=== PATIENT | female | born 1945 | race Hispanic/Latino ===

== ENCOUNTER 2017-12-10 21:04 | Emergency (ER) | payer MEDICARE ==
[~2017-12-10] VITALS: Ht 149.9 cm; Wt 103.9 kg
[~2017-12-10 21:04] MED LIST: FLUTICASONE PRO16 GM; LEVAQUIN500 MG PO; METFORMIN HCL500 MG PO; METRONIDAZOLE500 MG PO; NITROGLYCERIN0.4 MG SL; OMEPRAZOLE40 MG PO; PRAVASTATIN SOD10 MG PO; SIMVASTATIN40 MG PO; VITAMIN D1000 UNI1 PO
--- OUTSIDE RECORDS SUMMARY | 2017-12-10 21:06 | XMS REPORT ---
Author Author [facility] Address Unknown Phone Unavailable Care Team Providers Care Lines Tender Name Role Phone JOSE A MA Unavailable Unavailable Problems This patient has no known problems. Allergies, Adverse Reactions, Alerts This patient has no known allergies or adverse reactions. Medications This patient has no known medications. Results Test Description Test Time Test Comments Text Results Atomic Results Result Comments CHEST 2 VIEWS [place] [address] Patient Name: CEDRICK HOLT MR #: [id number] : 1945 Age/Sex: 72/F Req # : [id number] Adm Physician: Ordered by: JOSE A MA MD Report #: [id number] Location: ER Room/Bed: Procedure: [id number] DX/CHEST 2 VIEWS Exam Date: 09/23/17 Exam Time: 1135 REPORT STATUS: Signed PROCEDURE: Frontal and lateral views of the chest. COMPARISON: [facility], DX, CHEST SINGLE (PORTABLE ), 04/08/2017, 19:35. INDICATIONS: COUGH FINDINGS: Lines/ tubes: None. Lungs: The lungs are mildly hypoinflated.. There is no evidence of pneumonia or pulmonary edema. Pleura: There is no pleural effusion or pneumothorax. Heart and mediastinum: The heart and the mediastinum are normal. Bones: No acute bony abnormality. Multilevel spondylosis of the mid to lower thoracic spine. IMPRESSION: 1. No acute cardiopulmonary disease. Chucky Mcneil M.D. Dictated by: Chucky Mcneil M.D. on 09/23/2017 at 12:08 Electronically approved by: Chucky Mcneil M.D. on 09/23/2017 at 12: 08 Dictated By: HARRIET MCNEIL MD, MD [id number] Transcribed By: YAA on 09/23/17 120 COPY TO: JOSE A MA MD
[2017-12-10] MEDS ORDERED: ACETAMINOPHEN/CODEINE ELIX 120-12 MG/5 ML UDC NG ONE (21:30)
[2017-12-10] MEDS ORDERED: ONDANSETRON HCL 4 MG ORAL DISINTEGRATING TAB PO ONE (21:30)
[2017-12-10] MEDS ORDERED: ALBUTEROL/IPRATROPIUM 3 ML NEB NEB ONE (21:30)
[2017-12-10] MEDS ORDERED: CEFAZOLIN SOD 1 GM/NS 50ML 50 ML IV ONE (22:15)
[2017-12-10] MEDS ORDERED: KETOROLAC TROMETHAMINE 30 MG/ML VIAL IV STA (22:22)
[2017-12-10] MEDS ORDERED: PROMETHAZINE 12.5MG/ NACL 0.9% 12.5 MG/50 ML BAG IV ONE (22:30)
[2017-12-10 23:16] VITALS: BP 154/65
== END 2017-12-10 22:55 | disposition home or self-care (01) ==
LOC: FSED 21:04
DX: R50.9 Fever, unspecified (principal); R05 Cough; R11.2 Nausea with vomiting, unspecified; J20.9 Acute bronchitis, unspecified; R19.7 Diarrhea, unspecified; N30.91 Cystitis, unspecified with hematuria; I10 Essential (primary) hypertension
CPT/HCPCS: 85025; 93005; 96365; 96374; 96375; 99283; J1885

== ENCOUNTER 2018-03-19 14:27 | Observation (INO) | payer MEDICARE ==
[~2018-03-19] VITALS: Ht 149.9 cm; Wt 98.5 kg
--- OUTSIDE RECORDS SUMMARY | 2018-03-19 15:36 | XMS REPORT | Continuity of Care Document ---
Author Author [facility] Organization [facility] Address [address] [place] [address] Phone Unavailable Care Team Providers Care Fur Polisher Name Role Phone KORIN BRUCE MD PCP Insurance Providers Guarantor Cedrick Holt Address [address] [place] [address] Email [email or web address] Payer [facility] Policy Number [id number] Subscriber's Name Cedrick Holt Relationship 18 Self / Same As Patient Group Name RETIRED Effective Date 15 Expiration Date 78 Advance Directives Directive Response Recorded Date/Time Does the patient have an advance directive? No 04/09/17 1:20am If yes, is advance directive on file with [facility]? No 08/07/16 1:10am If not on file with [facility] will patient provide a copy? Yes 04/08/17 9:18pm Problems Medical Problem Onset Date Status Bronchitis 10/19/2014 Acute Chest pain Unknown Diverticulitis Unknown Influenza B 10/19/2014 Acute Urinary tract infection Unknown Acute Medications Current Home Medications Medication Dose Units Route Directions Days Qty Instructions Start Date Cholecalciferol (Vitamin D3) (Vitamin D) 1,000 Unit Tablet Unit Oral Use As Directed 30 Tab once a week Metformin Hcl 500 Mg Tablet 500 Mg Oral Twice A Day 60 Tab Omeprazole 40 Mg Capsule.dr 40 Mg Oral Daily Pravastatin Sodium 10 Mg Tablet 1 Tab Oral Bedtime Past Home Medications Medication Directions Ordered Status Fluticasone Propionate 16 Gm [place].susp, 1 Spr Nasal Daily Discontinued Levofloxacin (Levaquin) 500 Mg Tablet, 500 Mg Oral Daily 08/11/16 Discontinued Metronidazole 500 Mg Tablet, 500 Mg Oral Three Times A Day 08/11/16 Discontinued Nitroglycerin 0.4 Mg Tab.subl, 0.4 Mg Sublingual Every 5 Minutes as needed for Chest Pain Discontinued Simvastatin 40 Mg Tablet, 40 Mg Oral Daily Discontinued Social History Social History Problem Response Recorded Date/Time Onset Date Status Hx Psychiatric Problems No 04/09/2017 1:20am Not Applicable Not Applicable Hx Eating Disorder No 04/09/2017 1:20am Not Applicable Not Applicable Hx Substance Use Disorder No 04/09/2017 1:20am Not Applicable Not Applicable Hx Depression No 04/09/2017 1:20am Not Applicable Not Applicable Hx Alcohol Use No 04/09/2017 1:20am Not Applicable Not Applicable Hx Substance Use Treatment No 04/09/2017 1:20am Not Applicable Not Applicable Hx Physical Abuse No 08/07/2016 1:10am Not Applicable Not Applicable Hospital Discharge Instructions No hospital discharge instruction information available. Plan of Care Discharge Date 12/10/17 10:55pm Disposition HOME, SELF-CARE Condition at Discharge Stable Instructions/Education Provided Pleurisy Urinary Tract Infection - Women Viral Syndrome - Adult Forms Provided Work/School Excuse Prescriptions See Medication Section Referrals KORIN BRUCE MD Address: [address] [place] [id number] Additional Instructions/Education Discussed with patient current medical conditions. Recommend medical therapy with follow up with MD in 2-4 days. Increase fluids and take Tylenol/Motrin for fever. ED warnings given to proceed to ER if symptoms worsen with high fever, vomiting, or shortness of breath/chest pain. Functional Status No functional status information available. Allergies, Adverse Reactions, Alerts Allergen Type Severity Reaction Status Last Updated Pregabalin Allergy Mild Sore throat Active 09/23/17 Immunizations No immunization information available. Vital Signs Acute Vital Signs Vital Response Date/Time Temperature (Fahrenheit) 98.0 degrees F (97.6 - 99.5) 12/10/2017 11:16pm Pulse Pulse Rate (adult) 74 bpm (60 - 90) 12/10/2017 11:16pm Respiratory Rate 16 bpm (12 - 24) 12/10/2017 11:16pm Blood Pressure 154/65 mm Hg 12/10/2017 11:16pm Height 4 ft 11 in 12/10/2017 9:06pm Weight 229 lb 12/10/2017 9:06pm Body Mass Index 46.3 kg/m^2 12/10/2017 9:06pm Results Laboratory Results Test Name Result Units Flags Reference Collection Date/Time Result Date/ Time Comments Urine Color STRAW YELLOW 04/08/2017 6:42pm 04/08/2017 9:40pm Urine Clarity TURBID H CLEAR 04/08/2017 6:42pm 04/08/2017 9:40pm Urine Specific [place] 1.020 1.010-1.025 04/08/2017 6:42pm 2016 9:40pm Urine pH 6 5 - 7 04/08/2017 6:42pm 04/08/2017 9:40pm Urine Leukocyte Esterase NEGATIVE NEGATIVE 04/08/2017 6:42pm 2016 9:40pm Urine Nitrite POSITIVE H NEGATIVE 04/08/2017 6:42pm 04/08/2017 9:40pm Urine Protein NEGATIVE NEGATIVE 04/08/2017 6:42pm 04/08/2017 9:40pm Urine Glucose (UA) NEGATIVE NEGATIVE 04/08/2017 6:42pm 04/08/2017 9: 40pm Urine Ketones 1+ H NEGATIVE 04/08/2017 6:42pm 04/08/2017 9:40pm Urine Urobilinogen 0.2 mg/dL 0.2 - 1 04/08/2017 6:42pm 04/08/2017 9: 40pm Urine Bilirubin NEGATIVE NEGATIVE 04/08/2017 6:42pm 04/08/2017 9: 40pm Urine Blood TRACE H NEGATIVE 04/08/2017 6:42pm 04/08/2017 9:40pm Urine WBC 0-5 /HPF 0-5 04/08/2017 6:42pm 04/08/2017 10:00pm Urine RBC 0-5 /HPF 0-5 04/08/2017 6:42pm 04/08/2017 10:00pm Urine Bacteria MANY /HPF H NONE 04/08/2017 6:42pm 04/08/2017 10:00pm Urine Epithelial Cells FEW /LPF NONE 04/08/2017 6:42pm 04/08/2017 10: 00pm Bedside Glucose 214 mg/dL H 70-120 04/09/2017 3:57pm 04/09/2017 4:33pm Meter ID: [id number] Triglycerides Level 78 MG/DL 0-149 04/09/2017 6:40am 04/09/2017 9:19am Cholesterol Level 131 MD/DL 0-199 04/09/2017 6:40am 04/09/2017 7:34am Less than 200 mg/dL Low Risk 201 - 239 mg/dL Borderline Risk 240 mg/dl and greater High Risk LDL Cholesterol 67 MG/DL 60-130 04/09/2017 6:40am 04/09/2017 9:19am HDL Cholesterol 48 MG/DL 40-60 04/09/2017 6:40am 04/09/2017 7:34am Cholesterol/HDL Ratio 2.7 L 3.0-3.6 04/09/2017 6:40am 04/09/2017 7: 34am White Blood Count 11.50 x10e3/uL H 4.8-10.8 09/23/2017 3:35pm 2016 3:58pm Red Blood Count 4.70 x10e6/uL 3.6-5.1 09/23/2017 3:35pm 09/23/2017 3: 58pm Hemoglobin 14.6 g/dL 12.0-16.0 09/23/2017 3:35pm 09/23/2017 3:58pm Hematocrit 44.2 % H 34.2-44.1 09/23/2017 3:35pm 09/23/2017 3:58pm Mean Corpuscular Volume 94.0 fL 81-99 09/23/2017 3:35pm 09/23/2017 3: 58pm Mean Corpuscular Hemoglobin 31.1 pg 28-32 09/23/2017 3:35pm 09/23/2017 3:58pm Mean Corpuscular Hemoglobin Concent 33.0 g/dL 31-35 09/23/2017 3:35pm 09/23/2017 3:58pm Red Cell Distribution Width 13.0 % 11.7-14.4 09/23/2017 3:35pm 2016 3:58pm Platelet Count 214 x10e3/uL 140-360 09/23/2017 3:35pm 09/23/2017 3: 58pm Neutrophils (%) (Auto) 82.6 % H 38.7-80.0 09/23/2017 3:35pm 09/23/2017 3 :58pm Lymphocytes (%) (Auto) 10.7 % L 18.0-39.1 09/23/2017 3:35pm 09/23/2017 3 :58pm Monocytes (%) (Auto) 5.3 % 4.4-11.3 09/23/2017 3:35pm 09/23/2017 3: 58pm Eosinophils (%) (Auto) 0.7 % 0.0-6.0 09/23/2017 3:35pm 09/23/2017 3: 58pm Basophils (%) (Auto) 0.3 % 0.0-1.0 09/23/2017 3:35pm 09/23/2017 3:58pm IM GRANULOCYTES % 0.4 % 0.0-1.0 09/23/2017 3:35pm 09/23/2017 3:58pm Neutrophils # (Auto) 9.5 H 2.1-6.9 09/23/2017 3:35pm 09/23/2017 3: 58pm Lymphocytes # (Auto) 1.2 1.0-3.2 09/23/2017 3:35pm 09/23/2017 3:58pm Monocytes # (Auto) 0.6 0.2-0.8 09/23/2017 3:35pm 09/23/2017 3:58pm Eosinophils # (Auto) 0.1 0.0-0.4 09/23/2017 3:35pm 09/23/2017 3:58pm Basophils # (Auto) 0.0 0.0-0.1 09/23/2017 3:35pm 09/23/2017 3:58pm Absolute Immature Granulocyte (auto 0.05 x10e3/uL 0-0.1 09/23/2017 3: 35pm 09/23/2017 3:58pm Prothrombin Time 13.8 seconds 11.9-14.5 09/23/2017 3:35pm 09/23/2017 4: 07pm Prothromb Time International Ratio 1.01 09/23/2017 3:35pm 2016 4:07pm Oral Anticoagulant Therapy INR Values: 1. Low Intensity Therapy 1.5 - 2.0 2. Moderate Intensity Therapy 2.0 - 3.0 3. High Intensity Therapy(1) 2.5 - 3.5 4. High Intensity Therapy(2) 3.0 - 4.0 5. Panic Value INR > 5.0 Activated Partial Thromboplast Time 32.3 seconds 23.8-35.5 09/23/2017 3: 35pm 09/23/2017 4:07pm Sodium Level 140 mmol/L 136-145 09/23/2017 3:35pm 09/23/2017 4:14pm Potassium Level 3.4 mmol/L L 3.5-5.1 09/23/2017 3:35pm 09/23/2017 4: 14pm Chloride Level 102 mmol/L 98-107 09/23/2017 3:35pm 09/23/2017 4:14pm Influenza Virus Types A,B Antigen NEGATIVE NEGATIVE 09/23/2017 11: 06am 09/23/2017 11:55am Carbon Dioxide Level 25 mmol/L 09/23/2017 3:35pm 09/23/2017 4: 14pm Anion Gap 16.4 mmol/L H 8-16 09/23/2017 3:35pm 09/23/2017 4:14pm Blood Urea Nitrogen 8 mg/dL -09/23/2017 3:35pm 09/23/2017 4:14pm Creatinine 0.72 mg/dL 0.57-1.11 09/23/2017 3:35pm 09/23/2017 4:14pm BUN/Creatinine Ratio 11 -09/23/2017 3:35pm 09/23/2017 4:14pm Estimat Glomerular Filtration Rate > 60 ML/MIN 60- 09/23/2017 3:35pm 4:14pm Ranges were taken from the National Kidney Disease Education Program and the National Kidney Foundation literature. Reference ranges: 60 or greater: Normal 16-59 (for 3 consecutive months): Chronic kidney disease 15 or less: Kidney failure Glucose Level 202 mg/dL H 74-118 09/23/2017 3:35pm 09/23/2017 4:14pm Calcium Level 9.5 mg/dL 8.4-10.2 09/23/2017 3:35pm 09/23/2017 4:14pm Total Bilirubin 1.0 mg/dL 0.2-1.2 09/23/2017 3:35pm 09/23/2017 4:14pm Aspartate Amino Transf (AST/SGOT) 93 IU/L H 5-34 09/23/2017 3:35pm 09/23 4:14pm Alanine Aminotransferase (ALT/SGPT) 54 IU/L 0-55 09/23/2017 3:35pm 4:14pm Total Protein 8.5 g/dL H 6.5-8.1 09/23/2017 3:35pm 09/23/2017 4:14pm Albumin 3.8 g/dL 3.5-5.0 09/23/2017 3:35pm 09/23/2017 4:14pm Globulin 4.7 g/dL H 2.3-3.5 09/23/2017 3:35pm 09/23/2017 4:14pm Albumin/Globulin Ratio 0.8 0.8-2.0 09/23/2017 3:35pm 09/23/2017 4: 14pm Alkaline Phosphatase 101 IU/L 40-150 09/23/2017 3:35pm 09/23/2017 4: 14pm Creatine Kinase 87 IU/L 29-168 09/23/2017 3:35pm 09/23/2017 4:14pm Creatine Kinase MB 0.40 ng/mL 0.00-5.00 09/23/2017 3:35pm 09/23/2017 4: 28pm Troponin I < 0.001 ng/mL 0-0.300 09/23/2017 3:35pm 09/23/2017 4:28pm Procedures Procedure Status Date Provider(s) US abdomen complete Active 04/09/17 KORIN BRUCE MD X-ray of chest, two views Active 09/23/17 JOSE A MA MD Encounters Encounter Location Arrival/Admit Date Discharge/Depart Date Attending Provider Departed Emergency Room [facility] 12/10/17 9:04pm 10:55pm TYRELL LORA MD Departed Emergency Room [facility] 09/23/17 10:48am 09/23 7:14JOSE A Her MD Discharged Inpatient (obs) [facility] 04/08/17 11:32pm 5:00pm KORIN BRUCE MD
[2018-03-19 16:00] VITALS: BP 138/80
--- NOTE | 2018-03-19 17:25 | Diagnostic Imaging Report ---
Examination: CT BRAIN WITHOUT CONTRAST History:Headache. Vision changes. Comparison studies:None Technique: Axial images were obtained from the skull base to the vertex. Coronal and sagittal images reconstructed from the axial data. Intravenous contrast: None Findings: Scalp: No abnormalities. Bones: No fractures, blastic or lytic lesions. Brain sulci: Appropriate for age. Ventricles: Normal in size and configuration. No hydrocephalus. Extra-axial space: No abnormalities. Parenchyma: No masses, hemorrhage, or acute or chronic cortical based vascular insults. Sellar/suprasellar region: No abnormalities. Craniocervical junction: Patent foramen magnum. No Chiari one malformation. Incidental findings: None. Impression: No intracranial abnormalities. Signed by: Dr. Arlette Lara M.D. on 03/19/2018 5:21 PM
[2018-03-19 18:12] LABS: BASOPHILS # (AUTO) 0.1 (0.0-0.1); BASOPHILS % 0.5 % (0.0-1.0); EOSINOPHILS # (AUTO) 0.2 (0.0-0.4); EOSINOPHILS % 1.7 % (0.0-6.0); HEMATOCRIT 43.3 % (34.2-44.1); HEMOGLOBIN 14.2 g/dL (12.0-16.0); LYMPHOCYTES # (AUTO) 2.6 (1.0-3.2); LYMPHOCYTES % 26.1 % (18.0-39.1); MEAN CORPUSCULAR HEMOGLOBIN 30.7 pg (28-32); MEAN CORPUSCULAR HGB CONC 32.8 g/dL (31-35); MEAN CORPUSCULAR VOLUME 93.7 fL (81-99); MONOCYTES # (AUTO) 0.6 (0.2-0.8); MONOCYTES % 5.6 % (4.4-11.3); NEUTROPHILS # (AUTO) 6.7 (2.1-6.9); NEUTROPHILS % 65.8 % (38.7-80.0); PLATELET COUNT 259 x10e3/uL (140-360); RED BLOOD COUNT 4.62 x10e6/uL (3.6-5.1); RED CELL DISTRIBUTION WIDTH 13.4 % (11.7-14.4)
[2018-03-19 18:32] LABS: ALANINE AMINOTRANSFERASE 18 IU/L (0-55); ALBUMIN 3.7 g/dL (3.5-5.0); ALBUMIN/GLOBULIN RATIO 0.9 (0.8-2.0); ALKALINE PHOSPHATASE 78 IU/L (40-150); ANION GAP 16.9 mmol/L (8-16); BLOOD UREA NITROGEN 8 mg/dL (7-26); BUN/CREATININE RATIO 13 (6-25); CALCIUM 9.9 mg/dL (8.4-10.2); CARBON DIOXIDE 25 mmol/L (22-29); CHLORIDE 101 mmol/L (98-107); CREATININE, SERUM 0.64 mg/dL (0.57-1.11); EST GLOMERULAR FILTRATION RATE > 60 ML/MIN (60-); GLUCOSE 106 mg/dL (74-118); POTASSIUM 3.9 mmol/L (3.5-5.1); SODIUM 139 mmol/L (136-145)
[2018-03-19 18:33] LABS: BILIRUBIN,URINE NEGATIVE (NEGATIVE); CLARITY,URINE SL CLOUDY (CLEAR); COLOR,URINE YELLOW (YELLOW); KETONES,URINE NEGATIVE (NEGATIVE); LEUKOCYTE ESTERASE ,URINE NEGATIVE (NEGATIVE); NITRITE,URINE NEGATIVE (NEGATIVE); PROTEIN,URINE DIPSTICK NEGATIVE (NEGATIVE); URINE UROBILINOGEN 0.2 mg/dL (0.2 - 1)
[2018-03-19] MEDS ORDERED: SODIUM CHLORIDE 0.9% 250ML 250 ML ONE (18:37)
[2018-03-19 18:46] LABS: BACTERIA,URINE MANY /HPF; EPITHELIAL CELLS,URINE MODERATE /LPF; TRANSITIONAL EPI CELLS,URINE FEW
[2018-03-19] MEDS: VANCOMYCIN 1GM/NS 250 ML 250 ML IV SCH (18:50)
[2018-03-19] MEDS ORDERED: HYDROMORPHONE 1MG/1ML INJ IV PRN (19:00)
[2018-03-19] MEDS ORDERED: HYDROMORPHONE 2MG/ML INJ IV PRN (19:30)
[2018-03-19 20:00] VITALS: BP 132/60
[2018-03-19] MEDS: CEFTRIAXONE SOD 1 GM VIAL IV SCH (20:14)
[2018-03-19] MEDS ORDERED: PANTOPRAZOLE SO40 MG PO (20:21)
[2018-03-19] MEDS ORDERED: GLIMEPIRIDE2 MG PO (20:21)
[2018-03-19] MEDS ORDERED: PRAVASTATIN SOD40 MG PO (20:21)
[2018-03-19] MEDS ORDERED: METFORMIN HCL 500 MG TAB PO SCH (21:45)
[2018-03-19] MEDS: METFORMIN HCL 850 MG TAB PO SCH (21:58)
[2018-03-20] VITALS (7 sets, daily range): BP systolic 112–127; BP diastolic 56–61
[2018-03-20] MEDS ORDERED: GLIMEPIRIDE 2 MG TAB PO SCH ×2 (07:30→21:00)
[2018-03-20] MEDS: METFORMIN HCL 850 MG TAB PO SCH ×2 (08:16→20:02)
[2018-03-20] MEDS: OSELTAMIVIR PHOSPHATE 75 MG CAP PO SCH ×2 (08:16→20:02)
[2018-03-20] MEDS ORDERED: PANTOPRAZOLE SOD 40 MG TABEC PO SCH (09:00)
[2018-03-20] MEDS: VANCOMYCIN 1GM/NS 250 ML 250 ML IV SCH (17:45)
[2018-03-20] MEDS: CEFTRIAXONE SOD 1 GM VIAL IV SCH (20:02)
[2018-03-20] MEDS ORDERED: MUCINEX DM ER1 EACH PO (20:34)
[2018-03-20] MEDS ORDERED: FLAGYL500 MG PO (20:34)
[2018-03-20] MEDS ORDERED: TESSALON PERLE100 MG PO (20:34)
[2018-03-20] MEDS ORDERED: TAMIFLU75 MG PO (20:34)
[2018-03-20] MEDS ORDERED: ZITHROMAX500 MG PO (20:34)
[2018-03-20] MEDS ORDERED: KEFLEX500 MG PO (20:34)
--- NOTE | 2018-03-20 21:15 | Discharge Summary ---
PRINCIPAL DIAGNOSES 1. Acute influenza B infection. 2. Acute urinary tract infection. 3. Diarrhea, possibly bacterial. 4. Diabetes mellitus, type 2. 5. Dyspepsia. SECONDARY DIAGNOSIS: Diabetes mellitus, type 2. CHIEF COMPLAINT: Runny nose, headache, and vision changes. HISTORY OF PRESENT ILLNESS: This is a 71-year-old woman with a runny nose, headache and vision changes. Please refer to the H and P for further details. HOSPITAL COURSE: The patient was found to have influenza B infection. Also found to have a urinary tract infection. She did receive IV vancomycin and Zosyn and was transitioned home with azithromycin, Keflex, Flagyl and Tamiflu. The patient is feeling better and is currently appropriate for discharge with followup. DISCHARGE MEDICATIONS: Per electronic medical record. FOLLOWUP: With primary care doctor in 1 week. BARBARA ERVIN MD Job#: [id number]
--- NOTE | 2018-03-21 15:10 | History and Physical ---
PRIMARY CARE PHYSICIAN: Dr. Bin Hankins CHIEF COMPLAINT: Headache, vision changes, and runny nose. HISTORY OF PRESENT ILLNESS: This is a 73-year-old woman with the history of diabetes mellitus, type 2, now developing a headache, blurred vision changes, runny nose, and chills at home. Patient's daughter is currently hospitalized with bacterial meningitis. Patient is quite concerned. She did visit me in the clinic and I sent her to the hospital for direct admission for further evaluation and management. Patient denies any chest pain. She did have 4 episodes of diarrhea during hospitalization, could have been secondary to the antibiotics. Diarrhea has resolved today. She is feeling better and would like to go home. PAST MEDICAL HISTORY: Diabetes mellitus, type 2, hypertension, diabetic ketoacidosis, acute bronchitis, osteoarthritis, small-bowel obstruction in 2009 at [facility], dyspepsia, morbid obesity, osteopenia. PAST SURGICAL HISTORY: Hysterectomy, hernia repair, right knee replacement, cholecystectomy in 1996. ALLERGIES: PER ELECTRONIC MEDICAL RECORD. FAMILY HISTORY: Patient is . No alcohol, illicits or cigarettes. MEDICATIONS: Per electronic medical records. REVIEW OF SYSTEMS: Denies any dizziness or chest pain. PHYSICAL EXAMINATION VITAL SIGNS: Reviewed. GENERAL: A tired-appearing woman resting in bed. HEENT: Anicteric. Pupils reactive to light. CARDIOVASCULAR: Normal S1 and S2. LUNGS: She has good breath sounds. Mild wheeze at base. ABDOMEN: Soft, nontender. EXTREMITIES: No edema, calf tenderness. NEUROLOGICAL: Alert and oriented times 3. Moves all extremities. SKIN: Dry. PSYCHIATRIC: Flat affect. LABS: Reviewed. MEDICATIONS: Reviewed. ASSESSMENT AND PLAN: This is a 73-year-old woman with 1. Influenza B infection, currently on Tamiflu, supportive care. 2. Urinary tract infection. She received IV vancomycin and Zosyn. Will transition home with Keflex. 3. Diabetes mellitus, type 2. Continue insulin regimen and diabetic diet. 4. Dyspepsia. Continue medication regimen. 5. Morbid obesity. Needs caloric restriction outpatient. 6. Acute bronchitis. Will be treated with azithromycin when she transitions home. 7. Cough. Will treat her with antitussive medication. 8. Hyperlipidemia. Continue home medication regimen. 9. Prophylaxis. Will treat her with sequential compression device and Pepcid. 10. Disposition. Currently transition home with azithromycin, antitussive medication. Flagyl for diarrhea and Tamiflu. Job#: [id number] CQ
== END 2018-03-20 21:37 | disposition home or self-care (01) ==
LOC: MED/SURG3 15:33
PROVIDERS: ADMIT Internal Medicine; ATTEND Internal Medicine
DX: J11.1 Influenza due to unidentified influenza virus with other respiratory manifestations (principal); N39.0 Urinary tract infection, site not specified; R51 Headache; E11.9 Type 2 diabetes mellitus without complications; H53.8 Other visual disturbances; R10.13 Epigastric pain; J20.9 Acute bronchitis, unspecified; E66.01 Morbid (severe) obesity due to excess calories; R05 Cough; E78.5 Hyperlipidemia, unspecified; R19.7 Diarrhea, unspecified
CPT/HCPCS: 36415 ×2; 70450; 80053; 81001; 82948 ×2; 85025; 87040; 87086; 87299; 87400; G0378 ×2; J0696 ×2; J3370 ×2; J7050; S0164

== ENCOUNTER 2018-07-20 15:01 | Inpatient (IN) | payer MEDICARE ==
[~2018-07-20] VITALS: Ht 149.9 cm; Wt 102.3 kg
[~2018-07-20 15:01] MED LIST changes: +FLAGYL500 MG PO; +GLIMEPIRIDE2 MG PO; +KEFLEX500 MG PO; +MUCINEX DM ER1 EACH PO; +PANTOPRAZOLE SO40 MG PO; +PRAVASTATIN SOD40 MG PO; +TAMIFLU75 MG PO; +TESSALON PERLE100 MG PO; +ZITHROMAX500 MG PO
[2018-07-20 15:42] LABS: CLARITY,URINE SL CLOUDY (CLEAR); COLOR,URINE YELLOW (YELLOW); LEUKOCYTE ESTERASE ,URINE 2+ (NEGATIVE)
[2018-07-20 15:43] LABS: BILIRUBIN,URINE NEGATIVE (NEGATIVE); KETONES,URINE NEGATIVE (NEGATIVE); NITRITE,URINE NEGATIVE (NEGATIVE); PROTEIN,URINE DIPSTICK NEGATIVE (NEGATIVE); URINE UROBILINOGEN 0.2 mg/dL (0.2 - 1)
[2018-07-20 15:58] LABS: BACTERIA,URINE MANY /HPF; EPITHELIAL CELLS,URINE MANY /LPF; RBC,URINE 0-5 /HPF (0-5); TRANSITIONAL EPI CELLS,URINE MODERATE
[2018-07-20] MEDS ORDERED: DIATRIZOATE MEGL/DIATRIZOA SOD 30 ML BTL PO ONE (16:46)
[2018-07-20 17:10] LABS: BASOPHILS % 0.4 % (0.0-1.0); EOSINOPHILS # (AUTO) 0.2 (0.0-0.4); EOSINOPHILS % 1.8 % (0.0-6.0); HEMATOCRIT 43.6 % (34.2-44.1); HEMOGLOBIN 14.2 g/dL (12.0-16.0); LYMPHOCYTES # (AUTO) 2.9 (1.0-3.2); LYMPHOCYTES % 28.8 % (18.0-39.1); MEAN CORPUSCULAR HEMOGLOBIN 30.5 pg (28-32); MEAN CORPUSCULAR HGB CONC 32.6 g/dL (31-35); MEAN CORPUSCULAR VOLUME 93.8 fL (81-99); MONOCYTES # (AUTO) 0.6 (0.2-0.8); MONOCYTES % 6.3 % (4.4-11.3); NEUTROPHILS # (AUTO) 6.3 (2.1-6.9); NEUTROPHILS % 62.2 % (38.7-80.0); PLATELET COUNT 247 x10e3/uL (140-360); RED BLOOD COUNT 4.65 x10e6/uL (3.6-5.1); RED CELL DISTRIBUTION WIDTH 13.2 % (11.7-14.4)
[2018-07-20 17:26] LABS: ALANINE AMINOTRANSFERASE 21 IU/L (0-55); ALBUMIN 3.9 g/dL (3.5-5.0); ALBUMIN/GLOBULIN RATIO 0.9 (0.8-2.0); ALKALINE PHOSPHATASE 78 IU/L (40-150); ANION GAP 17.7 mmol/L (8-16); BLOOD UREA NITROGEN 11 mg/dL (7-26); BUN/CREATININE RATIO 15 (6-25); CALCIUM 10.2 mg/dL (8.4-10.2); CARBON DIOXIDE 25 mmol/L (22-29); CHLORIDE 103 mmol/L (98-107); CREATININE, SERUM 0.73 mg/dL (0.57-1.11); EST GLOMERULAR FILTRATION RATE > 60 ML/MIN (60-); GLUCOSE 103 mg/dL (74-118); POTASSIUM 4.7 mmol/L (3.5-5.1); SODIUM 141 mmol/L (136-145)
[2018-07-20] MEDS ORDERED: PHENAZOPYRIDINE HCL 100 MG TAB PO ONE (18:30)
[2018-07-20] MEDS ORDERED: CEFTRIAXONE SOD 1 GM VIAL IM ONE (18:30)
--- NOTE | 2018-07-20 18:50 | Diagnostic Imaging Report ---
EXAMINATION: CT of the abdomen and pelvis with contrast. TECHNIQUE: Spiral CT images of the abdomen and pelvis were performed from the lung bases to the lesser trochanters after the intravenous administration of 100 cc of Isovue 370 and the oral administration of dilute Gastrografin. Coronal and sagittal reformatted images were obtained. COMPARISON: CT abdomen and pelvis with contrast and CLINICAL HISTORY:Back pain and lower abdominal pain, right flank pain DISCUSSION: ABDOMEN/PELVIS: LOWER THORAX:Unremarkable. HEPATOBILIARY: Diffuse hepatic steatosis. No focal lesions. Pneumobilia in the left central intrahepatic ducts. Mild dilation of the common bile duct, which measures 1.0 cm at the prakash hepatis. No radiopaque intraluminal filling defects. GALLBLADDER: Cholecystectomy clips SPLEEN: No splenomegaly. PANCREAS: No focal masses or ductal dilatation. Stable 2.9 cm duodenal diverticulum between the duodenum and pancreatic head ADRENALS: Stable 1.3 cm enhancing nodule in the left adrenal gland (series 2, image 20). Right adrenal gland is unremarkable. KIDNEYS/URETERS: No hydronephrosis, stones, or solid mass lesions. PELVIC ORGANS/BLADDER: Bladder is unremarkable. Uterus is absent. No adnexal masses. PERITONEUM/RETROPERITONEUM: No free air or fluid. Stable anterior peritoneal/omental nodularities (series 2, images 35-38), with the largest measuring approximately 2.2 x 1.3 cm and 1.5 x 1.4 cm LYMPH NODES: No intra-abdominal, retroperitoneal, pelvic or inguinal lymphadenopathy. VESSELS: The celiac trunk,superior and inferior mesenteric and bilateral renal arteries are patent The portal, superior mesenteric and splenic veins are patent. GI TRACT: Stable postoperative changes in the proximal to mid small bowel, with anastomotic sutures (sagittal image 88). No bowel dilation or evidence of obstruction. Descending and sigmoid colon diverticulosis, without surrounding inflammatory changes to suggest acute diverticulitis. Appendix is well identified and normal in caliber. BONES AND SOFT TISSUE: No aggressive lytic lesions. Degenerative disc changes in the lower thoracic and lumbosacral spine. Degenerative joint disease in bilateral sacroiliac joints, which is relatively stable. Soft tissues are grossly unremarkable. IMPRESSION: 1. No acute abdominopelvic abnormalities. 2. Descending and sigmoid colon diverticulosis, without diverticulitis. 3. Stable postoperative changes in the proximal to mid small bowel. No bowel dilation or obstruction. 4. No renal or ureteral calculi, hydronephrosis or obstruction. 5. Stable anterior peritoneal/omental nodularity which is probably benign given their stability is since exam dated 2016. These remain indeterminate, however, may represent focal areas of prior fat infarction or related to prior surgery. 6. Diffuse hepatic steatosis. 7. Mild dilation of the common bile duct, likely related to postcholecystectomy status. Signed by: Dr. Woodrow Ruelas M.D. on 07/20/2018 6:46 PM
[2018-07-20] MEDS ORDERED: KETOROLAC TROMETHAMINE 30 MG/ML VIAL IV STA (18:51)
[2018-07-20] MEDS ORDERED: ONDANSETRON HCL INJ 2 MG/ML VIAL IV STA (18:54)
[2018-07-20] MEDS ORDERED: CEFTRIAXONE SOD 1 GM VIAL IV SCH (20:15)
[2018-07-20] MEDS ORDERED: DEXTROSE 50% SYRINGE 50 ML IV PRN (21:00)
[2018-07-20] MEDS: INSULIN REGULAR, HUMAN 100 UNIT/1 ML 3ML VIAL SQ SCH (21:00)
[2018-07-20] MEDS: SODIUM CHLORIDE 0.9% 1000ML 1,000 ML IV SCH (21:20)
[2018-07-20] MEDS: MORPHINE SULFATE 2 MG/ML SYR IV PRN (21:20)
[2018-07-20] MEDS ORDERED: IOPAMIDOL 370 MG/ML 200 ML INFUS..BTL INJ ONE (21:27)
[2018-07-20] MEDS ORDERED: SODIUM CHLORIDE 0.9% 50ML 50 ML ONE (21:27)
[2018-07-20 21:54] VITALS: BP 133/61
[2018-07-20 22:10] VITALS: BP 132/57
[2018-07-21] VITALS (7 sets, daily range): BP systolic 93–126; BP diastolic 50–58
[2018-07-21 05:40] LABS: BASOPHILS % 0.4 % (0.0-1.0); EOSINOPHILS # (AUTO) 0.2 (0.0-0.4); EOSINOPHILS % 2.8 % (0.0-6.0); HEMATOCRIT 36.5 % (34.2-44.1); LYMPHOCYTES # (AUTO) 2.1 (1.0-3.2); LYMPHOCYTES % 30.7 % (18.0-39.1); MEAN CORPUSCULAR HEMOGLOBIN 30.8 pg (28-32); MEAN CORPUSCULAR HGB CONC 32.9 g/dL (31-35); MEAN CORPUSCULAR VOLUME 93.6 fL (81-99); MONOCYTES # (AUTO) 0.5 (0.2-0.8); MONOCYTES % 7.3 % (4.4-11.3); NEUTROPHILS % 58.7 % (38.7-80.0); PLATELET COUNT 233 x10e3/uL (140-360)
[2018-07-21] MEDS: ONDANSETRON HCL INJ 2 MG/ML VIAL IV PRN (06:56)
[2018-07-21] MEDS: MORPHINE SULFATE 2 MG/ML SYR IV PRN (06:56)
[2018-07-21] MEDS: CEFEPIME HCL 1 GM VIAL IV SCH ×2 (06:56→18:12)
[2018-07-21 07:03] LABS: ALANINE AMINOTRANSFERASE 20 IU/L (0-55); ALBUMIN 3.1 g/dL (3.5-5.0); ALBUMIN/GLOBULIN RATIO 0.9 (0.8-2.0); ALKALINE PHOSPHATASE 61 IU/L (40-150); ANION GAP 14.6 mmol/L (8-16); BLOOD UREA NITROGEN 11 mg/dL (7-26); BUN/CREATININE RATIO 16 (6-25); CALCIUM 9.6 mg/dL (8.4-10.2); CARBON DIOXIDE 22 mmol/L (22-29); CHLORIDE 106 mmol/L (98-107); CREATININE, SERUM 0.69 mg/dL (0.57-1.11); EST GLOMERULAR FILTRATION RATE > 60 ML/MIN (60-); GLUCOSE 107 mg/dL (74-118); POTASSIUM 3.6 mmol/L (3.5-5.1); SODIUM 139 mmol/L (136-145)
[2018-07-21] MEDS: INSULIN REGULAR, HUMAN 100 UNIT/1 ML 3ML VIAL SQ SCH ×4 (07:30→21:00)
[2018-07-21 08:00] LABS: CHOL/HDL RATIO 2.5 (3.0-3.6)
--- NOTE | 2018-07-21 08:04 | History and Physical ---
PRIMARY CARE PHYSICIAN: Bin Hankins MD CHIEF COMPLAINT: Right flank pain and right groin pain. HISTORY OF PRESENT ILLNESS: A 73-year-old woman with a history of recurrent urinary tract infection now developing worsening right flank pain. Came to the clinic due to symptoms. Unclear whether it is infectious or stone related. The patient also went to an urgent care facility, and told she had pyelonephritis. She is now here for CT scan imaging and urinalysis and urine culture and treatment. PAST MEDICAL HISTORY: Recurrent urinary tract infection, diabetes mellitus, type 2, hypertension, DKA, acute bronchitis, osteoarthritis, small-bowel obstruction in 2009 at [facility], dyspepsia, morbid obesity, osteopenia. PAST SURGICAL HISTORY: Hysterectomy, hernia repair, right knee replacement, cholecystectomy in 1996. ALLERGIES: PER ELECTRONIC MEDICAL RECORD. FAMILY HISTORY/SOCIAL HISTORY: The patient is . No alcohol, illicits or cigarettes. MEDICATIONS: Per electronic medical record. REVIEW OF SYSTEMS: Denies any dizziness, chest pain, shortness of breath, fever, chills, sweats, nausea, vomiting, leg pain, headache, vision changes. PHYSICAL EXAMINATION VITAL SIGNS: Reviewed. GENERAL: A tired-appearing woman resting in bed. HEENT: Anicteric. CARDIOVASCULAR: Normal S1 and S2. LUNGS: Moderate breath sounds. ABDOMEN: Soft and nondistended. She has tenderness in the right flank and right abdominal region. Jackson sign negative. EXTREMITIES: No edema. SKIN: Dry. PSYCHIATRIC: Normal affect. LABS: Reviewed. MEDICATIONS: Reviewed. ASSESSMENT: A 73-year-old woman with: 1. Acute right pyelonephritis/urinary tract infection. 2. Right abdominal pain. 3. Acute diarrhea. 4. Diabetes mellitus, type 2. 5. Hypertension. 6. Morbid obesity. PLAN 1. IV cefepime. 2. Follow up cultures. 3. Obtain hemoglobin A1c and lipid panel. 4. Obtain C. difficile testing. 5. Admit the patient to the hospital for acute pyelonephritis. 6. Physical therapy consultation. 7. Will use SCD and Pepcid. 8. Disposition. Monitor closely. Follow up cultures. Job#: [id number]
[2018-07-21] MEDS: PANTOPRAZOLE SOD 40 MG TABEC PO SCH (08:30)
[2018-07-21] MEDS: SODIUM CHLORIDE 0.9% 1000ML 1,000 ML IV SCH ×2 (08:30→21:59)
[2018-07-21] MEDS: GLIMEPIRIDE 2 MG TAB PO SCH (08:30)
--- NOTE | 2018-07-21 09:09 | Diagnostic Imaging Report ---
PROCEDURE:ABDOMINAL ULTRASOUND COMPARISON:None. INDICATIONS:RLQ PAIN FINDINGS: Somewhat technically difficult exam due to patient body habitus and bowel gas. Liver: Measures 16.1 cm. Increased hepatic parenchymal echogenicity. No focal mass. Main portal vein: Measures 0.9 cm. Hepatopedal flow. Gallbladder: Status post cholecystectomy. Common Bile Duct: Measures 0.6 cm. No echogenic filling defect. Sonographic Jackson's sign: Negative. Right kidney: Measures 11.9 cm. No solid or cystic mass, echogenic calculi, or hydronephrosis. Normal parenchymal echogenicity. Left kidney: Measures 9.2 cm. No solid or cystic mass, echogenic calculi, or hydronephrosis. Normal parenchymal echogenicity. Spleen: Measures 7.9 cm. Pancreas: The visualized portions of the pancreas are normal. Inferior vena cava: Normal. Aorta: Obscured by overlying bowel gas. Ascites: None. CONCLUSION: No acute sonographic abnormality. Hepatic steatosis. Dictated by: ISIAH HIGGINS M.D. on 07/21/2018 at 9:17 Electronically approved by: ISIAH HIGGINS M.D. on 07/21/2018 at 9:17
[2018-07-21] MEDS: BENZONATATE 100 MG CAP PO SCH ×2 (15:00→21:13)
[2018-07-21] MEDS ORDERED: NON-FORMULARY MEDICATION (Pravastatin Sodium 20 MG) PO SCH (21:00)
[2018-07-21] MEDS: PRAVASTATIN 20 MG TAB PO SCH (21:12)
[2018-07-22] VITALS: BP 151/67
[2018-07-22 04:00] VITALS: BP 104/59
[2018-07-22] MEDS: BENZONATATE 100 MG CAP PO SCH ×4 (06:37→21:58)
[2018-07-22] MEDS: CEFEPIME HCL 1 GM VIAL IV SCH ×2 (06:37→19:33)
[2018-07-22 07:00] VITALS: BP 120/59
[2018-07-22] MEDS: INSULIN REGULAR, HUMAN 100 UNIT/1 ML 3ML VIAL SQ SCH ×4 (07:30→21:00)
[2018-07-22] MEDS: PANTOPRAZOLE SOD 40 MG TABEC PO SCH (09:17)
[2018-07-22] MEDS: GLIMEPIRIDE 2 MG TAB PO SCH (09:18)
[2018-07-22 11:15] VITALS: BP 119/58
[2018-07-22] MEDS: SODIUM CHLORIDE 0.9% 1000ML 1,000 ML IV SCH ×2 (12:40→23:35)
[2018-07-22 16:00] VITALS: BP 129/75
[2018-07-22 20:00] VITALS: BP 130/59
[2018-07-22] MEDS: PRAVASTATIN 20 MG TAB PO SCH (21:53)
[2018-07-23] VITALS (8 sets, daily range): BP systolic 104–147; BP diastolic 55–71
[2018-07-23] MEDS: CEFEPIME HCL 1 GM VIAL IV SCH ×2 (05:46→18:24)
[2018-07-23] MEDS: BENZONATATE 100 MG CAP PO SCH ×3 (05:46→21:24)
[2018-07-23] MEDS: INSULIN REGULAR, HUMAN 100 UNIT/1 ML 3ML VIAL SQ SCH ×4 (07:30→21:23)
[2018-07-23] MEDS: GLIMEPIRIDE 2 MG TAB PO SCH (08:30)
[2018-07-23] MEDS: PANTOPRAZOLE SOD 40 MG TABEC PO SCH (08:30)
[2018-07-23] MEDS: SODIUM CHLORIDE 0.9% 1000ML 1,000 ML IV SCH (12:22)
[2018-07-23] MEDS: PRAVASTATIN 20 MG TAB PO SCH (21:06)
[2018-07-24] VITALS: BP 120/58
[2018-07-24] MEDS: SODIUM CHLORIDE 0.9% 1000ML 1,000 ML IV SCH ×3 (02:46→13:23)
[2018-07-24 04:00] VITALS: BP 101/56
[2018-07-24] MEDS: CEFEPIME HCL 1 GM VIAL IV SCH ×2 (06:21→18:30)
[2018-07-24] MEDS: BENZONATATE 100 MG CAP PO SCH ×3 (06:21→22:16)
[2018-07-24] MEDS: INSULIN REGULAR, HUMAN 100 UNIT/1 ML 3ML VIAL SQ SCH ×4 (07:30→20:54)
[2018-07-24] MEDS: PANTOPRAZOLE SOD 40 MG TABEC PO SCH (08:30)
[2018-07-24] MEDS: GLIMEPIRIDE 2 MG TAB PO SCH (08:30)
[2018-07-24 08:33] VITALS: BP 127/59
[2018-07-24 08:43] VITALS: BP 127/59
[2018-07-24 20:00] VITALS: BP 121/58
[2018-07-24] MEDS: PRAVASTATIN 20 MG TAB PO SCH (20:53)
[2018-07-24] MEDS ORDERED: ACETAMINOPHEN/CODEINE 300MG - 30MG TAB PO PRN (21:00)
[2018-07-24] MEDS: MORPHINE SULFATE 2 MG/ML SYR IV PRN (23:33)
[2018-07-24] MEDS: ONDANSETRON HCL INJ 2 MG/ML VIAL IV PRN (23:33)
[2018-07-25] VITALS: BP 123/57
--- NOTE | 2018-07-25 00:08 | Progress Note ---
DATE: July 23, 2018 TIME: 8:00 a.m. OVERNIGHT: No events reviewed. REVIEW OF SYSTEMS: Denies any dizziness, chest pain, shortness of breath, fever, chills, sweats, nausea, vomiting, or diarrhea. OBJECTIVE VITAL SIGNS: Reviewed. GENERAL: Tired-appearing woman, resting in bed. HEENT: Anicteric. CARDIOVASCULAR: Normal S1, S2. No murmur. LUNGS: Normal breath sounds. ABDOMEN: Soft, nontender, nondistended. Tenderness in the right flank and right abdomen. EXTREMITIES: No edema. SKIN: Dry. PSYCHIATRIC: Flat affect. NEUROLOGICAL: Alert and oriented times 3. Moving all extremities. ASSESSMENT: A 73-year-old woman with; 1. Acute right pyelonephritis/urinary tract infection. 2. Right abdominal pain. 3. Acute diarrhea. 4. Diabetes mellitus, type 2. 5. Hypertension. 6. Morbid obesity. 7. Clostridium difficile tested, negative. PLAN 1. Continue IV cefepime. 2. Continue followup testing. 3. Follow up cultures. 4. Continue physical therapy. Job#: [id number] RTY
--- NOTE | 2018-07-25 00:11 | Progress Note ---
DATE: July 22, 2018 TIME: 7 a.m. OVERNIGHT: Continues to have right abdominal pain. REVIEW OF SYSTEMS: Denies any dizziness, chest pain, shortness of breath, fever, chills, sweats, nausea, vomiting, or diarrhea. OBJECTIVE VITAL SIGNS: Reviewed. GENERAL: Tired-appearing woman, resting in bed. HEENT: Anicteric. CARDIOVASCULAR: Normal S1, S2. No murmur. LUNGS: Normal breath sounds. ABDOMEN: Soft and nondistended. She has tenderness in her right flank, right abdomen. EXTREMITIES: No edema. SKIN: Dry. PSYCHIATRIC: Normal affect. NEUROLOGICAL: Alert and oriented x3. LABS: Reviewed. MEDICATIONS: Reviewed. ASSESSMENT: A 73-year-old woman with; 1. Acute right pyelonephritis/urinary tract infection. 2. Right abdominal pain. 3. Acute diarrhea. 4. Diabetes mellitus type 2. 5. Hypertension. 6. Morbid obesity. PLAN 1. Follow up C. difficile testing. 2. All cultures are still negative. 3. Continue IV cefepime. 4. The patient is doing well. Job#: [id number] RTY
--- NOTE | 2018-07-25 00:16 | Progress Note ---
DATE: July 24, 2018 TIME: 12:30 p.m. OVERNIGHT: No events. REVIEW OF SYSTEMS: Denies any dizziness, chest pain, shortness of breath, fever, chills, sweats, nausea, vomiting, or diarrhea. OBJECTIVE VITAL SIGNS: Reviewed. GENERAL: Tired-appearing woman, resting in bed. HEENT: Anicteric. CARDIOVASCULAR: Normal S1, S2. No murmur. LUNGS: Normal breath sounds. ABDOMEN: Soft and nondistended. She has a right flank tenderness. The right abdomen is tender but less compared to previous day. EXTREMITIES: No edema. SKIN: Dry. PSYCHIATRIC: Flat affect. LABS: Reviewed. MEDICATIONS: Reviewed. ASSESSMENT: A 73-year-old with; 1. Acute right pyelonephritis/urinary tract infection with Klebsiella pneumoniae, Pseudomonas aeruginosa, and Enterobacter cloacae, all sensitive to cefepime. 2. Right abdominal pain. 3. Acute diarrhea. 4. Diabetes mellitus type 2. Her hemoglobin A1c is 6.2, LDL 50, and triglycerides 80. 5. Hypertension. 6. Morbid obesity. PLAN 1. Continue IV cefepime. 2. Await improvement in pain in the flank and right abdomen. 3. Continue diabetic diet. 4. Continue oral medications. 5. Patient is improving. Job#: [id number] LPA
[2018-07-25 00:58] VITALS: BP 123/57
[2018-07-25] MEDS: SODIUM CHLORIDE 0.9% 1000ML 1,000 ML IV SCH ×2 (02:16→14:13)
[2018-07-25 04:00] VITALS: BP 100/51
[2018-07-25] MEDS: CEFEPIME HCL 1 GM VIAL IV SCH ×2 (05:40→18:45)
[2018-07-25] MEDS: BENZONATATE 100 MG CAP PO SCH ×2 (05:40→14:13)
[2018-07-25 06:02] LABS: BASOPHILS % 0.5 % (0.0-1.0); EOSINOPHILS # (AUTO) 0.3 (0.0-0.4); EOSINOPHILS % 3.6 % (0.0-6.0); HEMATOCRIT 36.8 % (34.2-44.1); HEMOGLOBIN 11.9 g/dL (12.0-16.0); LYMPHOCYTES # (AUTO) 2.7 (1.0-3.2); LYMPHOCYTES % 35.1 % (18.0-39.1); MEAN CORPUSCULAR HEMOGLOBIN 30.2 pg (28-32); MEAN CORPUSCULAR HGB CONC 32.3 g/dL (31-35); MEAN CORPUSCULAR VOLUME 93.4 fL (81-99); MONOCYTES # (AUTO) 0.6 (0.2-0.8); MONOCYTES % 7.7 % (4.4-11.3); NEUTROPHILS % 52.8 % (38.7-80.0); PLATELET COUNT 219 x10e3/uL (140-360); RED BLOOD COUNT 3.94 x10e6/uL (3.6-5.1)
[2018-07-25 06:25] LABS: ANION GAP 12.8 mmol/L (8-16); BLOOD UREA NITROGEN 7 mg/dL (7-26); BUN/CREATININE RATIO 11 (6-25); CALCIUM 8.6 mg/dL (8.4-10.2); CARBON DIOXIDE 22 mmol/L (22-29); CHLORIDE 110 mmol/L (98-107); CREATININE, SERUM 0.62 mg/dL (0.57-1.11); EST GLOMERULAR FILTRATION RATE > 60 ML/MIN (60-); GLUCOSE 124 mg/dL (74-118); POTASSIUM 3.8 mmol/L (3.5-5.1); SODIUM 141 mmol/L (136-145)
[2018-07-25] MEDS: INSULIN REGULAR, HUMAN 100 UNIT/1 ML 3ML VIAL SQ SCH ×3 (07:30→16:02)
[2018-07-25] MEDS: GLIMEPIRIDE 2 MG TAB PO SCH (08:13)
[2018-07-25] MEDS: PANTOPRAZOLE SOD 40 MG TABEC PO SCH (08:13)
[2018-07-25 08:17] VITALS: BP 97/55
[2018-07-25 08:20] VITALS: BP 97/55
[2018-07-25 16:30] VITALS: BP 145/95
[2018-07-25] MEDS ORDERED: CIPRO500 MG PO (19:11)
[2018-07-25] MEDS ORDERED: PRAVASTATIN SOD20 MG PO (19:11)
--- NOTE | 2018-07-26 04:52 | Discharge Summary ---
PRINCIPAL DIAGNOSES 1. Acute right pyelonephritis/urinary tract infection. 2. Right abdominal pain. 3. Acute diarrhea. 4. Diabetes mellitus, type 2. 5. Hypertension. 6. Morbid obesity. SECONDARY DIAGNOSES 1. Recurrent urinary tract infection. 2. Diabetes mellitus, type 2, hypertension, diabetic ketoacidosis, acute bronchitis, osteoarthritis, small-bowel obstruction in 2009 at [place], dyspepsia, morbid obesity, osteopenia. SURGICAL HISTORY: Hysterectomy, hernia repair, right knee replacement, cholecystectomy in 1996. CHIEF COMPLAINT: Right flank pain and right groin pain. HPI: This is a 73-year-old woman with the history of recurrent urinary tract infections, began to develop worsening right flank pain and came to the clinic due to the symptoms. Onset, duration, aggravating, and alleviating factors not reported. From the clinic, the patient went into an urgent care facility and told she had pyelonephritis. The patient left the urgent care center and came to [facility] in [place], [place] for CT scan imaging, with UA and culture for treatment. The patient was admitted on that day and IV antibiotics and fluids were initiated in addition to laboratory workup. Imaging was positive for no findings of obstruction other than incidental hepatic steatosis. However, lab values indicated pyelonephritis. The patient remained hospitalized over the next 4 days with gradual improvement and pain and values with daily IV antibiotics and glucose management. DISCHARGE MEDICATIONS: She has new prescriptions for 1. Cipro 500 mg q.12 h for 7 days. 2. Pravastatin 20 mg p.o. nightly for 14 days. The patient will continue home meds which include 1. Tessalon Perles q.8 h. 2. Glimepiride 2 mg p.o. daily. 3. Mucinex DM q.12 h. 4. Metformin 500 tablets 850 mg p.o. q.12 h. 5. Flagyl 500 mg tabs p.o. t.i.d. 6. Tamiflu caps. 7. Protonix 40 mg p.o. daily. 8. The patient's prior dose of statin 40 mg. 9. Azithromycin and Keflex have been stopped. FOLLOWUP: Patient was instructed to contact PCP Dr. Barbara Ervin for followup in 1-2 weeks by making an appointment tomorrow. CONDITION ON DISCHARGE: Patient is leaving facility in improved and stable conditions. Patient is now tolerating ADA diet, p.o. fluids, and needs, and voiced no complaint upon exam at this date. Dictated By: Nathalie Lynch, DIRECTOR SOFTWARE QUALITY ASSURANCE BARBARA ERVIN MD Job#: [id number] CQ
== END 2018-07-25 20:15 | disposition home or self-care (01) | DRG 690 ==
LOC: ER 15:01 → OBSVTOIN 20:39 → ERHOLD 20:39 → MED/SURG 21:54
PROVIDERS: ADMIT Internal Medicine; ATTEND Internal Medicine
DX: N10 Acute pyelonephritis (principal); Z68.42 Body mass index [BMI] 45.0-49.9, adult; B96.89 Other specified bacterial agents as the cause of diseases classified elsewhere; E66.01 Morbid (severe) obesity due to excess calories; R19.7 Diarrhea, unspecified; I10 Essential (primary) hypertension; B96.1 Klebsiella pneumoniae [K. pneumoniae] as the cause of diseases classified elsewhere; E11.9 Type 2 diabetes mellitus without complications; K76.0 Fatty (change of) liver, not elsewhere classified; Z79.4 Long term (current) use of insulin
CPT/HCPCS: 36415; 74177; 76700; 80048; 80053; 80061; 81001; 82948; 83036; 85025; 87086; 87186; 87493; 97139; 99284; J0692; J0696; J1885; J2270; J2405; J7030; Q9967

== ENCOUNTER 2018-09-26 13:04 | Emergency (ER) | payer MEDICARE ==
[~2018-09-26] VITALS: Ht 149.9 cm; Wt 102.1 kg
[~2018-09-26 13:04] MED LIST changes: +CIPRO500 MG PO; +PRAVASTATIN SOD20 MG PO
--- NOTE | 2018-09-26 14:22 | Diagnostic Imaging Report ---
EXAMINATION: CHEST 2 VIEWS Clinical history: Cough. COMPARISON: 17. FINDINGS: TUBES and LINES: None. LUNGS: Lungs are well inflated. Lungs are clear. There is no evidence of pneumonia or pulmonary edema. PLEURA: No pleural effusion or pneumothorax. HEART AND MEDIASTINUM: The cardiomediastinal silhouette is unremarkable. BONES AND SOFT TISSUES: No acute osseous lesion. Lower thoracic DISH. UPPER ABDOMEN: No free air under the diaphragm. IMPRESSION: No acute thoracic abnormality. Signed by: Dr. Chucky Robb M.D. on 09/26/2018 2:19 PM
== END 2018-09-26 16:23 | disposition home or self-care (01) ==
LOC: ER 13:04
DX: R05 Cough (principal); B34.9 Viral infection, unspecified
CPT/HCPCS: 71046; 87400; 99283

== ENCOUNTER 2018-10-09 21:35 | Emergency (ER) | payer MEDICARE ==
[~2018-10-09] VITALS: Ht 149.9 cm; Wt 102.1 kg
[2018-10-09 21:56] LABS: BASOPHILS % 0.4 % (0.0-1.0); EOSINOPHILS # (AUTO) 0.2 (0.0-0.4); EOSINOPHILS % 3.4 % (0.0-6.0); HEMATOCRIT 41.4 % (34.2-44.1); HEMOGLOBIN 13.3 g/dL (12.0-16.0); LYMPHOCYTES # (AUTO) 1.7 (1.0-3.2); LYMPHOCYTES % 29.9 % (18.0-39.1); MEAN CORPUSCULAR HEMOGLOBIN 30.6 pg (28-32); MEAN CORPUSCULAR HGB CONC 32.1 g/dL (31-35); MEAN CORPUSCULAR VOLUME 95.4 fL (81-99); MONOCYTES # (AUTO) 0.7 (0.2-0.8); MONOCYTES % 13.1 % (4.4-11.3); NEUTROPHILS % 52.8 % (38.7-80.0); PLATELET COUNT 217 x10e3/uL (140-360); RED BLOOD COUNT 4.34 x10e6/uL (3.6-5.1)
[2018-10-09 22:11] LABS: ALANINE AMINOTRANSFERASE 12 IU/L (0-55); ALBUMIN 3.5 g/dL (3.5-5.0); ALBUMIN/GLOBULIN RATIO 0.9 (0.8-2.0); ALKALINE PHOSPHATASE 75 IU/L (40-150); BLOOD UREA NITROGEN 11 mg/dL (7-26); BUN/CREATININE RATIO 14 (6-25); CALCIUM 9.5 mg/dL (8.4-10.2); CARBON DIOXIDE 20 mmol/L (22-29); CHLORIDE 105 mmol/L (98-107); CREATINE KINASE 73 IU/L (29-168); CREATININE, SERUM 0.77 mg/dL (0.57-1.11); EST GLOMERULAR FILTRATION RATE > 60 ML/MIN (60-); GLUCOSE 113 mg/dL (74-118); SODIUM 138 mmol/L (136-145)
--- NOTE | 2018-10-09 22:35 | Diagnostic Imaging Report ---
EXAMINATION: CHEST 2 VIEWS INDICATION: Chest pain. COMPARISON: 09/26/2018 FINDINGS: PA and lateral views TUBES and LINES: None. LUNGS: Lungs are well inflated. Lungs are clear. There is no evidence of pneumonia or pulmonary edema. PLEURA: No pleural effusion or pneumothorax. HEART AND MEDIASTINUM: The cardiomediastinal silhouette is unremarkable. BONES AND SOFT TISSUES: There are degenerative changes in the thoracic spine. Soft tissues are unremarkable. UPPER ABDOMEN: No free air under the diaphragm. IMPRESSION: No acute thoracic abnormality. Signed by: DR. Jaren Estrella MD on 10/09/2018 10:32 PM
== END 2018-10-09 22:57 | disposition home or self-care (01) ==
LOC: ER 21:35
DX: R07.89 Other chest pain (principal); R05 Cough; I10 Essential (primary) hypertension; E11.9 Type 2 diabetes mellitus without complications; K21.9 Gastro-esophageal reflux disease without esophagitis; E78.00 Pure hypercholesterolemia, unspecified
CPT/HCPCS: 36415; 71046; 80053; 82550; 82553; 84484; 85025; 93005; 99283

== ENCOUNTER 2019-07-06 01:52 | Emergency (ER) | payer MEDICARE ==
[~2019-07-06] VITALS: Ht 149.9 cm; Wt 102.1 kg
--- OUTSIDE RECORDS SUMMARY | 2019-07-06 01:55 | XMS REPORT ---
Author Author Gordon Cao Organization [employer] Address Unknown Phone Unavailable Care Team Providers Care Magazine Repairer Name Role Phone Gordon Cao CP Unavailable Allergies No Known Allergies Problems Problem Type Condition Code Onset Dates Condition Status Assessment Pain in joint, shoulder region 719.41 Active Problem Pain in joint, shoulder region 719.41 Active Medications No Known Medications Results No Known Results Summary Purpose [employer] Submission
--- OUTSIDE RECORDS SUMMARY | 2019-07-06 01:55 | XMS REPORT | Continuity of Care Document ---
Author Author [employer] Address Unknown Phone Unavailable Care Team Providers Care Vp Scientific Name Role Phone [facility] Unavailable Unavailable Problems Problem Status Onset Date Classification Date Reported Comments Source Bronchitis Active 10/19/2014 Problem 10/10/2018 [facility] Influenza due to influenza virus, type B Active 10/19/2014 Problem 10/10/2018 [facility] Pain in joint, shoulder region Active Diagnosis 03/05/2019 Gordon Cao Chest pain Active Problem 10/10/2018 [facility] Diverticulitis of intestine Active Problem 10/10/2018 [facility] Right lower quadrant abdominal pain Active Problem 10/10/2018 [facility] Urinary tract infection Active Problem 10/10/2018 [facility] Medications Medication Details Route Status Patient Instructions Ordering Provider Order Date Source Ciprofloxacin Hcl (Cipro) 500 Mg Tablet Every 12 Hours Active [facility] 07/25/2018 [facility] Pravastatin Sodium 20 Mg Tablet Bedtime Active [facility] 07/25/2018 [facility] Pravastatin Sodium 40 Mg Tablet, 1 Oral Daily Active 07/25/2018 [facility] Benzonatate (Tessalon Perle) 100 Mg Capsule Every 8 Hours Active [facility] 03/20/2018 [facility] Guaifenesin/Dextromethorphan (Mucinex Dm Er 600-30 Mg Tablet) 1 Each Tab.er.12h Every 12 Hours Active [facility] 03/20/2018 [facility] Metronidazole (Flagyl) 500 Mg Tablet Three Times A Day Active [facility] 03/20/2018 [facility] Oseltamivir Phosphate (Tamiflu) 75 Mg Cap Every 12 Hours Active [facility] 03/20/2018 [facility] Azithromycin (Zithromax) 500 Mg Tablet, 500 Mg Oral Daily Active [facility] 03/20/2018 [facility] Cephalexin Monohydrate (Keflex) 500 Mg Capsule, 500 Mg Oral Every 12 Hours Active [facility] 03/20/2018 [facility] Cholecalciferol (Vitamin D3) (Vitamin D) 1,000 Unit Tablet, Unit Oral Use As Directed Active 03/19/2018 [facility] Omeprazole 40 Mg Capsule.dr, 40 Mg Oral Daily Active 03/19/2018 [facility] Pravastatin Sodium 10 Mg Tablet, 1 Tab Oral Bedtime Active 03/19/2018 [facility] Levofloxacin (Levaquin) 500 Mg Tablet, 500 Mg Oral Daily Active [facility] 08/11/2016 [facility] Metronidazole 500 Mg Tablet, 500 Mg Oral Three Times A Day Active [facility] 08/11/2016 [facility] Fluticasone Propionate 16 Gm [place].susp, 1 Spr Nasal Daily Active 07/24/2016 [facility] Nitroglycerin 0.4 Mg Tab.subl, 0.4 Mg Sublingual Every 5 Minutes as needed for Chest Pain Active 07/24/2016 [facility] Simvastatin 40 Mg Tablet, 40 Mg Oral Daily Active 10/19/2014 [facility] Glimepiride 2 Mg Tablet Daily Active [facility] Metformin Hcl 500 Mg Tablet Every 12 Hours Active [facility] Pantoprazole Sodium (Protonix) 40 Mg Tablet. Daily Active [facility] Allergies, Adverse Reactions, Alerts Substance Category Reaction Severity Reaction type Status Date Reported Comments Source Pregabalin Sore throat Mild Allergy to Substance Active 09/23/2017 [facility] Immunizations No Data Provided for This Section Results Order Name Results Value Reference Range Date Interpretation Comments Source Blood leukocytes automated count (number/volume) 5.59 4.8 - 10.8 10/09/2018 [facility] Blood erythrocytes automated count (number/volume) 4.34 3.6 - 5.1 10/09/2018 [facility] Blood hemoglobin measurement (moles/volume) 13.3 12.0 - 16.0 10/09/2018 [facility] Automated blood hematocrit (volume fraction) 41.4 34.2 - 44.1 10/09/2018 [facility] Automated erythrocyte mean corpuscular volume 95.4 81 - 99 10/09/2018 [facility] Automated erythrocyte mean corpuscular hemoglobin (mass per erythrocyte) 30.6 28 - 32 10/09/2018 [facility] Automated erythrocyte mean corpuscular hemoglobin concentration measurement (mass/volume) 32.1 31 - 35 10/09/2018 [facility] RDW BldCo-Rto 13.0 11.7 - 14.4 10/09/2018 [facility] Automated blood platelet count (count/volume) 217 140 - 360 10/09/2018 [facility] Automated blood segmented neutrophil count as percentage of total leukocytes 52.8 38.7 - 80.0 10/09/2018 [facility] Automated blood lymphocyte count as percentage ot total leukocytes 29.9 18.0 - 39.1 10/09/2018 [facility] Automated blood monocyte count as percentage of total leukocytes 13.1 4.4 - 11.3 10/09/2018 [facility] Automated blood eosinophil count as percentage of total leukocytes 3.4 0.0 - 6.0 10/09/2018 [facility] Automated blood basophil count as percentage of total leukocytes 0.4 0.0 - 1.0 10/09/2018 [facility] IM GRANULOCYTES % 0.4 0.0 - 1.0 10/09/2018 [facility] Automated blood neutrophil count 3.0 2.1 - 6.9 10/09/2018 [facility] Blood lymphocytes count (number/volume) 1.7 1.0 - 3.2 10/09/2018 [facility] Blood monocytes automated count (number/volume) 0.7 0.2 - 0.8 10/09/2018 [facility] Automated blood eosinophil count 0.2 0.0 - 0.4 10/09/2018 [facility] Automated blood basophil count (count/volume) 0.0 0.0 - 0.1 10/09/2018 [facility] Absolute Immature Granulocyte (auto 0.02 0 - 0.1 10/09/2018 [facility] Serum or plasma sodium measurement (moles/volume) 138 136 - 145 10/09/2018 [facility] Serum or plasma potassium measurement (moles/volume) 4.0 3.5 - 5.1 10/09/2018 [facility] Serum or plasma chloride measurement (moles/volume) 105 98 - 107 10/09/2018 [facility] Serum or plasma carbon dioxide, total measurement (moles/volume) 20 22 - 29 10/09/2018 [facility] Serum or plasma anion gap 17.0 8 - 16 10/09/2018 [facility] Serum or plasma urea nitrogen measurement (mass/volume) 11 7 - 26 10/09/2018 [facility] Serum or plasma creatinine measurement (mass/volume) 0.77 0.57 - 1.11 10/09/2018 [facility] Serum or plasma urea nitrogen/creatinine mass ratio 14 6 - 25 10/09/2018 [facility] Estimated glomerular filtration rate (GFR) determination > 60 60 10/09/2018 [facility] Glucose measurement 113 74 - 118 10/09/2018 [facility] Serum or plasma calcium measurement (mass/volume) 9.5 8.4 - 10.2 10/09/2018 [facility] Serum or plasma total bilirubin measurement (mass/volume) 0.5 0.2 - 1.2 10/09/2018 [facility] Aspartate Amino Transf (AST/SGOT) 24 5 - 34 10/09/2018 [facility] Serum or plasma alanine aminotransferase measurement (enzymatic activity/volume) 12 0 - 55 10/09/2018 [facility] Serum or plasma protein measurement (mass/volume) 7.4 6.5 - 8.1 10/09/2018 [facility] Serum or plasma albumin measurement (mass/volume) 3.5 3.5 - 5.0 10/09/2018 [facility] Plasma globulin measurement (mass/volume) 3.9 2.3 - 3.5 10/09/2018 [facility] Serum or plasma albumin/globulin mass ratio 0.9 0.8 - 2.0 10/09/2018 [facility] Serum or plasma alkaline phosphatase measurement (enzymatic activity/volume) 75 40 - 150 10/09/2018 [facility] Serum or plasma creatine kinase measurement (enzymatic activity/volume) 73 29 - 168 10/09/2018 [facility] Serum or plasma creatine kinase MB measurement (mass/volume) 0.30 0 - 5.0 10/09/2018 [facility] Troponin I measurement by highly sensitive enzyme immunoassay < 0.001 0 - 0.300 10/09/2018 [facility] Influenza virus A and B antigen identification by immunofluorescence NEGATIVE NEGATIVE 09/26/2018 [facility] Capillary blood glucose measurement by glucometer (mass/volume) 140 70 - 120 07/25/2018 [facility] Clostridium difficile A and B toxin assay NEGATIVE NEGATIVE 07/21/2018 [facility] Hemoglobin A1c Percent 6.2 4.0 - 7.0 07/21/2018 [facility] Serum or plasma triglyceride measurement (mass/volume) 80 0 - 149 07/21/2018 [facility] Serum or plasma cholesterol measurement (mass/volume) 110 0 - 199 07/21/2018 [facility] Serum or plasma cholesterol in LDL measurement (mass/volume) 50 60 - 130 07/21/2018 [facility] Serum or plasma cholesterol in HDL measurement (mass/volume) 44 40 - 60 07/21/2018 [facility] Serum or plasma total cholesterol/cholesterol in HDL mass ratio 2.5 3.0 - 3.6 07/21/2018 [facility] Urine color determination YELLOW YELLOW 07/20/2018 [facility] Urine clarity SL CLOUDY CLEAR 07/20/2018 [facility] Specific gravity of Urine by Test strip 1.020 1.010 - 1.025 07/20/2018 [facility] Urine pH measurement by automated test strip 6 5 - 7 07/20/2018 [facility] Urine leukocyte esterase detection by dipstick 2+ NEGATIVE 07/20/2018 [facility] Urine nitrite detection NEGATIVE NEGATIVE 07/20/2018 [facility] Urine protein measurement by test strip (mass/volume) NEGATIVE NEGATIVE 07/20/2018 [facility] Urine glucose detection NEGATIVE NEGATIVE 07/20/2018 [facility] Urine ketones detection by automated test strip NEGATIVE NEGATIVE 07/20/2018 [facility] Urine urobilinogen measurement by test strip (mass/volume) 0.2 0.2 - 1 07/20/2018 [facility] Urine total bilirubin measurement (mass/volume) NEGATIVE NEGATIVE 07/20/2018 [facility] Urine erythrocytes detection TRACE NEGATIVE 07/20/2018 [facility] Automated urine sediment leukocyte count by microscopy (number/high power field) 11-20 0 - 5 07/20/2018 [facility] Erythrocytes detection in urine sediment by light microscopy 0-5 0 - 5 07/20/2018 [facility] Bacteria detection in urine sediment by light microscopy MANY NONE 07/20/2018 [facility] Epithelial cells detection in urine sediment by light microscopy MANY NONE 07/20/2018 [facility] Transitional cells detection in urine sediment by light microscopy MODERATE NONE 07/20/2018 [facility] Blood culture NO GROWTH AFTER 5 DAYS, FINAL REPORT 03/19/2018 [facility] Bacterial urine culture Urine Culture [facility] Pathology Reports No Data Provided for This Section Diagnostic Reports No Data Provided for This Section Consultation Notes No Data Provided for This Section Discharge Summaries No Data Provided for This Section History and Physicals No Data Provided for This Section Vital Signs No Data Provided for This Section Encounters Location Location Details Encounter Type Encounter Number Reason For Visit Attending Provider ADM Date DC Date Status Source Discharged Inpatient (obs) [id number] BARBARA ERVIN MD 03/19/2018 03/20/2018 [facility] Discharged Inpatient [id number] BARBARA ERVIN MD 07/20/2018 07/25/2018 [facility] Departed Emergency Room [id number] BALDEMAR MORALES MD 09/26/2018 09/26/2018 [facility] Departed Emergency Room [id number] TYRELL BARR MD 10/09/2018 10/09/2018 [facility] Procedures Procedure Code Date Perfomer Comments Source X-ray of chest, two views [id number] 09/26/2018 [facility] [place] US abdomen complete [id number] 07/21/2018 [facility] Computed tomography of abdomen and pelvis with contrast [id number] 07/20/2018 [facility] Computed tomography of brain without radiopaque contrast [id number] 03/19/2018 [facility] Assessment and Plan No Data Provided for This Section Plan of Care Plan of Care Date Source Discharge Date 10/09/18 10:57pm Disposition HOME, SELF-CARE Condition at Discharge Stable Instructions/Education Provided Chest Pain - Chest Wall Forms Provided Work/School Excuse Prescriptions See Medication Section Referrals BARBARA ERVIN MD Order Date: Call for an appointment Address: [address] [place] [id number] Additional Instructions/Education TAKE MEDICATION PRESCRIBED FOLLOW-UP WITH YOUR PRIMARY CARE PROVIDER, CALL FOR APPOINTMENT 10/09/2018 [facility] Social History Social History Date Source Social History Problem Response Recorded Date/Time Onset Date Status Hx Psychiatric Problems No 03/19/2018 4:00pm Not Applicable Not Applicable Hx Eating Disorder [...] No 08/07/2016 1:10am Not Applicable Not Applicable 10/09/2018 [facility] Family History No Data Provided for This Section Advance Directives Order Name Results Value Date Source Advance Directives Advance Directives Directive Response Recorded Date/Time Does the patient have an advance directive? No 07/21/18 12:45am If yes, is advance directive on file with [facility]? No 07/21/18 12:45am If not on file with [facility] will patient provide a copy? No 07/21/18 12:45am Do you have a Directive to Physician? No 10/09/18 9:55pm Do you have a Medical Power of [employer]? No 10/09/18 9:55pm Do you have an out of hospital Do Not Resuscitate Order? No 10/09/18 9:55pm Do you have any special needs we should be aware of? No 10/09/18 9:55pm Do you have a support person here with you today? Yes 10/09/18 9:55pm Did patient receive Notice of Privacy Practices? Yes 10/09/18 9:55pm Did patient receive patient rights and responsibilities? Yes 10/09/18 9:55pm 10/09/2018 [facility] Functional Status No Data Provided for This Section
--- OUTSIDE RECORDS SUMMARY | 2019-07-06 01:55 | XMS REPORT ---
Author Author Gordon Cao Organization [employer] Address Unknown Phone Unavailable Care Team Providers Care Warehouse Order Picker Name Role Phone Gordon Cao CP Unavailable Allergies No Known Allergies Problems Problem Type Condition Code Onset Dates Condition Status Assessment Pain in joint, shoulder region 719.41 Active Problem Pain in joint, shoulder region 719.41 Active Medications No Known Medications Results No Known Results Summary Purpose [employer] Submission
[2019-07-06] MEDS ORDERED: ONDANSETRON HCL INJ 2MG/ML 2ML 2 MG/ML VIAL IV STA (02:06)
[2019-07-06] MEDS ORDERED: PANTOPRAZOLE 40 MG 10ML VIAL IV STA (02:06)
[2019-07-06] MEDS ORDERED: SODIUM CHLORIDE 0.9% 1000ML 1,000 ML IV ONE (02:15)
[2019-07-06 02:33] LABS: BASOPHILS % 0.2 % (0.0-1.0); EOSINOPHILS # (AUTO) 0.2 (0.0-0.4); EOSINOPHILS % 2.1 % (0.0-6.0); HEMATOCRIT 41.4 % (34.2-44.1); HEMOGLOBIN 13.8 g/dL (12.0-16.0); LYMPHOCYTES # (AUTO) 2.2 (1.0-3.2); LYMPHOCYTES % 24.8 % (18.0-39.1); MEAN CORPUSCULAR HEMOGLOBIN 30.7 pg (28-32); MEAN CORPUSCULAR HGB CONC 33.3 g/dL (31-35); MEAN CORPUSCULAR VOLUME 92.2 fL (81-99); MONOCYTES # (AUTO) 0.6 (0.2-0.8); MONOCYTES % 7.4 % (4.4-11.3); NEUTROPHILS # (AUTO) 5.6 (2.1-6.9); NEUTROPHILS % 64.9 % (38.7-80.0); PLATELET COUNT 241 x10e3/uL (140-360); RED BLOOD COUNT 4.49 x10e6/uL (3.6-5.1); RED CELL DISTRIBUTION WIDTH 13.3 % (11.7-14.4)
[2019-07-06 02:51] LABS: BILIRUBIN,URINE NEGATIVE (NEGATIVE); CLARITY,URINE CLOUDY (CLEAR); COLOR,URINE YELLOW (YELLOW); KETONES,URINE NEGATIVE (NEGATIVE); LEUKOCYTE ESTERASE ,URINE NEGATIVE (NEGATIVE); NITRITE,URINE POSITIVE (NEGATIVE); PROTEIN,URINE DIPSTICK NEGATIVE (NEGATIVE); URINE UROBILINOGEN 1 mg/dL (0.2 - 1)
[2019-07-06 03:09] LABS: BACTERIA,URINE MANY /HPF; EPITHELIAL CELLS,URINE FEW /LPF; RBC,URINE 0-5 /HPF (0-5); WBC,URINE (MAN) 0-5 /HPF (0-5)
[2019-07-06 03:09] LABS: ALANINE AMINOTRANSFERASE 12 IU/L (0-55); ALBUMIN 3.6 g/dL (3.5-5.0); ALBUMIN/GLOBULIN RATIO 0.9 (0.8-2.0); ALKALINE PHOSPHATASE 104 IU/L (40-150); ANION GAP 18.8 mmol/L (8-16); BLOOD UREA NITROGEN 10 mg/dL (7-26); BUN/CREATININE RATIO 14 (6-25); CALCIUM 9.8 mg/dL (8.4-10.2); CARBON DIOXIDE 25 mmol/L (22-29); CHLORIDE 101 mmol/L (98-107); CREATINE KINASE 83 IU/L (29-168); CREATININE, SERUM 0.71 mg/dL (0.57-1.11); EST GLOMERULAR FILTRATION RATE > 60 ML/MIN (60-); GLUCOSE 147 mg/dL (74-118); POTASSIUM 3.8 mmol/L (3.5-5.1); SODIUM 141 mmol/L (136-145)
[2019-07-06 03:31] LABS: AMYLASE 56 U/L (25-125); LIPASE 12 U/L (8-78)
[2019-07-06] MEDS ORDERED: SODIUM CHLORIDE 0.9% 50ML 50 ML ONE (03:31)
[2019-07-06] MEDS ORDERED: IOPAMIDOL 370 MG/ML 200 ML INFUS..BTL INJ ONE (03:31)
--- NOTE | 2019-07-06 04:08 | Diagnostic Imaging Report ---
History:Dizziness, headache and blurred vision Comparison studies:CT head 03/19/2018 Technique: Axial images were obtained from the skull base to the vertex. Coronal and sagittal reconstructions obtained from the axial data. Dose modulation, iterative reconstruction, and/or weight based adjustment of the mA/kV was utilized to reduce the radiation dose to as low as reasonably achievable. Findings: Scalp/skull: No abnormalities. No fractures, blastic or lytic lesions. Extra-axial spaces: No masses. No fluid collections. Brain sulci: Appropriate for age. Ventricles: Normal in size and configuration. No hydrocephalus. Parenchyma: No abnormal densities. No masses, hemorrhage, acute or chronic cortical vascular insults. Sellar/suprasellar region: No abnormalities Craniocervical junction: Patent foramen magnum. No Chiari one malformation. Mild atherosclerotic calcifications carotid siphons IMPRESSION: No acute abnormalities . Signed by: DR Hi Mario M.D. on 07/06/2019 4:05 AM
--- NOTE | 2019-07-06 04:34 | Diagnostic Imaging Report ---
EXAMINATION: CHEST SINGLE (PORTABLE) INDICATION: Short of breath COMPARISON: Chest radiograph 10/09/2018 FINDINGS: AP view TUBES and LINES: None. LUNGS: Lungs are well inflated. Lungs are clear. There is no evidence of pneumonia or pulmonary edema. PLEURA: No pleural effusion or pneumothorax. HEART AND MEDIASTINUM: The cardiomediastinal silhouette is unremarkable. BONES AND SOFT TISSUES: No acute osseous lesion. Soft tissues are unremarkable. Degenerative changes in the shoulders. UPPER ABDOMEN: No free air under the diaphragm. IMPRESSION: No acute thoracic radiographic abnormality. Signed by: Juan Miguel Green DO on 07/06/2019 4:31 AM
--- NOTE | 2019-07-06 04:44 | Diagnostic Imaging Report ---
EXAM: CT Abdomen and Pelvis WITH contrast INDICATION: upper abd pain, n/v/d COMPARISON: Abdominal CT 07/20/2018, 08/06/2016. TECHNIQUE: Abdomen and pelvis were scanned utilizing a multidetector helical scanner from the lung base to the pubic symphysis after administration of IV contrast. Coronal and sagittal reformations were obtained. Routine protocol was performed. Scan was performed when during portal venous phase. IV CONTRAST: 100 mL of Isovue 370 ORAL CONTRAST: Water COMPLICATIONS: None RADIATION DOSE: Total DLP: 777 mGy*cm Estimated effective dose: (DLP x 0.015 x size factor) mSv CTDIvol has been reviewed. It is below the limits set by the Radiation Protocol Committee (RPC). Dose modulation, iterative reconstruction, and/or weight based adjustment of the mA/kV was utilized to reduce the radiation dose to as low as reasonably achievable. FINDINGS: LINES and TUBES: None. LOWER THORAX: A focal consolidative opacity in the posterior basilar aspect of the right lower lobe HEPATOBILIARY: Stable trace central pneumobilia, can be seen after cholecystectomy. No focal hepatic lesions. No biliary ductal dilation. GALLBLADDER: There are cholecystectomy clips. SPLEEN: No splenomegaly. PANCREAS: No focal masses or ductal dilatation. ADRENALS: Stable 1.3 cm solid nodule in the left adrenal gland, unchanged compared to 2016 KIDNEYS/URETERS: Kidneys enhance symmetrically. No hydronephrosis. No cystic or solid mass lesions. No stones. GI TRACT: No abnormal distention, wall thickening, or evidence of bowel obstruction. Stable duodenal diverticulum. Colonic diverticuli. Stable small bowel sutures in the left mid abdomen. Appendix is normal. PELVIC ORGANS/BLADDER: Hysterectomy. No adnexal masses. LYMPH NODES: No lymphadenopathy. VESSELS: There is mild atherosclerotic disease in the aorta and major arterial branches. PERITONEUM / RETROPERITONEUM: Stable mesenteric nodularity in the mid right anterior peritoneal cavity, unchanged compared to 08/06/2016 indicative of benignity. BONES: There are degenerative changes in the lumbar spine. SOFT TISSUES: Stable lower right anterior abdominal wall scar. IMPRESSION: 1. Focal consolidation in the posterior basilar aspect of the right lower lobe suggestive of pneumonia. 2. Colonic diverticulosis without diverticulitis. Signed by: Juan Miguel Green DO on 07/06/2019 4:41 AM
[2019-07-06 04:52] VITALS: BP 109/55
== END 2019-07-06 05:17 | disposition home or self-care (01) ==
LOC: ER 01:52
DX: J15.9 Unspecified bacterial pneumonia (principal); R10.13 Epigastric pain; R11.2 Nausea with vomiting, unspecified; Z88.8 Allergy status to other drugs, medicaments and biological substances; I10 Essential (primary) hypertension; E11.9 Type 2 diabetes mellitus without complications; E78.5 Hyperlipidemia, unspecified; Z83.3 Family history of diabetes mellitus; Z82.49 Family history of ischemic heart disease and other diseases of the circulatory system; Z79.84 Long term (current) use of oral hypoglycemic drugs
CPT/HCPCS: 36415; 70450; 71045; 74177; 80053; 81001; 82150; 82550; 82553; 83690; 84484; 85025; 93005 ×2; 99284; C9113; J2405; J7030; Q9967

== ENCOUNTER 2020-06-21 07:55 | Emergency (ER) | payer MEDICARE ==
[~2020-06-21] VITALS: Ht 149.9 cm; Wt 108.0 kg
--- OUTSIDE RECORDS SUMMARY | 2020-06-21 08:10 | XMS REPORT | Summary of Care ---
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(Confirme d) Pancreatitis(Confirm Resolved ed) Allergies, Adverse Reactions, Alerts Substance Reaction Severity Status Lyrica Active Medications No data available for this section Results No data available for this section Immunizations Given and Recorded Vaccine Date Status Refusal Reason pneumococcal 13-valent vaccine 09/26/17 Given Procedures Procedure Date Related Diagnosis Body Site Status Abdominal hysterectomy Completed Gallbladder stone removal Completed Hiatus hernia repair Completed Knee replacement Completed Social History Social History Type Response Alcohol Past, Previous treatment: N one. Smoking Status Never smoker; Exposure to T obacco Smoke None; Cigarette Smoking Last 365 Days No; Reg Smoking Cessation Counseli ng No entered on: 06/01/18 Assessment and Plan No data available for this section
--- OUTSIDE RECORDS SUMMARY | 2020-06-21 08:10 | XMS REPORT | Clinical Summary ---
Author Author [facility] Organization [facility] Address Unknown Phone Unavailable Care Team Providers Care Stock Roller Name Role Phone Asked, No Pcp PCP Unavailable Allergies Comments Active Allergy Reactions Severity Noted Date Sore throat Pregabalin Other (See 07/08/2019 Comments) Medications Not on file Active Problems Not on file Encounters Care Team Description Date Type Specialty Domingo Mai MD 07/08/2019 Emergency Emergency Medicine after 06/21/2019 Social History Date Tobacco Use Types Packs/Day Years Used Never Assessed Sex Assigned at Date Recorded Not on file Industry Job Start Date Occupation Not on file Not on file Not on file Travel End Travel History Travel Start No recent travel history available. Last Filed Vital Signs Reading Time Taken Comments Vital Sign 135/64 07/08/2019 2:23 PM CDT Blood Pressure 78 07/08/2019 2:23 PM CDT Pulse 36.3 C (97.4 F) 07/08/2019 2:23 PM CDT Temperature 18 07/08/2019 2:23 PM CDT Respiratory Rate 96% 07/08/2019 2:23 PM CDT Oxygen Saturation - - Inhaled Oxygen Concentration - - Weight 149.9 cm (4' 11") 07/08/2019 2:22 PM CDT Height - - Body Mass Index Plan of Treatment Not on file Procedures Comments Procedure Name Priority Date/Time Associated Diag nosis ESTIMATED GFR STAT 07/08/2019 3:06 PM CDT TROPONIN Timed 07/08/2019 3:06 PM CDT LIPASE LEVEL STAT 07/08/2019 3:06 PM CDT COMPREHENSIVE METABOLIC STAT 07/08/2019 PANEL 3:06 PM CDT HC COMPLETE BLD COUNT STAT 07/08/2019 W/AUTO DIFF 3:06 PM CDT after 06/21/2019 Results * Estimated GFR (07/08/2019 3:06 PM CDT) [facility] Estimated GFR 87 mL/min/1.73 m2 [facility] Comment: [facility] Interpretation G1 >=90 Normal or high G2 60-89 Mildly decreased G3a 45-59 Mildly to moderately decreased G3b 30-44 Moderately to severely decreased G4 15-29 Severely decreased G5 <15 Kidney failure The eGFR was calculated using the Chronic Kidney Disease Epidemiology Collaboration (CKD-EPI) equation. Interpretation is based on recommendations of the National Kidney Foundation-Kidney Disease Outcomes Quality Initiative (NKF-KDOQI) published in 2014. Specimen Plasma specimen Performing Organization Address City/[facility] Ph one Number [facility] [place] [address] PATHOLOGY AND GENOMIC MEDICINE [address] * Troponin (07/08/2019 3:06 PM CDT) [facility] Troponin <0.006 0.000 - 0.040 ng/mL [facility] Comment: [facility] changed methodology effective: 03/01/2019 at 10:00 am The new method has a 99th percentile cutoff of 0.040 ng/mL Specimen Plasma specimen Performing Organization Address [facility] Ph one Number [facility] [place] [address] PATHOLOGY AND GENOMIC MEDICINE [address] * CBC with platelet and differential (07/08/2019 3:06 PM CDT) [facility] WBC 8.83 4.50 - 11.00 k/uL [facility] RBC 4.68 4.20 - 5.50 m/uL [facility] HGB 14.0 12.0 - 16.0 g/dL [facility] HCT 45.3 37.0 - 47.0 % [facility] MCV 96.8 82.0 - 100.0 fL [facility] MCH 29.9 27.0 - 34.0 pg [facility] MCHC 30.9 (L) 31.0 - 37.0 g/dL [facility] RDW - SD 47.5 37.0 - 55.0 [facility] MPV 11.6 8.8 - 13.2 [facility] Platelet count 242 150 - 400 k/uL [facility] Nucleated RBC 0.00 /100 WBC [facility] Neutrophils 67.5 39.0 - 69.0 % [facility] Lymphocytes 24.1 (L) 25.0 - 45.0 % [facility] Monocytes 6.3 0.0 - 10.0 % [facility] Eosinophils 1.5 0.0 - 5.0 % [facility] Basophils 0.3 0.0 - 1.0 % [facility] Immature 0.3Comment: "Immature 0.0 - 1.0 % [facility] granulocytes granulocytes" (promyelocytes, METHOD IST myelocytes, metamyelocytes) HOSPITAL Specimen Blood Performing Organization Address City/[facility] Ph one Number [facility] DEPARTMENT OF [address] [place] [address] PATHOLOGY AND GENOMIC MEDICINE [address] * Lipase level (07/08/2019 3:06 PM CDT) Pathologist [facility] Lipase 13 13 - 60 U/L [facility] Specimen Plasma specimen Performing Organization Address City/[facility] Ph one Number [facility] DEPARTMENT OF [address] [place] [address] PATHOLOGY AND GENOMIC MEDICINE [address] * Comprehensive metabolic panel (07/08/2019 3:06 PM CDT) [facility] Sodium 142 135 - 148 mEq/L [facility] Potassium 4.4 3.5 - 5.0 mEq/L [facility] Chloride 102 98 - 112 mEq/L [facility] CO2 26 24 - 31 mEq/L [facility] Anion gap 14@ANIO 7 - 15 mEq/L [facility] BUN 11 8 - 23 mg/dL [facility] Creatinine 0.67 0.50 - 0.90 mg/dL [facility] Glucose 92 65 - 99 mg/dL [facility] Calcium 9.9 8.8 - 10.2 mg/dL [facility] Protein 8.3 6.3 - 8.3 g/dL [facility] Comment: [facility] 4.6-7.0 g/dL 1 week 4.4-7.6 g/dL 7 months-1year 5.1-7.3 g/dL 1-2 years 5.6-7.5 g/dL >3 years 6.0-8.0 g/dL 18-150 6.3-8.3 g/dL Albumin 3.6 3.5 - 5.0 g/dL [facility] A/G ratio 0.8 0.7 - 3.8 [facility] Alkaline 84 35 - 104 U/L [facility] phosphatase [facility] AST 24 10 - 35 U/L [facility] ALT 13 5 - 50 U/L [facility] Total bilirubin 0.6 0.0 - 1.2 mg/dL [facility] Specimen Plasma specimen Performing Organization Address City/State/[place] Ph one Number [facility] DEPARTMENT OF [address] [place] [address] PATHOLOGY AND GENOMIC MEDICINE [address] after 06/21/2019 Advance Directives For more information, please contact: [phone] Patient Monument Letterer Explanation Type Date Recorded Advance Directives, 07/08/2019 12:00 AM Living Will and Medical Power of Analysis Mgr
--- OUTSIDE RECORDS SUMMARY | 2020-06-21 08:10 | XMS REPORT | Summary of Care ---
Author Author [facility] Organization [facility] Address Unknown Phone Unavailable Encounter HQ Roldan(FIN) [id number] Date(s): 05/03/20 - 05/03/20 [facility] Outpatient [facility] - [place] [address] [place], [place] [address] [phone] Discharge Disposition: Home or Self Care Attending Physician: Bin Hankins MD Referring Physician: Bin Hankins MD Vital Signs No data available for [...]
--- OUTSIDE RECORDS SUMMARY | 2020-06-21 08:10 | XMS REPORT | Continuity of Care Document ---
Author Author JustGoCEDRICK JustGo Address Unknown Phone Unavailable Care Team Providers Care Superintendent Police Name Role Phone Rawporter Information Exchange Unavailable Un available Problems Problem Status Onset Date Classification Date Reported Comments Source K21.0 GASTRO-ESOPHAGEAL REFLUX DISEASE W Active 05/07/2020 [facility] R07.89 - OTHER CHEST PAIN R06.09 - OTHER Active 04/30/2020 [facility] [place] DX: R10.13=EPIGASTRIC PAIN/R14.0=ABDOMIN Active 08/08/2019 [facility] Pain in thoracic spine 06/09/2018 12/19/2018 [facility] Other muscle spasm 06/01/2018 12/19/2018 [facility] BACK PAIN OR INJURY Active 06/01/2018 [facility] NECK PAIN OR INJURY Active 06/01/2018 [facility] Encounter for screening mammogram for ma lignant neoplasm of breast 11/27/2017 03/02/2018 [facility] [place] CHEST PAIN Active 09/25/2017 [facility] COUGH, ABDOMINAL PAIN Active 09/25/2017 [facility] UNK Active 0 04/22/2017 [facility] R92.8 - OTH ABN AND INCONCLUSIVE FINDI Active 05/22/2016 [facility] [place] ATAXIA, FREQUENT FALLS, HYPERKALEMIA, BL Active 01/21/2016 [facility] R10.9 - UNSPECIFIED ABDOMINAL PAIN Active 07/23/2015 [facility] [place] 786.50 - CHEST PAIN NOS Active 08/14/2014 [facility] [place] Pain in joint, shoulder region Active Diagnosis 0 03/05/2019 Gordon Cao Cholesterol (substance) Resolv ed Problem MARGARITA [place] Diabetes mellitus (disorder) R esolved Problem [facility] [place] HDL cholesterol (substance) Re solved Problem [facility] [place] Pancreatitis (disorder) Resolv ed Problem [facility] Encounter for screening for osteoporosis 03/02/2018 [facility] [place] Other specified disorders of bone densit y and structure, multiple sites 03/02/2018 [facility] [place] Type 2 diabetes mellitus without complications 12/19/2018 [facility] (current) use of oral hypoglycemic drugs 12/19/2018 [facility] 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 private (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) use of aspirin 12/19/2018 [facility] Presence of unspecified artificial knee joint 12/19/2018 [facility] Final: Other chest pain 01/25/2016 [facility] Final: Type 2 diabetes mellitus without complications 01/25/2016 [facility] Final: Hyperlipidemia, unspecified 01/25/2016 [facility] Final: Morbid (severe) obesity due to excess calories 01/25/2016 [facility] Final: Body mass index (BMI) 50-59.9 , adult 01/25/2016 [facility] CHEST PAIN, UNSPECIFIED Active [facility] Medications Medication Details Route Status Patient Instructions Ordering Provider Order Date Source Cyclobenzaprine hydrochloride 5 MG Oral Tablet [Flexeril] 5 mg = 1 tab, PO, BID, X 7 day, # 14 tab, 0 Refill(s) No Longer Active 06/02/2018 [facility] Ketorolac 30 mg, Route: IM, Dr ug form: INJ, ONCE, Dosing Weight 100, kg, Priority: STAT, Start date: 06/01/18 21:39:00 CDT, Stop date: 06/01/18 21:39:00 CDT Inactive 06/02/2018 [facility] Prednisone 60 mg, Route: PO, D rug form: TAB, ONCE, Dosing Weight 100, kg, Priority: STAT, Start date: 06/01/18 21:39:00 CDT, Stop date: 06/01/18 21:39:00 CDT Inactive 06/02/2018 [facility] cyclobenzaprine 10 mg, Route: PO, Drug form: TAB, ONCE, Dosing Weight 100, kg, Priority: STAT, Start date: 06/01/18 21:39:00 CDT, Stop date: 06/01/18 21:39:00 CDT Inactive 06/02/2018 [facility] Pravastatin Notes: (Same as: Isidra valverdeachol) Inactive 09/27/2017 [facility] Levofloxacin 750 MG Oral Tablet [Levaquin] 750 mg = 1 tab, PO, Q24H, X 7 day, # 7 tab, 0 Refill(s) Active 09/26/2017 [facility] Robitussin-AC oral syrup 10 mL , PO, Q4H, PRN Cough/Congestion, X 10 day, # 240 mL, 0 Refill(s) Active 09/26/2017 [facility] benzonatate 100 mg oral capsule 200 mg = 2 cap, PO, TID, PRN Cough, # 20 cap, 0 Refill(s) Active 09/26/2017 [facility] magnesium citrate 58.2 MG/ML Oral Solution Notes: (Same as: Citrate of Magnesia) Concentration: 1.745 gm / 30 mL Inactive 09/26/2017 [facility] Robitussin-AC oral syrup Notes : (Same As: Robitussin AC) Inactive 09/26/2017 [facility] Streptococcus pneumoniae serotype 1 caps ular antigen diphtheria [id number] protein conjugate vaccine / Streptococcus pneumoniae serotype 14 capsular antigen diphtheria [id number] protein conjugate vaccine / Streptococcus pneumoniae serotype 18C capsular antigen d Notes: Shake well prior to use (Same as: Prevnar 13) Inactive 09/26/2017 [facility] Metformin Notes: (Same as: Glu cophage) Take with meal Inactive 09/26/2017 [facility] Cristian Morris Notes: (Same A s: Cristian Morris) "Do Not Crush" Inactive 09/26/2017 [facility] Aspirin 325 MG Enteric Coated Tablet Notes: (Do Not Crush) Do not crush or chew. Inactive 09/26/2017 [facility] Ondansetron 4 mg, Route: IVP, Drug form: INJ, ONCE, Dosing Weight 104.545, kg, Priority: STAT, Start date: 09/26/17 4:53:00 [employer], Stop date: 09/26/17 4:53:00 [employer] Inactive 09/26/2017 [facility] Morphine 2 mg, Route: IVP, ONC E, Dosing Weight 104.545, kg, Priority: STAT, Start date: 09/26/17 4:53:00 [employer], Stop date: 09/26/17 4:53:00 [employer] Inactive 09/26/2017 [facility] Acetaminophen 325 MG / Hydrocodone [place] trate 5 MG Oral Tablet Notes: (Same as: [place] 325/5) Do not ex ceed 4gm/day of acetaminophen. Inactive 09/26/2017 [facility] Ondansetron Notes: (Same as: [place]) MEDICATION WASTE Product Size: 4 mg Product Wasted: ___ mg Inactive 09/26/2017 [facility] Saline Flush 0.9% Notes: (Same as: BD Posiflush) Inactive 09/26/2017 [facility] Plavix Notes: (Same As: Plavix) No Longer Active 01/23/2016 [facility] Pravastatin Notes: (Same as: P ravachol) Inactive 01/23/2016 [facility] metoprolol tartrate Notes: (Sa me as: Lopressor) Inactive 01/23/2016 [facility] remove patch Notes: Remove pat ch 12 hours after application each day. Inactive 01/23/2016 [facility] Lidocaine Hydrochloride 0.05 MG/MG Trans dermal Patch [Lidoderm] Notes: Apply only once for up to 12 hour s in a 24-hour period (12 hours on and 12 hours off). (Same as: Lidoderm) "Remove old patch before application of new patch" Inactive 01/22/2016 [facility] Dexamethasone Notes: MEDIC ATION WASTE Product Size: 10 mg Product Wasted: ___ mg Inactive 01/22/2016 [facility] Kenalog-40 Notes: (Same As: Humberto nalog-40) MEDICATION WASTE Product Size: 40 mg Product Wasted: ___ mg Inactive 01/22/2016 [facility] Prednisone Notes: (Same as: Pr edniSONE) Take with food. Inactive 01/22/2016 [facility] 12 HR diclofenac epolamine 15 MG/HR Mcknight sdermal Patch [Flector] 1 patch, TOP, BID, PRN for pain, X 15 da y, # 30 patch, 0 Refill(s) On Hold 01/22/2016 [facility] Aspirin 81 MG Chewable Tablet 81 mg = 1 tab, PO, Daily, 0 Refill(s) On Hold 01/22/2016 [facility] Aspirin 81 MG Chewable Tablet Notes: Take with food. Inactive 01/22/2016 [facility] ergocalciferol Notes: (Same as : Vitamin D) "Do Not Crush" Inactive 01/22/2016 [facility] Saline Flush 0.9% Notes: (Same as: BD Posiflush) No Longer Active 01/22/2016 [facility] pravastatin 10 mg oral tablet 10 mg = 1 tab, PO, Bedtime, # 30 tab, 0 Refill(s) Active 01/21/2016 [facility] Enoxaparin Notes: (Same as: Lo venox) No Longer Active 01/21/2016 [facility] Morphine Notes: (Same as:MORPh ine Sulfate) No Longer Active 01/21/2016 [facility] Metoprolol Notes: (Same as: Lo pressor) Push over 2 minutes No Longer Active 01/21/2016 [facility] Nitroglycerin 0.4 MG Sublingual Tablet [Nitrostat] 0.4 mg, 1 tab, Route: SL, Drug form: TAB, Q5Min, Dosing Weight 104.545, kg, PRN Chest Pain, Start date: 01/21/16 15:51:00, Duration: 3 doses or times, Stop date: Limited # of times Inactive 01/21/2016 [facility] Hydralazine Notes: (Same as: A presoline) Push over 5 minutes No Longer Active 01/21/2016 [facility] Saline Flush 0.9% 10 ml, Route : IVP, Drug Form: INJ, Dosing Weight 104.545, kg, PRN, PRN Line Flush, Start date: 01/21/16 15:45:00, Duration: 30 day, Stop date: 02/20/16 15:44:00 Inactive 01/21/2016 [facility] Nitroglycerin Notes: (Same as: Nitroquick, Nitrostat) "Do Not Crush" Sublingual tablet No Longer Active 01/21/2016 [facility] Morphine Notes: (Same as:MORPh ine Sulfate) No Longer Active 01/21/2016 [facility] Ondansetron Notes: (Same as: [place]) No Longer Active 01/21/2016 [facility] Aspirin Notes: Take with food. Inactive 01/21/2016 [facility] Saline Flush 0.9% Notes: Same as: BD Posiflush Sterile Inactive 01/21/2016 [facility] Metformin 500 mg, PO, BID Active 01/21/2016 [facility] Allergies, Adverse Reactions, Alerts Substance Category Reaction Severity Reaction type Status Date Reported Comments Source Lyrica Assertion Drug allergy Active [facility] Immunizations Immunization Date Given Site Status Last Updated Comments Source pneumococcal 13-valent vaccine 09/26/2017 Left Deltoid [facility] Order Name Results Value Reference Range Date Interpretation Comments Source CARDIAC ENZYMES CK MB Index 0.2 0.0 - 2.5 09/26/2017 [place] CARDIAC ENZYMES CK MB 0.7 0.5 - 3.6 09/26/2017 [facility] CARDIAC ENZYMES Total CK 357 12 - 191 09/26/2017 [facility] CARDIAC ENZYMES Troponin-I <0.02 0.00 - 0.40 09/26/2017 [facility] CARDIAC ENZYMES Total CK 402 12 - 191 09/26/2017 [facility] CARDIAC ENZYMES Troponin-I <0.02 0.00 - 0.40 09/26/2017 [facility] CARDIAC ENZYMES CK MB Index <0.1 0.0 - 2.5 09/26/2017 [facility] CARDIAC ENZYMES CK MB <0.5 0.5 - 3.6 09/26/2017 [facility] CARDIAC ENZYMES BNP 33 <=100 pg/mL 09/26/2017 [facility] CARDIAC ENZYMES Troponin-I <0.02 0.00 - 0.40 09/26/2017 [facility] CARDIAC ENZYMES CK MB <0.5 0.5 - 3.6 09/26/2017 [facility] CARDIAC ENZYMES Total CK 555 12 - 191 09/26/2017 [facility] CARDIAC ENZYMES CK MB Index <0.1 0.0 - 2.5 09/26/2017 [facility] CHEM PANEL Albumin Lvl 3.3 3.5 - 5.0 09/26/2017 [facility] CHEM PANEL Globulin 4.8 2.7 - 4.2 09/26/2017 [facility] CHEM PANEL Potassium Lvl 4.2 3.5 - 5.1 09/26/2017 [facility] CHEM PANEL Total Protein 8.1 6.4 - 8.4 09/26/2017 [facility] CHEM PANEL B/C Ratio 11 6 - 25 09/26/2017 [facility] CHEM PANEL CO2 25 24 - 32 09/26/2017 [facility] CHEM PANEL Chloride Lvl 100 95 - 109 09/26/2017 [facility] CHEM PANEL Calcium Lvl 8.6 8.5 - 10.5 09/26/2017 [facility] CHEM PANEL AGAP 14.2 10.0 - 20.0 09/26/2017 [facility] CHEM PANEL Bili Total 0.6 0.2 - 1.3 09/26/2017 [facility] CHEM PANEL AST 151 0 - 37 09/26/2017 [facility] CHEM PANEL ALT 63 0 - 65 09/26/2017 [facility] CHEM PANEL A/G Ratio 0.7 0.7 - 1.6 09/26/2017 [facility] CHEM PANEL Alk Phos 83 39 - 136 09/26/2017 [facility] CHEM PANEL eGFR 90 09/26/2017 Result Comment: The eGFR is calculated using the CKD-EPI formula. In most young, healthy individuals the eGFR will be >90 mL/min/1.73m2. The eGFR declines with age. An eGFR of 60-89 may be normal in some populations, particularly the elderly, for whom the CKD-EPI formula has not been extensively validated. Use of the eGFR is not recommended in the following populations:

Individuals with unstable creatinine concentrations, including patients and those with serious co-morbid conditions.

Patients with extremes in muscle mass or diet.

The data above are obtained from the National Kidney Disease Education Program (NKDEP) which additionally recommends that when the eGFR is used in patients with extremes of body mass index for purposes of drug dosing, the eGFR should be multiplied by the estimated BMI. [facility] CHEM PANEL Sodium Lvl 135 135 - 145 09/26/2017 [facility] CHEM PANEL Creatinine Lvl 0.63 0.50 - 1.40 09/26/2017 [facility] CHEM PANEL BUN 7 7 - 22 09/26/2017 [facility] CHEM [facility] Glucose Lvl 170 70 - 99 09/26/2017 [facility] RBC 4.44 4.20 - 5.40 09/26/2017 [facility] MCV 91.7 80.0 - 98.0 09/26/2017 [facility] Hgb 13.5 12.0 - 16.0 09/26/2017 [facility] Hct 40.7 36.0 - 48.0 09/26/2017 [facility] WBC 4.6 3.7 - 10.4 09/26/2017 [facility] Platelet 176 133 - 450 09/26/2017 [facility] MCH 30.5 27.0 - 31.0 09/26/2017 [facility] RDW 13.5 11.5 - 14.5 09/26/2017 [facility] MCHC 33.3 32.0 - 36.0 09/26/2017 [facility] MPV 10.0 7.4 - 10.4 09/26/2017 [facility] Lymphocytes # 1.1 1.0 - 5.5 09/26/2017 [facility] Segs-Bands # 2.9 1.5 - 8.1 09/26/2017 [facility] HEMATOLOGY Basophils 0.3 0.0 - 1.0 09/26/2017 [facility] HEMATOLOGY Monocytes # 0.5 0.0 - 0.8 09/26/2017 [facility] HEMATOLOGY Monocytes 11.8 2.0 - 12.0 09/26/2017 [facility] HEMATOLOGY Lymphocytes 24.5 20.0 - 40.0 09/26/2017 [facility] HEMATOLOGY Segs 62.7 45.0 - 75.0 09/26/2017 [facility] HEMATOLOGY Eosinophils 0.7 0.0 - 4.0 09/26/2017 [facility] CARDIAC ENZYMES Total CK 92 12 - 191 01/22/2016 [facility] CARDIAC ENZYMES Troponin-I <0.02 0.00 - 0.40 01/22/2016 [facility] CARDIAC ENZYMES CK MB 0.6 0.5 - 3.6 01/22/2016 [facility] CARDIAC ENZYMES CK MB Index 0.7 0.0 - 2.5 01/22/2016 [facility] CARDIAC ENZYMES Troponin-I <0.02 0.00 - 0.40 01/22/2016 [facility] CARDIAC ENZYMES Total CK 118 12 - 191 01/22/2016 [facility] CARDIAC ENZYMES BNP 99 <=100 pg/mL 01/22/2016 [facility] CARDIAC ENZYMES CK MB Index 0.5 0.0 - 2.5 01/22/2016 [facility] CARDIAC ENZYMES CK MB 0.6 0.5 - 3.6 01/22/2016 [facility] CHEM PANEL eGFR 98 01/22/2016 Result Comment: The eGFR is calculated using the CKD-EPI formula. In most young, healthy individuals the eGFR will be >90 mL/min/1.73m2. The eGFR declines with age. An eGFR of 60-89 may be normal in some populations, particularly the elderly, for whom the CKD-EPI formula has not been extensively validated. Use of the eGFR is not recommended in the following populations:

Individuals with unstable creatinine concentrations, including patients and those with serious co-morbid conditions.

Patients with extremes in muscle mass or diet.

The data above are obtained from the National Kidney Disease Education Program (NKDEP) which additionally recommends that when the eGFR is used in patients with extremes of body mass index for purposes of drug dosing, the eGFR should be multiplied by the estimated BMI. [facility] CHEM PANEL Creatinine Lvl 0.52 0.50 - 1.40 01/22/2016 [facility] CHEM PANEL Vitamin D, 25-OH, Total 2 0 30 - 100 01/22/2016 [facility] CHEM PANEL Uric Acid 3.5 2.5 - 7.0 01/22/2016 [facility] CHEM PANEL Phosphorus 2.4 2.5 - 4.5 01/22/2016 [facility] CHEM PANEL Magnesium Lvl 2.0 1.8 - 2.4 01/22/2016 [facility] HEMATOLOGY Platelet 219 133 - 450 01/22/2016 [facility] HEMATOLOGY Sed Rate 38 0 - 20 01/22/2016 [facility] IMMUNOLOGY CRP, High Sensitivity 8.0 01/22/2016 [facility] IMMUNOLOGY Homocyst Tot 8.4 3.7 - 13.9 01/22/2016 [facility] LIPIDS VLDL 15 01/22/2016 [facility] LIPIDS LDL (Calculated) 59 <=99 mg/dL 01/22/2016 [facility] LIPIDS HDL 55 >=61 mg/dL 01/22/2016 [facility] LIPIDS Chol 129 <=199 mg/dL 01/22/2016 [facility] LIPIDS Trig 77 <=149 mg/dL 01/22/2016 [facility] LIPIDS CHD Risk 2.35 3.90 - 5.80 01/22/2016 [facility] SPECIAL CHEMISTRY Hgb A1C 7.6 <=5.6 % 01/22/2016 [facility] CARDIAC ENZYMES Total CK 133 12 - 191 01/21/2016 [facility] CARDIAC ENZYMES Troponin-I <0.02 0.00 - 0.40 01/21/2016 [facility] CARDIAC ENZYMES CK MB <0.5 0.5 - 3.6 01/21/2016 [facility] CARDIAC ENZYMES CK MB Index <0.4 0.0 - 2.5 01/21/2016 [facility] CHEM PANEL eGFR 95 01/21/2016 Result Comment: The eGFR is calculated using the CKD-EPI formula. In most young, healthy individuals the eGFR will be >90 mL/min/1.73m2. The eGFR declines with age. An eGFR of 60-89 may be normal in some populations, particularly the elderly, for whom the CKD-EPI formula has not been extensively validated. Use of the eGFR is not recommended in the following populations:

Individuals with unstable creatinine concentrations, including patients and those with serious co-morbid conditions.

Patients with extremes in muscle mass or diet.

The data above are obtained from the National Kidney Disease Education Program (NKDEP) which additionally recommends that when the eGFR is used in patients with extremes of body mass index for purposes of drug dosing, the eGFR should be multiplied by the estimated BMI. [facility] CHEM PANEL Glucose Lvl 138 70 - 99 01/21/2016 [facility] CHEM PANEL BUN 17 7 - 22 01/21/2016 [facility] CHEM PANEL Creatinine Lvl 0.58 0.50 - 1.40 01/21/2016 [facility] CHEM PANEL Total Protein 7.5 6.4 - 8.4 01/21/2016 [facility] CHEM PANEL B/C Ratio 29 6 - 25 01/21/2016 [facility] CHEM PANEL AGAP 11.0 10.0 - 20.0 01/21/2016 [facility] CHEM PANEL A/G Ratio 0.8 0.7 - 1.6 01/21/2016 [facility] CHEM PANEL Globulin 4.1 2.0 - 4.0 01/21/2016 [facility] CHEM PANEL ALT 30 0 - 65 01/21/2016 [facility] CHEM PANEL Albumin Lvl 3.4 3.5 - 5.0 01/21/2016 [facility] CHEM PANEL Alk Phos 109 39 - 136 01/21/2016 [facility] CHEM PANEL AST 22 0 - 37 01/21/2016 [facility] CHEM PANEL Bili Total 0.8 0.2 - 1.3 01/21/2016 [facility] CHEM PANEL Calcium Lvl 8.4 8.5 - 10.5 01/21/2016 [facility] CHEM PANEL Potassium Lvl 4.0 3.5 - 5.1 01/21/2016 [facility] CHEM PANEL Sodium Lvl 139 135 - 145 01/21/2016 [facility] CHEM PANEL CO2 25 24 - 32 01/21/2016 [facility] CHEM PANEL Chloride Lvl 107 95 - 109 01/21/2016 [facility] HEMATOLOGY MCV 92.4 80.0 - 98.0 01/21/2016 [facility] HEMATOLOGY MCH 30.0 27.0 - 31.0 01/21/2016 [facility] HEMATOLOGY Hct 40.8 36.0 - 48.0 01/21/2016 [facility] HEMATOLOGY MPV 9.3 7.4 - 10.4 01/21/2016 [facility] HEMATOLOGY MCHC 32.5 32.0 - 36.0 01/21/2016 [facility] HEMATOLOGY WBC 6.4 3.7 - 10.4 01/21/2016 [facility] HEMATOLOGY Hgb 13.3 12.0 - 16.0 01/21/2016 [facility] HEMATOLOGY RBC 4.42 4.20 - 5.40 01/21/2016 [facility] HEMATOLOGY RDW 13.4 11.5 - 14.5 01/21/2016 [facility] HEMATOLOGY Platelet 215 133 - 450 01/21/2016 [facility] HEMATOLOGY PT 14.1 12.0 - 14.7 01/21/2016 [facility] HEMATOLOGY INR 1.06 0.85 - 1.17 01/21/2016 [facility] HEMATOLOGY PTT 36.3 22.9 - 35.8 01/21/2016 [facility] HEMATOLOGY Segs 57.1 45.0 - 75.0 01/21/2016 [facility] HEMATOLOGY Eosinophils 2.1 0.0 - 4.0 01/21/2016 [facility] HEMATOLOGY Segs-Bands # 3.7 1.5 - 8.1 01/21/2016 [facility] HEMATOLOGY Basophils 0.5 0.0 - 1.0 01/21/2016 [facility] HEMATOLOGY Lymphocytes 32.7 20.0 - 40.0 01/21/2016 [facility] HEMATOLOGY Monocytes 7.6 2.0 - 12.0 01/21/2016 [facility] HEMATOLOGY Lymphocytes # 2.1 1.0 - 5.5 01/21/2016 [facility] HEMATOLOGY Monocytes # 0.5 0.0 - 0.8 01/21/2016 [facility] HEMATOLOGY Eosinophils # 0.1 0.0 - 0.5 01/21/2016 [facility] URINE AND STOOL UA Color Ltyellow 01/21/2016 [facility] URINE AND STOOL UA Bacteria Many /HPF None Seen /HPF 01/21/2016 [facility] URINE AND STOOL UA RBC 2 0 - 2 01/21/2016 [facility] URINE AND STOOL UA WBC 3 0 - 5 01/21/2016 [facility] URINE AND STOOL UA Sq Epi Few /LPF Few /LPF 01/21/2016 [facility] URINE AND STOOL UA Leuk Est Negative (01/21/16 12:16 PM) Negative 01/21/2016 [facility] URINE AND STOOL UA Nitrite Positive *ABN* (01/21/16 12:16 PM) Negative 01/21/2016 [facility] URINE AND STOOL UA Urobilinogen 2.0 0.1 - 1.0 01/21/2016 [facility] URINE AND STOOL UA Bili Negative *NA* (01/21/16 12:16 PM) Negative 01/21/2016 [facility] URINE AND STOOL UA Blood Small *ABN* (01/21/16 12:16 PM) Negative 01/21/2016 [facility] URINE AND STOOL UA Protein Negative mg/dL Negative mg/dL 01/21/2016 [facility] URINE AND STOOL UA Glucose Negative mg/dL Negative mg/dL 01/21/2016 [facility] URINE AND STOOL UA Ketones Negative mg/dL Negative mg/dL 01/21/2016 [facility] URINE AND STOOL UA Turbidity Slight *ABN* (01/21/16 12:16 PM) Clear 01/21/2016 [facility] URINE AND STOOL UA Spec Grav 1.020 <=1.030 01/21/2016 [facility] URINE AND STOOL UA pH 5.0 5.0 - 8.0 01/21/2016 [facility] Pathology Reports No Data Provided for This Section Diagnostic Reports Report Value Date Source Stomach emptying NM PROCEDURE INFORMATION: Exam: NM Gastric emptying Exam date and time: 05/15/2020 12:30 PM Age: 75 years old Clinical indication: Gastro-esophageal reflux disease with esophagitis; Additional info: /k21.0 gastro-esophageal reflux disease with esophagitis TECHNIQUE: Imaging protocol: Gastric emptying was performed with technetium sulfur colloid mixed with solid meal. A region of interest was drawn around the stomach and time/activity curve of gastric emptying is calculated. Projections: Anterior imaging obtained of the abdomen. Radiopharmaceutical: Oral 1.2 mCi Tc-99m sulfur colloid mixed with solid meal. Time of imaging post radiopharmaceutical administration: 200 minutes. COMPARISON: ABDOMEN AP DX 09/26/2017 12:31 PM FINDINGS: Stomach: Normal gastric emptying. Gastric emptying half time (T 1/2): The T-1/2 is 32 minutes (normal for solids < 90 minutes). Bowel: There is normal transit of tracer from the stomach into the small bowel. IMPRESSION: Normal gastric emptying. Normal small bowel transit. Gianni Bustos MD On 05/15/2020 12:46:02; [id number] 05/15/2020 [facility] Chest 2 views DX 2-VIEW CHEST X-RAY. DATE: 05/03/2020 8:02 AM CDT INDICATION: - R05 Cough TECHNIQUE: Frontal and lateral views of the chest were performed. COMPARISON:Chest x-ray 11/15/2019 FINDINGS: Lung volumes with bibasilar atelectasis. No pleural effusions. No pneumothorax. The cardiomediastinal silhouette is unchanged. The osseous structure show mild degenerative spine. The visualized abdomen is unremarkable. IMPRESSION: Lung volumes and bibasilar atelectasis or airspace disease. 05/03/2020 [facility] Chest 2 views DX EXAM: Chest 2 views DX HISTORY: - R91.8 Other nonspecific abnormal finding of lung field COMPARISON: 06/01/2018 The heart size is normal. The lungs are clear. There is no pleural effusion or pneumothorax. Moderate discogenic degenerative changes are noted. IMPRESSION: No acute abnormality. 11/15/2019 [facility] [place] Bone Density DXA [employer] MA BONE DENSITY ASSESSMENT: 11/15/2019 CLINICAL DATA: Post menopausal and clinical risk for osteoporosis. M85.80 Other specified disorders of bone density and structure, unspecified site. M85.80 Other Specified Disorders Of Bone Density And Structure, Unspecified Site/M85.80 Other Specified Disorders Of Bone Density And Structure, Unspecified Site FINDINGS: Bone density evaluation was performed 11/15/2019 on the right femur neck using a Hologic unit. The BMD average for the exam is 0.619 g/cm2. The T-score is - 2.10 and the Z-score is -0.20. This matches the World Health Organization's criteria for osteopenia and places the patient at a medium risk for fracture. An additional bone density evaluation was performed 11/15/2019 on the left femur neck using a Hologic unit. The BMD average for the exam is 0.656 g/cm2. The T- score is -1.70 and the Z-score is 0.10. This matches the World Health Organization's criteria for osteopenia and places the patient at a medium risk for fracture. An additional bone density evaluation was performed 11/15/2019 on the right hip using a Hologic unit. The BMD average for the exam is 0.799 g/cm2. The T-score is -1.20 and the Z-score is 0.50. This matches the World Health Organization's criteria for osteopenia and places the patient at a medium risk for fracture. An additional bone density evaluation was performed 11/15/2019 on the left hip using a Hologic unit. The BMD average for the exam is 0.902 g/cm2. The T-score is -0.30 and the Z-score is 1.30. This matches the World Health Organization's criteria for normal bone density and places the patient within normal limits of fracture risk. An additional bone density evaluation was performed 11/15/2019 on the AP L2-L4 region of spine using a Hologic unit. The BMD average for the exam is 0.967 g/cm2. The T-score is -1.00 and the Z-score is 1.40. This matches the World Health Organization's criteria for normal bone density and places the patient within normal limits of fracture risk. FRAX 10 year probability of major osteoporotic fracture is 5.6% and hip fracture is 1.1%. IMPRESSION: OSTEOPENIA Patient is at medium risk for fracture. Patient consult w/primary care provider is recommended. This exam was interpreted at [id number] for MARGARITA Allred. Chey Gunderson M.D. 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 Patient states abnormal CT of lung. Mass on chest CT. LABS AND CLINICAL REPORTS: Glucose: 107 TECHNIQUE: Imaging protocol: Following at least four-hour fasting and approximately one hour following the injection of F-18-FDG, low dose CT images were obtained from the orbital meatal line through the pelvis. Then, PET images were obtained through the same region. Attenuation corrected images were constructed using the CT scan. Fused images of PET and CT were reviewed. The standardized uptake values (SUV) reported below are maximum values within a region of interest, expressed in gm/ml. Radiopharmaceutical: 15.8 F18-FDG, IV Injection site: Left hand COMPARISON: No relevant prior studies available. FINDINGS: Head: Visualized portion of the brain demonstrates no abnormality in the radiotracer distribution of the cortex, deep subcortical structures, and the cerebellum. Neck: Evaluation of the neck demonstrates normal uptake within the cervical lymph nodes. There is normal uptake within the salivary glands, and remaining cervical structures. Chest: Evaluation of the thorax demonstrates no abnormal uptake within the lungs. Physiologic myocardial uptake is present. There are no hypermetabolic mediastinal lymph nodes. Abdomen and Pelvis: Multiple foci of soft tissue density are identified in the ventral mesentery on the right. These measure up to 2 cm and are seen on images 55 through 61 with a SUV of 1.3. Examina tion of the abdomen and pelvis shows normal uptake within the adrenal glands, liver, spleen, pancreas, renal cortices and collecting system. There are no hypermetabolic lymph nodes. Bones/joints: No metabolically active areas are noted within the osseous structures. Soft tissues: No metabolically active areas are noted within the soft tissue. Other findings: Biliary air with prior sphincterotomy. Atelectatic change in the lung bases without abnormal activity. Three-month followup chest CT without contrast is recommended to evaluate. Post cholecystectomy. Small splenic artery aneurysm measures 0.7 cm. IMPRESSION: 1. Atelectatic change in the lung bases without abnormal activity. Three-month followup chest CT without contrast is recommended to evaluate. 2. Multiple ventral mesenteric soft tiss ue densities without abnormal uptake suggestive of scar. Non PET avid neoplasm is considered less likely but not excluded. This can be followed up on a [address] exam. If there is strong concern for neoplasm, soft tissue biopsy could be performed. 4. Post cholecystectomy. 5. Small splenic artery aneurysm measure s 0.7 cm. Anthony Ramirez MD On 08/19/2019 16:08:58; [id number] 08/18/2019 [facility] Chest 2 views DX Clinical Airam cation: - Lside CP. Comparison: None. TECHNIQUE: PA and lateral chest radiographs were performed. (2 views) FINDINGS: LUNGS: Normal lung volumes. No interstitial or airspace opacities. No pleural effusions or pneumothorax. HEART AND MEDIASTINUM: The heart size is normal. The pulmonary vasculature is normal. The mediastinal contour is normal. The trachea is midline. OSSEOUS STRUCTURES: No acute abnormality seen. IMPRESSION: 1. No acute cardiopulmonary disease. SL: SHANE 06/01/2018 [facility] Ribs unilateral DX Clinical In dication: - pain, blunt trauma Comparison: None FINDINGS: Rib Series: Single frontal view of the chest demonstrates an unremarkable cardiac silhouette and aorta. Lung volumes are maintained. There are no focal infiltrates or effusions. The AP and oblique views of the left ribs show no definite rib fractures. The costovertebral junctions are unremarkable. There are no associated pleural effusions or pneumothorax. There are no underlying pulmonary contusions noted. If there is further concern, followup radiographs or bone scan may be performed for complete assessment. IMPRESSION: No evidence for rib fractures. [id number] 06/01/2018 [facility] Bone Density DXA [employer] MA BONE DENSITY ASSESSMENT: 11/24/2017 CLINICAL DATA: Post menopausal. Z13.820 Encounter For Screening For Osteoporosis/Z13.820 Encounter For Screening For Osteoporosis FINDINGS: Bone density evaluation was performed 11/24/2017 on the right femur neck using a Hologic unit. The BMD average for the exam is 0.650 g/cm2. The T-score is - 1.80. This matches the World Health Organization's criteria for osteopenia and places the patient at a medium risk for fracture. An additional bone density evaluation was performed 11/24/2017 on the left femur neck using a Hologic unit. The BMD average for the exam is 0.653 g/cm2. The T- score is -1.80. This matches the World Health Organization's criteria for osteopenia and places the patient at a medium risk for fracture. An additional bone density evaluation was performed 11/24/2017 on the right hip using a Hologic unit. The BMD average for the exam is 0.789 g/cm2. The T-score is -1.30 and the Z-score is 0.30. This matches the World Health Organization's criteria for osteopenia and places the patient at a medium risk for fracture. An additional bone density evaluation was performed 11/24/2017 on the left hip using a Hologic unit. The BMD average for the exam is 0.868 g/cm2. The T-score is -0.60 and the Z-score is 0.90. This matches the World Health Organization's criteria for normal bone density and places the patient within normal limits of fracture risk. An additional bone density evaluation was performed 11/24/2017 on the AP L1-L4 region of spine using a Hologic unit. The BMD average for the exam is 0.914 g/cm2. The T-score is -1.20 and the Z-score is 1.00. This matches the World Health Organization's criteria for osteopenia and places the patient at a medium risk for fracture. FRAX 10 year probability of major osteoporotic fracture is 5.2% and hip fracture is 0.8%. IMPRESSION: OSTEOPENIA Patient is at medium risk for fracture. Neftaly Corona M.D., jp/penrad:11/24/2017 14:38:41 Secondary Spanish Teacher(s): Fanta Herring RT(R)(M), [facility] 11/24/2017 [facility] ERICK incl CAD MA BILATERAL DIGITAL SCREENING MAMMOGRAM WITH CAD: 11/24/2017 CLINICAL: Z12.31 Encounter For Screening Mammogram For Malignant Neoplasm Of Breast/Z12.31 Encounter For Screening Mammogram For Malignant Neoplasm Of Breast. Current study was evaluated with a Computer Aided Detection (CAD) system. COMPARISON:Comparison is made to exams dated: 05/10/2016 mammogram, 09/16/2014 mammogram, 10/15/2012 mammogram, and 03/14/2011 mammogram - [facility]. TECHNIQUE: Mammographic views were obtained using digital acquisition. Current study was also evaluated with a Computer Aided Detection (CAD) system. FINDINGS: The tissue of both breasts is almost entirely fat. There are benign appearing calcifications in both breasts. No significant masses, calcifications, or other findings are seen in either breast. There has been no significant interval change. IMPRESSION: BENIGN RECOMMENDATION:There is no mammographic evidence of malignancy. A 1 year screening mammogram is recommended.(11/25/2018) Professional services are provided by the [facility]. Neftaly Corona M.D., jp/penrad:11/24/2017 14:40:48 Secondary Spanish Teacher(s): Jennifer Pratt RT(R)(M), [facility] letter sent: BI-RADS 1/2 Mammogram BI-RADS: 2 Benign 11/24/2017 [facility] Abdomen AP DX EXAM: Abdomen AP DX DATE: 09/26/2017 12:03 PM [employer]YCHIATRIC INDICATION: - abd pain COMPARISON: None. IMPRESSION: Nonspecific bowel gas pattern is present. Abundance of stool within the colon. Surgical clips are present within the right upper quadrant and upper pelvis. No definite gross free air detected. SL: [id number] 09/26/2017 [facility] Chest 1view DX Clinical Indica tion: - SOB/CP; Comparison: January 21, 2016 FINDINGS: The cardiomediastinal silhouette is mildly enlarged in size. No significant pleural effusions are seen. The bony structures are intact. No evidence for pneumothorax. IMPRESSION: 1. No acute cardiopulmonary disease 09/26/2017 [facility] Cardiac SPECT multi studies PA Patient Name: CEDRICK HOLT : 1945; Age: 72 years Female MR: [id number] Study: Cardiac SPECT multi studies PA 04/30/2017 7:51 AM CDT Clinical Indication: - stress COMPARISON: 01/22/2016. TECHNIQUE: 10.9 mCis of Technetium 99m Cardiolite were administered for the stress portion of the examination and 30 mCis for the resting study. FINDINGS: The SPECT images demonstrate physiologic tracer activity. No significant fixed or reversible defect is evident. The left ventricle cavity is of normal size. CARDIAC PERFUSION STUDY: FINDINGS: The gated examination demonstrates no significant focal wall motion abnormality. The end-diastolic volume is estimated at 55 ml with end-systolic volume at 15 ml. The ejection fraction is calculated at 72%. IMPRESSION: No significant fixed or reversible defect is noted. SL: [id number] 04/30/2017 [facility] Knee 1-2 Views Bilateral DX EX AMINATION: Bilateral knees 1 to 2 views each. HISTORY: M15.9 Polyosteoarthritis, unspecified; bilateral knee osteoarthritis FINDINGS: Frontal weightbearing view of both knees and lateral weightbearing views of each knee are performed and compared to 03/14/2011. On the left, there is moderate medial and patellofemoral compartment predominant, tricompartmental left knee osteoarthritis without substantial interval change. There is no acute fracture. There is a trace left knee effusion. On the right, there has been interval placement of a 3 component total knee arthroplasty which is in near anatomic alignment without periprosthetic fracture or osteolysis. There is no right knee effusion. IMPRESSION: 1. Unchanged moderate medial and patello femoral compartment predominant, tricompartment the left knee osteoarthritis with a trace left knee effusion. 2. New right total knee arthroplasty whi ch is in near anatomic alignment. 07/11/2016 [facility] Shoulder series DX EXAMINATION : Right shoulder series HISTORY: M15.9 Polyosteoarthritis, unspecified; right shoulder pain; right acromioclavicular osteoarthritis FINDINGS: 3 views of the right shoulder are performed and compared to to 03/13/2015. There are no acute fractures or dislocations. There is unchanged minimal right acromioclavicular with minimal asymmetric joint space narrowing. The glenohumeral joint space is normal. IMPRESSION: 1. Unchanged minimal right acromioclavic ular osteoarthritis. 2. No acute fracture or dislocation of t he right shoulder. 07/11/2016 [facility] Digital Mammo Screening Erick MA AMENDMENT: 05/29/2016 Job Garcia M.D. Repeat CC views are technically adequate. No suspicious findings. Annual mammogram recommended. Amended BI-RADS: 2 Benign letter sent: Normal exam - DIGITAL MAMMO SCREENING ERICK MA BILATERAL DIGITAL SCREENING MAMMOGRAM WITH CAD: 05/10/2016 CLINICAL: Z12.31 Encounter For Screening Mammogram For Malignant Neoplasm Of Breast. Current study was evaluated with a Computer Aided Detection (CAD) system. Comparison is made to exams dated: 09/16/2014 mammogram, 10/15/2012 mammogram and 03/14/2011 mammogram - [facility]. The tissue of both breasts is almost entirely fat. The bilateral CC views do not include the posterior breast tissue as well as very lateral and medial breast tissue. No significant masses, calcifications, or other findings are seen in either breast. IMPRESSION: INCOMPLETE: NEEDS ADDITIONAL IMAGING EVALUATION Technical repeat is recommended as described above. The staff from [facility] with [facility] will contact the patient to schedule the additional studies. A supplemental report will be issued following interpretation of the additional studies. Fernanda Chery M.D. ks/:05/12/2016 09:12:37 Secondary Spanish Teacher: Magdalena PEREIRA(Celi)(M), [facility] This exam was dictated and interpreted by [id number] for MARGARITA Vieira. letter sent: Additional Imaging Mammogram BI-RADS: 0 Indeterminate 05/10/2016 [facility] Cardiac SPECT multi studies NM Cardiac SPECT multi studies NM CLINICAL HISTORY: Chest tightness; TECHNIQUE: 10 mCis of Technetium 99m Cardiolite were administered for the stress portion of the examination and 30 millicuries for the resting study. The patient was given 0.4 mg of IV Lexiscan for the stress portion of the study FINDINGS: The SPECT images demonstrate mild reversibility in the lateral wall of left ventricle. No other significant fixed or reversible defect is noted. The left ventricle cavity is of normal size. CARDIAC PERFUSION STUDY: FINDINGS: The gated examination demonstrates no significant focal wall motion abnormality. The end-diastolic volume is estimated at 67 ml with end-systolic volume at 27 ml. The ejection fraction is calculated at 59 % . IMPRESSION: Mild reversibility in the lateral wall of left ventricle. Findings suggestive of stress-induced ischemia. Please correlate with other clinical data. No other significant fixed or reversible defect is noted. : [id number] 01/22/2016 [facility] Ext Upper Venous Doppler Unilat US VENOUS DOPPLER RIGHT UPPER EXTREMITY: HISTORY: Right upper extremity pain. FINDINGS: Compression duplex ultrasound of the right upper extremity was done from the subclavicular region through the antecubital fossa. The ipsilateral right internal jugular vein was also evaluated. The visualized right upper extremity veins are patent and compressible without evidence of intraluminal thrombus. Satisfactory spontaneous and augmented flow is demonstrated in the visualized segments. IMPRESSION: Negative venous Doppler of the right upper extremity. [id number] 01/21/2016 [facility] Chest 1view DX Patient Name: Ryland HOLT : 1945; Age: 70 years Female MR: [id number] Study: Chest 1view DX Order Time: 01/21/2016 12:01 PM CDT Clinical Indication: Chest pain. COMPARISON: November 2014. July 2014. May 2012. FINDINGS: Views: 1 There is normal lung volume. There are no suspicious interstitial/airspace opacities. There are no pleural effusions. There is no pneumothorax. Prominence of the cardiac silhouette may be accentuated by portable technique. The pulmonary vasculature is normal. The trachea is midline. There are no clinically significant osseous abnormalities noted. IMPRESSION: No radiographic evidence of acute cardiopulmonary disease. : [id number] 01/21/2016 [facility] Abdomen complete US EXAM: Abdo men complete US HISTORY: R10.9 Unspecified abdominal pain COMPARISON: None FINDINGS: Liver: Measures 14 cm in length (normal: 13-17 cm). Echogenicity suggests fatty infiltration and/or chronic hepatocellular disease. No suspicious lesion or surface nodularity. Portal vein is patent with hepatopedal flow. Biliary: The gallbladder is surgically absent. There is no biliary duct dilation. Mid common bile duct measures 8 mm in diameter. Pancreas: No focal lesion. However, certain portions are obscured by overlying bowel gas and unable to be evaluated. Spleen: Measures 9 cm in maximal dimension (normal < 13 cm). No focal lesion is seen. Kidneys: Right and left measure 10.1 and 9.7 cm in length, respectively (normal: 9-12 cm). No hydronephrosis, suspicious renal mass, or large shadowing stone. Vascular: Visualized portions of the IVC are patent. No obvious aneurysmal dilatation of the aorta. IMPRESSION: Hepatic echogenicity suggests fatty infiltration and/or chronic hepatocellular disease. 08/02/2015 [facility] Consultation Notes No Data Provided for This Section Discharge Summaries No Data Provided for This Section History and Physicals No Data Provided for This Section Vital Signs Vital Sign Value Date Comments Source Systolic (mm Hg) 122 06/02/2018 [facility] Diastolic (mm Hg) 73 06/02/2018 [facility] Respitory Rate 18 06/02/2018 [facility] Temperature Oral (F) 98 F 06/02/2018 [facility] Heart Rate 85 06/02/2018 [facility] Heart Rate 84 06/02/2018 [facility] Respitory Rate 17 06/02/2018 [facility] Systolic (mm Hg) 144 06/02/2018 [facility] Diastolic (mm Hg) 77 06/02/2018 [facility] Weight 100 06/02/2018 [facility] Systolic (mm Hg) 144 06/02/2018 [facility] Diastolic (mm Hg) 73 06/02/2018 [facility] Heart Rate 84 06/02/2018 [facility] Respitory Rate 18 06/02/2018 [facility] Temperature Oral (F) 97.9 F 06/02/2018 [facility] Height 149.86 cm 06/02/2018 [facility] BMI Calculated 44.53 06/02/2018 [facility] Respitory Rate 17 09/26/2017 [facility] Temperature Oral (F) 98.0 F 09/26/2017 [facility] Systolic (mm Hg) 110 09/26/2017 [facility] Diastolic (mm Hg) 63 09/26/2017 [facility] Heart Rate 64 09/26/2017 [facility] Systolic (mm Hg) 106 09/26/2017 [facility] Diastolic (mm Hg) 64 09/26/2017 [facility] Temperature Oral (F) 98.3 F 09/26/2017 [facility] Rate 81 09/26/2017 [facility] Respitory Rate 17 09/26/2017 [facility] Height 149.86 cm 09/26/2017 [facility] BMI Calculated 46.96 09/26/2017 [facility] Weight 105.455 09/26/2017 [facility] Temperature Oral (F) 99.2 F 09/26/2017 [facility] Respitory Rate 16 09/26/2017 [facility] Systolic (mm Hg) 104 09/26/2017 [facility] Diastolic (mm Hg) 64 09/26/2017 [facility] Heart Rate 94 09/26/2017 [facility] Weight 104.545 09/26/2017 [facility] BMI Calculated 46.55 09/26/2017 [facility] Height 149.86 cm 09/26/2017 [facility] BMI Calculated 43 04/30/2017 [facility] Weight 113.636 04/30/2017 [facility] Height 162.56 cm 04/30/2017 [facility] Weight 103.455 01/22/2016 [facility] Systolic (mm Hg) 133 01/22/2016 [facility] Diastolic (mm Hg) 73 01/22/2016 [facility] Respitory Rate 18 01/22/2016 [facility] Temperature Oral (F) 98.2 F 01/22/2016 [facility] Heart Rate 62 01/22/2016 [facility] Heart Rate 66 01/22/2016 [facility] Temperature Oral (F) 97.9 F 01/22/2016 [facility] Respitory Rate 18 01/22/2016 [facility] Systolic (mm Hg) 127 01/22/2016 [facility] Diastolic (mm Hg) 81 01/22/2016 [facility] Respitory Rate 18 01/22/2016 [facility] Systolic (mm Hg) 118 01/22/2016 [facility] Diastolic (mm Hg) 78 01/22/2016 [facility] Temperature Oral (F) 98.5 F 01/22/2016 [facility] Heart Rate 63 01/22/2016 [facility] Weight 104.545 01/21/2016 [facility] BMI Calculated 46.55 01/21/2016 [facility] Height 149.86 cm 01/21/2016 [facility] Weight 104.545 01/21/2016 [facility] BMI Calculated 46.55 01/21/2016 [facility] Height 149.86 cm 01/21/2016 [facility] Encounters Location Location Details Encounter Type Encounter Number Reason For Visit Attending Provider ADM Date DC Date Status Source [facility] [place] [facility] [id number] 07 Alistair Montiel 08/14/2014 08/15/2014 [facility] [place] [facility] [place] [facility] [id number] 08 Alistair Montiel 08/17/2014 08/18/2014 [facility] [place] [facility] [place] [facility] [id number] 09 Ninfa Wintersyo 09/16/2014 09/17/2014 [facility] [place] [facility] [place] [facility] [id number] 10 Alistair Montiel 12/06/2014 12/07/2014 [facility] [place] [facility] [place] [facility] [id number] 11 Alistair Montiel 03/13/2015 03/14/2015 [facility] [place] [facility] [place] [facility] [id number] 12 Alistair Montiel 08/02/2015 08/03/2015 [facility] [place] [facility] OBS Observation Patient [id number] Yan Cruzbuck 01/21/2016 01/22/2016 [facility] - [place] [facility] [id number] 13 Alistair Montiel 05/10/2016 05/11/2016 [facility] [place] [facility] [place] [facility] [id number] 15 Alistair Montiel 07/11/2016 07/12/2016 [facility] [place] [facility] Outpatient [id number] Allison Youngblood Jr 04/30/2017 05/01/2017 [facility] Observation [id number] Evelio Richter 09/26/2017 09/26/2017 [facility] [place] [facility] [id number] Bin Hankins 11/24/2017 11/25/2017 [facility] [place] [facility] Emergency [id number] Oscar Loco 06/02/2018 06/02/2018 [facility] Outpatient [id number] Petar Ansari 08/18/2019 08/19/2019 [facility] [place] [facility] [id number] Bin Hankins 11/15/2019 11/16/2019 FILIPED [place] [facility] - [place] [facility] [id number] Bin Hankins 05/03/2020 05/04/2020 [facility] [place] [facility] Outpatient [id number] Petar Ansari 05/15/2020 05/16/2020 [facility] Procedures Procedure Code Date Perfomer Comments Source Abdominal hysterectomy [id number] OPIMohinder Mcclurea,[facility] Gallbladder stone removal [id number] [facility] [place],[facility] Hiatus hernia repair [id number] [facility] Knee replacement [id number] [facility] Assessment and Plan Assessment and Plan Date Source Extracted from:Title: Discharge Summary * Author: Evelio Richter MD Date: 09/26/17 Discharge Information Disposition to home Condition stable Medications: See med reconciliation form Diet: Heart healthy diabetic Discharge Plan Follow-up with cardiology in 1 week, PCP in 1 week In evaluating worsening symptoms patient was to come back to the ED for further evaluation Discharge summary to greater than 35 minutes Extracted from:Title: Clinical Document Author: Javed Brown MD Date: 09/26/17 full H&P dictated, #[id number] date/time: 09/26/2017 04:55 09/26/2017 Allison Extracted from:Title: Clinical Document Author: Yan Roldan MD Date: 01/22/16 [id number] 01/22/2016 [facility] Plan of Care No Data Provided for This Section Social History Social History Date Source Social History TypeResponse Alcohol Past, Previous treatment: None. Smoking Status Never smoker; Exposure to Tobacco Smoke None; Cigarette Smoking Last 365 Days No; Reg Smoking Cessation Counseling No entered on: 06/01/18 01/21/2016 [facility] Social History TypeResponse Alcohol Past, Previous treatment: None. Smoking Status Never smoker; Exposure to Tobacco Smoke None; Cigarette Smoking Last 365 Days No; Reg Smoking Cessation Counseling No entered on: 06/01/18 01/21/2016 [facility] Family History No Data Provided for This Section Advance Directives No Data Provided for This Section Functional Status No Data Provided for This Section
--- OUTSIDE RECORDS SUMMARY | 2020-06-21 08:11 | XMS REPORT | Continuity of Care Document ---
Author Author [facility] t Organization [facility] Address [address] [place] [address] Phone Unavailable Care Team Providers Care Industrial Recruiter Name Role Phone BIN ERVIN MD PCP Alondra Ansari Attphys Carol Ervin Attphys Magan Burkett Attphys Cassie Galindo DO Attphys Sergei ALVES, Oswaldo Lane Attphys [phone] Shilpi BARR Attphys Unavailable Hang LOCO Attphys Unavailable BIN ERVIN Attphys Unavailable Isidra Loco Attphys Javier Richter Attphys JOSE A MA Attphys Unavailable Laura Youngblood Jr Attphys Thaddues Montiel Attphys Parrish Roldan Attphys Christen Cortes Attphys Alondra Ansari Admphys BIN ERVIN Admphys Javier Felton Admphys Parrish Roldan Admphys Payers Payer Name Policy Type Policy Number Effective Date Expiration Date Hang Morse [facility] [id number] 2017 00:00:00 [facility] Problems Condition Name Condition Details Condition Category Status Onset Date Resolution Date Last Treatment Date Treating Clinician Comments Source K21.0 GASTRO-ESOPHAGEAL REFLUX DISEASE W K21.0 GASTRO- ESOPHAGEAL REFLUX DISEASE W Active 05/07/2020 [facility] Ac tive 2020-05-07 00:00:00 2020-05-15 08:38:00 [facility] R07.89 - OTHER CHEST PAIN R06.09 - OTHER R07.89 - OTHER CHEST PAIN R06.09 - OTHER Active 04/30/2020 [facility] [place] [facility] Active 2020-04-30 00:01:00 2020-05-08 17:37:00 M mikhailrishady Stapleton DX: R10.13=EPIGASTRIC PAIN/R14.0=ABDOMIN DX: R10.13=EPIGASTRIC PAIN/R14.0=ABDOMIN Active 08/08/2019 [facility] Active 2019-08-08 00:00:00 2019-08-18 13:51:00 Meagan Stapleton BACK PAIN OR INJURY BACK PAIN OR INJURY Active 06/01/2018 [facility] Active 2018-06-01 00:00:00 2018-06-01 22:02:00 Meagan Stapleton NECK PAIN OR INJURY NECK PAIN OR INJURY Active 06/01/2018 [facility] Active 2018-06-01 00:00:00 2018-06-01 21:48:00 Meagan Stapleton CHEST PAIN CHES T PAIN Active 09/25/2017 [facility] Active 2017-09-25 00:00:00 2017-10-01 14:18:00 Meagan Stapleton COUGH, ABDOMINAL PAIN COUG H, ABDOMINAL PAIN Active 09/25/2017 [facility] Active 2017-09-25 00:00:00 2017-09-25 23:33: 00 [facility] Pieter UNK UNK Active 04/22/2017 [facility] Active 2017-04-22 00:00:00 2017-04-30 07:10:00 [facility] R92.8 - OTH ABN AND INCONCLUSIVE FINDI R92.8 - OTH ABN AND INCONCLUSIVE FINDI Active 05/22/2016 [facility] [place] [facility] Active 2016-05-22 00:01:00 2016-07-06 15:57:00 [facility] ATAXIA, FREQUENT FALLS, HYPERKALEMIA, BL ATAXIA, FREQUENT FALLS, HYPERKALEMIA, BL Active 01/21/2016 [facility] Active 2016-01-21 00:00:00 2016-01-23 07:58:00 [facility] R10.9 - UNSPECIFIED ABDOMINAL PAIN R10.9 - UNSPECIFIED ABDOMINAL PAIN Active 07/23/2015 [facility] [place] [facility] Active 2015-07-23 00:01:00 2015-08-02 08:36:00 [facility] Bronchitis Bronchitis Problem Active 2014-10-19 00:00:00 [facility] Influenza due to influenza virus, type B Influenza B Problem Active 2014-10-19 00:00:00 [facility] 786.50 - CHEST PAIN NOS 786. 50 - CHEST PAIN NOS Active 08/14/2014 [facility] [facility] Active 2014-08-14 00:01:00 2014-08-24 08:35:00 [facility] Chest pain Chest pain Problem Active [facility] Urinary tract infection Urinary tract infection Problem Active [facility] Diverticulitis of intestine Diverticulitis Problem Active [facility] Right lower quadrant abdominal pain Right lower quadrant abdomin al pain Problem Active [facility] Encounter for screening for osteoporosis Encounter for screening for osteoporosis 03/02/2018 [facility] Problem 2018-03-02 12:39:54 [facility] Other specified disorders of bone density and structur e, multiple sites Other specified disorders of bone density and structure, multiple sites 03/02/2018 [facility] [place] Problem 2018-03-02 12: 39:54 [facility] Type 2 diabetes mellitus without complications Type 2 diabetes mellitus without complications 12/19/2018 [facility] 2018-12-19 16:38:36 [facility] snf (current) use of oral hypoglycemic drugs snf (current) use of oral hypoglycemic drugs 12/19/2018 [facility] 2018-12-19 16:38:36 [facility] snf (current) 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 (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) use of 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 12/19/2018 [facility] 2018-11-27 4 16:38:36 Meagan Stapleton Presence of unspecified artificial knee joint Presence of unspecified artificial knee joint 12/19/2018 [facility] 2018-12-19 16:38:36 [facility] Final: Other chest pain Cesia l: Other chest pain 01/25/2016 [facility] Problem 2016-01-25 03:56:42 [facility] Final: Type 2 diabetes mellitus without complications Final: Type 2 diabetes mellitus without complications 01/25/2016 [facility] Problem 2016-01-25 03:56:42 [facility] Final: Hyperlipidemia, unspecified Final: Hyperlipidemia, unspecified 01/25/2016 [facility] Problem 2016-01-25 03:56:42 [facility] Final: Morbid (severe) obesity due to excess calories Final: Morbid (severe) obesity due to excess calories 01/25/2016 [facility] Problem 2016-01-25 03:56:42 [facility] Final: Body mass index (BMI) 50-59.9 , adult Final: Body mass index (BMI) 50-59.9 , adult 01/25/2016 [facility] Problem 2016-01-25 03:56:42 [facility] Cholesterol (substance) Chol esterol (substance) Resolved Problem 05/17/2020 [facility] Problem Resolved 2020-05-17 23:06:06 [facility] Pieetr Diabetes mellitus (disorder) D iabetes mellitus (disorder) Resolved Problem 05/17/2020 [facility] Problem Resolved 2020-05-17 23:06:06 Armaan Stapleton HDL cholesterol (substance) HD L cholesterol (substance) Resolved Problem 05/17/2020 [facility] Problem Resolved 2020-05-17 23:06:06 [facility] Pancreatitis (disorder) Panc reatitis (disorder) Resolved Problem 05/17/2020 [facility] Problem Resolved 2020-05-17 23:06:06 Meagan Stapleton Pain in joint, shoulder region Pain in joint, shoulder region Active Diagnosis 03/05/2019 [facility] Diagnosis Active 2019-03-05 02:46:07 [facility] CHEST PAIN, UNSPECIFIED CHES T PAIN, UNSPECIFIED Active [facility] Active 2017-10-01 14:18:00 [facility] Pain in thoracic spine Pain in thoracic spine 06/09/2018 12/19/2018 [facility] Problem 2018-06-09 03:15:25 2018 16:38:36 2018-12-19 16:38:36 [facility] Other muscle spasm Othe r muscle spasm 06/01/2018 12/19/2018 [facility] Problem 2018-06-01 05:00:00 2018-12-19 16:38:36 2018-12-19 16:38:36 [facility] Encounter for screening mammogram for malignant neopla sm of breast Encounter for screening mammogram for malignant neoplasm of breast 11/27/2017 03/02/2018 [facility] Problem 2017-11-27 06: 29:14 2018-03-02 12:39:54 2018-03-02 12:39:54 [facility] vi Allergies, Adverse Reactions, Alerts Allergy Name Allergy Type Status Severity Reaction(s) Onset Date Inacti ve Date Treating Clinician Comments Source Pregabalin Propensity to adverse reactions to drug Active Other (See Comments) 2019-07-08 00:00:00 Sore throat Sandeep Waller pregabalin DA Active [place] 2017-08-17 00:00:00 [facility] Korin Langley Active [facility] Social History Social Habit Start Date Stop Date Quantity Comments Source Sex Assigned At Adriana martino Worship Social History 2016-01-21 22:58:39 2016-01-21 22:58:39 [facility] Medications Ordered Medication Name Filled Medication Name Start Date Stop Da te Current Medication? 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 20 Bedtime [facility] Cyclobenzaprine hydrochloride 5 MG Oral Tablet [Flexeril] 2018-06-02 04:18:00 No 5 mg = 1 tab, PO, BID, X 7 day, # 14 tab, 0 Refill(s) Meagan Stapleton Ketorolac 2018-06-02 02:39:00 No 30 mg, Route: IM, Drug form: INJ, ONCE, Dosing Weight 100, kg, Priority: STAT, Start date: 06/01/18 21:39:00 CDT, Stop date: 06/01/18 21:39:00 CDT Brisa Stapleton Prednisone 2018-06-02 02:39:00 No 60 mg, Route: PO, Drug form: TAB, ONCE, Dosing Weight 100, kg, Priority: STAT, Start date: 06/01/18 21:39:00 CDT, Stop date: 06/01/18 21:39:00 CDT Brisa Stapleton cyclobenzaprine 2018-06-02 02:39:00 No 10 mg, Route: PO, Drug form: TAB, ONCE, Dosing Weight 100, kg, Priority: STAT, Start date: 06/01/18 21:39:00 CDT, Stop date: 06/01/18 21:39:00 CDT Vt berny Stapleton Benzonatate (Tessalon Perle) 100 Mg Capsule Benzonatat e (Tessalon Perle) 100 Mg Capsule 2018-03-20 00:00:00 Yes Bin Ervin Md 100 Every 8 Hours [facility] Guaifenesin/Dextromethorphan (Mucinex Dm Er 600-30 Mg Tablet) 1 Each Tab.er.12h Guaifenesin/Dextromethorphan (Mucinex Dm Er 600-30 Mg Tablet) 1 Each Tab.er.12h 2018-03-20 00:00:00 Yes Bin Ervin Md 1 Every 12 H ours [facility] Metronidazole (Flagyl) 500 Mg Tablet Metronidazole (Flagyl) 500 Mg Tablet 2018-03-20 00:00:00 Yes Bin Ervin Md 500 Three Time s A Day [facility] Oseltamivir Phosphate (Tamiflu) 75 Mg Cap Oseltamivir Phosphate (Tamiflu) 75 Mg Cap 2018-03-20 00:00:00 Yes Bin Ervin Md 75 Every 12 Hours [facility] Azithromycin (Zithromax) 500 Mg Tablet, 500 Mg Oral Az ithromycin (Zithromax) 500 Mg Tablet, 500 Mg Oral 2018-03-20 00:00:00 2018-07-25 00:00:00 No Bin Ervin Md 500 Daily [facility] Cephalexin Monohydrate (Keflex) 500 Mg Capsule, 500 Mg Oral Cephalexin Monohydrate (Keflex) 500 Mg Capsule, 500 Mg Oral 2018-03-20 00:00:00 07-25 00:00:00 No Bin Ervin Md 500 Every 12 Hours [facility] Pravastatin 2017-09-27 03:00:00 No Notes: ( Same as: Pravachol) Meagan Stapleton Levofloxacin 750 MG Oral Tablet [Levaquin] 2017-09-26 21:29:00 Yes 750 mg = 1 tab, PO, Q24H, X 7 day, # 7 tab, 0 Refill(s) Meagan Stapleton Robitussin-AC oral syrup 2017-09-26 21:29:00 Yes 10 mL, PO, Q4H, PRN Cough/Congestion, X 10 day, # 240 mL, 0 Refill(s) Meagan Stapleton benzonatate 100 mg oral capsule 2017-09-26 21:29:00 Yes 200 mg = 2 cap, PO, TID, PRN Cough, # 20 cap, 0 Refill(s) Meagan Stapleton magnesium citrate 58.2 MG/ML Oral Solution 2017-09-26 21:29:00 No Notes: (Same as: Citrate of Magnesia) Concentration: 1.745 gm / 30 mL Meagan Stapleton Robitussin-AC oral syrup 2017-09-26 21:23:00 No Notes: (Same As: Robitussin AC) Meagan Stapleton Streptococcus pneumoniae serotype 1 caps ular antigen diphtheria [id number] protein conjugate vaccine / Streptococcus pneumoniae serotype 14 capsular antigen diphtheria [id number] protein conjugate vaccine / Streptococcus pneumoniae serotype 18C capsular antigen d 2017-09-26 15:00:00 No Notes: Shake well prior to use (Same as: Prevnar 13) Eliu Stapleton Metformin 2017-09-26 14:00:00 No Notes: (Same as: Glucophage) Take with meal Meagan Morris 2017-09-26 11:53:00 No Notes: (Same As: Cristian Morris) "Do Not Crush" Meagan Stapleton Aspirin 325 MG Enteric Coated Tablet 2017-09-26 11:00:00 No Notes: (Do Not Crush) Do not crush or chew. 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 orishady Stapleton Morphine 2017-09-26 10:53:00 No 2 mg, Route: IVP, ONCE, Dosing Weight 104.545, kg, Priority: STAT, Start date: 09/26/17 4:53:00 TURN DOWN WORKER, Stop date: 09/26/17 4:53:00 TURN DOWN WORKER [facility] Acetaminophen 325 MG / Hydrocodone Bitartrate 5 MG Oral Tabl et 2017-09-26 10:44:00 No Notes: (Sa mt as: [place] 325/5) Do not exceed 4gm/day of acetaminophen. [facility] Ondansetron 2017-09-26 10:44:00 No Notes: (Same as: John) MEDICATION WASTE Product Size: 4 mg Product Wasted: ___ mg [facility] Saline Flush 0.9% 2017-09-26 07:45:00 No Notes: (Same as: BD Posiflush) [facility] Levofloxacin (Levaquin) 500 Mg Tablet, 500 Mg Oral Lev ofloxacin (Levaquin) 500 Mg Tablet, 500 Mg Oral 2016-08-11 00:00:00 2017-04-09 00:00:00 No Ryland Espinoza Md [address] [facility] Metronidazole 500 Mg Tablet, 500 Mg Oral Metronidazole 500 Mg Tablet, 500 Mg Oral 2016-08-11 00:00:00 2017-04-09 00:00:00 No Mady murguia Md 500 Three Times A Day [facility] Plavix 2016-01-23 14:00:00 No Notes: (Same As: Plavix) [facility] Pravastatin 2016-01-23 02:00:00 No Notes: ( Same as: Pravachol) Meagan Stapleton metoprolol tartrate 2016-01-23 02:00:00 No Notes: (Same as: Lopressor) Meagan Stapleton remove patch 2016-01-23 02:00:00 No Notes: Remove patch 12 hours after application each day. Meagan lebron Lidocaine Hydrochloride 0.05 MG/MG Transdermal Patch [Lidode rm] 2016-01-22 19:00:00 No Notes: Porsha ly only once for up to 12 hours in a 24-hour period (12 hours on and 12 hours off). (Same as: Lidoderm) "Remove old patch before application of new patch" Brisa Stapleton Dexamethasone 2016-01-22 17:48:00 No Notes: MEDICATION WASTE Product Size: 10 mg Product Wasted: ___ mg Meagan Stapleton Kenalog-40 2016-01-22 17:48:00 No Notes: (Same As: Kenalog-40) MEDICATION WASTE Product Size: 40 mg Product Wasted: ___ mg Meagan Desirann Prednisone 2016-01-22 16:33:00 No Notes: (Same as: PredniSONE) Take with food. Meagan Desirann 12 HR diclofenac epolamine 15 MG/HR Transdermal Patch [Flect or] 2016-01-22 16:22:00 Yes 1 patch, T OP, BID, PRN for pain, X 15 day, # 30 patch, 0 Refill(s) Meagan Stapleton Aspirin 81 MG Chewable Tablet 2016-01-22 16:22:00 Yes 81 mg = 1 tab, PO, Daily, 0 Refill(s) Meagan Stapleton Aspirin 81 MG Chewable Tablet 2016-01-22 14:00:00 No Notes: Take with food. Meagan Desirann ergocalciferol 2016-01-22 14:00:00 No Notes: (Same as: Vitamin D) "Do Not Crush" eMagan Desirann Saline Flush 0.9% 2016-01-22 02:00:00 No Notes: (Same as: BD Posiflush) Meagan Desirann pravastatin 10 mg oral tablet 2016-01-21 23:14:00 Yes 10 mg = 1 tab, PO, Bedtime, # 30 tab, 0 Refill(s) Eliu Stapleton Enoxaparin 2016-01-21 21:00:00 No Notes: (S albert as: Lovenox) [facility] Morphine 2016-01-21 20:51:00 No Not es: (Same as:MORPhine Sulfate) [facility] Metoprolol 2016-01-21 20:51:00 No Notes: (Same as: Lopressor) Push over 2 minutes [facility] Nitroglycerin 0.4 MG Sublingual Tablet [Nitrostat] 2015-12-26 8 20:51:00 No 0.4 mg, 1 tab, Route : SL, Drug form: TAB, Q5Min, Dosing Weight 104.545, kg, PRN Chest Pain, Start date: 01/21/16 15:51:00, Duration: 3 doses or times, Stop date: Limited # of times [facility] Hydralazine 2016-01-21 20:50:00 No Notes: (Same as: Apresoline) Push over 5 minutes [facility] Saline Flush 0.9% 2016-01-21 20:45:00 No 10 ml, Route: IVP, Drug Form: INJ, Dosing Weight 104.545, kg, PRN, PRN Line Flush, Start date: 01/21/16 15:45:00, Duration: 30 day, Stop date: 02/20/16 15:44:00 [facility] Nitroglycerin 2016-01-21 20:45:00 No Notes: (Same as:Nitroquick, Nitrostat) "Do Not Crush" Sublingual tablet [facility] Morphine 2016-01-21 20:45:00 No Not es: (Same as:MORPhine Sulfate) [facility] Ondansetron 2016-01-21 20:45:00 No Notes: ( Same as: Zofran) [facility] Aspirin 2016-01-21 19:44:00 No Notes: Take with food. [facility] Saline Flush 0.9% 2016-01-21 17:01:00 No Notes: Same as: BD Posiflush Sterile [facility] Metformin 2016-01-21 16:55:00 Yes 500 mg, PO , BID [facility] Glimepiride 2 Mg Tablet Glimepiride 2 Mg Tablet Yes 2 Daily [facility] Metformin Hcl 500 Mg Tablet Metformin Hcl 500 Mg Tablet Yes 850 Every 12 Hours [facility] Pantoprazole Sodium (Protonix) 40 Mg Tablet. Pantopr azole Sodium (Protonix) 40 Mg Tablet. Yes [address] [facility] Pravastatin Sodium 40 Mg Tablet, 1 Oral Pravastatin S odium 40 Mg Tablet, 1 Oral 2018-07-25 00:00:00 No 1 Daily [facility] Cholecalciferol (Vitamin D3) (Vitamin D) 1,000 Unit Ta blet, Unit Oral Cholecalciferol (Vitamin D3) (Vitamin D) 1,000 Unit Tablet, Unit Oral 2018-03-19 00:00:00 No Use As Directed [facility] Omeprazole 40 Mg Capsule., 40 Mg Oral Omeprazole 40 Mg Cap oleg., 40 Mg Oral 2018-03-19 00:00:00 No 40 Daily [facility] Pravastatin Sodium 10 Mg Tablet, 1 Tab Oral Pravastati n Sodium 10 Mg Tablet, 1 Tab Oral 2018-03-19 00:00:00 No 1 Bedtime [facility] Fluticasone Propionate [address] [place].susp, 1 Spr Nasal F luticasone Propionate [address] [place].susp, 1 Spr Nasal 2016-07-24 00:00:00 No 1 Daily [facility] Nitroglycerin 0.4 Mg Tab.subl, 0.4 Mg Sublingual Nitro glycerin 0.4 Mg Tab.subl, 0.4 Mg Sublingual 2016-07-24 00:00:00 No .4 Every 5 Minutes as needed for Chest Pain [facility] Simvastatin 40 Mg Tablet, 40 Mg Oral Simvastatin 40 Mg Tablet, 4 0 Mg Oral 2014-10-19 00:00:00 No 40 Daily [facility] Vital Signs Vital Name Observation Time Observation Value Comments Source Systolic blood pressure 2019-07-08 14:23:29 135 mm[Hg] Sandeep Waller Diastolic blood pressure 2019-07-08 14:23:29 64 mm[Hg] Sandeep Waller Heart rate 2019-07-08 14:23:29 78 /min Sandeep Waller Body temperature 2019-07-08 14:23:29 36.33 Urmila Stacy Waller Respiratory rate 2019-07-08 14:23:29 18 /min [facility] Oxygen saturation in Arterial blood by Pulse oximetry 07-08 14:23:29 96 /min [facility] Body height 2019-07-08 14:22:00 149.9 cm [facility] Systolic (mm Hg) 2018-06-02 04:05:00 Eliu rial [facility] Diastolic (mm Hg) 2018-06-02 04:05:00 Mem [facility] [place] Respitory Rate 2018-06-02 04:05:00 [facility] [place] Temperature Oral (F) 2018-06-02 04:05:00 98 F [facility] [place] Heart Rate 2018-06-02 04:05:00 [facility] [place] Heart Rate 2018-06-02 03:14:00 [facility] [place] Respitory Rate 2018-06-02 03:14:00 [facility] [place] Systolic (mm Hg) 2018-06-02 03:14:00 [facility] [place] Diastolic (mm Hg) 2018-06-02 03:14:00 [facility] [place] Weight 2018-06-02 02:22:00 [facility] [place] Systolic (mm Hg) 2018-06-02 02:22:00 Eliu rial [place] Diastolic (mm Hg) 2018-06-02 02:22:00 [facility] [place] Heart Rate 2018-06-02 02:22:00 [facility] [place] Respitory Rate 2018-06-02 02:22:00 [facility] [place] Temperature Oral (F) 2018-06-02 02:22:00 97.9 F [facility] Height 2018-06-02 02:22:00 149.86 cm [facility] [place] BMI Calculated 2018-06-02 02:22:00 [facility] [place] Respitory Rate 2017-09-26 17:54:00 [facility] [place] Temperature Oral (F) 2017-09-26 17:54:00 98.0 F [facility] Systolic (mm Hg) 2017-09-26 17:54:00 [facility] [place] Diastolic (mm Hg) 2017-09-26 17:54:00 [facility] [place] Heart Rate 2017-09-26 17:54:00 [facility] [place] Systolic (mm Hg) 2017-09-26 13:11:00 [facility] [place] Diastolic (mm Hg) 2017-09-26 13:11:00 [facility] [place] Temperature Oral (F) 2017-09-26 13:11:00 98.3 F [facility] Heart Rate 2017-09-26 13:11:00 [facility] Respitory Rate 2017-09-26 13:11:00 [facility] [place] Height 2017-09-26 11:52:00 149.86 cm [facility] [place] BMI Calculated 2017-09-26 11:52:00 [facility] [place] Weight 2017-09-26 11:52:00 [facility] [place] Temperature Oral (F) 2017-09-26 11:22:00 99.2 F [facility] [place] Respitory Rate 2017-09-26 11:22:00 [facility] [place] Systolic (mm Hg) 2017-09-26 11:22:00 [facility] [place] Diastolic (mm Hg) 2017-09-26 11:22:00 [facility] [place] Heart Rate 2017-09-26 07:07:00 [facility] Weight 2017-09-26 04:28:00 [facility] BMI Calculated 2017-09-26 04:28:00 [facility] [place] Height 2017-09-26 04:28:00 149.86 cm [facility] [place] BMI Calculated 2017-04-30 12:51:00 [facility] [place] Weight 2017-04-30 12:51:00 [facility] [place] Height 2017-04-30 12:51:00 162.56 cm [facility] Weight 2016-01-22 20:33:00 [facility] [place] Systolic (mm Hg) 2016-01-22 19:44:00 Eliu rial [place] Diastolic (mm Hg) 2016-01-22 19:44:00 [facility] [place] Respitory Rate 2016-01-22 19:44:00 [facility] [place] Temperature Oral (F) 2016-01-22 19:44:00 98.2 F [facility] Heart Rate 2016-01-22 19:44:00 [facility] [place] Heart Rate 2016-01-22 15:44:00 [facility] [place] Temperature Oral (F) 2016-01-22 15:44:00 97.9 F [facility] [place] Respitory Rate 2016-01-22 15:44:00 [facility] [place] Systolic (mm Hg) 2016-01-22 15:44:00 [facility] [place] Diastolic (mm Hg) 2016-01-22 15:44:00 [facility] [place] Respitory Rate 2016-01-22 12:01:00 Blayne caruso [place] Systolic (mm Hg) 2016-01-22 12:01:00 Eliu abraham [place] Diastolic (mm Hg) 2016-01-22 12:01:00 [facility] [place] Temperature Oral (F) 2016-01-22 12:01:00 98.5 F [facility] [place] Heart Rate 2016-01-22 12:01:00 [facility] [place] Weight 2016-01-21 22:53:00 [facility] [place] BMI Calculated 2016-01-21 22:53:00 [facility] [place] Height 2016-01-21 22:53:00 149.86 cm [facility] [place] Weight 2016-01-21 16:40:00 [facility] BMI Calculated 2016-01-21 16:40:00 [facility] [place] Height 2016-01-21 16:40:00 149.86 cm [facility] Procedures Procedure Date / Time Performed Performing Clinician Sourc e HC COMPLETE BLD COUNT W/AUTO DIFF 2019-07-08 15:06:00 Domingo Rubio COMPREHENSIVE METABOLIC PANEL 2019-07-08 15:06:00 Marychuy Mai LIPASE LEVEL 2019-07-08 15:06:00 Domingo Mai TROPONIN 2019-07-08 15:06:00 Domingo Mai ESTIMATED GFR 2019-07-08 15:06:00 IvarerShahram Computed tomography of brain without radiopaque contrast 201 07-04-11 00:00:00 TYRELL BARR [facility] Computed tomography of abdomen and pelvis with contrast 2018 00:00:00 TYRELL BARR [facility] X-ray of chest, two views 2018-10-09 00:00:00 EMILIANO BARR [facility] X-ray of chest, two views 2018-09-26 00:00:00 BALDEMAR LOCO [facility] Abdominal hysterectomy [facility] Gallbladder stone removal [facility] Hiatus hernia repair [facility] Knee replacement [facility] n Encounters Start Date/Time End Date/Time Encounter Type Admission Type Att[facility] Care Department Encounter ID Source 2020-05-15 08:24:00 2020-05-15 23:59:00 Outpatient Petar Ansrai [facility] [id number] 2020-05-15 08:24:00 2020-05-15 08:24:00 Outpatient [id number] 2020-05-03 07:41:00 2020-05-03 23:59:00 Outpatient Timmy Ervin [facility] M[facility] [id number] 2019-11-15 08:52:00 2019-11-15 23:59:00 Outpatient Cr Timmy jamel Cmpauline [facility] M[facility] [id number] 2019-08-18 13:43:00 2019-08-18 23:59:00 Outpatient Petar Ansari [facility] [id number] 2019-08-18 13:43:00 2019-08-18 13:43:00 Outpatient [facility]SE [id number] 2019-07-08 16:44:23 2019-07-08 22:18:[address] Job [address] [facility] ([facility]) [id number] 2019-07-06 01:52:00 2019-07-06 05:17:00 Departed Emergency Room 1 TYRELL BARR [facility] [id number] [facility] [facility] 2018-10-09 21:35:00 2018-10-09 22:57:00 Departed Emergency Room 1 TYRELL BARR [facility] [id number] [facility] 2018-09-26 13:04:00 2018-09-26 16:23:00 Departed Emergency Room 1 BALDEMAR LOCO [facility] [id number] [facility] 2018-07-20 20:39:00 2018-07-25 20:15:00 Discharged Inpatient 1 BIN ERVIN [facility] [id number] [facility] 2018-06-01 21:17:00 2018-06-01 23:14:00 Outpatient Beronica Oscar Isidra MHSE MHSE [id number] 2018-03-19 15:33:00 2018-03-20 21:37:00 Discharged Inpatient (obs) 3 BIN ERVIN [facility] [id number] [facility] 2017-12-10 21:04:00 2017-12-10 22:55:00 Departed Emergency Room [facility] [id number] [facility] 2017-11-24 10:24:00 2017-11-24 23:59:00 Outpatient Timmy Ervine Carol MHHOIP MHHOIP [id number] 2017-09-25 21:52:00 2017-09-26 11:38:00 Outpatient Raúl Richter MHSE MHSE [id number] 2017-09-23 10:48:00 2017-09-23 19:14:00 Departed Emergency Room ER JOSE A MA [facility] [id number] [facility] 2017-04-30 07:01:00 2017-04-30 23:59:00 Outpatient Allison Youngblood MHSE MHSE [id number] 2017-04-08 23:32:00 2017-04-09 17:00:00 Discharged Inpatient (obs) [facility] [id number] [facility] 2016-07-11 09:30:00 2016-07-11 23:59:00 Outpatient Chavez Montiel MHHOIP MHHOIP [id number] 2016-05-10 08:35:00 2016-05-10 23:59:00 Outpatient Chavez Montiel MHHOIP MHHOIP [id number] 2016-01-21 11:36:00 2016-01-22 17:59:00 Outpatient Yan Uribe MHSE MHSE [id number] 2015-08-02 08:27:00 2015-08-02 23:59:00 [facility] [id number] 2015-05-04 09:30:00 2015-05-04 09:30:00 [place]patient [facility] [id number] [facility] 2015-04-20 09:30:00 2015-04-20 09:30:00 [place] [facility] [id number] [facility] 2015-03-13 10:11:00 2015-03-13 23:59:00 Outpatient Alistair Montiel ALFONSO [id number] 2014-12-06 11:53:00 2014-12-06 23:59:00 Outpatient Alistair Montiel [id number] 2014-09-16 09:13:00 2014-09-16 23:59:00 Outpatient Ninfa Cortes ALFONSO [id number] 2014-08-17 13:22:00 2014-08-17 23:59:00 Outpatient Alistair Montiel [id number] 2014-08-14 14:25:00 2014-08-14 23:59:00 Outpatient Alistair Montiel ALFONSO [id number] Results Test Description Test Time Test Comments Results Result Comments Source STOMACH 2020-03-23 16:42:00 RUN DATE: 03/23/20 [employer] PAGE 1 RUN TIME: 1642 Specimen Inquiry RUN USER: INTERFACE PATIENT: CEDRICK HOLT LOC: [facility]NUL[facility] U #: [id number] AGE/SX: 75/F ROOM: RE03/21/20REG DR: Petar Ansari : 47 BED: DIS: STATUS: [facility]: SPEC #: [id number] RECD: 03/21/20 STATUS: JONATHON CHUNG #: [id number] RAMSES: 03/21/20- [facility] DR: Petar Ansari MD ENTERED: 03/21/20 SP TYPE: STOMACH OTHR DR: DOES_NOT KNOW No Primary or Family PhysicianORDERED: GROSS COPIES TO: DOES_NOT KNOW No Primary or Family Physician Petar Ansari MD [address], [address] [place], [place] [address] PROCEDURES: GROSS (03/23/20) TISSUES: 1. ANTRUM - BX 2. ESOPHAGUS, NOS - BX CLINICAL HISTORY COLLECTION DATE: 03/21/20 ABDOMINAL PAIN FINAL DIAGNOSIS Antrum, biopsy: PATCHY MILD CHRONIC INFLAMMATION, GASTRIC MUCOSA NO INTESTINAL METAPLASIA SEEN NEGATIVE FOR MALIGNANCY Esophagus, biopsy: MILD CHRONIC INFLAMMATION AND REACTIVE EPITHELIAL CHANGES, MIXED SQUAMOUS ESOPHAGEAL AND GASTRIC TYPE MUCOSA NEGATIVE FOR INTESTINAL METAPLASIA, DYSPLASIA, AND MALIGNANCY DMW/sm D [id number] CONTINUED ON NEXT PAGE RUN DATE: 03/23/20 [facility] PAGE 2 RUN TIME: 1641 Specimen Inquiry RUN USER: INTERFACE SPEC #: [id number] PATIENT: CEDRICK HOLT #V [id number] (Continued) MACROSCOPIC Specimen (1) is received in formalin, labeled with the patient's name, identified as "antrum", and consists of two fragments of light pink biopsy tissue measuring 0.3 cm in aggregate, submitted as (1). Specimen (2) is received in formalin, labeled with the patient's name, identified as "esophagus", and consists of lockhart-light red biopsy tissue measuring 0.3 cm in aggregate, submitted as (2). GROSS PERFORMED AT [facility] [address] [place] [address] (p)[phone] MICROSCOPIC All of the stains, including any controls performed, stain appropriately. MICROSCOPIC PERFORMED AT [facility] [address] [place] [address] (p)[phone] PERFORMING SITE Diagnosis performed at: [facility], [place] [address] [place] [address] Signed SIGNATURE ON FILE Halle Pichardo MD 03/23/20 1642 END OF REPORT GLUBED 2020-03-21 07:00:00 Test Item GLUBED (test code = GLUBED) 107 mg/dL 74-106 H Performed by certified linter operator at [facility] Coronavirus 2019 nCoV Lqevhpu3604-47-98 10:31:00* Test Item Value Reference Range Interpretation Comments Coronavirus 2019 nCoV Bedside (test code = COVNONPUIBED) Negative Testing Criteria: Preprocedure Screening BASIC METABOLIC [id number] 09:50:00* Test Item Value Reference Range Interpretation Comments SODIUM (test code = NA) 140 mmol/L 136-145 N POTASSIUM (test code = K) 3.7 mmol/L 3.5-5.1 N CHLORIDE (test code = CL) 107.0 mmol/L 98-107 N CARBON DIOXIDE (test code = CO2) 26.0 mmol/L 21-32 N ANION GAP (test code = GAP) 10.7 10-20 N GLUCOSE (test code = GLU) 118 mg/dL 74-106 H BLOOD UREA NITROGEN (test code = BUN) 10 mg/dL 7-18 N GLOMERULAR FILTRATION RATE (test code = GFR) > 60 mL/min >=60 Estimated GFR by using Modified MDRD formula.Chronic kidney disease is defined as either kidney damageor GFR <60 mL/min/1.73 m2 for >3 months. CREATININE (test code = CREAT) 0.50 mg/dL 0.55-1.02 L Note change in reference range due to change in reagent. BUN/CREATININE RATIO (test code = BUN/CREA) 18.6 10-20 N CALCIUM (test code = CA) 8.9 mg/dL 8.5-10.1 N BASIC METABOLIC [id number] 09:45:00* Test Item Value Reference Range Interpretation Comments SODIUM (test code = NA) 140 mmol/L 136-145 N POTASSIUM (test code = K) 3.7 mmol/L 3.5-5.1 N CHLORIDE (test code = CL) 107.0 mmol/L 98-107 N CARBON DIOXIDE (test code = CO2) mmol/L 21-32 ANION GAP (test code = GAP) 10-20 GLUCOSE (test code = GLU) mg/dL 74-106 BLOOD UREA NITROGEN (test code = BUN) mg/dL 7-18 GLOMERULAR FILTRATION RATE (test code = GFR) mL/min >=60 CREATININE (test code = CREAT) mg/dL 0.55-1.02 BUN/CREATININE RATIO (test code = BUN/CREA) 10-20 CALCIUM (test code = CA) mg/dL 8.5-10.1 Ylbjmord8959-93-90 16:15:27* Test Item Value Reference Range Interpretation Comments Troponin (test code = 74174-0) <0.006 0-0.04 [facility] changed methodology effective: 03/01/2019 at 10:00 amThe new method has a 99th percentile cutoff of 0.040 ng/mL [facility]Com[facility] mmhqu3485-64-78 16:05:22* Test Item Value Reference Range Interpretation Comments Sodium (test code = 2951-2) 142 135- 148 mEq/L Potassium (test code = 2823-3) 4.4 3.5- 5.0 mEq/L Chloride (test code = 5-0) 102 98- 112 mEq/L CO2 (test code = 2027-9) 26 24- 31 mEq/L Anion gap (test code = 24212-1) 14@ANIO 7- 15 mEq/L BUN (test code = 3094-0) 11 mg/dL 8-23 Creatinine (test code = 2160-0) 0.67 mg/dL 0.5-0.9 Glucose (test code = 2345-7) 92 mg/dL 65-99 Calcium (test code = 80986-1) 9.9 mg/dL 8.8-10.2 Protein (test code = 2885-2) 8.3 g/dL 6.3-8.3 4.6-7.0 g/dL1 week 4.4-7.6 g/dL7 months-1year 5.1-7.3 g/dL1-2 years 5.6-7.5 g/dL>3 years 6.0-8.0 g/lN75-639 6.3-8.3 g/dL Albumin (test code = 1751-7) 3.6 g/dL 3.5-5 A/G ratio (test code = 1759-0) 0.8 0.7-3.8 Alkaline phosphatase (test code = 6768-6) 84 U/L 35-104 AST (test code = 1920-8) 24 U/L 10-35 ALT (test code = 1742-6) 13 U/L 5-50 Total bilirubin (test code = 1975-2) 0.6 mg/dL 0-1.2 [facility] poczs3749-67-36 16:05:22* Test Item Value Reference Range Interpretation Comments Lipase (test code = 3040-3) 13 U/L 13-60 [facility]Estimated MKK5932-14-55 16:05:20* Test Item Value Reference Range Interpretation Comments Estimated GFR (test code = 5488) 87 mL/min/1.73 m2 Catergory Units InterpretationG1 >=90 Normal or highG2 60-89 Mildly fuliutaabA3x 45-59 Mildly to moderately xrkrkfujxI0w 30-44 Moderately to severely decreasedG4 15-29 Severely decreasedG5 <15 Kidney failureThe eGFR was calculated using the Chronic Kidney Disease Epidemiology Collaboration (CKD-EPI) equation. Interpretation is based on recommendations of the National Kidney Foundation-Kidney Disease Outcomes Quality Initiative (NKF-KDOQI) published in 2014. [facility] with platelet and ktzqmmsqyxsv4685-52-57 15:47:19* Test Item Value Reference Range Interpretation Comments WBC (test code = 81802-7) 8.83 4.50- 11.00 k/uL RBC (test code = 44401-0) 4.68 m/uL 4.2-5.5 HGB (test code = 718-7) 14.0 g/dL 12-16 HCT (test code = 4544-3) 45.3 % 37-47 MCV (test code = 787-2) 96.8 fL 82-100 MCH (test code = 785-6) 29.9 pg 27-34 MCHC (test code = 786-4) 30.9 g/dL 31-37 L RDW - SD (test code = 56328-0) 47.5 fL 37-55 MPV (test code = 05273-2) 11.6 fL 8.8-13.2 Platelet count (test code = 25664-0) 242 150- 400 k/uL Nucleated RBC (test code = 54418-6) 0.00 /100 WBC Neutrophils (test code = 37692-2) 67.5 % 39-69 Lymphocytes (test code = 52633-0) 24.1 % 25-45 L Monocytes (test code = 82174-2) 6.3 % 0-10 Eosinophils (test code = 03591-6) 1.5 % 0-5 Basophils (test code = 63388-5) 0.3 % 0-1 Immature granulocytes (test code = 73117-0) 0.3 % 0-1 "Immature granulocytes" (promyelocytes, myelocytes, metamyelocytes) Lab Interpretation (test code = 82752-3) [facility] [id number] 04:31:00 [place] [address] Patient Name: CEDRICK HOLT MR #: [id number] : 1945 Age/Sex: 74/F Req #: [id number] Adm Physician: Ordered by: TYRELL BARR MD Report #: [id number] Location: ER Room/Bed: Procedure: 0911- 0005 CT/CT ABDOMEN/PELVIS W Exam Date: 07/06/19 Exam Time: 0340 REPORT STATUS: Signed EXAM: CT Abdomen and Pelvis WITH contrast INDICATION: upper abd pain, n/v/ d COMPARISON: Abdominal CT 07/20/2018, 08/06/2016. TECHNIQUE: Abdomen and pelvis were scanned utilizing a multidetector helical scanner from the lung b ase to the pubic symphysis after administration of IV contrast. Coronal and sa gittal reformations were obtained. Routine protocol was performed. Scan was pe rformed when during portal venous phase. IV CONTRAST: 100 mL of Isovu e 370 ORAL CONTRAST: Water COMPLICATIONS: None RADI ATION DOSE: Total DLP: 777 mGy*cm Estimated effective dose: (DLP x 0.015 x size factor) mSv CTDIvol has been reviewed. It is below the limi ts set by the Radiation Protocol Committee (RPC). Dose modulation, iter ative reconstruction, and/or weight based adjustment of the mA/kV was utilized to reduce the radiation dose to as low as reasonably achievable. FINDIN GS: LINES and TUBES: None. LOWER THORAX: A focal consolidative opacit y in the posterior basilar aspect of the right lower lobe HEPATOBILIARY: Stable trace central pneumobilia, can be seen after cholecystectomy. No focal hepatic lesions. No biliary ductal dilation. GALLBLADDER: There are ayana cystectomy clips. SPLEEN: No splenomegaly. PANCREAS: No focal estefanía s or ductal dilatation. ADRENALS: Stable 1.3 cm solid nodule in the left adrenal gland, unchanged compared to 2016 KIDNEYS/URETERS: Kidneys enhanc e symmetrically. No hydronephrosis. No cystic or solid mass lesions. No ston es. GI TRACT: No abnormal distention, wall thickening, or evidence of bowel obstruction. Stable duodenal diverticulum. Colonic diverticuli. Stable small bowel sutures in the left mid abdomen. Appendix is normal. PELVIC ORGAN S/BLADDER: Hysterectomy. No adnexal masses. LYMPH NODES: No lymphadenopathy . VESSELS: There is mild atherosclerotic disease in the aorta and major art erial branches. PERITONEUM / RETROPERITONEUM: Stable mesenteric nodularit y in the mid right anterior peritoneal cavity, unchanged compared to 6 indicative of benignity. BONES: There are degenerative changes in the l umbar spine. SOFT TISSUES: Stable lower right anterior abdominal wall scar. IMPRESSION: 1. Focal consolidation in the posterior basilar aspect of the right lower lobe suggestive of pneumonia. 2. Colonic diverticulosis without diverticulitis. Signed by: Juan Miguel Fleming DO on 07/06/2019 4:41 AM Dictated By: JUAN MIGUEL FLEMING DO 0 Transcribed By: HEAVEN on 07/06/19440 COPY TO: TYRELL BARR MD CHEST SINGLE (PORTABLE)2019-07-06 04:26:00 [place] [address] Patient Name: CEDRICK HOLT MR #: [id number] : [birth year] Age/Sex: 74/F Req #: [id number] Adm Physician: Ordered by: TYRELL BARR MD Report #: [id number] Location: ER Room/Bed: Procedure: 09- 0009 DX/CHEST SINGLE (PORTABLE) Exam Date: 07/06/19 Exam Time: 0237 REPORT STATUS: Sign ed EXAMINATION: CHEST SINGLE (PORTABLE) INDICATION: Short of breath COMPARISON: Chest radiograph 10/09/2018 FINDINGS: AP view TUBES and LINES: None. LUNGS: Lungs are well inflated. Lungs are c lear. There is no evidence of pneumonia or pulmonary edema. PLEURA: No p leural effusion or pneumothorax. HEART AND MEDIASTINUM: The cardiomediasti nal silhouette is unremarkable. BONES AND SOFT TISSUES: No acute osseo us lesion. Soft tissues are unremarkable. Degenerative changes in the shoulde rs. UPPER ABDOMEN: No free air under the diaphragm. IMPRESSION: No acute thoracic radiographic abnormality. Signed by: Juan Miguel houser DO on 07/06/2019 4:31 AM Dictated By: JUAN MIGUEL FLEMING DO Electronical ly Signed By: JUAN MIGUEL FLEMING DO on 07/06/19430 Transcribed By: HEAVEN on 0 07/06/19430 COPY TO: TYRELL BARR MD CT BRAIN WO 2019-07-06 04:02:00 [place] [address] Patient Name: CEDRICK HOLT MR #: [id number] : 1945 Age/Sex: 74/F Req #: [id number] Adm Physician: Ordered by: TYRELL BARR MD Report #: [id number] Location: ER Room/Bed: Procedure: 0911- 0004 CT/CT BRAIN WO Exam Date: Exam Time: REPORT STATUS: Signed History:Dizziness, headache and blurred vision Comparison studies:CT head 03/19/2018 [employer] ue: Axial images were obtained from the skull base to the vertex. Coronal and sagittal reconstructions obtained from the axial data. Dose modulation, i terative reconstruction, and/or weight based adjustment of the mA/kV was utili zed to reduce the radiation dose to as low as reasonably achievable. Find ings: Scalp/skull: No abnormalities. No fractures, blastic or lytic lesi ons. Extra-axial spaces: No masses. No fluid collections. Brain cheatham lci: Appropriate for age. Ventricles: Normal in size and configuration. No hyd rocephalus. Parenchyma: No abnormal densities. No masses, hemorrhage, acute or chronic cortical vascular insults. Sellar/suprasellar region: No abnormalities Craniocervical junction: Patent foramen magnum. No Chiari one m alformation. Mild atherosclerotic calcifications carotid siphons IMPRE SSION: No acute abnormalities . Signed by: Ryland Rodriguez on 07/06/2019 4:05 AM Dictated By: RASHAD THOMPSON MD Electronical ly Signed By: RASHAD THOMPSON MD on 07/06/19404 Transcribed By: HEAVEN on 07/06/19404 COPY TO: TYRELL BARR MD Amylase Level 2019-07-06 03:35:00* Test Item Value Reference Range Interpretation Comments Amylase Level (test code = 1798-8) 56 25-125 [facility] 03:35:00* Test Item Value Reference Range Interpretation Comments Lipase (test code = 3040-3) 12 8-78 [facility] Kinase [id number] 03:22:00* Test Item Value Reference Range Interpretation Comments Creatine Kinase MB (test code = 41371-9) 1.00 0-5.0 [facility]roponin K5606-29-46 03:22:00* Test Item Value Reference Range Interpretation Comments Troponin I (test code = DSQ6448) < 0.001 0-0.300 [facility] QXP0927-86-28 03:09:00* Test Item Value Reference Range Interpretation Comments Urine WBC (test code = 5821-4) 0-5 0-5 [facility] RNJ0636-58-46 03:09:00* Test Item Value Reference Range Interpretation Comments Urine RBC (test code = 74148-5) 0-5 0-5 [facility] Tuifvuyt5039-38-76 03:09:00* Test Item Value Reference Range Interpretation Comments Urine Bacteria (test code = 78215-2) MANY NONE H [facility] Epithelial Uqmgj3083-38-13 03:09:00 * Test Item Value Reference Range Interpretation Comments Urine Epithelial Cells (test code = 68911-1) FEW NONE [facility] Zjzaz0578-90-41 03:09:00* Test Item Value Reference Range Interpretation Comments Sodium Level (test code = 2951-2) 141 136-145 [facility]assium Wvmiy1587-20-61 03:09:00* Test Item Value Reference Range Interpretation Comments Potassium Level (test code = 2823-3) 3.8 3.5-5.1 [facility]loride Vfyuq8823-51-46 03:09:00* Test Item Value Reference Range Interpretation Comments Chloride Level (test code = 2075-0) 101 98-107 [facility] Dioxide Xkgae6583-82-01 03:09:00* Test Item Value Reference Range Interpretation Comments Carbon Dioxide Level (test code = 2028-9) 25 22-29 [facility]ion Ybq2032-98-38 03:09:00* Test Item Value Reference Range Interpretation Comments Anion Gap (test code = 37268-7) 18.8 8-16 H [facility] Urea Zidazhjg1713-63-32 03:09:00* Test Item Value Reference Range Interpretation Comments Blood Urea Nitrogen (test code = 3094-0) 10 7-26 [facility]inine2019-09-11 03:09:00* Test Item Value Reference Range Interpretation Comments Creatinine (test code = 2160-0) 0.71 0.57-1.11 [facility]/Creatinine Uhqsc0774-43-43 03:09:00* Test Item Value Reference Range Interpretation Comments BUN/Creatinine Ratio (test code = 3097-3) 14 6-25 [facility] Glomerular Filtration Rate 2019-07-06 03:09:00* Test Item Value Reference Range Interpretation Comments Estimat Glomerular Filtration Rate (test code = 699179785) > 60 >60 Ranges were taken from the National Kidney Disease Education Program and the [facility] Kid[facility] Foundation literature.Reference ranges:60 or greater: Iefdkx83-26 ( for 3 consecutive months): Chronic kidney disease 15 or less: Kidney failureUT Health HendersonGlucose Guiau0499-40-58 03:09:00* Test Item Value Reference Range Interpretation Comments Glucose Level (test code = PLZ0881) 147 74-118 H [facility] HendersonCalcium Aayon6554-58-52 03:09:00* Test Item Value Reference Range Interpretation Comments Calcium Level (test code = 79504-5) 9.8 8.4-10.2 [facility]Total Glhkduhgi2016-81-77 03:09:00* Test Item Value Reference Range Interpretation Comments Total Bilirubin (test code = 1975-2) 0.6 0.2-1.2 [facility] Henderson[facility]artate Amino Transf (AST/SGOT) 2019-07-06 03:09:00* Test Item Value Reference Range Interpretation Comments Aspartate Amino Transf (AST/SGOT) (test code = Aspartate Amino Transf (AST/SGOT)) 19 5-34 [facility] Aminotransferase (ALT/SGPT) 2019-07-06 03:09:00* Test Item Value Reference Range Interpretation Comments Alanine Aminotransferase (ALT/SGPT) (test code = 1742-6) 12 0-55 [facility] Sqhnufc4636-35-86 03:09:00* Test Item Value Reference Range Interpretation Comments Total Protein (test code = 2885-2) 7.7 6.5-8.1 [facility]in2019-09-11 03:09:00* Test Item Value Reference Range Interpretation Comments Albumin (test code = 1751-7) 3.6 3.5-5.0 [facility]obulin2019-09-11 03:09:00* Test Item Value Reference Range Interpretation Comments Globulin (test code = 88798-2) 4.1 2.3-3.5 H [facility]Album[facility]/Globulin Bvpky3249-80-04 03:09:00 * Test Item Value Reference Range Interpretation Comments Albumin/Globulin Ratio (test code = 1759-0) 0.9 0.8-2.0 [facility] HendersonAlkaline Nwgjvmnbhkt8587-52-97 03:09:00* Test Item Value Reference Range Interpretation Comments Alkaline Phosphatase (test code = 6768-6) 104 40-150 [facility]Creatine Irdhed3863-50-51 03:09:00* Test Item Value Reference Range Interpretation Comments Creatine Kinase (test code = 2157-6) 83 29-168 [facility] Mddxj1764-49-36 03:02:00* Test Item Value Reference Range Interpretation Comments Urine Color (test code = 5778-6) YELLOW YELLOW [facility] Ekayphq7477-18-45 03:02:00* Test Item Value Reference Range Interpretation Comments Urine Clarity (test code = 76824-6) CLOUDY CLEAR H [facility] Henderson[facility] Specific Cuhagrd6535-92-77 03:02:00 * Test Item Value Reference Range Interpretation Comments Urine Specific Pegram (test code = 5811-5) 1.015 1.010-1.02 5 [facility] wF6467-56-14 03:02:00* Test Item Value Reference Range Interpretation Comments Urine pH (test code = 15855-6) 6.5 5-7 [facility] Leukocyte Wkvyhmef8985-65-54 03:02:00* Test Item Value Reference Range Interpretation Comments Urine Leukocyte Esterase (test code = 52599-5) NEGATIVE NEGATIV E [facility] Fmbcssp4822-17-14 03:02:00* Test Item Value Reference Range Interpretation Comments Urine Nitrite (test code = 06983-0) POSITIVE NEGATIVE H [facility] Zpgmxwc2898-48-12 03:02:00* Test Item Value Reference Range Interpretation Comments Urine Protein (test code = 61176-5) NEGATIVE NEGATIVE [facility] Glucose (UA)2019-07-06 03:02:00* Test Item Value Reference Range Interpretation Comments Urine Glucose (UA) (test code = 05835-2) NEGATIVE NEGATIVE [facility] Pvprzfp4893-86-40 03:02:00* Test Item Value Reference Range Interpretation Comments Urine Ketones (test code = 31706-1) NEGATIVE NEGATIVE [facility] Ovlmqcbyxpaw3238-11-21 03:02:00* Test Item Value Reference Range Interpretation Comments Urine Urobilinogen (test code = 88897-7) 1 0.2-1 [facility] Zvxynytio3613-16-93 03:02:00* Test Item Value Reference Range Interpretation Comments Urine Bilirubin (test code = 1977-8) NEGATIVE NEGATIVE [facility] Rrihl2264-30-14 03:02:00* Test Item Value Reference Range Interpretation Comments Urine Blood (test code = 68305-4) NEGATIVE NEGATIVE [facility] HendersonWhite Blood Yxdjy9325-47-19 02:34:00* Test Item Value Reference Range Interpretation Comments White Blood Count (test code = 6690-2) 8.66 4.8-10.8 [facility] Blood Avdzb2386-07-95 02:34:00* Test Item Value Reference Range Interpretation Comments Red Blood Count (test code = 789-8) 4.49 3.6-5.1 [facility]emoglobin2019-09-11 02:34:00* Test Item Value Reference Range Interpretation Comments Hemoglobin (test code = 25248-7) 13.8 12.0-16.0 [facility]Hematocrit2019-09-11 02:34:00* Test Item Value Reference Range Interpretation Comments Hematocrit (test code = 4544-3) 41.4 34.2-44.1 [facility] Henderson[facility] Corpuscular Wosdwi7722-28-80 02:34:00* Test Item Value Reference Range Interpretation Comments Mean Corpuscular Volume (test code = 787-2) 92.2 81-99 [facility] Corpuscular Nqoncarqbh6509-77-41 02:34:00* Test Item Value Reference Range Interpretation Comments Mean Corpuscular Hemoglobin (test code = 785-6) 30.7 28-32 [facility] Corpuscular Hemoglobin Concent 2019-07-06 02:34:00* Test Item Value Reference Range Interpretation Comments Mean Corpuscular Hemoglobin Concent (test code = 786-4) 33.3 31-35 [facility] Cell Distribution Itdap1869-18-76 02:34:00* Test Item Value Reference Range Interpretation Comments Red Cell Distribution Width (test code = 84749-7) 13.3 11.7 -14.4 [facility] HendersonPlatelet Frrmy3249-70-18 02:34:00* Test Item Value Reference Range Interpretation Comments Platelet Count (test code = 777-3) 241 140-360 [facility]Neutrophils (%) (Auto)2019-07-06 02:34:00 * Test Item Value Reference Range Interpretation Comments Neutrophils (%) (Auto) (test code = 16946-2) 64.9 38.7-80.0 [facility] HendersonLymphocytes (%) (Auto)2019-07-06 02:34:00 * Test Item Value Reference Range Interpretation Comments Lymphocytes (%) (Auto) (test code = 736-9) 24.8 18.0-39.1 [facility] HendersonMonocytes (%) (Auto)2019-07-06 02:34:00* Test Item Value Reference Range Interpretation Comments Monocytes (%) (Auto) (test code = 5905-5) 7.4 4.4-11.3 [facility] (Auto)2019-07-06 02:34:00 * Test Item Value Reference Range Interpretation Comments Eosinophils (%) (Auto) (test code = 713-8) 2.1 0.0-6.0 [facility] (%) (Auto)2019-07-06 02:34:00* Test Item Value Reference Range Interpretation Comments Basophils (%) (Auto) (test code = 706-2) 0.2 0.0-1.0 [facility] HendersonIM GRANULOCYTES %2019-07-06 02:34:00* Test Item Value Reference Range Interpretation Comments IM GRANULOCYTES % (test code = IM GRANULOCYTES %) 0.6 0.0- 1.0 [facility] HendersonNeutrophils # (Auto)2019-07-06 02:34:00* Test Item Value Reference Range Interpretation Comments Neutrophils # (Auto) (test code = 751-8) 5.6 2.1-6.9 [facility] HendersonLymphocytes # (Auto)2019-07-06 02:34:00* Test Item Value Reference Range Interpretation Comments Lymphocytes # (Auto) (test code = 75753-8) 2.2 1.0-3.2 [facility] HendersonMonocytes # (Auto)2019-07-06 02:34:00* Test Item Value Reference Range Interpretation Comments Monocytes # (Auto) (test code = 742-7) 0.6 0.2-0.8 [facility]Eosinophils # (Auto)2019-07-06 02:34:00* Test Item Value Reference Range Interpretation Comments Eosinophils # (Auto) (test code = 711-2) 0.2 0.0-0.4 [facility]Basophils # (Auto)2019-07-06 02:34:00* Test Item Value Reference Range Interpretation Comments Basophils # (Auto) (test code = 704-7) 0.0 0.0-0.1 [facility] HendersonAbsolute Immature Granulocyte (auto 2019-07-06 02:34:00* Test Item Value Reference Range Interpretation Comments Absolute Immature Granulocyte (auto (adarsh t code = Absolute Immature Granulocyte (auto) 0.05 0-0.1 [facility] HendersonCHES 2 LRISS3828-34-80 22:30:00 [facility] [address] [place] [address] Patient Name: CEDRICK HOLT MR #: [id number] : 1945 Age/Sex: 73/F Req #: [id number] Adm Physician: Ordered by: TYRELL BARR MD Report #: [id number] Location: ER Room/Bed: Procedure: [id number] DX/CHEST 2 VIEWS Exam Date: 10/09/18 Exam Time: 2100 REPORT STATUS: Signed EXAM INATION: CHEST 2 VIEWS INDICATION: Chest pain. COMPARISON: 09/26/2018 FINDINGS: PA and lateral views TUBES and LINES: None. LUNGS: Lungs are well inflated. Lungs are clear. There is no evidence of pneumonia or pulmonary edema. PLEURA: No pleural effusion or pneumoth orax. HEART AND MEDIASTINUM: The cardiomediastinal silhouette is unremarka ble. BONES AND SOFT TISSUES: There are degenerative changes in the tho racic spine. Soft tissues are unremarkable. UPPER ABDOMEN: No free air u nder the diaphragm. IMPRESSION: No acute thoracic abnormality. Signed by: DR. Jaren Nicole MD on 10/09/2018 10:32 PM Dictated By: Negrita NICOLE MD 31 Tr anscribed By: HEAVEN on 10/09/182231 COPY TO: TYRELL BARR MD Creatine Kinase [id number] 22:19:00* Test Item Value Reference Range Interpretation Comments Creatine Kinase MB (test code = 54895-5) 0.30 0-5.0 [facility] HendersonTroponin [id number] 22:19:00* Test Item Value Reference Range Interpretation Comments Troponin I (test code = MKR7667) < 0.001 0-0.300 [facility]odium Hebrr9203-16-70 22:15:00* Test Item Value Reference Range Interpretation Comments Sodium Level (test code = 2951-2) 138 136-145 [facility]Potassium Jbwec2855-11-96 22:15:00* Test Item Value Reference Range Interpretation Comments Potassium Level (test code = 2823-3) 4.0 3.5-5.1 [facility] HendersonChloride Utirv5763-86-66 22:15:00* Test Item Value Reference Range Interpretation Comments Chloride Level (test code = 2075-0) 105 98-107 [facility] HendersonCarbon Dioxide Yvqkh8680-10-89 22:15:00* Test Item Value Reference Range Interpretation Comments Carbon Dioxide Level (test code = 2028-9) 20 22-29 L [facility] HendersonAnion Gna7939-61-07 22:15:00* Test Item Value Reference Range Interpretation Comments Anion Gap (test code = 49671-5) 17.0 8-16 H [facility] HendersonBlood Urea Fmixmfcy1304-67-41 22:15:00* Test Item Value Reference Range Interpretation Comments Blood Urea Nitrogen (test code = 3094-0) 11 7-26 [facility] HendersonCreatinine2018-12-15 22:15:00* Test Item Value Reference Range Interpretation Comments Creatinine (test code = 2160-0) 0.77 0.57-1.11 [facility] HendersonBUN/Creatinine Wlsax4516-76-30 22:15:00* Test Item Value Reference Range Interpretation Comments BUN/Creatinine Ratio (test code = 3097-3) 14 6-25 [facility] HendersonEstimat Glomerular Filtration Rate 2018-10-09 22:15:00* Test Item Value Reference Range Interpretation Comments Estimat Glomerular Filtration Rate (test code = 480412227) > 60 >60 Ranges were taken from the National Kidney Disease Education Program and the [facility] literature.Reference ranges:60 or greater: Dwjpys16-33 ( for 3 consecutive months): Chronic kidney disease 15 or less: Kidney failureUT Health HendersonGlucose Fqscy1384-41-91 22:15:00* Test Item Value Reference Range Interpretation Comments Glucose Level (test code = IBY9135) 113 74-118 [facility] HendersonCalcium Irbhz4487-39-85 22:15:00* Test Item Value Reference Range Interpretation Comments Calcium Level (test code = 48034-6) 9.5 8.4-10.2 [facility] HendersonTotal Brsuuufog1437-14-53 22:15:00* Test Item Value Reference Range Interpretation Comments Total Bilirubin (test code = 1975-2) 0.5 0.2-1.2 [facility] HendersonAspartate Amino Transf (AST/SGOT) 2018-10-09 22:15:00* Test Item Value Reference Range Interpretation Comments Aspartate Amino Transf (AST/SGOT) (test code = Aspartate Amino Transf (AST/SGOT)) 24 5-34 [facility] HendersonAlanine Aminotransferase (ALT/SGPT) 2018-10-09 22:15:00* Test Item Value Reference Range Interpretation Comments Alanine Aminotransferase (ALT/SGPT) (test code = 1742-6) 12 0-55 [facility] HendersonTotal Yddzhie1110-08-81 22:15:00* Test Item Value Reference Range Interpretation Comments Total Protein (test code = 2885-2) 7.4 6.5-8.1 [facility] HendersonAlbumin2018-12-15 22:15:00* Test Item Value Reference Range Interpretation Comments Albumin (test code = 1751-7) 3.5 3.5-5.0 [facility] HendersonGlobulin2018-12-15 22:15:00* Test Item Value Reference Range Interpretation Comments Globulin (test code = 51112-1) 3.9 2.3-3.5 H [facility] HendersonAlbumin/Globulin Kghrs8502-92-77 22:15:00 * Test Item Value Reference Range Interpretation Comments Albumin/Globulin Ratio (test code = 1759-0) 0.9 0.8-2.0 [facility] HendersonAlkaline Hcbuexyxhyk3829-71-98 22:15:00* Test Item Value Reference Range Interpretation Comments Alkaline Phosphatase (test code = 6768-6) 75 40-150 [facility] HendersonCreatine Cpkihk6181-88-98 22:15:00* Test Item Value Reference Range Interpretation Comments Creatine Kinase (test code = 2157-6) 73 29-168 [facility] HendersonWhite Blood Urcdi5760-12-00 22:01:00* Test Item Value Reference Range Interpretation Comments White Blood Count (test code = 6690-2) 5.59 4.8-10.8 [facility] HendersonRed Blood Liltp2280-35-94 22:01:00* Test Item Value Reference Range Interpretation Comments Red Blood Count (test code = 789-8) 4.34 3.6-5.1 [facility] HendersonHemoglobin2018-12-15 22:01:00* Test Item Value Reference Range Interpretation Comments Hemoglobin (test code = 23944-7) 13.3 12.0-16.0 [facility] HendersonHematocrit2018-12-15 22:01:00* Test Item Value Reference Range Interpretation Comments Hematocrit (test code = 4544-3) 41.4 34.2-44.1 [facility] HendersonMean Corpuscular Pxnzos7108-09-05 22:01:00* Test Item Value Reference Range Interpretation Comments Mean Corpuscular Volume (test code = 787-2) 95.4 81-99 [facility] HendersonMean Corpuscular Dbbzwvtfgi5213-60-18 22:01:00* Test Item Value Reference Range Interpretation Comments Mean Corpuscular Hemoglobin (test code = 785-6) 30.6 28-32 [facility] HendersonMean Corpuscular Hemoglobin Concent 2018-10-09 22:01:00* Test Item Value Reference Range Interpretation Comments Mean Corpuscular Hemoglobin Concent (test code = 786-4) 32.1 31-35 [facility] HendersonRed Cell Distribution Mxjsa8254-82-65 22:01:00* Test Item Value Reference Range Interpretation Comments Red Cell Distribution Width (test code = 03049-4) 13.0 11.7 -14.4 [facility] HendersonPlatelet Vwhwf3536-40-54 22:01:00* Test Item Value Reference Range Interpretation Comments Platelet Count (test code = 777-3) 217 140-360 [facility] HendersonNeutrophils (%) (Auto)2018-10-09 22:01:00 * Test Item Value Reference Range Interpretation Comments Neutrophils (%) (Auto) (test code = 73026-7) 52.8 38.7-80.0 [facility] HendersonLymphocytes (%) (Auto)2018-10-09 22:01:00 * Test Item Value Reference Range Interpretation Comments Lymphocytes (%) (Auto) (test code = 736-9) 29.9 18.0-39.1 [facility] HendersonMonocytes (%) (Auto)2018-10-09 22:01:00* Test Item Value Reference Range Interpretation Comments Monocytes (%) (Auto) (test code = 5905-5) 13.1 4.4-11.3 H [facility] HendersonEosinophils (%) (Auto)2018-10-09 22:01:00 * Test Item Value Reference Range Interpretation Comments Eosinophils (%) (Auto) (test code = 713-8) 3.4 0.0-6.0 [facility] HendersonBasophils (%) (Auto)2018-10-09 22:01:00* Test Item Value Reference Range Interpretation Comments Basophils (%) (Auto) (test code = 706-2) 0.4 0.0-1.0 [facility] HendersonIM GRANULOCYTES %2018-10-09 22:01:00* Test Item Value Reference Range Interpretation Comments IM GRANULOCYTES % (test code = IM GRANULOCYTES %) 0.4 0.0- 1.0 [facility] HendersonNeutrophils # (Auto)2018-10-09 22:01:00* Test Item Value Reference Range Interpretation Comments Neutrophils # (Auto) (test code = 751-8) 3.0 2.1-6.9 [facility] HendersonLymphocytes # (Auto)2018-10-09 22:01:00* Test Item Value Reference Range Interpretation Comments Lymphocytes # (Auto) (test code = 40716-3) 1.7 1.0-3.2 [facility] HendersonMonocytes # (Auto)2018-10-09 22:01:00* Test Item Value Reference Range Interpretation Comments Monocytes # (Auto) (test code = 742-7) 0.7 0.2-0.8 [facility]Eosinophils # (Auto)2018-10-09 22:01:00* Test Item Value Reference Range Interpretation Comments Eosinophils # (Auto) (test code = 711-2) 0.2 0.0-0.4 [facility]Basophils # (Auto)2018-10-09 22:01:00* Test Item Value Reference Range Interpretation Comments Basophils # (Auto) (test code = 704-7) 0.0 0.0-0.1 [facility] HendersonAbsolute Immature Granulocyte (auto 2018-10-09 22:01:00* Test Item Value Reference Range Interpretation Comments Absolute Immature Granulocyte (auto (adarsh t code = Absolute Immature Granulocyte (auto) 0.02 0-0.1 [facility] HendersonCHEST 2 CNIUM7488-66-59 14:18:00 [facility] [address] [address] Patient Name: CEDRICK HOLT MR #: [id number] : 1945 Age/Sex: 73/F Req #: [id number] Adm Physician: Ordered by: BALDEMAR LOCO MD Report #: [id number] Location: ER Room/Bed: Procedure: [id number] DX/CHEST 2 VIEWS Exam Date: 09/26/18 Exam Time: 1326 REPORT STATUS: Signed EXAMINATI ON: CHEST 2 VIEWS Clinical history: Cough. COMPARISON: usand 17. FINDINGS: TUBES and LINES: None. LUNGS: Lungs are w ell inflated. Lungs are clear. There is no evidence of pneumonia or pulmona ry edema. PLEURA: No pleural effusion or pneumothorax. HEART AND MEDI ASTINUM: The cardiomediastinal silhouette is unremarkable. BONES AND S OFT TISSUES: No acute osseous lesion. Lower thoracic DISH. UPPER ABDOMEN: No free air under the diaphragm. IMPRESSION: No acute thoracic abno rmality. Signed by: Dr. Chucky Mcneil M.D. on 09/26/2018 2:19 PM Dictated By: HARRIET MCNEIL MD, MD 18 Transcribed By: HEAVEN on 09/26/181418 COPY T O: BALDEMAR LOCO MD Influenza Virus Types A,B Nedwscm7991-67-81 13:50:00* Test Item Value Reference Range Interpretation Comments Influenza Virus Types A,B Antigen (test code = 00792-5) NEGATIVE NEGATIVE [facility] HendersonInfluenza Virus Types A,B Antigen 2018-09-26 13:50:00* Test Item Value Reference Range Interpretation Comments Influenza Virus Types A,B Antigen (test code = 20739-5) NEGATIVE NEGATIVE [facility] HendersonInfluenza Virus Types A,B Antigen 2018-09-26 13:50:00* Test Item Value Reference Range Interpretation Comments Influenza Virus Types A,B Antigen (test code = 91494-9) NEGATIVE NEGATIVE [facility] Bilpbxn8270-28-13 21:31:00* Test Item Value Reference Range Interpretation Comments Bedside Glucose (test code = 20816-1) 140 70-120 H Meter ID: [id number] Glucose 2018-07-25 21:31:00* Test Item Value Reference Range Interpretation Comments Bedside Glucose (test code = 81645-5) 140 70-120 H Meter ID: [id number] Scott & [facility] Glucose 2018-07-25 16:01:00* Test Item Value Reference Range Interpretation Comments Bedside Glucose (test code = 24280-2) 130 70-120 H Meter ID: [id number] Centerodium Level 2018-07-25 06:25:00* Test Item Value Reference Range Interpretation Comments Sodium Level (test code = 2951-2) 141 136-145 [facility]Potassium Rlixm4308-68-77 06:25:00* Test Item Value Reference Range Interpretation Comments Potassium Level (test code = 2823-3) 3.8 3.5-5.1 [facility] HendersonChloride Rmddq1350-19-51 06:25:00* Test Item Value Reference Range Interpretation Comments Chloride Level (test code = 2075-0) 110 98-107 H [facility] HendersonCarbon Dioxide Cgxtj9739-47-29 06:25:00* Test Item Value Reference Range Interpretation Comments Carbon Dioxide Level (test code = 2028-9) 22 -29 [facility] HendersonAnion Zip2244-67-52 06:25:00* Test Item Value Reference Range Interpretation Comments Anion Gap (test code = 29297-8) 12.8 8-16 [facility] HendersonBlood Urea Eclsiiix9915-04-94 06:25:00* Test Item Value Reference Range Interpretation Comments Blood Urea Nitrogen (test code = 3094-0) 7 7-26 [facility] HendersonCreatinine2018-09-30 06:25:00* Test Item Value Reference Range Interpretation Comments Creatinine (test code = 2160-0) 0.62 0.57-1.11 [facility] HendersonBUN/Creatinine Vielx0677-99-07 06:25:00* Test Item Value Reference Range Interpretation Comments BUN/Creatinine Ratio (test code = 3097-3) 11 - [facility] HendersonEstimat Glomerular Filtration Rate 2018-07-25 06:25:00* Test Item Value Reference Range Interpretation Comments Estimat Glomerular Filtration Rate (test code = 498782843) 60- >60 Ranges were taken from the National Kidney Disease Education Program and the [facility] literature.Reference ranges:60 or greater: Tfdaan11-14 ( for 3 consecutive months): Chronic kidney disease 15 or less: Kidney failureUT Health HendersonGlucose Kvrch4692-83-15 06:25:00* Test Item Value Reference Range Interpretation Comments Glucose Level (test code = ZLZ1887) 124 74-118 H [facility] HendersonCalcium Wmfge6540-76-06 06:25:00* Test Item Value Reference Range Interpretation Comments Calcium Level (test code = 90423-9) 8.6 8.4-10.2 [facility]odium Yjrry4985-62-05 06:25:00* Test Item Value Reference Range Interpretation Comments Sodium Level (test code = 2951-2) 141 136-145 [facility] HendersonPotassium Iolva4495-91-81 06:25:00* Test Item Value Reference Range Interpretation Comments Potassium Level (test code = 2823-3) 3.8 3.5-5.1 [facility] HendersonChloride Gcqnb3111-85-05 06:25:00* Test Item Value Reference Range Interpretation Comments Chloride Level (test code = 2075-0) 110 98-107 H [facility] HendersonCarbon Dioxide Agykz7109-45-39 06:25:00* Test Item Value Reference Range Interpretation Comments Carbon Dioxide Level (test code = 2028-9) 22 22-29 [facility] HendersonAnion Rxw9074-75-30 06:25:00* Test Item Value Reference Range Interpretation Comments Anion Gap (test code = 17302-1) 12.8 8-16 [facility] HendersonBlood Urea Hpdyxzmk8721-43-78 06:25:00* Test Item Value Reference Range Interpretation Comments Blood Urea Nitrogen (test code = 3094-0) 7 7- [facility] HendersonCreatinine2018-09-30 06:25:00* Test Item Value Reference Range Interpretation Comments Creatinine (test code = 2160-0) 0.62 0.57-1.11 [facility] HendersonBUN/Creatinine Lsgbb8605-54-94 06:25:00* Test Item Value Reference Range Interpretation Comments BUN/Creatinine Ratio (test code = 3097-3) 11 04-19 [facility] HendersonEstimat Glomerular Filtration Rate 2018-07-25 06:25:00* Test Item Value Reference Range Interpretation Comments Estimat Glomerular Filtration Rate (test code = 402445584) > 60 >60 Ranges were taken from the National Kidney Disease Education Program and the [facility] literature.Reference ranges:60 or greater: Nrhhxt16-35 ( for 3 consecutive months): Chronic kidney disease 15 or less: Kidney failureUT Health HendersonGlucose Hghvl8294-46-00 06:25:00* Test Item Value Reference Range Interpretation Comments Glucose Level (test code = UTX2419) 124 74-118 H [facility] HendersonCalcium Ainqr9685-80-53 06:25:00* Test Item Value Reference Range Interpretation Comments Calcium Level (test code = 52982-8) 8.6 8.4-10.2 [facility] HendersonWhite Blood Sghzu3919-87-74 06:02:00* Test Item Value Reference Range Interpretation Comments White Blood Count (test code = 6690-2) 7.55 4.8-10.8 [facility] HendersonRed Blood Cxvlc8422-38-22 06:02:00* Test Item Value Reference Range Interpretation Comments Red Blood Count (test code = 789-8) 3.94 3.6-5.1 [facility] HendersonHemoglobin2018-09-30 06:02:00* Test Item Value Reference Range Interpretation Comments Hemoglobin (test code = 07282-3) 11.9 12.0-16.0 L [facility] HendersonHematocrit2018-09-30 06:02:00* Test Item Value Reference Range Interpretation Comments Hematocrit (test code = 4544-3) 36.8 34.2-44.1 [facility] HendersonMean Corpuscular Eebkgl9430-87-30 06:02:00* Test Item Value Reference Range Interpretation Comments Mean Corpuscular Volume (test code = 787-2) 93.4 81-99 [facility] HendersonMean Corpuscular Mxzighuott3919-81-31 06:02:00* Test Item Value Reference Range Interpretation Comments Mean Corpuscular Hemoglobin (test code = 785-6) 30.2 28-32 [facility] HendersonMean Corpuscular Hemoglobin Concent 2018-07-25 06:02:00* Test Item Value Reference Range Interpretation Comments Mean Corpuscular Hemoglobin Concent (test code = 786-4) 32.3 31-35 [facility] HendersonRed Cell Distribution Cntin6576-13-42 06:02:00* Test Item Value Reference Range Interpretation Comments Red Cell Distribution Width (test code = 82117-4) 13.0 11.7 -14.4 [facility] HendersonPlatelet Uvzis4464-97-49 06:02:00* Test Item Value Reference Range Interpretation Comments Platelet Count (test code = 777-3) 219 140-360 [facility] HendersonNeutrophils (%) (Auto)2018-07-25 06:02:00 * Test Item Value Reference Range Interpretation Comments Neutrophils (%) (Auto) (test code = 85942-7) 52.8 38.7-80.0 [facility] HendersonLymphocytes (%) (Auto)2018-07-25 06:02:00 * Test Item Value Reference Range Interpretation Comments Lymphocytes (%) (Auto) (test code = 736-9) 35.1 18.0-39.1 [facility] HendersonMonocytes (%) (Auto)2018-07-25 06:02:00* Test Item Value Reference Range Interpretation Comments Monocytes (%) (Auto) (test code = 5905-5) 7.7 4.4-11.3 [facility] HendersonEosinophils (%) (Auto)2018-07-25 06:02:00 * Test Item Value Reference Range Interpretation Comments Eosinophils (%) (Auto) (test code = 713-8) 3.6 0.0-6.0 [facility] HendersonBasophils (%) (Auto)2018-07-25 06:02:00* Test Item Value Reference Range Interpretation Comments Basophils (%) (Auto) (test code = 706-2) 0.5 0.0-1.0 [facility] HendersonIM GRANULOCYTES %2018-07-25 06:02:00* Test Item Value Reference Range Interpretation Comments IM GRANULOCYTES % (test code = IM GRANULOCYTES %) 0.3 0.0- 1.0 [facility] HendersonNeutrophils # (Auto)2018-07-25 06:02:00* Test Item Value Reference Range Interpretation Comments Neutrophils # (Auto) (test code = 751-8) 4.0 2.1-6.9 [facility] HendersonLymphocytes # (Auto)2018-07-25 06:02:00* Test Item Value Reference Range Interpretation Comments Lymphocytes # (Auto) (test code = 29790-4) 2.7 1.0-3.2 [facility] HendersonMonocytes # (Auto)2018-07-25 06:02:00* Test Item Value Reference Range Interpretation Comments Monocytes # (Auto) (test code = 742-7) 0.6 0.2-0.8 [facility] HendersonEosinophils # (Auto)2018-07-25 06:02:00* Test Item Value Reference Range Interpretation Comments Eosinophils # (Auto) (test code = 711-2) 0.3 0.0-0.4 [facility] HendersonBasophils # (Auto)2018-07-25 06:02:00* Test Item Value Reference Range Interpretation Comments Basophils # (Auto) (test code = 704-7) 0.0 0.0-0.1 [facility] HendersonAbsolute Immature Granulocyte (auto 2018-07-25 06:02:00* Test Item Value Reference Range Interpretation Comments Absolute Immature Granulocyte (auto (adarsh t code = Absolute Immature Granulocyte (auto) 0.02 0-0.1 [facility] HendersonWhite Blood Mdkrm2140-20-74 06:02:00* Test Item Value Reference Range Interpretation Comments White Blood Count (test code = 6690-2) 7.55 4.8-10.8 [facility] HendersonRed Blood Ysafu7708-82-56 06:02:00* Test Item Value Reference Range Interpretation Comments Red Blood Count (test code = 789-8) 3.94 3.6-5.1 [facility] HendersonHemoglobin2018-09-30 06:02:00* Test Item Value Reference Range Interpretation Comments Hemoglobin (test code = 50080-3) 11.9 12.0-16.0 L [facility] HendersonHematocrit2018-09-30 06:02:00* Test Item Value Reference Range Interpretation Comments Hematocrit (test code = 4544-3) 36.8 34.2-44.1 [facility] HendersonMean Corpuscular Mwzyjo7260-83-42 06:02:00* Test Item Value Reference Range Interpretation Comments Mean Corpuscular Volume (test code = 787-2) 93.4 81-99 [facility] HendersonMean Corpuscular Stcyzvtdrv8942-20-63 06:02:00* Test Item Value Reference Range Interpretation Comments Mean Corpuscular Hemoglobin (test code = 785-6) 30.2 28-32 [facility] HendersonMean Corpuscular Hemoglobin Concent 2018-07-25 06:02:00* Test Item Value Reference Range Interpretation Comments Mean Corpuscular Hemoglobin Concent (test code = 786-4) 32.3 31-35 [facility] HendersonRed Cell Distribution Ogdpf2350-19-88 06:02:00* Test Item Value Reference Range Interpretation Comments Red Cell Distribution Width (test code = 53403-7) 13.0 11.7 -14.4 [facility] HendersonPlatelet Ibxwp9933-88-81 06:02:00* Test Item Value Reference Range Interpretation Comments Platelet Count (test code = 777-3) 219 140-360 [facility] HendersonNeutrophils (%) (Auto)2018-07-25 06:02:00 * Test Item Value Reference Range Interpretation Comments Neutrophils (%) (Auto) (test code = 46624-0) 52.8 38.7-80.0 [facility] HendersonLymphocytes (%) (Auto)2018-07-25 06:02:00 * Test Item Value Reference Range Interpretation Comments Lymphocytes (%) (Auto) (test code = 736-9) 35.1 18.0-39.1 [facility] HendersonMonocytes (%) (Auto)2018-07-25 06:02:00* Test Item Value Reference Range Interpretation Comments Monocytes (%) (Auto) (test code = 5905-5) 7.7 4.4-11.3 [facility] HendersonEosinophils (%) (Auto)2018-07-25 06:02:00 * Test Item Value Reference Range Interpretation Comments Eosinophils (%) (Auto) (test code = 713-8) 3.6 0.0-6.0 [facility] HendersonBasophils (%) (Auto)2018-07-25 06:02:00* Test Item Value Reference Range Interpretation Comments Basophils (%) (Auto) (test code = 706-2) 0.5 0.0-1.0 [facility] HendersonIM GRANULOCYTES %2018-07-25 06:02:00* Test Item Value Reference Range Interpretation Comments IM GRANULOCYTES % (test code = IM GRANULOCYTES %) 0.3 0.0- 1.0 [facility] HendersonNeutrophils # (Auto)2018-07-25 06:02:00* Test Item Value Reference Range Interpretation Comments Neutrophils # (Auto) (test code = 751-8) 4.0 2.1-6.9 [facility] HendersonLymphocytes # (Auto)2018-07-25 06:02:00* Test Item Value Reference Range Interpretation Comments Lymphocytes # (Auto) (test code = 83014-0) 2.7 1.0-3.2 [facility] HendersonMonocytes # (Auto)2018-07-25 06:02:00* Test Item Value Reference Range Interpretation Comments Monocytes # (Auto) (test code = 742-7) 0.6 0.2-0.8 [facility] HendersonEosinophils # (Auto)2018-07-25 06:02:00* Test Item Value Reference Range Interpretation Comments Eosinophils # (Auto) (test code = 711-2) 0.3 0.0-0.4 [facility] HendersonBasophils # (Auto)2018-07-25 06:02:00* Test Item Value Reference Range Interpretation Comments Basophils # (Auto) (test code = 704-7) 0.0 0.0-0.1 [facility] HendersonAbsolute Immature Granulocyte (auto 2018-07-25 06:02:00* Test Item Value Reference Range Interpretation Comments Absolute Immature Granulocyte (auto (adarsh t code = Absolute Immature Granulocyte (auto) 0.02 0-0.1 [facility] aofxniu8215-52-04 07:44:00* Test Item Value Reference Range Interpretation Comments Urine Culture (test code = 630-4) Organism: PSEUDOMONAS AERUGINOSA [facility] Jaykqrr3048-62-80 07:44:00* Test Item Value Reference Range Interpretation Comments Urine Culture (test code = 630-4) Organism: PSEUDOMONAS AERUGINOSA [facility] Mexcbxf7179-12-92 07:44:00* Test Item Value Reference Range Interpretation Comments Urine Culture (test code = 630-4) Organism: PSEUDOMONAS AERUGINOSA [facility] HendersonClostridium Difficile Toxin A & B 2018-07-22 12:03:00* Test Item Value Reference Range Interpretation Comments Clostridium Difficile Toxin A & B (test code = 244762378) NEGATIVE NEGATIVE Testing on stool aspirate specimens is outside hardware press operator claims since specime n type not validated on this assay.[facility] Clostridium Difficile Toxin A & K4089-00-55 12:03:00* Test Item Value Reference Range Interpretation Comments Clostridium Difficile Toxin A & B (test code = 710018407) NEGATIVE NEGATIVE Testing on stool aspirate specimens is outside hardware press operator claims since specime n type not validated on this assay.[facility] Clostridium Difficile Toxin A & [id number] 12:03:00* Test Item Value Reference Range Interpretation Comments Clostridium Difficile Toxin A & B (test code = 111109208) NEGATIVE NEGATIVE Testing on stool aspirate specimens is outside hardware press operator claims since specime n type not validated on this assay.[facility] Hemoglobin A1c Ufrgiyo2189-03-42 10:05:00* Test Item Value Reference Range Interpretation Comments Hemoglobin A1c Percent (test code = Hemoglobin A1c Percent) 6.2 4.0-7.0 [facility] A[facility] Yelqntj5078-07-53 10:05:00 * Test Item Value Reference Range Interpretation Comments Hemoglobin A1c Percent (test code = Hemoglobin A1c Percent) 6.2 4.0-7.0 [facility] A[facility]c Kjrksss8886-93-18 10:05:00 * Test Item Value Reference Range Interpretation Comments Hemoglobin A1c Percent (test code = Hemoglobin A1c Percent) 6.2 4.0-7.0 [facility] BYVYYOIA1381-43-99 09:17:00 [place] [address] Patient Name: CEDRICK HOLT MR #: [id number] : 1945 Age/Sex: 73/F Req #: [id number] Adm Physician : BIN ERVIN MD Ordered by: NATHALY DUVALL ROUGH PATCHER Report #: [id number] Locat ion: MED/SURG Room/Bed: [facility] Procedure: US /US ABDOMEN COMPLETE Exam Date: Exam Time: R EPORT STATUS: Signed PROCEDURE: ABDOMINAL ULTRASOUND COMPARISON: None. INDICATIONS: RLQ PAIN FINDINGS: Somewhat technically difficult ex am due to patient body habitus and bowel gas. Liver: Measures 16.1 cm. Increased hepatic parenchymal echogenicity. No focal mass. Main portal ve in: Measures 0.9 cm. Hepatopedal flow. Gallbladder: Status post cholecyst ectomy. Common Bile Duct: Measures 0.6 cm. No echogenic filling defect. So nographic Jackson's sign: Negative. Right kidney: Measures 11.9 cm. No moises id or cystic mass, echogenic calculi, or hydronephrosis. Normal parenchymal e chogenicity. Left kidney: Measures 9.2 cm. No solid or cystic mass, echogenic calculi, or hydronephrosis. Normal parenchymal echogenicity. Spleen: M easures 7.9 cm. Pancreas: The visualized portions of the pancreas are normal . Inferior vena cava: Normal. Aorta: Obscured by overlying bowel gas. Ascites: None. CONCLUSION: No acute sonographic abnormality. Hepatic steatosis. Dictated by: ISIAH HIGGINS M.D. on 07/21 at 9:17 Electronically approved by: ISIAH HIGGINS M.D. on 07/21/2018 at 9:17 Dictated By: ISIAH HIGGINS MD 6 Transcribed By: YAA on 07/21/18916 COPY T O: NATHALY DUVALL NP Triglycerides Jcibr0222-13-40 08:11:00* Test Item Value Reference Range Interpretation Comments Triglycerides Level (test code = 2571-8) 80 0-149 [facility] Owyzi5642-21-75 08:11:00* Test Item Value Reference Range Interpretation Comments Cholesterol Level (test code = 2093-3) 110 0-199 Less than 200 mg/dL Low Ndao275 - 239 mg/dL Borderline Inqt893 m g/dl and greater High Risk [facility] HendersonLDL Hirfpvoocnc5458-71-31 08:11:00* Test Item Value Reference Range Interpretation Comments LDL Cholesterol (test code = 2089-1) 50 60-130 L [facility] Xjquqmgiwfn8606-64-43 08:11:00* Test Item Value Reference Range Interpretation Comments HDL Cholesterol (test code = 2085-9) 44 40-60 [facility]HDL Xyeti9268-80-50 08:11:00 * Test Item Value Reference Range Interpretation Comments Cholesterol/HDL Ratio (test code = 9830-1) 2.5 3.0-3.6 L [facility]Trig[facility]ides Iczvn2184-84-19 08:11:00* Test Item Value Reference Range Interpretation Comments Triglycerides Level (test code = 2571-8) 80 0-149 [facility] Ordyu9818-12-13 08:11:00* Test Item Value Reference Range Interpretation Comments Cholesterol Level (test code = 2093-3) 110 0-199 Less than 200 mg/dL Low Vqax732 - 239 mg/dL Borderline Dyrw980 m g/dl and greater High Risk [facility] HendersonLDL Bdndaijrmgw5058-00-99 08:11:00* Test Item Value Reference Range Interpretation Comments LDL Cholesterol (test code = 2089-1) 50 60-130 [facility] Ljcilulqrff0128-36-10 08:11:00* Test Item Value Reference Range Interpretation Comments HDL Cholesterol (test code = 2085-9) 44 40-60 [facility]HDL Rzttz4222-04-50 08:11:00 * Test Item Value Reference Range Interpretation Comments Cholesterol/HDL Ratio (test code = 9830-1) 2.5 3.0-3.6 L [facility]Trig[facility] Fofwq1362-15-10 08:11:00* Test Item Value Reference Range Interpretation Comments Triglycerides Level (test code = 2571-8) 80 0-149 [facility] Freky2892-81-54 08:11:00* Test Item Value Reference Range Interpretation Comments Cholesterol Level (test code = 2093-3) 110 0-199 Less than 200 mg/dL Low Xtaz530 - 239 mg/dL Borderline Ttrk057 m g/dl and greater High Risk [facility]LDL Wbnhldhaoyx1071-91-62 08:11:00* Test Item Value Reference Range Interpretation Comments LDL Cholesterol (test code = 2089-1) 50 60-130 L [facility] HendersonHDL Nqxllfenrqc2137-26-70 08:11:00* Test Item Value Reference Range Interpretation Comments HDL Cholesterol (test code = 2085-9) 44 40-60 [facility]/HDL Cchfi6220-00-45 08:11:00 * Test Item Value Reference Range Interpretation Comments Cholesterol/HDL Ratio (test code = 9830-1) 2.5 3.0-3.6 L [facility]Total Gwmhklypa5502-33-70 07:14:00* Test Item Value Reference Range Interpretation Comments Total Bilirubin (test code = 1975-2) 0.8 0.2-1.2 [facility] Henderson[facility]artate Amino Transf (AST/SGOT) 2018-07-21 07:14:00* Test Item Value Reference Range Interpretation Comments Aspartate Amino Transf (AST/SGOT) (test code = Aspartate Amino Transf (AST/SGOT)) 32 5-34 [facility] Aminotransferase (ALT/SGPT) 2018-07-21 07:14:00* Test Item Value Reference Range Interpretation Comments Alanine Aminotransferase (ALT/SGPT) (test code = 1742-6) 20 0-55 [facility] Rmbjkwo7594-66-25 07:14:00* Test Item Value Reference Range Interpretation Comments Total Protein (test code = 2885-2) 6.5 6.5-8.1 [facility] HendersonAlbumin2018-09-26 07:14:00* Test Item Value Reference Range Interpretation Comments Albumin (test code = 1751-7) 3.1 3.5-5.0 L [facility]Globulin2018-09-26 07:14:00* Test Item Value Reference Range Interpretation Comments Globulin (test code = 01621-5) 3.4 2.3-3.5 [facility]/Globulin Ycnzk6408-14-72 07:14:00 * Test Item Value Reference Range Interpretation Comments Albumin/Globulin Ratio (test code = 1759-0) 0.9 0.8-2.0 [facility] HendersonAlkaline Qqjfztovekp5179-13-57 07:14:00* Test Item Value Reference Range Interpretation Comments Alkaline Phosphatase (test code = 6768-6) 61 40-150 [facility] Qcdyxnkyy3138-93-89 07:14:00* Test Item Value Reference Range Interpretation Comments Total Bilirubin (test code = 1975-2) 0.8 0.2-1.2 [facility] HendersonAspartate Amino Transf (AST/SGOT) 2018-07-21 07:14:00* Test Item Value Reference Range Interpretation Comments Aspartate Amino Transf (AST/SGOT) (test code = Aspartate Amino Transf (AST/SGOT)) 32 5-34 [facility] Aminotransferase (ALT/SGPT) 2018-07-21 07:14:00* Test Item Value Reference Range Interpretation Comments Alanine Aminotransferase (ALT/SGPT) (test code = 1742-6) 20 0-55 [facility]Total Qtuvyzk5029-23-42 07:14:00* Test Item Value Reference Range Interpretation Comments Total Protein (test code = 2885-2) 6.5 6.5-8.1 [facility] HendersonAlbumin2018-09-26 07:14:00* Test Item Value Reference Range Interpretation Comments Albumin (test code = 1751-7) 3.1 3.5-5.0 L [facility]Globulin2018-09-26 07:14:00* Test Item Value Reference Range Interpretation Comments Globulin (test code = 92354-9) 3.4 2.3-3.5 [facility]/Globulin Jvtfu8774-59-75 07:14:00 * Test Item Value Reference Range Interpretation Comments Albumin/Globulin Ratio (test code = 1759-0) 0.9 0.8-2.0 [facility] HendersonAlkaline Gctanxnuvxw7366-58-46 07:14:00* Test Item Value Reference Range Interpretation Comments Alkaline Phosphatase (test code = 6768-6) 61 40-150 [facility]LVIS J8738-28-47 18:37:00 [facility] [address] [address] Patient Name: CEDRICK HOLT MR #: [id number] : 1945 Age/Sex: 73/F Req #: [id number] Adm Physician : Ordered by: STEPHANIE ARVIZU MD Report #: [id number] Location: [facility]/Bed: Procedure: [id number] CT/CT ABDOMEN/PELVIS W E xam Date: 07/20/18 Exam Time: 1800 REPORT STATU S: Signed EXAMINATION: CT of the abdomen and pelvis with contrast. TECHN IQUE: Spiral CT images of the abdomen and pelvis were performed from the lung bases to the lesser trochanters after the intravenous administration of 100 c c of Isovue 370 and the oral administration of dilute Gastrografin. Coronal a nd sagittal reformatted images were obtained. COMPARISON: CT abdomen and pelvis with contrast CLINICAL HISTORY:Back pain and lower abdom inal pain, right flank pain DISCUSSION: ABDOMEN/PELVIS: LOWE R THORAX:Unremarkable. HEPATOBILIARY: Diffuse hepatic steatosis. No focal l esions. Pneumobilia in the left central intrahepatic ducts. Mild dilation of the common bile duct, which measures 1.0 cm at the prakash hepatis. No radiopaqu e intraluminal filling defects. GALLBLADDER: Cholecystectomy clips SPLEEN: No splenomegaly. PANCREAS: No focal masses or ductal dilatation . Stable 2.9 cm duodenal diverticulum between the duodenum and pancreatic head ADRENALS: Stable 1.3 cm enhancing nodule in the left adrenal gland (series 2, image 20). Right adrenal gland is unremarkable. KIDNEYS/URETERS: No h ydronephrosis, stones, or solid mass lesions. PELVIC ORGANS/BLADDER: Bladde r is unremarkable. Uterus is absent. No adnexal masses. PERITONEUM/RETROP ERITONEUM: No free air or fluid. Stable anterior peritoneal/omental nodulariti es (series 2, images 35-38), with the largest measuring approximately 2.2 x 1. 3 cm and 1.5 x 1.4 cm LYMPH NODES: No intra-abdominal, retroperitoneal, pel blas or inguinal lymphadenopathy. VESSELS: The celiac trunk,superior and i nferior mesenteric and bilateral renal arteries are patent The portal, super ior mesenteric and splenic veins are patent. GI TRACT: Stable postoperati ve changes in the proximal to mid small bowel, with anastomotic sutures (sagit aurora image 88). No bowel dilation or evidence of obstruction. Descending and si gmoid colon diverticulosis, without surrounding inflammatory changes to sugges t acute diverticulitis. Appendix is well identified and normal in caliber. BONES AND SOFT TISSUE: No aggressive lytic lesions. Degenerative disc changes in the lower thoracic and lumbosacral spine. 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 Soft tissues are gross ly unremarkable. IMPRESSION: 1. No acute abdominopelvic abnormaliti es. 2. Descending and sigmoid colon diverticulosis, without diverticulitis. 3. Stable postoperative changes in the proximal to mid small bowel. No bowel dilation or obstruction. 4. No renal or ureteral calculi, hydronephrosis or obstruction. 5. Stable anterior peritoneal/omental nodularity which is probabl y benign given their stability is since exam dated 2015. These remain indeterm inate, however, may represent focal areas of prior fat infarction or related t o prior surgery. 6. Diffuse hepatic steatosis. 7. Mild dilation of the commo n bile duct, likely related to postcholecystectomy status. Signed by: Dr. Woodrow Strange M.D. on 07/20/2018 6:46 PM Dictated By: WOODROW STRANGE MD 46 Transcribed B y: HEAVEN on 07/20/181845 COPY TO: STEPHANIE ARVIZU MD Urine XDS0215-90-32 15:58:00* Test Item Value Reference Range Interpretation Comments Urine WBC (test code = 5821-4) 11-20 0-5 H [facility] [id number] 15:58:00* Test Item Value Reference Range Interpretation Comments Urine RBC (test code = 66299-5) 0-5 0-5 [facility] Roxiuecu1647-95-36 15:58:00* Test Item Value Reference Range Interpretation Comments Urine Bacteria (test code = 20261-3) MANY NONE H [facility] Epithelial Cxmwc1395-54-01 15:58:00 * Test Item Value Reference Range Interpretation Comments Urine Epithelial Cells (test code = 18685-7) MANY NONE [facility] Transitional Epithelial Cells 2018-07-20 15:58:00* Test Item Value Reference Range Interpretation Comments Urine Transitional Epithelial Cells (test code = 8249-5) MODERATE NONE H [facility] KVY7158-86-74 15:58:00* Test Item Value Reference Range Interpretation Comments Urine WBC (test code = 5821-4) 11-20 0-5 H [facility] GMK9105-71-55 15:58:00* Test Item Value Reference Range Interpretation Comments Urine RBC (test code = 64358-0) 0-5 0-5 [facility] Yagamsci7553-95-35 15:58:00* Test Item Value Reference Range Interpretation Comments Urine Bacteria (test code = 70396-1) MANY NONE H [facility] Epithelial Kelmb3233-03-82 15:58:00 * Test Item Value Reference Range Interpretation Comments Urine Epithelial Cells (test code = 32959-0) MANY NONE [facility] Transitional Epithelial Cells 2018-07-20 15:58:00* Test Item Value Reference Range Interpretation Comments Urine Transitional Epithelial Cells (test code = 8249-5) MODERATE NONE H [facility] WUF1869-31-07 15:58:00* Test Item Value Reference Range Interpretation Comments Urine WBC (test code = 5821-4) 11-20 0-5 H [facility] KJW5515-35-89 15:58:00* Test Item Value Reference Range Interpretation Comments Urine RBC (test code = 38643-8) 0-5 0-5 [facility] Vvueszgm7440-57-20 15:58:00* Test Item Value Reference Range Interpretation Comments Urine Bacteria (test code = 64473-6) MANY NONE H [facility] Epithelial Npmix5741-91-87 15:58:00 * Test Item Value Reference Range Interpretation Comments Urine Epithelial Cells (test code = 38851-6) MANY NONE [facility] Transitional Epithelial Cells 2018-07-20 15:58:00* Test Item Value Reference Range Interpretation Comments Urine Transitional Epithelial Cells (test code = 8249-5) MODERATE NONE H [facility] Djczd8907-88-01 15:43:00* Test Item Value Reference Range Interpretation Comments Urine Color (test code = 5778-6) YELLOW YELLOW [facility] Ybkdnmu4710-48-81 15:43:00* Test Item Value Reference Range Interpretation Comments Urine Clarity (test code = 09883-7) SL CLOUDY CLEAR [facility] Specific Rgdrrwo5253-25-95 15:43:00 * Test Item Value Reference Range Interpretation Comments Urine Specific Pegram (test code = 5811-5) 1.020 1.010-1.02 5 [facility] nU6201-20-75 15:43:00* Test Item Value Reference Range Interpretation Comments Urine pH (test code = 63843-2) 6 5-7 [facility] Leukocyte Gzlsatky9673-06-42 15:43:00* Test Item Value Reference Range Interpretation Comments Urine Leukocyte Esterase (test code = 5799-2) 2+ NEGATIVE H [facility] Bnmniei8878-94-18 15:43:00* Test Item Value Reference Range Interpretation Comments Urine Nitrite (test code = 57263-1) NEGATIVE NEGATIVE [facility] Yafpziw6242-63-18 15:43:00* Test Item Value Reference Range Interpretation Comments Urine Protein (test code = 5804-0) NEGATIVE NEGATIVE [facility] Glucose (UA)2018-07-20 15:43:00* Test Item Value Reference Range Interpretation Comments Urine Glucose (UA) (test code = 2349-9) NEGATIVE NEGATIVE [facility] Gfagbgz0544-23-11 15:43:00* Test Item Value Reference Range Interpretation Comments Urine Ketones (test code = 70837-2) NEGATIVE NEGATIVE [facility] Zkjgjvfxjsve5223-92-09 15:43:00* Test Item Value Reference Range Interpretation Comments Urine Urobilinogen (test code = 94788-0) 0.2 0.2-1 [facility] Dvwpgmxci4849-74-37 15:43:00* Test Item Value Reference Range Interpretation Comments Urine Bilirubin (test code = 1978-6) NEGATIVE NEGATIVE [facility] Yaeeq1867-46-46 15:43:00* Test Item Value Reference Range Interpretation Comments Urine Blood (test code = 95360-0) TRACE NEGATIVE H [facility] Urksl5213-63-83 15:43:00* Test Item Value Reference Range Interpretation Comments Urine Color (test code = 5778-6) YELLOW YELLOW [facility] Drebyzr8742-77-20 15:43:00* Test Item Value Reference Range Interpretation Comments Urine Clarity (test code = 56158-7) SL CLOUDY CLEAR [facility] Specific Fwnkmax8147-99-30 15:43:00 * Test Item Value Reference Range Interpretation Comments Urine Specific Pegram (test code = 5811-5) 1.020 1.010-1.02 5 [facility] qZ1639-20-97 15:43:00* Test Item Value Reference Range Interpretation Comments Urine pH (test code = 24820-8) 6 5-7 [facility] Leukocyte Zzdynair7832-80-10 15:43:00* Test Item Value Reference Range Interpretation Comments Urine Leukocyte Esterase (test code = 5799-2) 2+ NEGATIVE H [facility] Dnvoxzb9221-71-06 15:43:00* Test Item Value Reference Range Interpretation Comments Urine Nitrite (test code = 15004-4) NEGATIVE NEGATIVE [facility] Rdwambm9934-44-19 15:43:00* Test Item Value Reference Range Interpretation Comments Urine Protein (test code = 5804-0) NEGATIVE NEGATIVE [facility] Glucose (UA)2018-07-20 15:43:00* Test Item Value Reference Range Interpretation Comments Urine Glucose (UA) (test code = 2349-9) NEGATIVE NEGATIVE [facility] Giastwj4367-76-77 15:43:00* Test Item Value Reference Range Interpretation Comments Urine Ketones (test code = 64348-3) NEGATIVE NEGATIVE [facility] Rctlxvwxustr1295-36-58 15:43:00* Test Item Value Reference Range Interpretation Comments Urine Urobilinogen (test code = 06744-0) 0.2 0.2-1 [facility] Otwrjazqm5847-06-46 15:43:00* Test Item Value Reference Range Interpretation Comments Urine Bilirubin (test code = 1978-6) NEGATIVE NEGATIVE [facility] Qpcyr8041-91-75 15:43:00* Test Item Value Reference Range Interpretation Comments Urine Blood (test code = 16915-5) TRACE NEGATIVE H [facility] Nsvyg2019-75-43 15:43:00* Test Item Value Reference Range Interpretation Comments Urine Color (test code = 5778-6) YELLOW YELLOW [facility] Yrfgmnb7644-01-48 15:43:00* Test Item Value Reference Range Interpretation Comments Urine Clarity (test code = 99839-8) SL CLOUDY CLEAR [facility] Specific Abptmms3082-22-17 15:43:00 * Test Item Value Reference Range Interpretation Comments Urine Specific Pegram (test code = 5811-5) 1.020 1.010-1.02 5 [facility] qL5393-90-16 15:43:00* Test Item Value Reference Range Interpretation Comments Urine pH (test code = 29981-0) 6 5-7 [facility] Leukocyte Szorzwgu2417-93-47 15:43:00* Test Item Value Reference Range Interpretation Comments Urine Leukocyte Esterase (test code = 5799-2) 2+ NEGATIVE H [facility] Gbjxjzp6495-76-18 15:43:00* Test Item Value Reference Range Interpretation Comments Urine Nitrite (test code = 32812-0) NEGATIVE NEGATIVE [facility] Ovsfnfu5379-20-39 15:43:00* Test Item Value Reference Range Interpretation Comments Urine Protein (test code = 5804-0) NEGATIVE NEGATIVE [facility] Glucose (UA)2018-07-20 15:43:00* Test Item Value Reference Range Interpretation Comments Urine Glucose (UA) (test code = 2349-9) NEGATIVE NEGATIVE [facility] Vbvqzcc3136-23-29 15:43:00* Test Item Value Reference Range Interpretation Comments Urine Ketones (test code = 67255-3) NEGATIVE NEGATIVE [facility] Txmlxocpxlxt9635-36-36 15:43:00* Test Item Value Reference Range Interpretation Comments Urine Urobilinogen (test code = 59520-6) 0.2 0.2-1 [facility] Ftdhnpazp4504-95-94 15:43:00* Test Item Value Reference Range Interpretation Comments Urine Bilirubin (test code = 1978-6) NEGATIVE NEGATIVE [facility] Nafce4757-26-45 15:43:00* Test Item Value Reference Range Interpretation Comments Urine Blood (test code = 47901-4) TRACE NEGATIVE H [facility] Rrmcijr0124-94-33 18:01:00* Test Item Value Reference Range Interpretation Comments Blood Culture (test code = 40966328) NO GROWTH AFTER 5 DAYS, FINAL REPORT [facility] Kjnedur8474-34-45 18:01:00* Test Item Value Reference Range Interpretation Comments Blood Culture (test code = 74491715) NO GROWTH AFTER 5 DAYS, FINAL REPORT [facility] Zcybehj2972-49-53 18:01:00* Test Item Value Reference Range Interpretation Comments Blood Culture (test code = 12968236) NO GROWTH AFTER 5 DAYS, FINAL REPORT [facility] Arivhbj8593-20-27 19:39:00* Test Item Value Reference Range Interpretation Comments Bedside Glucose (test code = 33636-2) 149 70-120 H Meter ID: [id number] [facility] Culture 2018-03-20 18:01:00* Test Item Value Reference Range Interpretation Comments Blood Culture (test code = 01234660) NO GROWTH AFTER 24 HOURS [facility] A,B Antigen 2018-03-19 21:06:00* Test Item Value Reference Range Interpretation Comments Influenza Virus Types A,B Antigen (test code = 13851-0) POSITIVE FLU B NEGATIVE H Results called to [facility] at 210303/19/18 by YULY BENTON. RB [place].Results L FT MSG TO [facility] in infection control at 210303/19/18 by YULY HsiehUT Health HendersonInfluenza Virus Types A,B Antigen 2018-03-19 21:06:00* Test Item Value Reference Range Interpretation Comments Influenza Virus Types A,B Antigen (test code = 38578-6) POSITIVE FLU B NEGATIVE H Results called to [facility] at 210303/19/18 by YULY BENTON. RB [place].Results L FT MSG TO [facility] in infection control at 210303/19/18 by YULY HsiehUT Health HendersonUrine BYS0572-30-82 18:46:00* Test Item Value Reference Range Interpretation Comments Urine WBC (test code = 5821-4) 6-10 0-5 H [facility] CJI1028-95-29 18:46:00* Test Item Value Reference Range Interpretation Comments Urine RBC (test code = 97910-2) NONE 0-5 [facility] Oafcvgww8040-08-15 18:46:00* Test Item Value Reference Range Interpretation Comments Urine Bacteria (test code = 39502-4) MANY NONE H [facility] Epithelial Zxgzm2259-25-54 18:46:00 * Test Item Value Reference Range Interpretation Comments Urine Epithelial Cells (test code = 97232-0) MODERATE NONE [facility] Transitional Epithelial Cells 2018-03-19 18:46:00* Test Item Value Reference Range Interpretation Comments Urine Transitional Epithelial Cells (test code = 8249-5) FEW NONE H [facility] Spxmz0828-18-53 18:33:00* Test Item Value Reference Range Interpretation Comments Urine Color (test code = 5778-6) YELLOW YELLOW [facility] Mbelgsp3071-82-51 18:33:00* Test Item Value Reference Range Interpretation Comments Urine Clarity (test code = 57940-0) SL CLOUDY CLEAR [facility] Specific Pmgfdxi7300-26-73 18:33:00 * Test Item Value Reference Range Interpretation Comments Urine Specific [place] (test code = 5811-5) 1.020 1.010-1.02 5 [facility] uD5496-75-83 18:33:00* Test Item Value Reference Range Interpretation Comments Urine pH (test code = 44486-5) 7 5-7 [facility] Leukocyte Zkeedope3674-43-89 18:33:00* Test Item Value Reference Range Interpretation Comments Urine Leukocyte Esterase (test code = 5799-2) NEGATIVE NEGATIVE [facility] Lwznnov2928-29-54 18:33:00* Test Item Value Reference Range Interpretation Comments Urine Nitrite (test code = 17390-2) NEGATIVE [facility]GATIVE [facility] Bvjpztb8747-09-01 18:33:00* Test Item Value Reference Range Interpretation Comments Urine Protein (test code = 5804-0) NEGATIVE NEGATIVE [facility] Glucose (UA)2018-03-19 18:33:00* Test Item Value Reference Range Interpretation Comments Urine Glucose (UA) (test code = 2349-9) NEGATIVE [facility]GATIVE [facility] Jajskdh1171-19-03 18:33:00* Test Item Value Reference Range Interpretation Comments Urine Ketones (test code = 36510-9) NEGATIVE [facility]GATIVE [facility] Lscapxrgnekt3497-71-44 18:33:00* Test Item Value Reference Range Interpretation Comments Urine Urobilinogen (test code = 93370-9) 0.2 0.2-1 [facility] Utmtlfxuz2693-11-04 18:33:00* Test Item Value Reference Range Interpretation Comments Urine Bilirubin (test code = 1978-6) NEGATIVE [facility]GATIVE [facility] Uydqs6150-07-26 18:33:00* Test Item Value Reference Range Interpretation Comments Urine Blood (test code = 22654-5) [facility] Yuvjs1649-22-12 18:33:00* Test Item Value Reference Range Interpretation Comments Sodium Level (test code = 2951-2) 139 136-145 [facility] Vfsck0605-34-06 18:33:00* Test Item Value Reference Range Interpretation Comments Potassium Level (test code = 2823-3) 3.9 3.5-5.1 [facility] HendersonChloride Mtzsu6829-34-68 18:33:00* Test Item Value Reference Range Interpretation Comments Chloride Level (test code = 2075-0) 101 98-107 [facility]Car[facility] Dioxide Vshfl7165-33-20 18:33:00* Test Item Value Reference Range Interpretation Comments Carbon Dioxide Level (test code = 2028-9) 25 22-29 [facility] HendersonAnion Opg3610-50-10 18:33:00* Test Item Value Reference Range Interpretation Comments Anion Gap (test code = 37348-1) 16.9 8-16 H [facility]Blood Urea Sbxfhwtb8713-77-34 18:33:00* Test Item Value Reference Range Interpretation Comments Blood Urea Nitrogen (test code = 3094-0) 8 7-26 [facility] HendersonCreatinine2018-05-25 18:33:00* Test Item Value Reference Range Interpretation Comments Creatinine (test code = 2160-0) 0.64 0.57-1.11 [facility]BUN/Creatinine Ljqry7718-03-59 18:33:00* Test Item Value Reference Range Interpretation Comments BUN/Creatinine Ratio (test code = 3097-3) 13 04-19 [facility] HendersonEstimat Glomerular Filtration Rate 2018-03-19 18:33:00* Test Item Value Reference Range Interpretation Comments Estimat Glomerular Filtration Rate (test code = 40280-5) 60- >60 Ranges were taken from the National Kidney Disease Education Program and the [facility] literature.Reference ranges:60 or greater: Vvndqd04-72 ( for 3 consecutive months): Chronic kidney disease 15 or less: Kidney failureUT Health HendersonGlucose Ogrxf6692-78-01 18:33:00* Test Item Value Reference Range Interpretation Comments Glucose Level (test code = UEP6706) 106 74-118 [facility]Calcium Dgldo4556-78-87 18:33:00* Test Item Value Reference Range Interpretation Comments Calcium Level (test code = 83277-6) 9.9 8.4-10.2 [facility]Total Ryktolagu0606-95-34 18:33:00* Test Item Value Reference Range Interpretation Comments Total Bilirubin (test code = 1975-2) 0.9 0.2-1.2 [facility] HendersonAspartate Amino Transf (AST/SGOT) 2018-03-19 18:33:00* Test Item Value Reference Range Interpretation Comments Aspartate Amino Transf (AST/SGOT) (test code = Aspartate Amino Transf (AST/SGOT)) 30 5-34 [facility] HendersonAlanine Aminotransferase (ALT/SGPT) 2018-03-19 18:33:00* Test Item Value Reference Range Interpretation Comments Alanine Aminotransferase (ALT/SGPT) (test code = 1742-6) 18 0-55 [facility]Total Bjbpnwb6872-33-10 18:33:00* Test Item Value Reference Range Interpretation Comments Total Protein (test code = 2885-2) 7.9 6.5-8.1 [facility] HendersonAlbumin2018-05-25 18:33:00* Test Item Value Reference Range Interpretation Comments Albumin (test code = 1751-7) 3.7 3.5-5.0 [facility] HendersonGlobulin2018-05-25 18:33:00* Test Item Value Reference Range Interpretation Comments Globulin (test code = 59014-7) 4.2 2.3-3.5 H [facility] HendersonAlbumin/Globulin Igywo4232-54-43 18:33:00 * Test Item Value Reference Range Interpretation Comments Albumin/Globulin Ratio (test code = 1759-0) 0.9 0.8-2.0 [facility] HendersonAlkaline Giupprcjoiu0298-39-91 18:33:00* Test Item Value Reference Range Interpretation Comments Alkaline Phosphatase (test code = 6768-6) 78 40-150 [facility]White Blood Yxcmm8019-53-68 18:13:00* Test Item Value Reference Range Interpretation Comments White Blood Count (test code = 6690-2) 10.12 4.8-10.8 [facility]Red Blood Yrguc1274-99-76 18:13:00* Test Item Value Reference Range Interpretation Comments Red Blood Count (test code = 789-8) 4.62 3.6-5.1 [facility]Hemoglobin2018-05-25 18:13:00* Test Item Value Reference Range Interpretation Comments Hemoglobin (test code = 90955-7) 14.2 12.0-16.0 [facility] HendersonHematocrit2018-05-25 18:13:00* Test Item Value Reference Range Interpretation Comments Hematocrit (test code = 4544-3) 43.3 34.2-44.1 [facility]Mean Corpuscular Eefirg9493-47-19 18:13:00* Test Item Value Reference Range Interpretation Comments Mean Corpuscular Volume (test code = 787-2) 93.7 81-99 [facility]Mean Corpuscular Pvmziplsdp2024-95-59 18:13:00* Test Item Value Reference Range Interpretation Comments Mean Corpuscular Hemoglobin (test code = 785-6) 30.7 28-32 [facility]Mean Corpuscular Hemoglobin Concent 2018-03-19 18:13:00* Test Item Value Reference Range Interpretation Comments Mean Corpuscular Hemoglobin Concent (test code = 786-4) 32.8 31-35 [facility]Red Cell Distribution Lofra8847-04-39 18:13:00* Test Item Value Reference Range Interpretation Comments Red Cell Distribution Width (test code = 77957-2) 13.4 11.7 -14.4 [facility] HendersonPlatelet Ixpfd7451-64-66 18:13:00* Test Item Value Reference Range Interpretation Comments Platelet Count (test code = 777-3) 259 140-360 [facility]Neutrophils (%) (Auto)2018-03-19 18:13:00 * Test Item Value Reference Range Interpretation Comments Neutrophils (%) (Auto) (test code = 70098-9) 65.8 38.7-80.0 [facility] HendersonLymphocytes (%) (Auto)2018-03-19 18:13:00 * Test Item Value Reference Range Interpretation Comments Lymphocytes (%) (Auto) (test code = 736-9) 26.1 18.0-39.1 [facility]Monocytes (%) (Auto)2018-03-19 18:13:00* Test Item Value Reference Range Interpretation Comments Monocytes (%) (Auto) (test code = 5905-5) 5.6 4.4-11.3 [facility]Eosinophils (%) (Auto)2018-03-19 18:13:00 * Test Item Value Reference Range Interpretation Comments Eosinophils (%) (Auto) (test code = 713-8) 1.7 0.0-6.0 [facility]Basophils (%) (Auto)2018-03-19 18:13:00* Test Item Value Reference Range Interpretation Comments Basophils (%) (Auto) (test code = 706-2) 0.5 0.0-1.0 [facility] HendersonIM GRANULOCYTES %2018-03-19 18:13:00* Test Item Value Reference Range Interpretation Comments IM GRANULOCYTES % (test code = IM GRANULOCYTES %) 0.3 0.0- 1.0 [facility]Neutrophils # (Auto)2018-03-19 18:13:00* Test Item Value Reference Range Interpretation Comments Neutrophils # (Auto) (test code = 751-8) 6.7 2.1-6.9 [facility]Lymphocytes # (Auto)2018-03-19 18:13:00* Test Item Value Reference Range Interpretation Comments Lymphocytes # (Auto) (test code = 43561-8) 2.6 1.0-3.2 [facility]Mon[facility] # (Auto)2018-03-19 18:13:00* Test Item Value Reference Range Interpretation Comments Monocytes # (Auto) (test code = 742-7) 0.6 0.2-0.8 [facility]Eosinophils # (Auto)2018-03-19 18:13:00* Test Item Value Reference Range Interpretation Comments Eosinophils # (Auto) (test code = 711-2) 0.2 0.0-0.4 [facility]Bas[facility] # (Auto)2018-03-19 18:13:00* Test Item Value Reference Range Interpretation Comments Basophils # (Auto) (test code = 704-7) 0.1 0.0-0.1 [facility] HendersonAbsolute Immature Granulocyte (auto 2018-03-19 18:13:00* Test Item Value Reference Range Interpretation Comments Absolute Immature Granulocyte (auto (adarsh t code = Absolute Immature Granulocyte (auto) 0.03 0-0.1 [facility]CARDIAC IFYJFXO7709-06-00 16:23:000.2 [facility] VZIKVUB5955-49-05 16:23:000.7[facility]AC WKUSNIH5338-78-64 16:23:31635Znhrljop HermannCARDIAC VHRVZVP8642-79-14 16:23:00< 0.02[facility]CARD[facility]AC SALZECM7680-24-95 12:06:41476Jkuidles HermannCARDIAC VHEZBQL5906-76-66 12:06:00<0.02[facility]CARD[facility]AC RRMYQSX4698-75-33 12:06:00<0.1[facility]CARD[facility]AC ZBYAUBP5999-10-89 12:06:00<0.5[facility]CARD[facility]AC NQQVBTL1429-66-41 07:56:0033[facility]AC ENZYMES 2017-09-26 07:56:00<0.02[facility]AC ARRAQRQ2808-64-64 07:56:00<0.5 [facility] BIYYXLJ1589-56-37 07:56:90401Yobvtbip HermannCARDIAC VXICRVL2058-71-66 07:56:00<0.1[facility]annCHEM CFSYO9386-87-58 07:56:003.3 [facility]annCHEM IIXBB5800-93-20 07:56:004.8[facility]annCHEM PANEL 2017-09-26 07:56:004.2[facility]annCHEM PMCKW2307-71-39 07:56:008.1[facility]annCHEM TJYXB1246-92-65 07:56:0011[facility]annCHEM FVMIL9546-14-61 07:56:0025[facility] HermannCHEM WTKIZ4003-66-34 07:56:26488Dciosgsy HermannCHEM BIGKS0717-00-05 07:56:008.6[facility]annCHEM YLWLV9566-12-66 07:56:0014.2 [facility]annCHEM FWPBO5688-58-05 07:56:000.6[facility]annCHEM PANEL 2017-09-26 07:56:75638Typrhxuw HermannCHEM PUHIG4730-55-80 07:56:0063[facility]annCHEM KELDV3328-15-67 07:56:000.7[facility]annCHEM MZNUH9759-46-27 07:56:0083[facility]annCHEM IEYII7102-79-55 07:56:0090[facility] HermannCHEM DEAJU8841-07-94 07:56:80824Vndnyhrs HermannCHEM NUEDJ6136-62-03 07:56:000.63 [facility]annCHEM IENHV0661-67-85 07:56:007[facility]annCHEM PANEL 2017-09-26 07:56:49179Dwmdlayz KqqmejbBBYIIVIGLD0565-98-54 07:56:004.44[facility] AlupthgFESIIDBZHD5007-64-81 07:56:0091.7[facility] FfnngynOJXFLRSCTJ3861-61-69 07:56:0013.5[facility] SfnaxeySZNDVFQZXT6857-42-08 07:56:0040.7[facility] [place] XYCTBGOELU1521-89-55 07:56:004.6[facility] AompmmbDNRQOUOEID1273-11-30 07:56:21444 [facility] NuwjffgNOCICWTZRQ5463-95-44 07:56:00* Test Item Value Reference Range Interpretation Comments MCH (test code = MCH) 30.5 pg 27.0-31.0 [facility] NzzrnvtNBGOPHRWYR7847-49-18 07:56:0013.5[facility] HermannHEMATOLOGY 2017-09-26 07:56:0033.3[facility] VphtzgoFAVCLOMEWR9341-20-30 07:56:0010.0[facility] FrekurjWQWBEKYCQH6708-90-72 07:56:001.1[facility] SpferlsWACXFHPWFT3553-11-85 07:56:002.9[facility] DtulaggUSLTJNCNMM1450-24-37 07:56:000.3[facility] [place] MBPNGPKYLB1532-91-25 07:56:000.5[facility] VsvkvoeBPZWMIMUCV5278-80-52 07:56:00 11.8[facility]orial FcdikakGVIXWXQCJO3570-31-80 07:56:0024.5[facility] HermannHEMATOLOGY 2017-09-26 07:56:0062.7[facility]orial IcwqafiTYFGKVBFHV5776-26-16 07:56:000.7[facility] HermannCreatine Kinase BR0027-76-94 16:28:00* Test Item Value Reference Range Interpretation Comments Creatine Kinase MB (test code = 90415-8) 0.40 0.00-5.00 [facility]Troponin L4957-41-22 16:28:00* Test Item Value Reference Range Interpretation Comments Troponin I (test code = 66792-6) -0.001 0-0.300 [facility] HendersonCreatine Kinase BL9228-10-27 16:28:00* Test Item Value Reference Range Interpretation Comments Creatine Kinase MB (test code = 15977-4) 0.40 0.00-5.00 [facility] HendersonTroponin N2124-13-17 16:28:00* Test Item Value Reference Range Interpretation Comments Troponin I (test code = PQW4695) -0.001 0-0.300 [facility] Cfkwa2105-47-61 16:14:00* Test Item Value Reference Range Interpretation Comments Sodium Level (test code = 2951-2) 140 136-145 [facility]Potassium Iroig9556-31-40 16:14:00* Test Item Value Reference Range Interpretation Comments Potassium Level (test code = 2823-3) 3.4 3.5-5.1 L [facility] HendersonChloride Sjeax8085-00-82 16:14:00* Test Item Value Reference Range Interpretation Comments Chloride Level (test code = 2075-0) 102 98-107 [facility] HendersonCarbon Dioxide Glfdf3445-34-01 16:14:00* Test Item Value Reference Range Interpretation Comments Carbon Dioxide Level (test code = 2028-9) 25 22-29 [facility] HendersonAnion Rdp0189-82-52 16:14:00* Test Item Value Reference Range Interpretation Comments Anion Gap (test code = 65203-7) 16.4 8-16 H [facility] HendersonBlood Urea Ggvcmeru7685-53-23 16:14:00* Test Item Value Reference Range Interpretation Comments Blood Urea Nitrogen (test code = 3094-0) 8 7-26 [facility] HendersonCreatinine2017-11-29 16:14:00* Test Item Value Reference Range Interpretation Comments Creatinine (test code = 2160-0) 0.72 0.57-1.11 [facility]UN/Creatinine Gjgge5641-32-44 16:14:00* Test Item Value Reference Range Interpretation Comments BUN/Creatinine Ratio (test code = 3097-3) 11 6-25 [facility] HendersonEstimat Glomerular Filtration Rate 2017-09-23 16:14:00* Test Item Value Reference Range Interpretation Comments Estimat Glomerular Filtration Rate (test code = 23686-3) 60- >60 Ranges were taken from the National Kidney Disease Education Program and the [facility] Foundation literature.Reference ranges:60 or greater: Uxkzrc04-03 ( for 3 consecutive months): Chronic kidney disease 15 or less: Kidney failureUT Health HendersonGlucose Zcmtq1427-24-80 16:14:00* Test Item Value Reference Range Interpretation Comments Glucose Level (test code = VDI5577) 202 74-118 H [facility] HendersonCalcium Uybqs3321-96-90 16:14:00* Test Item Value Reference Range Interpretation Comments Calcium Level (test code = 95787-6) 9.5 8.4-10.2 [facility] HendersonTotal Piqconjid4081-47-06 16:14:00* Test Item Value Reference Range Interpretation Comments Total Bilirubin (test code = 1975-2) 1.0 0.2-1.2 [facility] HendersonAspartate Amino Transf (AST/SGOT) 2017-09-23 16:14:00* Test Item Value Reference Range Interpretation Comments Aspartate Amino Transf (AST/SGOT) (test code = Aspartate Amino Transf (AST/SGOT)) 93 5-34 H [facility] HendersonAlanine Aminotransferase (ALT/SGPT) 2017-09-23 16:14:00* Test Item Value Reference Range Interpretation Comments Alanine Aminotransferase (ALT/SGPT) (test code = 1742-6) 54 0-55 [facility] HendersonTotal Xewraty4553-01-22 16:14:00* Test Item Value Reference Range Interpretation Comments Total Protein (test code = 2885-2) 8.5 6.5-8.1 H [facility] HendersonAlbumin2017-11-29 16:14:00* Test Item Value Reference Range Interpretation Comments Albumin (test code = 1751-7) 3.8 3.5-5.0 [facility] HendersonGlobulin2017-11-29 16:14:00* Test Item Value Reference Range Interpretation Comments Globulin (test code = 96372-8) 4.7 2.3-3.5 H [facility] HendersonAlbumin/Globulin Rzwnc6976-14-11 16:14:00 * Test Item Value Reference Range Interpretation Comments Albumin/Globulin Ratio (test code = 1759-0) 0.8 0.8-2.0 [facility] HendersonAlkaline Anozesgjngw1930-47-68 16:14:00* Test Item Value Reference Range Interpretation Comments Alkaline Phosphatase (test code = 6768-6) 101 40-150 [facility] HendersonCreatine Dcxyik4199-16-86 16:14:00* Test Item Value Reference Range Interpretation Comments Creatine Kinase (test code = 2157-6) 87 29-168 [facility] HendersonCreatine Onfmpr3025-44-56 16:14:00* Test Item Value Reference Range Interpretation Comments Creatine Kinase (test code = 2157-6) 87 29-168 [facility] HendersonProthrombin Kvfw4122-99-00 16:07:00* Test Item Value Reference Range Interpretation Comments Prothrombin Time (test code = 5902-2) 13.8 11.9-14.5 [facility] HendersonProthromb Time International Ratio 2017-09-23 16:07:00* Test Item Value Reference Range Interpretation Comments Prothromb Time International Ratio (test code = 6301-6) 1.01 Oral Anticoagulant Therapy INR Values:1. Low Intensity Therapy 1.5 - 2.02 . Moderate Intensity Therapy 2.0 - 3.03. High Intensity Therapy(1) 2.5 - 3. 54. High Intensity Therapy(2) 3.0 - 4.05. Panic Value INR > 5.0 [facility] HendersonActivated Partial Thromboplast Time 2017-09-23 16:07:00* Test Item Value Reference Range Interpretation Comments Activated Partial Thromboplast Time (test code = 01618-8) 32.3 23.8-35.5 [facility] HendersonProthrombin Tpgr6971-45-01 16:07:00* Test Item Value Reference Range Interpretation Comments Prothrombin Time (test code = 5902-2) 13.8 11.9-14.5 [facility] HendersonProthromb Time International Ratio 2017-09-23 16:07:00* Test Item Value Reference Range Interpretation Comments Prothromb Time International Ratio (test code = 6301-6) 1.01 Oral Anticoagulant Therapy INR Values:1. Low Intensity Therapy 1.5 - 2.02 . Moderate Intensity Therapy 2.0 - 3.03. High Intensity Therapy(1) 2.5 - 3. 54. High Intensity Therapy(2) 3.0 - 4.05. Panic Value INR > 5.0 [facility] HendersonAct[facility] Partial Thromboplast Time 2017-09-23 16:07:00* Test Item Value Reference Range Interpretation Comments Activated Partial Thromboplast Time (test code = 95313-3) 32.3 23.8-35.5 [facility] HendersonWhite Blood Qbnsr8465-35-87 15:58:00* Test Item Value Reference Range Interpretation Comments White Blood Count (test code = 6690-2) 11.50 4.8-10.8 H [facility] HendersonRed Blood Hevox0256-77-64 15:58:00* Test Item Value Reference Range Interpretation Comments Red Blood Count (test code = 789-8) 4.70 3.6-5.1 [facility] HendersonHemoglobin2017-11-29 15:58:00* Test Item Value Reference Range Interpretation Comments Hemoglobin (test code = 12786-6) 14.6 12.0-16.0 [facility] HendersonHematocrit2017-11-29 15:58:00* Test Item Value Reference Range Interpretation Comments Hematocrit (test code = 4544-3) 44.2 34.2-44.1 H [facility] HendersonMean Corpuscular Qampuy0209-90-55 15:58:00* Test Item Value Reference Range Interpretation Comments Mean Corpuscular Volume (test code = 787-2) 94.0 81-99 [facility]Mean Corpuscular Bazobsxnkf4210-93-59 15:58:00* Test Item Value Reference Range Interpretation Comments Mean Corpuscular Hemoglobin (test code = 785-6) 31.1 28-32 [facility] HendersonMean Corpuscular Hemoglobin Concent 2017-09-23 15:58:00* Test Item Value Reference Range Interpretation Comments Mean Corpuscular Hemoglobin Concent (test code = 786-4) 33.0 31-35 [facility] HendersonRed Cell Distribution Kjpmy3399-90-37 15:58:00* Test Item Value Reference Range Interpretation Comments Red Cell Distribution Width (test code = 76535-2) 13.0 11.7 -14.4 [facility] HendersonPlatelet Nccfj3409-05-21 15:58:00* Test Item Value Reference Range Interpretation Comments Platelet Count (test code = 777-3) 214 140-360 [facility] HendersonNeutrophils (%) (Auto)2017-09-23 15:58:00 * Test Item Value Reference Range Interpretation Comments Neutrophils (%) (Auto) (test code = 57831-9) 82.6 38.7-80.0 H [facility] HendersonLymphocytes (%) (Auto)2017-09-23 15:58:00 * Test Item Value Reference Range Interpretation Comments Lymphocytes (%) (Auto) (test code = 736-9) 10.7 18.0-39.1 L [facility] HendersonMonocytes (%) (Auto)2017-09-23 15:58:00* Test Item Value Reference Range Interpretation Comments Monocytes (%) (Auto) (test code = 5905-5) 5.3 4.4-11.3 [facility] HendersonEosinophils (%) (Auto)2017-09-23 15:58:00 * Test Item Value Reference Range Interpretation Comments Eosinophils (%) (Auto) (test code = 713-8) 0.7 0.0-6.0 [facility] HendersonBasophils (%) (Auto)2017-09-23 15:58:00* Test Item Value Reference Range Interpretation Comments Basophils (%) (Auto) (test code = 706-2) 0.3 0.0-1.0 [facility] HendersonIM GRANULOCYTES %2017-09-23 15:58:00* Test Item Value Reference Range Interpretation Comments IM GRANULOCYTES % (test code = IM GRANULOCYTES %) 0.4 0.0- 1.0 [facility] HendersonNeutrophils # (Auto)2017-09-23 15:58:00* Test Item Value Reference Range Interpretation Comments Neutrophils # (Auto) (test code = 751-8) 9.5 2.1-6.9 H [facility] HendersonLymphocytes # (Auto)2017-09-23 15:58:00* Test Item Value Reference Range Interpretation Comments Lymphocytes # (Auto) (test code = 56769-3) 1.2 1.0-3.2 [facility] HendersonMonocytes # (Auto)2017-09-23 15:58:00* Test Item Value Reference Range Interpretation Comments Monocytes # (Auto) (test code = 742-7) 0.6 0.2-0.8 [facility] HendersonEosinophils # (Auto)2017-09-23 15:58:00* Test Item Value Reference Range Interpretation Comments Eosinophils # (Auto) (test code = 711-2) 0.1 0.0-0.4 [facility] HendersonBasophils # (Auto)2017-09-23 15:58:00* Test Item Value Reference Range Interpretation Comments Basophils # (Auto) (test code = 704-7) 0.0 0.0-0.1 [facility] HendersonAbsolute Immature Granulocyte (auto 2017-09-23 15:58:00* Test Item Value Reference Range Interpretation Comments Absolute Immature Granulocyte (auto (adarsh t code = Absolute Immature Granulocyte (auto) 0.05 0-0.1 [facility] HendersonInfluenza Virus Types A,B Antigen 2017-09-23 11:55:00* Test Item Value Reference Range Interpretation Comments Influenza Virus Types A,B Antigen (test code = 52109-6) NEGATIVE NEGATIVE [facility] HendersonBedside Gamabbn1718-39-51 16:33:00* Test Item Value Reference Range Interpretation Comments Bedside Glucose (test code = 65078-0) 214 70-120 H Meter ID: [id number] Health HendersonTriglycerides Level 2017-04-09 09:19:00* Test Item Value Reference Range Interpretation Comments Triglycerides Level (test code = 2571-8) 78 0-149 [facility] HendersonLDL Ktuahipgthh5585-38-05 09:19:00* Test Item Value Reference Range Interpretation Comments LDL Cholesterol (test code = 03416-4) 67 60-130 [facility] HendersonCholesterol Xcvfn9285-66-27 07:34:00* Test Item Value Reference Range Interpretation Comments Cholesterol Level (test code = 2093-3) 131 0-199 Less than 200 mg/dL Low Abmg125 - 239 mg/dL Borderline Tnml061 m g/dl and greater High Risk [facility] HendersonHDL Whpkqtaoguy3166-55-27 07:34:00* Test Item Value Reference Range Interpretation Comments HDL Cholesterol (test code = 2085-9) 48 40-60 [facility] HendersonCholesterol/HDL Gknsr0032-53-87 07:34:00 * Test Item Value Reference Range Interpretation Comments Cholesterol/HDL Ratio (test code = 9830-1) 2.7 3.0-3.6 L [facility] HendersonUrine RAU6245-93-39 22:00:00* Test Item Value Reference Range Interpretation Comments Urine WBC (test code = 5821-4) 0-5 0-5 [facility] HendersonU[facility] YPH1637-63-61 22:00:00* Test Item Value Reference Range Interpretation Comments Urine RBC (test code = 62455-4) 0-5 0-5 [facility] HendersonU[facility] Hetzzpms8047-99-47 22:00:00* Test Item Value Reference Range Interpretation Comments Urine Bacteria (test code = 01748-0) MANY NONE H [facility] HendersonUrine Epithelial Dmykb4675-52-62 22:00:00 * Test Item Value Reference Range Interpretation Comments Urine Epithelial Cells (test code = 58734-9) FEW NONE [facility] HendersonU[facility] Rodzy7198-73-29 21:40:00* Test Item Value Reference Range Interpretation Comments Urine Color (test code = 5778-6) STRAW YELLOW [facility] HendersonUrine Uwjixmd9851-61-33 21:40:00* Test Item Value Reference Range Interpretation Comments Urine Clarity (test code = 53118-5) TURBID CLEAR H [facility] HendersonUrine Specific Pqrskgx8870-85-28 21:40:00 * Test Item Value Reference Range Interpretation Comments Urine Specific Pegram (test code = 5811-5) 1.020 1.010-1.02 5 [facility] HendersonU[facility] sR9698-94-96 21:40:00* Test Item Value Reference Range Interpretation Comments Urine pH (test code = 89756-1) 6 5-7 [facility] HendersonU[facility] Leukocyte Comulxbl2542-71-90 21:40:00* Test Item Value Reference Range Interpretation Comments Urine Leukocyte Esterase (test code = 5799-2) NEGATIVE NEGATIVE [facility] HendersonU[facility] Cdtzfec7182-41-38 21:40:00* Test Item Value Reference Range Interpretation Comments Urine Nitrite (test code = 11613-3) POSITIVE NEGATIVE H [facility] HendersonU[facility] Dondnsg0754-78-89 21:40:00* Test Item Value Reference Range Interpretation Comments Urine Protein (test code = 5804-0) NEGATIVE NEGATIVE [facility] HendersonUrine Glucose (UA)2017-04-08 21:40:00* Test Item Value Reference Range Interpretation Comments Urine Glucose (UA) (test code = 2349-9) [facility]IVE [facility]IVE [facility] Dadtbgm3841-96-33 21:40:00* Test Item Value Reference Range Interpretation Comments Urine Ketones (test code = 66297-4) 1+ [facility] Unfxattbpoax7799-38-72 21:40:00* Test Item Value Reference Range Interpretation Comments Urine Urobilinogen (test code = 23595-6) 0.2 0.2-1 [facility] Invkhyliw1463-08-25 21:40:00* Test Item Value Reference Range Interpretation Comments Urine Bilirubin (test code = 1978-6) [facility] Ymhkq6185[facility]22-20 21:40:00* Test Item Value Reference Range Interpretation Comments Urine Blood (test code = 30120-2) TRACE NEGATIVE H [facility] LSKMFVI5601-60-56 06:17:2292 [facility] WUFDRFN5116-37-39 06:17:22<0.02[facility] AVNJBQJ8183-68-60 06:17:220.6[facility] EUAQCGE2259-73-12 06:17:22 0.7[facility] WMBJGWL8979-15-26 00:02:00<0.02[facility] CARDIAC XWAJYKD5462-73-12 00:02:33600Hdujkzxr HermannCARDIAC JFUZGEV8878-49-39 00:02:0099[facility] UQVWXZV2593-41-26 00:02:000.5[facility] CARDIAC DVHZPOJ8760-70-24 00:02:000.6[facility]annCHEM AAFXX0148-90-38 00:02:0098[facility]annCHEM BOXDP1600-70-75 00:02:000.52[facility]annCHEM JAZEZ6296-99-73 00:02:0020[facility]annCHE[facility] AMDBW6473-15-93 00:02:003.5 [facility] BKDMK2276-46-93 00:02:002.4[facility]annCHEM PANEL 2016-01-22 00:02:002.0[facility] AhgoqwkNPSGWQJFLJ3104-04-58 00:02:48442Oylfhzru TdcywdrFSKMPFLDQP0795-15-43 00:02:0038[facility] AxwsbxlZYMPQQYFMY2151-83-01 00:02:008.0[facility] JsruvxsNFMPQHUBSD4177-81-86 00:02:008.4[facility] WVAGZM4195-25-31 00:02:0015[facility] ZjfnsjwPCRWUY3811-30-06 00:02:0059[facility] ZuldrnkREETSK6847-70-93 00:02:0055[facility] XaljhvbAALHFL9636-55-07 00:02:68966 [facility] VezwlatNRKHLH7299-56-14 00:02:0077[facility] YcvgqnpUWLPDX2587-52-73 00:02:002.35[facility]annSPECIAL NVKOCNYJA0613-98-00 00:02:007.6[facility]annCARDIAC UENVNUZ1550-23-13 17:16:68386Ycbanjiu HermannCARDIAC ENZYMES 2016-01-21 17:16:00<0.02[facility] UDBLJBD9782-36-60 17:16:00<0.5 [facility] UMTRRVJ7415-66-07 17:16:00<0.4[facility]annCHEM PANEL 2016-01-21 17:16:0095[facility]annCHEM ANVMS1671-69-23 17:16:65924Jrdfjmdi HermannCHEM MFOAH4369-75-93 17:16:0017[facility]annCHEM YIHUO3313-42-53 17:16:000.58[facility]annCHEM DSAMV7932-29-40 17:16:007.5[facility]annCHEM BWAKV3577-35-71 17:16:0029[facility]annCHEM FVNKL1144-12-53 17:16:0011.0 [facility]annCHE[facility] QBKMM7781-67-56 17:16:000.8[facility]annCHEM PANEL 2016-01-21 17:16:004.1[facility]annCHEM UGXTH7200-95-65 17:16:0030[facility]annCHEM NXPRU6442-13-07 17:16:003.4[facility]annCHEM VYORV1637-88-40 17:16:45257Plslrclk HermannCHEM RXEQK7154-71-52 17:16:0022[facility]annCHEM MEPLH8750-38-49 17:16:000.8[facility]annCHEM RWJSL4673-37-86 17:16:008.4 [facility]annCHE[facility] IEVDR0757-99-53 17:16:004.0[facility]annCHEM PANEL 2016-01-21 17:16:15720Usvefgbz HermannCHEM DYCJG6155-86-30 17:16:0025[facility]annCHEM LTRGV6857-27-17 17:16:68375Rioebrym FunmfxxVIBAAGSALS1532-04-93 17:16:0092.4[facility] DhrtqqxYFKLAAEYAG6856-69-22 17:16:00* Test Item Value Reference Range Interpretation Comments MCH (test code = MCH) 30.0 pg 27.0-31.0 [facility] NemhodvMPRXNHALSN8248-54-11 17:16:0040.8[facility]annHEMATOLOGY 2016-01-21 17:16:009.3[facility] IdwdnjrUGGLOGPKNN5716-92-50 17:16:0032.5[facility] JeitowzNUSNDWVDVL8531-87-53 17:16:006.4[facility] QmyqbouJKHSUZGHBV0615-15-57 17:16:0013.3[facility] PfcizoyBCCVCXHCVC1497-72-55 17:16:004.42[facility] FYFYJXGRJI0920-73-31 17:16:0013.4[facility] VmkxlaxXFELXGLCRA8719-36-95 17:16:00 215[facility] UaewgzdEFUOTFIVFT9144-04-68 17:16:00* Test Item Value Reference Range Interpretation Comments PT (test code = PT) 14.1 s 12.0-14.7 [facility] QtxdmakWJRLOKCAWV3455-54-14 17:16:001.06[facility]annHEMATOLOGY 2016-01-21 17:16:00* Test Item Value Reference Range Interpretation Comments PTT (test code = PTT) 36.3 s 22.9-35.8 [facility] HqbrlvlKZKIUYTQRT8720-07-30 17:16:0057.1[facility]annHEMATOLOGY 2016-01-21 17:16:002.1[facility] SmebwoxMGAUXQLBMK4443-32-26 17:16:003.7[facility] FqbdbmaQVFDPHRLWZ1170-32-50 17:16:000.5[facility] HfpqthhYHATNSCECR6481-35-82 17:16:0032.7[facility] HlkjxdhRSIMVITOHN5176-69-10 17:16:007.6[facility] NKGRPMAQEC6991-47-89 17:16:002.1[facility] TwkkaynVGGQJZMNAT9463-85-63 17:16:000.5 [facility] HlqvddeSNYXMDWKYL2228-77-66 17:16:000.1[facility]annURINE AND STOOL 2016-01-21 17:16:002[facility] AND SIEKV3949-53-83 17:16:003[facility] AND YMQSR9219-08-39 17:16:00Negative (01/21/16 12:16 PM)[facility] BCKRP5078-44-99 17:16:00Positive *ABN*(01/21/16 12:16 PM) [facility] DXBKW4895-05-14 17:16:002.0[facility] AND JVZJA7605-18-16 17:16:00Negative *NA*(01/21/16 12:16 PM)[facility] KXZAY9712-77-79 17:16:00Small *ABN*(01/21/16 12:16 PM)[facility] HKAWT7465-91-19 17:16:00Slight *ABN*(01/21/16 12:16 PM)[facility] SLZHL8626-65-02 17:16:001.020[facility] AND GJWHN5396-55-28 17:16:00 5.0[facility] HermannCT BRAIN WO [place] [address] Patient Name: CEDRICK HOLT MR #: [id number] : 1945 Age/Sex: 73/F Req #: [id number] Adm Physician: BIN ERVIN MD Ordered by: BIN ERVIN MD Report #: [id number] Location: MED/SURG3 Room/Bed: [facility] Procedure: [id number] CT/CT BRAIN WO Exam Date: 03/19/18 Exam Time: 1648 REPORT STATUS: Signed Examination: CT BRAIN WITHOUT CONTRAST History:[place]. Vision changes. Comparison studies:None Technique: Axial images were obtained from the skull base to the vertex. Coronal and sagittal images r econstructed from the axial data. Intravenous contrast: None Findings: Scalp: No abnormalities. Bones: No fractures, blastic or lytic lesions. Brain sulci: Appropriate for age. Ventricles: Normal in size and configurati on. No hydrocephalus. Extra-axial space: No abnormalities. Parenchym a: No masses, hemorrhage, or acute or chronic cortical based vascular insults . Sellar/suprasellar region: No abnormalities. Craniocervical junction: P atent foramen magnum. No Chiari one malformation. Incidental findings: N one. Impression: No intracranial abnormalities. Signed by: Dr. Antonieta Lara M.D. on 03/19/2018 5:21 PM Dictated By: AMEE LARA MD 17 21 Transcribed By: HEAVEN on 03/19/18 0970 COPY TO: BIN ERVIN MD CHEST 2 VIEWS [place] [address] Patient Name: CEDRICK HOLT MR #: [id number] : 1945 Age/Sex: 72/F Req #: [id number] Adm Physician: Ordered by: JOSE A MA MD Report #: [id number] Location: Room/Bed: Procedure: [id number] DX/CHEST 2 VIEWS Exam Date: 09/23/17 Exam Time: 1135 REPORT STATUS: Signed PROCEDURE: Frontal and lateral views of the chest. COMPARISON: [facility], DX, CHEST SINGLE (PORTABLE), 04/08/2017, 19:35. INDIC ATIONS: COUGH FINDINGS: Lines/tubes: None. Lungs: The lung s are mildly hypoinflated.. There is no evidence of pneumonia or pulmonary ed higinio. Pleura: There is no pleural effusion or pneumothorax. Heart an d mediastinum: The heart and the mediastinum are normal. Bones: No acute bony abnormality. Multilevel spondylosis of the mid to lower thoracic spine. IMPRESSION: 1. No acute cardiopulmonary disease. Chucky Mcneil M.D. Dictated by: Chucky Mcneil M.D. on 09/23/2017 at 12:08 Electronically approved by: Chucky Mcneil M.D. on 09/23 at 12:08 Dictated By: HARRIET MCNEIL MD, MD Electronical ly Signed By: HARRIET MCNEIL MD, MD on 09/23/17 1208 Transcribed By: YAA on 1208 COPY TO: JOSE A MA MD
[2020-06-21] MEDS ORDERED: ONDANSETRON HCL 4 MG ORAL DISINTEGRATING TAB PO ONE (08:15)
[2020-06-21] MEDS ORDERED: ACETAMINOPHEN 325 MG TAB PO ONE (08:15)
--- NOTE | 2020-06-21 08:20 | Emergency Department Note ---
History of Present Illnes History of Present Illness Chief Complaint: COVID PUI History of Present Illness This is a 75 year old female arrives to the ED with complaints of cough fever chills, patient states there son and daughter angry grandchild have covid pneumonia and had had numerous family events the past week where they have interacted with them. Historian: Patient Arrival Mode: Car Onset (how long ago): day(s) Radiation: Reports non-radiation Duration (how long): day(s) Timing of current episode: intermittent Progression: waxing and waning Chronicity: new Context: Reports recent illness Relieving factors: none Exacerbating factors: none Past Medical/Family History Physician Review I have reviewed the patient's past medical and family history. Any updates have been documented here. Past Medical History Recent Fever: Yes Clinical Suspicion of Infectio: Yes New/Unexplained Change in Ment: No Past Medical History: Hypertension, Diabetes, UTI's, GERD, Hyperlipedemia, Osteoarthritis Other Medical History: HARD OF HEARING Past Surgical History: Hysterectomy, Knee Replacement, Hernia Repair Other Surgery: HERNIA REPAIR KNEE REPLACEMENT Other Last Tetanus: 2014 Review of Systems Review of Systems Constitutional: Reports no symptoms, Reports as per HPI, Reports fever, Reports malaise, Reports weakness EENTM: Reports no symptoms Cardiovascular: Reports no symptoms Respiratory: Reports as per HPI, Reports cough Gastrointestinal: Reports no symptoms Genitourinary: Reports no symptoms Musculoskeletal: Reports no symptoms Integumentary: Reports no symptoms Neurological: Reports no symptoms Psychological: Reports no symptoms Endocrine: Reports no symptoms Hematological/Lymphatic: Reports no symptoms Physical Exam Related Data Allergies: Coded Allergies: pregabalin (Verified Allergy, Mild, Sore throat, 09/23/17) Triage Vital Signs Vital Signs Date Time Temp Pulse Resp B/P (MAP) Pulse Ox O2 Delivery O2 Flow Rate FiO2 06/21/20 07:55 100.4 111 24 144/98 97 Room Air Vital signs reviewed: Yes Physical Exam CONSTITUTIONAL Constitutional: Present well-developed, Present obese HENT HENT: Present normocephalic, Present atraumatic, Present oropharynx clear/moist, Present nose normal HENT L/R: Present left ext ear normal, Present right ext ear normal EYES Eyes: Reports PERRL, Reports conjunctivae normal NECK Neck: Present ROM normal PULMONARY Pulmonary: Present effort normal, Present respiratory distress CARDIOVASCULAR Cardiovascular: Present regular rhythm, Present heart sounds normal, Present capillary refill normal, Present normal rate GASTROINTESTINAL Abdominal: Present soft, Present nontender, Present bowel sounds normal GENITOURINARY Genitourinary: Present exam deferred SKIN Skin: Present warm, Present dry MUSCULOSKELETAL Musculoskeletal: Present ROM normal NEUROLOGICAL Neurological: Present alert, Present oriented x 3, Present no gross motor or sensory deficits PSYCHOLOGICAL Psychological: Present mood/affect normal, Present judgement normal Results Laboratory Lab results reviewed: Yes Imaging Imaging results reviewed: Yes Assessment & Plan Medical Decision Making MDM 75-year-old female arrived to the ED with complaints tachypnea, multiple exposures to the coronavirus. Patient clinically has Covid 19. Patient is not requiring supplemental oxygen but is noted to be tachypneic on exam. Chest x-ray normal, patient's oxygen saturation is between 96 and 98%. Spoke to patient at length about return precautions and hospital admission. At this time patient wishes to be discharged home, spoke about prone sleeping, patient discharged home on Zithromax and Decadron. Patient is a diabetic and I encouraged more frequent A blood glucose checks to ensure no episodes of hyperg lycemia occur. Assessment & Plan Final Impression: (1) COVID-19 Depart Disposition: HOME, SELF-CARE Last Vital Signs Date Time Temp Pulse Resp B/P (MAP) Pulse Ox O2 Delivery O2 Flow Rate FiO2 06/21/20 07:55 100.4 111 24 144/98 97 Room Air Home Meds Active Scripts Ondansetron Hcl* (ZOFRAN*) 4 Mg Tablet, 4 MG SL Q6H PRN for NAUSEA, #14 MG 0 Refills Prov:MINARBALDEMAR, DO 06/21/20 Azithromycin (Z-JUSTYN) 250 Mg Tablet, 1 PKG PO DIRECTED, #1 PKG 0 Refills Prov:MINAR AMBICA, DO 06/21/20 Dexamethasone (Decadron) 6 Mg Tablet, 6 MG PO DAILY, #5 Prov:RANDYHIR AMBICA, DO 06/21/20 Ciprofloxacin Hcl (CIPRO) 500 Mg Tablet, 500 MG PO Q12H for 7 Days, #30 TAB Prov:ROSLYN FRAZIER AUCTIONEER TOBACCO 07/25/18 Pravastatin Sodium (PRAVASTATIN SODIUM) 20 Mg Tablet, 20 MG PO HS for 14 Days Prov:ROSLYN FRAZIER AUCTIONEER TOBACCO 07/25/18 Guaifenesin/Dextromethorphan (MUCINEX DM ER 600-30 MG TABLET) 1 Each Tab.er.12h, 1 EACH PO Q12H for 7 Days, TAB Prov:BARBARA ERVIN MD 03/20/18 Benzonatate (TESSALON PERLE) 100 Mg Capsule, 100 MG PO Q8HR for 7 Days Prov:BARBARA ERVIN MD 03/20/18 Metronidazole (FLAGYL) 500 Mg Tablet, 500 MG PO TID for 7 Days Prov:BARBARA ERVIN MD 03/20/18 Oseltamivir Phosphate (TAMIFLU) 75 Mg Cap, 75 MG PO Q12HR for 5 Days, CAP Prov:BARBARA ERVIN MD 03/20/18 Reported Medications Pantoprazole Sodium* (PROTONIX) 40 Mg Tablet.dr, 40 MG PO DAILY, TAB 03/19/18 Glimepiride (GLIMEPIRIDE) 2 Mg Tablet, 2 MG PO DAILY, TAB 03/19/18 Metformin Hcl (METFORMIN HCL) 500 Mg Tablet, 850 MG PO Q12H, #60 TAB 10/18/14 Medications in the ED Acetaminophen 650 mg ONCE ONCE PO ; Start 06/21/20 at 08:15; Stop 06/21/20 at 08:16; Status DC Ondansetron HCl 4 mg ONCE ONCE PO ; Start 06/21/20 at 08:15; Stop 06/21/20 at 08:16; Status DC BALDEMAR MYERS, DO Jun 21, 2020 08:20
[2020-06-21] MEDS ORDERED: ACETAMINOPHEN 325 MG TAB ONE (08:24)
--- NOTE | 2020-06-21 08:26 | NUR ---
MANIFOLD OPERATOR AT BEDSIDE FOR CHEST XRAY.
[2020-06-21 08:52] VITALS: BP 103/79
[2020-06-21] MEDS ORDERED: AZITHROMYCIN 250 MG TAB PO ONE (09:00)
--- NOTE | 2020-06-21 09:00 | Diagnostic Imaging Report ---
EXAMINATION: CHEST SINGLE (PORTABLE) INDICATION: Viral pneumonia COMPARISON: Chest radiograph 07/06/2019 FINDINGS: LINES/TUBES:None LUNGS:The lungs are well-inflated. No focal consolidation or pulmonary edema. PLEURA:No pleural effusion or pneumothorax. MEDIASTINUM:The cardiomediastinal silhouette appears normal in size and shape. BONES/SOFT TISSUES:No acute osseous injury. ABDOMEN:No free air under the diaphragm. IMPRESSION: No focal pneumonia or pulmonary edema. Signed by: Martínez Dallas MD on 06/21/2020 8:56 AM
[2020-06-21] MEDS ORDERED: DECADRON6 MG PO (09:22)
[2020-06-21] MEDS ORDERED: ZOFRAN4 MG SL (09:22)
[2020-06-21] MEDS ORDERED: AZITHROMYCIN250 MG PO (09:22)
== END 2020-06-21 09:34 | disposition home or self-care (01) ==
LOC: ER 08:08
DX: U07.1 COVID-19 (principal); R50.9 Fever, unspecified; R05 Cough; I10 Essential (primary) hypertension; E11.9 Type 2 diabetes mellitus without complications; E78.5 Hyperlipidemia, unspecified; K21.9 Gastro-esophageal reflux disease without esophagitis
CPT/HCPCS: 71045; 99283; Q0162; U0002

== ENCOUNTER 2020-06-28 15:31 | Inpatient (IN) | payer MEDICARE ==
[~2020-06-28] VITALS: Ht 121.9 cm; Wt 99.8 kg
[2020-06-28] VITALS (7 sets, daily range): BP systolic 83–136; BP diastolic 33–85
[~2020-06-28 15:31] MED LIST changes: +AZITHROMYCIN250 MG PO; +DECADRON6 MG PO; +ZOFRAN4 MG SL
[2020-06-28] MEDS ORDERED: ASPIRIN 81 MG CHEW TAB PO ONE (15:45)
[2020-06-28] MEDS ORDERED: DILTIAZEM HCL 5 MG/ML 5 ML VIAL IV ONE (15:45)
--- OUTSIDE RECORDS SUMMARY | 2020-06-28 15:50 | XMS REPORT | Continuity of Care Document ---
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 Role Phone [employer] Unavailable Un available Problems Problem Status Onset Date Classification Date Reported Comments Source K21.0 GASTRO-ESOPHAGEAL REFLUX DISEASE W Active 05/07/2020 [facility] R07.89 - OTHER CHEST PAIN R06.09 - OTHER Active 04/30/2020 [facility] [place] DX: R10.13=EPIGASTRIC PAIN/R14.0=ABDOMIN Active 08/08/2019 [facility] Pain in thoracic spine 06/09/2018 12/19/2018 [facility] Other muscle spasm 06/01/2018 12/19/2018 [facility] BACK PAIN OR INJURY Active 06/01/2018 [facility] NECK PAIN OR INJURY Active 06/01/2018 [facility] Encounter for screening mammogram for ma lignant neoplasm of breast 11/27/2017 03/02/2018 [facility] [place] CHEST PAIN Active 09/25/2017 [facility] COUGH, ABDOMINAL PAIN Active 09/25/2017 [facility] UNK Active 0 04/22/2017 [facility] R92.8 - OTH ABN AND INCONCLUSIVE FINDI Active 05/22/2016 [facility] [place] ATAXIA, FREQUENT FALLS, HYPERKALEMIA, BL Active 01/21/2016 [facility] R10.9 - UNSPECIFIED ABDOMINAL PAIN Active 07/23/2015 [facility] [place] 786.50 - CHEST PAIN NOS Active 08/14/2014 [facility] [place] Pain in joint, shoulder region Active Diagnosis [...] Type 2 diabetes mellitus without complications 12/19/2018 [facility] group home (current) use of oral hypoglycemic drugs 12/19/2018 [facility] 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 12/19/2018 [facility] Presence of unspecified artificial knee joint 12/19/2018 [facility] Final: Other chest pain 01/25/2016 [facility] Final: Type 2 diabetes mellitus without complications 01/25/2016 [facility] Final: Hyperlipidemia, unspecified 01/25/2016 [facility] Final: Morbid (severe) obesity due to excess calories 01/25/2016 [facility] Final: Body mass index (BMI) 50-59.9 , adult 01/25/2016 [facility] CHEST PAIN, UNSPECIFIED Active [facility] Medications Medication Details Route Status Patient Instructions Ordering Provider Order Date Source Cyclobenzaprine hydrochloride 5 MG Oral Tablet [Flexeril] 5 mg = 1 tab, PO, BID, X 7 day, # 14 tab, 0 Refill(s) No Longer Active 06/02/2018 [facility] Ketorolac 30 mg, Route: IM, Dr ug form: INJ, ONCE, Dosing Weight 100, kg, Priority: STAT, Start date: 06/01/18 21:39:00 CDT, Stop date: 06/01/18 21:39:00 CDT Inactive 06/02/2018 [facility] Prednisone 60 mg, Route: PO, D rug form: TAB, ONCE, Dosing Weight 100, kg, Priority: STAT, Start date: 06/01/18 21:39:00 CDT, Stop date: 06/01/18 21:39:00 CDT Inactive 06/02/2018 [facility] cyclobenzaprine 10 mg, Route: PO, Drug form: TAB, ONCE, Dosing Weight 100, kg, Priority: STAT, Start date: 06/01/18 21:39:00 CDT, Stop date: 06/01/18 21:39:00 CDT Inactive 06/02/2018 [facility] Pravastatin Notes: (Same as: Isidra valverdeachol) Inactive 09/27/2017 [facility] Levofloxacin 750 MG Oral Tablet [Levaquin] 750 mg = 1 tab, PO, Q24H, X 7 day, # 7 tab, 0 Refill(s) Active 09/26/2017 [facility] Robitussin-AC oral syrup 10 mL , PO, Q4H, PRN Cough/Congestion, X 10 day, # 240 mL, 0 Refill(s) Active 09/26/2017 [facility] benzonatate 100 mg oral capsule 200 mg = 2 cap, PO, TID, PRN Cough, # 20 cap, 0 Refill(s) Active 09/26/2017 [facility] magnesium citrate 58.2 MG/ML Oral Solution Notes: (Same as: Citrate of Magnesia) Concentration: 1.745 gm / 30 mL Inactive 09/26/2017 [facility] Robitussin-AC oral syrup Notes : (Same As: Robitussin AC) Inactive 09/26/2017 [facility] Streptococcus pneumoniae serotype 1 caps ular antigen diphtheria [id number] protein conjugate vaccine / Streptococcus pneumoniae serotype 14 capsular antigen diphtheria [id number] protein conjugate vaccine / Streptococcus pneumoniae serotype 18C capsular antigen d Notes: Shake well prior to use (Same as: Prevnar 13) Inactive 09/26/2017 [facility] Metformin Notes: (Same as: Glu cophage) Take with meal Inactive 09/26/2017 [facility] Cristian Morris Notes: (Same A s: Cristian Morris) "Do Not Crush" Inactive 09/26/2017 [facility] Aspirin 325 MG Enteric Coated Tablet Notes: (Do Not Crush) Do not crush or chew. 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 Inactive 09/26/2017 [facility] Ondansetron Notes: (Same as: Toya [place]) MEDICATION WASTE Product Size: 4 mg Product Wasted: ___ mg Inactive 09/26/2017 [facility] Saline Flush 0.9% Notes: (Same as: BD Posiflush) Inactive 09/26/2017 [facility] Plavix Notes: (Same As: Plavix) No Longer Active 01/23/2016 [facility] Pravastatin Notes: (Same as: P ravachol) Inactive 01/23/2016 [facility] metoprolol tartrate Notes: (Sa me as: Lopressor) Inactive 01/23/2016 [facility] remove patch Notes: Remove pat ch 12 hours after application each day. Inactive 01/23/2016 [facility] Lidocaine Hydrochloride 0.05 MG/MG Trans dermal Patch [Lidoderm] Notes: Apply only once for up to 12 hour s in a 24-hour period (12 hours on and 12 hours off). (Same as: Lidoderm) "Remove old patch before application of new patch" Inactive 01/22/2016 [facility] Dexamethasone Notes: MEDIC ATION WASTE Product Size: 10 mg Product Wasted: ___ mg Inactive 01/22/2016 [facility] Kenalog-40 Notes: (Same As: Humberto nalog-40) MEDICATION WASTE Product Size: 40 mg Product Wasted: ___ mg Inactive 01/22/2016 [facility] Prednisone Notes: (Same as: Pr edniSONE) Take with food. Inactive 01/22/2016 [facility] 12 HR diclofenac epolamine 15 MG/HR Mcknight sdermal Patch [Flector] 1 patch, TOP, BID, PRN for pain, X 15 da y, # 30 patch, 0 Refill(s) On Hold 01/22/2016 [facility] Aspirin 81 MG Chewable Tablet 81 mg = 1 tab, PO, Daily, 0 Refill(s) On Hold 01/22/2016 [facility] Aspirin 81 MG Chewable Tablet Notes: Take with food. Inactive 01/22/2016 [facility] ergocalciferol Notes: (Same as : Vitamin D) "Do Not Crush" Inactive 01/22/2016 [facility] Saline Flush 0.9% Notes: (Same as: BD Posiflush) No Longer Active 01/22/2016 [facility] pravastatin 10 mg oral tablet 10 mg = 1 tab, PO, Bedtime, # 30 tab, 0 Refill(s) Active 01/21/2016 [facility] Enoxaparin Notes: (Same as: Lo venox) No Longer Active 01/21/2016 [facility] Morphine Notes: (Same as:MORPh ine Sulfate) No Longer Active 01/21/2016 [facility] Metoprolol Notes: (Same as: Lo pressor) Push over 2 minutes No Longer Active 01/21/2016 [facility] Nitroglycerin 0.4 MG Sublingual Tablet [Nitrostat] 0.4 mg, 1 tab, Route: SL, Drug form: TAB, Q5Min, Dosing Weight 104.545, kg, PRN Chest Pain, Start date: 01/21/16 15:51:00, Duration: 3 doses or times, Stop date: Limited # of times Inactive 01/21/2016 [facility] Hydralazine Notes: (Same as: A presoline) Push over 5 minutes No Longer Active 01/21/2016 [facility] Saline Flush 0.9% 10 ml, Route : IVP, Drug Form: INJ, Dosing Weight 104.545, kg, PRN, PRN Line Flush, Start date: 01/21/16 15:45:00, Duration: 30 day, Stop date: 02/20/16 15:44:00 Inactive 01/21/2016 [facility] Nitroglycerin Notes: (Same as: Nitroquick, Nitrostat) "Do Not Crush" Sublingual tablet No Longer Active 01/21/2016 [facility] Morphine Notes: (Same as:MORPh ine Sulfate) No Longer Active 01/21/2016 [facility] Ondansetron Notes: (Same as: Toya [place]) No Longer Active 01/21/2016 [facility] Aspirin Notes: Take with food. Inactive 01/21/2016 [facility] Saline Flush 0.9% Notes: Same as: BD Posiflush Sterile Inactive 01/21/2016 [facility] Metformin 500 mg, PO, BID Active 01/21/2016 [facility] Allergies, Adverse Reactions, Alerts Substance Category Reaction Severity Reaction type Status Date Reported Comments Source Lyrica Assertion Drug allergy Active [facility] Immunizations Immunization Date Given Site Status Last Updated Comments Source pneumococcal 13-valent vaccine 09/26/2017 Left Deltoid [facility] Order Name Results Value Reference Range [...] Alk Phos 83 39 - 136 09/26/2017 [facility] CHEM PANEL eGFR 90 09/26/2017 Result Comment: [...] should be multiplied by the estimated BMI. [facility] CHEM PANEL Sodium Lvl 135 135 - 145 09/26/2017 [facility] CHEM PANEL Creatinine Lvl 0.63 0.50 - 1.40 09/26/2017 [facility] CHEM PANEL BUN 7 7 - 22 09/26/2017 [facility] CHEM [facility] Glucose Lvl 170 70 - 99 09/26/2017 [facility] RBC 4.44 4.20 - 5.40 09/26/2017 [facility] MCV 91.7 80.0 - 98.0 09/26/2017 [facility] Hgb 13.5 12.0 - 16.0 09/26/2017 [facility] Hct 40.7 36.0 - 48.0 09/26/2017 [facility] WBC 4.6 3.7 - 10.4 09/26/2017 [facility] Platelet 176 133 - 450 09/26/2017 [facility] MCH 30.5 27.0 - 31.0 09/26/2017 [facility] RDW 13.5 11.5 - 14.5 09/26/2017 [facility] MCHC 33.3 32.0 - 36.0 09/26/2017 [facility] MPV 10.0 7.4 - 10.4 09/26/2017 [facility] Lymphocytes # 1.1 1.0 - 5.5 09/26/2017 [facility] Segs-Bands # 2.9 1.5 - 8.1 09/26/2017 [facility] HEMATOLOGY Basophils 0.3 0.0 - 1.0 09/26/2017 [facility] HEMATOLOGY Monocytes # 0.5 0.0 - 0.8 09/26/2017 [facility] HEMATOLOGY Monocytes 11.8 2.0 - 12.0 09/26/2017 [facility] HEMATOLOGY Lymphocytes 24.5 20.0 - 40.0 09/26/2017 [facility] HEMATOLOGY Segs 62.7 45.0 - 75.0 09/26/2017 [facility] HEMATOLOGY Eosinophils 0.7 0.0 - 4.0 09/26/2017 [facility] CARDIAC ENZYMES Total CK 92 12 - 191 01/22/2016 [facility] CARDIAC ENZYMES Troponin-I <0.02 0.00 - 0.40 01/22/2016 [facility] CARDIAC ENZYMES CK MB 0.6 0.5 - 3.6 01/22/2016 [facility] CARDIAC ENZYMES CK MB Index 0.7 0.0 - 2.5 01/22/2016 [facility] CARDIAC ENZYMES Troponin-I <0.02 0.00 - 0.40 01/22/2016 [facility] CARDIAC ENZYMES Total CK 118 12 - 191 01/22/2016 [facility] CARDIAC ENZYMES BNP 99 <=100 pg/mL 01/22/2016 [facility] CARDIAC ENZYMES CK MB Index 0.5 0.0 - 2.5 01/22/2016 [facility] CARDIAC ENZYMES CK MB 0.6 0.5 - 3.6 01/22/2016 [facility] CHEM PANEL eGFR 98 01/22/2016 Result Comment: [...] should be multiplied by the estimated BMI. [facility] CHEM PANEL Creatinine Lvl 0.52 0.50 - 1.40 01/22/2016 [facility] CHEM PANEL Vitamin D, 25-OH, Total 2 0 30 - 100 01/22/2016 [facility] CHEM PANEL Uric Acid 3.5 2.5 - 7.0 01/22/2016 [facility] CHEM PANEL Phosphorus 2.4 2.5 - 4.5 01/22/2016 [facility] CHEM PANEL Magnesium Lvl 2.0 1.8 - 2.4 01/22/2016 [facility] HEMATOLOGY Platelet 219 133 - 450 01/22/2016 [facility] HEMATOLOGY Sed Rate 38 0 - 20 01/22/2016 [facility] IMMUNOLOGY CRP, High Sensitivity 8.0 01/22/2016 [facility] IMMUNOLOGY Homocyst Tot 8.4 3.7 - 13.9 01/22/2016 [facility] LIPIDS VLDL 15 01/22/2016 [facility] LIPIDS LDL (Calculated) 59 <=99 mg/dL 01/22/2016 [facility] LIPIDS HDL 55 >=61 mg/dL 01/22/2016 [facility] LIPIDS Chol 129 <=199 mg/dL 01/22/2016 [facility] LIPIDS Trig 77 <=149 mg/dL 01/22/2016 [facility] LIPIDS CHD Risk 2.35 3.90 - 5.80 01/22/2016 [facility] SPECIAL CHEMISTRY Hgb A1C 7.6 <=5.6 % 01/22/2016 [facility] CARDIAC ENZYMES Total CK 133 12 - 191 01/21/2016 [facility] CARDIAC ENZYMES Troponin-I <0.02 0.00 - 0.40 01/21/2016 [facility] CARDIAC ENZYMES CK MB <0.5 0.5 - 3.6 01/21/2016 [facility] CARDIAC ENZYMES CK MB Index <0.4 0.0 - 2.5 01/21/2016 [facility] CHEM PANEL eGFR 95 01/21/2016 Result Comment: [...] should be multiplied by the estimated BMI. [facility] CHEM PANEL Glucose Lvl 138 70 - 99 01/21/2016 [facility] CHEM PANEL BUN 17 7 - 22 01/21/2016 [facility] CHEM PANEL Creatinine Lvl 0.58 0.50 - 1.40 01/21/2016 [facility] CHEM PANEL Total Protein 7.5 6.4 - 8.4 01/21/2016 [facility] CHEM PANEL B/C Ratio 29 6 - 25 01/21/2016 [facility] CHEM PANEL AGAP 11.0 10.0 - 20.0 01/21/2016 [facility] CHEM PANEL A/G Ratio 0.8 0.7 - 1.6 01/21/2016 [facility] CHEM PANEL Globulin 4.1 2.0 - 4.0 01/21/2016 [facility] CHEM PANEL ALT 30 0 - 65 01/21/2016 [facility] CHEM PANEL Albumin Lvl 3.4 3.5 - 5.0 01/21/2016 [facility] CHEM PANEL Alk Phos 109 39 - 136 01/21/2016 [facility] CHEM PANEL AST 22 0 - 37 01/21/2016 [facility] CHEM PANEL Bili Total 0.8 0.2 - 1.3 01/21/2016 [facility] CHEM PANEL Calcium Lvl 8.4 8.5 - 10.5 01/21/2016 [facility] CHEM PANEL Potassium Lvl 4.0 3.5 - 5.1 01/21/2016 [facility] CHEM PANEL Sodium Lvl 139 135 - 145 01/21/2016 [facility] CHEM PANEL CO2 25 24 - 32 01/21/2016 [facility] CHEM PANEL Chloride Lvl 107 95 - 109 01/21/2016 [facility] HEMATOLOGY MCV 92.4 80.0 - 98.0 01/21/2016 [facility] HEMATOLOGY MCH 30.0 27.0 - 31.0 01/21/2016 [facility] HEMATOLOGY Hct 40.8 36.0 - 48.0 01/21/2016 [facility] HEMATOLOGY MPV 9.3 7.4 - 10.4 01/21/2016 [facility] HEMATOLOGY MCHC 32.5 32.0 - 36.0 01/21/2016 [facility] HEMATOLOGY WBC 6.4 3.7 - 10.4 01/21/2016 [facility] HEMATOLOGY Hgb 13.3 12.0 - 16.0 01/21/2016 [facility] HEMATOLOGY RBC 4.42 4.20 - 5.40 01/21/2016 [facility] HEMATOLOGY RDW 13.4 11.5 - 14.5 01/21/2016 [facility] HEMATOLOGY Platelet 215 133 - 450 01/21/2016 [facility] HEMATOLOGY PT 14.1 12.0 - 14.7 01/21/2016 [facility] HEMATOLOGY INR 1.06 0.85 - 1.17 01/21/2016 [facility] HEMATOLOGY PTT 36.3 22.9 - 35.8 01/21/2016 [facility] HEMATOLOGY Segs 57.1 45.0 - 75.0 01/21/2016 [facility] HEMATOLOGY Eosinophils 2.1 0.0 - 4.0 01/21/2016 [facility] HEMATOLOGY Segs-Bands # 3.7 1.5 - 8.1 01/21/2016 [facility] HEMATOLOGY Basophils 0.5 0.0 - 1.0 01/21/2016 [facility] HEMATOLOGY Lymphocytes 32.7 20.0 - 40.0 01/21/2016 [facility] HEMATOLOGY Monocytes 7.6 2.0 - 12.0 01/21/2016 [facility] HEMATOLOGY Lymphocytes # 2.1 1.0 - 5.5 01/21/2016 [facility] HEMATOLOGY Monocytes # 0.5 0.0 - 0.8 01/21/2016 [facility] HEMATOLOGY Eosinophils # 0.1 0.0 - 0.5 01/21/2016 [facility] URINE AND STOOL UA Color Ltyellow 01/21/2016 [facility] URINE AND STOOL UA Bacteria Many /HPF [...] Negative *NA* (01/21/16 12:16 PM) Negative 01/21/2016 [facility] URINE AND STOOL UA Blood Small *ABN* (01/21/16 12:16 PM) Negative 01/21/2016 [facility] URINE AND STOOL UA Protein Negative mg/dL Negative mg/dL 01/21/2016 [facility] URINE AND STOOL UA Glucose Negative mg/dL Negative mg/dL 01/21/2016 [facility] URINE AND STOOL UA Ketones Negative mg/dL Negative mg/dL 01/21/2016 [facility] URINE AND STOOL UA Turbidity Slight *ABN* (01/21/16 12:16 PM) Clear 01/21/2016 [facility] URINE AND STOOL UA Spec Grav 1.020 <=1.030 01/21/2016 [facility] URINE AND STOOL UA pH 5.0 5.0 - 8.0 01/21/2016 [facility] Pathology Reports No Data Provided for This [...] transit. Gianni Bustos MD On 05/15/2020 12:46:02; [id number] 05/15/2020 [facility] Chest 2 views DX 2-VIEW CHEST X-RAY. [...] noted. IMPRESSION: No acute abnormality. 11/15/2019 [facility] [place] Bone Density DXA Dual Energy MA BONE [...] is recommended. This exam was interpreted at [id number] for MARGARITA Allred. Chey Gunderson M.D. ms/penrad:11/15/2019 16:26:38 Equine Pharmacology Technician(s): Jennifer PEREIRA(R)(M), [facility] 11/15/[address] [facility] PET CT Tumor [id number] PROCEDURE INFORMATION: Exam: PET/CT Skull Base to [...] cm. Anthony Ramirez MD On 08/19/2019 16:08:58; [id number] 08/18/2019 [facility] Chest 2 views DX Clinical Airam cation: [...] No acute cardiopulmonary disease. SL: SHANE 06/01/2018 [facility] Ribs unilateral DX Clinical In dication: - [...] assessment. IMPRESSION: No evidence for rib fractures. [id number] 06/01/2018 [facility] Bone Density DXA Dual Energy MA BONE [...] for fracture. Neftaly Corona M.D., jp/penrad:11/24/2017 14:38:41 Equine Pharmacology Technician(s): Fanta Herring RT(R)(M), [facility] 11/24/2017 [facility] [place] [facility] ERICK [...] mammogram, 10/15/2012 mammogram, and 03/14/2011 mammogram - [facility]. TECHNIQUE: Mammographic views were obtained using digital [...] Diagnostic Imaging. 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 IMPRESSION: Nonspecific bowel gas pattern is present. Abundance of stool within the colon. Surgical clips are present within the right upper quadrant and upper pelvis. No definite gross free air detected. SL: [id number] 09/26/2017 [facility] Chest 1view DX Clinical Indica tion: - SOB/CP; Comparison: January 21, 2016 FINDINGS: The cardiomediastinal silhouette is mildly enlarged in size. No significant pleural effusions are seen. The bony structures are intact. No evidence for pneumothorax. IMPRESSION: 1. No acute cardiopulmonary disease 09/26/2017 [facility] Cardiac SPECT multi studies [place] Patient Name: CEDRICK HOLT : 1945; Age: 72 years Female MR: [id number] Study: Cardiac SPECT multi studies [place] 04/30/2017 7:51 AM CDT Clinical Indication: - [...] fixed or reversible defect is noted. SL: [id number] 04/30/2017 [facility] Knee 1-2 Views Bilateral DX EX AMINATION: [...] mammogram, 10/15/2012 mammogram and 03/14/2011 mammogram - [facility]. The tissue of both breasts is almost entirely fat. The bilateral CC views do not include the posterior breast tissue as well as very lateral and medial breast tissue. No significant masses, calcifications, or other findings are seen in either breast. IMPRESSION: INCOMPLETE: NEEDS ADDITIONAL IMAGING EVALUATION Technical repeat is recommended as described above. The staff from [facility] will contact the patient to schedule the additional studies. A supplemental report will be issued following interpretation of the additional studies. Frenanda Chery M.D. ks/:05/12/2016 09:12:37 Equine Pharmacology Technician: Magdalena PEREIRA(Celi)(M), [facility] This exam was dictated and interpreted by [id number] for MARGARITA Vieira. letter sent: Additional Imaging [...] fixed or reversible defect is noted. : [id number] 01/22/2016 [facility] Ext Upper Venous Doppler Unilat US VENOUS [...] venous Doppler of the right upper extremity. [id number] 01/21/2016 [facility] Chest 1view DX Patient Name: Ryland HOLT : 1945; Age: 70 years Female MR: [id number] Study: Chest 1view DX Order Time: 01/21/2016 [...] radiographic evidence of acute cardiopulmonary disease. : [id number] 01/21/2016 [facility] Abdomen complete US EXAM: Abdo men complete [...] Comments Source Systolic (mm Hg) 122 06/02/2018 [facility] Diastolic (mm Hg) 73 06/02/2018 [facility] Respitory Rate 18 06/02/2018 [facility] Temperature Oral (F) 98 F 06/02/2018 [facility] Heart Rate 85 06/02/2018 [facility] Heart Rate 84 06/02/2018 [facility] Respitory Rate 17 06/02/2018 [facility] Systolic (mm Hg) 144 06/02/2018 [facility] Diastolic (mm Hg) 77 06/02/2018 [facility] Weight 100 06/02/2018 [facility] Systolic (mm Hg) 144 06/02/2018 [facility] Diastolic (mm Hg) 73 06/02/2018 [facility] Heart Rate 84 06/02/2018 [facility] Respitory Rate 18 06/02/2018 [facility] Temperature Oral (F) 97.9 F 06/02/2018 [facility] Height 149.86 cm 06/02/2018 [facility] BMI Calculated 44.53 06/02/2018 [facility] Respitory Rate 17 09/26/2017 [facility] Temperature Oral (F) 98.0 F 09/26/2017 [facility] Systolic (mm Hg) 110 09/26/2017 [facility] Diastolic (mm Hg) 63 09/26/2017 [facility] Heart Rate 64 09/26/2017 [facility] Systolic (mm Hg) 106 09/26/2017 [facility] Diastolic (mm Hg) 64 09/26/2017 [facility] Temperature Oral (F) 98.3 F 09/26/2017 [facility] [...] 01/22/2016 [facility] Systolic (mm Hg) 133 01/22/2016 [facility] Diastolic (mm Hg) 73 01/22/2016 [facility] Respitory Rate 18 01/22/2016 [facility] Temperature Oral (F) 98.2 F 01/22/2016 [facility] Heart Rate 62 01/22/2016 [facility] Heart Rate 66 01/22/2016 [facility] Temperature Oral (F) 97.9 F 01/22/2016 [facility] Respitory Rate 18 01/22/2016 [facility] Systolic (mm Hg) 127 01/22/2016 [facility] Diastolic (mm Hg) 81 01/22/2016 [facility] Respitory Rate 18 01/22/2016 [facility] Systolic (mm Hg) 118 01/22/2016 [facility] Diastolic (mm Hg) 78 01/22/2016 [facility] Temperature Oral (F) 98.5 F 01/22/2016 [facility] Heart Rate 63 01/22/2016 [facility] Weight 104.545 01/21/2016 [facility] BMI Calculated 46.55 01/21/2016 [facility] Height 149.86 cm 01/21/2016 [facility] Weight 104.545 01/21/2016 [facility] BMI Calculated 46.55 01/21/2016 [facility] Height 149.86 cm 01/21/2016 [facility] Encounters Location Location Details Encounter Type Encounter Number Reason For Visit Attending Provider ADM Date DC Date Status Source [facility] [place] [facility] [id number] 07 Alistair Montiel 08/14/2014 08/15/2014 [facility] [place] [facility] [place] [facility] [id number] 08 Alistair Montiel 08/17/2014 08/18/2014 [facility] [place] [facility] [place] [facility] [id number] 09 Ninfa Wintersyo 09/16/2014 09/17/2014 [facility] [place] [facility] [place] [facility] [id number] Alistair Montiel 12/06/2014 12/07/2014 [facility] [place] [place] [facility] [id number] Alistair Montiel 03/13/2015 03/14/2015 [facility] [place] [facility] [id number] 12 Alistair Montiel 08/02/2015 08/03/[address] [place] [facility] OBS Observation Patient [id number] Yan Cruzbuck 01/21/2016 01/22/2016 [facility] [place] [facility] [id number] 13 Alistair Montiel 05/10/2016 05/11/2016 [facility] [place] [facility] [id number] 15 Alistair Montiel 07/11/2016 07/12/[address] [place] [facility] Outpatient [id number] Allison Youngblood Jr 04/30/2017 05/01/2017 [facility] Observation [id number] Evelio Richter 09/26/2017 09/26/2017 [facility] [place] [facility] [id number] 16 Bin Hankins 11/24/2017 11/25/2017 [facility] [place] [facility] Emergency [id number] Oscar Loco 06/02/2018 06/02/2018 [facility] Outpatient [id number] Petar Ansari 08/18/2019 08/19/2019 [facility] [place] [facility] [id number] 17 Bin Hankins 11/15/2019 11/16/2019 [facility] [place] [facility] [id number] 18 Bin Hankins 05/03/2020 05/04/[address] [place] [facility] Outpatient [id number] Petar Ansari 05/15/2020 05/16/2020 [facility] Procedures Procedure Code Date Perfomer Comments Source Abdominal hysterectomy [id number] OPIMohinder Mcclurea,[facility] Gallbladder stone removal [id number] [facility] [place],[facility] Hiatus hernia repair [id number] [facility] Knee replacement [id number] [facility] Assessment and Plan Assessment and Plan Date [...] Brown MD Date: 09/26/17 full H&P dictated, #[id number] date/time: 09/26/2017 04:55 09/26/2017 Allison Extracted from:Title: Clinical Document Author: Yan Roldan MD Date: 01/22/16 [id number] 01/22/2016 [facility] Plan of Care No Data Provided for This Section Social History Social History Date Source Social History TypeResponse Alcohol Past, Previous treatment: None. Smoking Status Never smoker; Exposure to Tobacco Smoke None; Cigarette Smoking Last 365 Days No; Reg Smoking Cessation Counseling No entered on: 06/01/18 01/21/2016 [facility] Social History TypeResponse Alcohol Past, Previous treatment: [...]
--- NOTE | 2020-06-28 15:58 | Emergency Department Note ---
History of Present Illnes History of Present Illness Chief Complaint: COVID PUI History of Present Illness This is a 75 year old female arrived to the ED in acute respiratory secondary to COVID-19. Onset (how long ago): day(s) Severity: mild Onset quality: gradual Duration (how long): week(s) Progression: worsening Chronicity: recurrent Context: Reports recent illness Relieving factors: none Past Medical/Family History Physician Review I have reviewed the patient's past medical and family history. Any updates have been documented here. Past Medical History Past Medical History: Hypertension, Diabetes, UTI's, GERD, Hyperlipedemia, Osteoarthritis Other Medical History: HARD OF HEARING Past Surgical History: Hysterectomy, Knee Replacement, Hernia Repair Other Surgery: HERNIA REPAIR KNEE REPLACEMENT Social History Smoking Cessation: Never Smoker Counseling Performed: No Other Last Tetanus: 2014 Review of Systems Review of Systems Constitutional: Reports as per HPI, Reports chills, Reports fever EENTM: Reports no symptoms Cardiovascular: Reports no symptoms Respiratory: Reports as per HPI, Reports cough Gastrointestinal: Reports no symptoms Genitourinary: Reports no symptoms Musculoskeletal: Reports no symptoms Integumentary: Reports no symptoms Neurological: Reports no symptoms Psychological: Reports no symptoms Endocrine: Reports no symptoms Hematological/Lymphatic: Reports no symptoms Physical Exam Related Data Allergies: Coded Allergies: pregabalin (Verified Allergy, Mild, Sore throat, 09/23/17) Vital signs reviewed: Yes Physical Exam CONSTITUTIONAL Constitutional: Present well-developed, Present well-nourished, Present morb idly obese HENT HENT: Present normocephalic, Present atraumatic, Present oropharynx clear/mo ist, Present nose normal HENT L/R: Present left ext ear normal, Present right ext ear normal EYES Eyes: Reports PERRL, Reports conjunctivae normal NECK Neck: Present ROM normal PULMONARY Pulmonary: Present respiratory distress CARDIOVASCULAR Cardiovascular: Present regular rhythm, Present heart sounds normal, Present c apillary refill normal, Present normal rate GASTROINTESTINAL Abdominal: Present soft, Present nontender, Present bowel sounds normal GENITOURINARY Genitourinary: Present exam deferred SKIN Skin: Present warm, Present dry MUSCULOSKELETAL Musculoskeletal: Present ROM normal NEUROLOGICAL Neurological: Present alert, Present oriented x 3, Present no gross motor or sensory deficits PSYCHOLOGICAL Psychological: Present mood/affect normal, Present judgement normal Results Laboratory Lab results reviewed: Yes Laboratory comments Laboratory Tests Test 06/28/20 15:55 White Blood Count 4.75 x10e3/uL (4.8-10.8) Red Blood Count 4.49 x10e6/uL (3.6-5.1) Hemoglobin 12.9 g/dL (12.0-16.0) Hematocrit 39.8 % (34.2-44.1) Mean Corpuscular Volume 88.6 fL (81-99) Mean Corpuscular Hemoglobin 28.7 pg (28-32) Mean Corpuscular Hemoglobin Concent 32.4 g/dL (31-35) Red Cell Distribution Width 13.4 % (11.7-14.4) Platelet Count 217 x10e3/uL (140-360) Neutrophils (%) (Auto) 78.3 % (38.7-80.0) Lymphocytes (%) (Auto) 17.1 % (18.0-39.1) Monocytes (%) (Auto) 4.0 % (4.4-11.3) Eosinophils (%) (Auto) 0.0 % (0.0-6.0) Basophils (%) (Auto) 0.0 % (0.0-1.0) Neutrophils # (Auto) 3.7 (2.1-6.9) Lymphocytes # (Auto) 0.8 (1.0-3.2) Monocytes # (Auto) 0.2 (0.2-0.8) Eosinophils # (Auto) 0.0 (0.0-0.4) Basophils # (Auto) 0.0 (0.0-0.1) Absolute Immature Granulocyte (auto 0.03 x10e3/uL (0-0.1) Sodium Level 133 mmol/L (136-145) Potassium Level 3.9 mmol/L (3.5-5.1) Chloride Level 100 mmol/L (98-107) Carbon Dioxide Level 18 mmol/L (22-29) Anion Gap 18.9 mmol/L (8-16) Blood Urea Nitrogen 8 mg/dL (7-26) Creatinine 0.67 mg/dL (0.57-1.11) Estimat Glomerular Filtration Rate > 60 ML/MIN (60-) BUN/Creatinine Ratio 12 (6-25) Glucose Level 146 mg/dL (74-118) Calcium Level 8.4 mg/dL (8.4-10.2) Total Bilirubin 0.5 mg/dL (0.2-1.2) Aspartate Amino Transf (AST/SGOT) 30 IU/L (5-34) Alanine Aminotransferase (ALT/SGPT) 13 IU/L (0-55) Alkaline Phosphatase 57 IU/L (40-150) Creatine Kinase 69 IU/L (29-168) Creatine Kinase MB 0.50 ng/mL (0-5.0) Troponin I < 0.001 ng/mL (0-0.300) Total Protein 7.5 g/dL (6.5-8.1) Albumin 3.9 g/dL (3.5-5.0) Globulin 3.6 g/dL (2.3-3.5) Albumin/Globulin Ratio 1.1 (0.8-2.0) Imaging Imaging results reviewed: Yes Impressions Findings: The cardiomediastinal silhouette and pulmonary vasculature are within normal limits for a portable exam. Ill-defined patchy bilateral pulmonary opacities are present. There is no evidence of pleural effusion. There are no acute osseous or soft tissue abnormalities. Impression: Findings consistent with Covid pneumonia. Procedures 12 Lead ECG Interpretation ECG Interpretation : ECG: ECG 1 Technician: Interpreted by ED physician Prior ECG tracings: reviewed Rhythm: atrial fibrillation QRS axis: left ST segments normal: Yes Clinical Impression: abnormal ECG Critical Care Time Total Critical Care Time (min): 65 Critical care time exclusive o: separately billable procedures Assessment & Plan Medical Decision Making MDM 75 F arrived to the ED in acute respiratory failure 2/2 COVID PNA. Pt required hospital admission for supplemental oxygen- pt required 5L. Pt admitted to the ICU for further work up and management. Assessment & Plan Final Impression: (1) Acute respiratory failure due to COVID-19 Depart Disposition: ADMITTED Home Meds Active Scripts Ondansetron Hcl* (ZOFRAN*) 4 Mg Tablet, 4 MG SL Q6H PRN for NAUSEA, #14 MG 0 Refills Prov:SANDHIR, AMBICA, DO 06/21/20 Azithromycin (Z-JUSTYN) 250 Mg Tablet, 1 PKG PO DIRECTED, #1 PKG 0 Refills Prov:SANDHIR, AMBICA, DO 06/21/20 Dexamethasone (Decadron) 6 Mg Tablet, 6 MG PO DAILY, #5 Prov:SANDHIR, AMBICA, DO 06/21/20 Ciprofloxacin Hcl (CIPRO) 500 Mg Tablet, 500 MG PO Q12H for 7 Days, #30 TAB Prov:ROSLYN FRAZIER [employer] 07/25/18 Pravastatin Sodium (PRAVASTATIN SODIUM) 20 Mg Tablet, 20 MG PO HS for 14 Days Prov:ROSLYN FRAZIER [employer] 07/25/18 Guaifenesin/Dextromethorphan (MUCINEX DM ER 600-30 MG TABLET) 1 Each Tab.er.12h, 1 EACH PO Q12H for 7 Days, TAB Prov:BARBARA ERVIN MD 03/20/18 Benzonatate (TESSALON PERLE) 100 Mg Capsule, 100 MG PO Q8HR for 7 Days Prov:BARBARA ERVIN MD 03/20/18 Metronidazole (FLAGYL) 500 Mg Tablet, 500 MG PO TID for 7 Days Prov:BARBARA ERVIN MD 03/20/18 Oseltamivir Phosphate (TAMIFLU) 75 Mg Cap, 75 MG PO Q12HR for 5 Days, CAP Prov:BARBARA ERVIN MD 03/20/18 Reported Medications Pantoprazole Sodium* (PROTONIX) 40 Mg Tablet.dr, 40 MG PO DAILY, TAB 03/19/18 Glimepiride (GLIMEPIRIDE) 2 Mg Tablet, 2 MG PO DAILY, TAB 03/19/18 Metformin Hcl (METFORMIN HCL) 500 Mg Tablet, 850 MG PO Q12H, #60 TAB 10/18/14 Medications in the ED Aspirin 81 mg PRN ONCE PO ; Start 06/28/20 at 15:45; Stop 06/28/20 at 15:46; Status UNV Diltiazem HCl 20 mg ONCE ONCE IV ; Start 06/28/20 at 15:45; Stop 06/28/20 at 15:46; Status UNV BALDEMAR MYERS, Jun 28, 2020 15:57
--- OUTSIDE RECORDS SUMMARY | 2020-06-28 15:58 | XMS REPORT | Continuity of Care Document ---
Author Author [employer] Address Unknown Phone Unavailable Care Team Providers Care Manager Of Pharmacy Name Role Phone [employer] [address] Information [employer] Unavailable Un available Problems Problem Status Onset Date Classification Date Reported Comments Source K21.0 GASTRO-ESOPHAGEAL REFLUX DISEASE W Active 05/07/2020 [facility] R07.89 - OTHER CHEST PAIN R06.09 - OTHER Active 04/30/2020 [facility] [place] DX: R10.13=EPIGASTRIC PAIN/R14.0=ABDOMIN Active 08/08/2019 [facility] Pain in thoracic spine 06/09/2018 12/19/2018 [facility] Other muscle spasm 06/01/2018 12/19/2018 [facility] BACK PAIN OR INJURY Active 06/01/2018 [facility] NECK PAIN OR INJURY Active 06/01/2018 [facility] Encounter for screening mammogram for ma lignant neoplasm of breast 11/27/2017 03/02/2018 [facility] [place] CHEST PAIN Active 09/25/2017 [facility] COUGH, ABDOMINAL PAIN Active 09/25/2017 [facility] UNK Active 0 04/22/2017 [facility] R92.8 - OTH ABN AND INCONCLUSIVE FINDI Active 05/22/2016 [facility] [place] ATAXIA, FREQUENT FALLS, HYPERKALEMIA, BL Active 01/21/2016 [facility] R10.9 - UNSPECIFIED ABDOMINAL PAIN Active 07/23/2015 [facility] [place] 786.50 - CHEST PAIN NOS Active 08/14/2014 [facility] [place] Pain in joint, shoulder region Active Diagnosis [...] Type 2 diabetes mellitus without complications 12/19/2018 [facility] intermediate (current) use of oral hypoglycemic drugs 12/19/2018 [facility] 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 12/19/2018 [facility] Presence of unspecified artificial knee joint 12/19/2018 [facility] Final: Other chest pain 01/25/2016 [facility] Final: Type 2 diabetes mellitus without complications 01/25/2016 [facility] Final: Hyperlipidemia, unspecified 01/25/2016 [facility] Final: Morbid (severe) obesity due to excess calories 01/25/2016 [facility] Final: Body mass index (BMI) 50-59.9 , adult 01/25/2016 [facility] CHEST PAIN, UNSPECIFIED Active [facility] Medications Medication Details Route Status Patient Instructions Ordering Provider Order Date Source Cyclobenzaprine hydrochloride 5 MG Oral Tablet [Flexeril] 5 mg = 1 tab, PO, BID, X 7 day, # 14 tab, 0 Refill(s) No Longer Active 06/02/2018 [facility] Ketorolac 30 mg, Route: IM, Dr ug form: INJ, ONCE, Dosing Weight 100, kg, Priority: STAT, Start date: 06/01/18 21:39:00 CDT, Stop date: 06/01/18 21:39:00 CDT Inactive 06/02/2018 [facility] Prednisone 60 mg, Route: PO, D rug form: TAB, ONCE, Dosing Weight 100, kg, Priority: STAT, Start date: 06/01/18 21:39:00 CDT, Stop date: 06/01/18 21:39:00 CDT Inactive 06/02/2018 [facility] cyclobenzaprine 10 mg, Route: PO, Drug form: TAB, ONCE, Dosing Weight 100, kg, Priority: STAT, Start date: 06/01/18 21:39:00 CDT, Stop date: 06/01/18 21:39:00 CDT Inactive 06/02/2018 [facility] Pravastatin Notes: (Same as: Isidra valverdeachol) Inactive 09/27/2017 [facility] Levofloxacin 750 MG Oral Tablet [Levaquin] 750 mg = 1 tab, PO, Q24H, X 7 day, # 7 tab, 0 Refill(s) Active 09/26/2017 [facility] Robitussin-AC oral syrup 10 mL , PO, Q4H, PRN Cough/Congestion, X 10 day, # 240 mL, 0 Refill(s) Active 09/26/2017 [facility] benzonatate 100 mg oral capsule 200 mg = 2 cap, PO, TID, PRN Cough, # 20 cap, 0 Refill(s) Active 09/26/2017 [facility] magnesium citrate 58.2 MG/ML Oral Solution Notes: (Same as: Citrate of Magnesia) Concentration: 1.745 gm / 30 mL Inactive 09/26/2017 [facility] Robitussin-AC oral syrup Notes : (Same As: Robitussin AC) Inactive 09/26/2017 [facility] Streptococcus pneumoniae serotype 1 caps ular antigen diphtheria [id number] protein conjugate vaccine / Streptococcus pneumoniae serotype 14 capsular antigen diphtheria [id number] protein conjugate vaccine / Streptococcus pneumoniae serotype 18C capsular antigen d Notes: Shake well prior to use (Same as: Prevnar 13) Inactive 09/26/2017 [facility] Metformin Notes: (Same as: Glu cophage) Take with meal Inactive 09/26/2017 [facility] Cristian Morris Notes: (Same A s: Cristian Morris) "Do Not Crush" Inactive 09/26/2017 [facility] Aspirin 325 MG Enteric Coated Tablet Notes: (Do Not Crush) Do not crush or chew. Inactive 09/26/2017 [facility] Ondansetron 4 mg, Route: IVP, Drug form: INJ, ONCE, Dosing Weight 104.545, kg, Priority: STAT, Start date: 09/26/17 4:53:00 HULL INSPECTOR, Stop date: 09/26/17 4:53:00 HULL INSPECTOR Inactive 09/26/2017 [facility] Morphine 2 mg, Route: IVP, ONC E, Dosing Weight 104.545, kg, Priority: STAT, Start date: 09/26/17 4:53:00 HULL INSPECTOR, Stop date: 09/26/17 4:53:00 HULL INSPECTOR Inactive 09/26/2017 [facility] Acetaminophen 325 MG / Hydrocodone [place]er trate 5 MG Oral Tablet Notes: (Same as: [place] 325/5) Do not ex ceed 4gm/day of acetaminophen. Inactive 09/26/2017 [facility] Ondansetron Notes: (Same as: Toya [place]) MEDICATION WASTE Product Size: 4 mg Product Wasted: ___ mg Inactive 09/26/2017 [facility] Saline Flush 0.9% Notes: (Same as: BD Posiflush) Inactive 09/26/2017 [facility] Plavix Notes: (Same As: Plavix) No Longer Active 01/23/2016 [facility] Pravastatin Notes: (Same as: P ravachol) Inactive 01/23/2016 [facility] metoprolol tartrate Notes: (Sa me as: Lopressor) Inactive 01/23/2016 [facility] remove patch Notes: Remove pat ch 12 hours after application each day. Inactive 01/23/2016 [facility] Lidocaine Hydrochloride 0.05 MG/MG Trans dermal Patch [Lidoderm] Notes: Apply only once for up to 12 hour s in a 24-hour period (12 hours on and 12 hours off). (Same as: Lidoderm) "Remove old patch before application of new patch" Inactive 01/22/2016 [facility] Dexamethasone Notes: MEDIC ATION WASTE Product Size: 10 mg Product Wasted: ___ mg Inactive 01/22/2016 [facility] Kenalog-40 Notes: (Same As: Humberto nalog-40) MEDICATION WASTE Product Size: 40 mg Product Wasted: ___ mg Inactive 01/22/2016 [facility] Prednisone Notes: (Same as: Pr edniSONE) Take with food. Inactive 01/22/2016 [facility] 12 HR diclofenac epolamine 15 MG/HR Mcknight sdermal Patch [Flector] 1 patch, TOP, BID, PRN for pain, X 15 da y, # 30 patch, 0 Refill(s) On Hold 01/22/2016 [facility] Aspirin 81 MG Chewable Tablet 81 mg = 1 tab, PO, Daily, 0 Refill(s) On Hold 01/22/2016 [facility] Aspirin 81 MG Chewable Tablet Notes: Take with food. Inactive 01/22/2016 [facility] ergocalciferol Notes: (Same as : Vitamin D) "Do Not Crush" Inactive 01/22/2016 [facility] Saline Flush 0.9% Notes: (Same as: BD Posiflush) No Longer Active 01/22/2016 [facility] pravastatin 10 mg oral tablet 10 mg = 1 tab, PO, Bedtime, # 30 tab, 0 Refill(s) Active 01/21/2016 [facility] Enoxaparin Notes: (Same as: Lo venox) No Longer Active 01/21/2016 [facility] Morphine Notes: (Same as:MORPh ine Sulfate) No Longer Active 01/21/2016 [facility] Metoprolol Notes: (Same as: Lo pressor) Push over 2 minutes No Longer Active 01/21/2016 [facility] Nitroglycerin 0.4 MG Sublingual Tablet [Nitrostat] 0.4 mg, 1 tab, Route: SL, Drug form: TAB, Q5Min, Dosing Weight 104.545, kg, PRN Chest Pain, Start date: 01/21/16 15:51:00, Duration: 3 doses or times, Stop date: Limited # of times Inactive 01/21/2016 [facility] Hydralazine Notes: (Same as: A presoline) Push over 5 minutes No Longer Active 01/21/2016 [facility] Saline Flush 0.9% 10 ml, Route : IVP, Drug Form: INJ, Dosing Weight 104.545, kg, PRN, PRN Line Flush, Start date: 01/21/16 15:45:00, Duration: 30 day, Stop date: 02/20/16 15:44:00 Inactive 01/21/2016 [facility] Nitroglycerin Notes: (Same as: Nitroquick, Nitrostat) "Do Not Crush" Sublingual tablet No Longer Active 01/21/2016 [facility] Morphine Notes: (Same as:MORPh ine Sulfate) No Longer Active 01/21/2016 [facility] Ondansetron Notes: (Same as: Toya [place]) No Longer Active 01/21/2016 [facility] Aspirin Notes: Take with food. Inactive 01/21/2016 [facility] Saline Flush 0.9% Notes: Same as: BD Posiflush Sterile Inactive 01/21/2016 [facility] Metformin 500 mg, PO, BID Active 01/21/2016 [facility] Allergies, Adverse Reactions, Alerts Substance Category Reaction Severity Reaction type Status Date Reported Comments Source Lyrica Assertion Drug allergy Active [facility] Immunizations Immunization Date Given Site Status Last Updated Comments Source pneumococcal 13-valent vaccine 09/26/2017 Left Deltoid completed [facility] Results Order Name Results Value [...] Alk Phos 83 39 - 136 09/26/2017 [facility] CHEM PANEL eGFR 90 09/26/2017 [...] should be multiplied by the estimated BMI. [facility] CHEM PANEL Sodium Lvl 135 135 - 145 09/26/2017 [facility] CHEM PANEL Creatinine Lvl 0.63 0.50 - 1.40 09/26/2017 [facility] CHEM PANEL BUN 7 7 - 22 09/26/2017 [facility] CHEM [facility] Glucose Lvl 170 70 - 99 09/26/2017 [facility] RBC 4.44 4.20 - 5.40 09/26/2017 [facility] MCV 91.7 80.0 - 98.0 09/26/2017 [facility] Hgb 13.5 12.0 - 16.0 09/26/2017 [facility] Hct 40.7 36.0 - 48.0 09/26/2017 [facility] WBC 4.6 3.7 - 10.4 09/26/2017 [facility] Platelet 176 133 - 450 09/26/2017 [facility] MCH 30.5 27.0 - 31.0 09/26/2017 [facility] RDW 13.5 11.5 - 14.5 09/26/2017 [facility] MCHC 33.3 32.0 - 36.0 09/26/2017 [facility] MPV 10.0 7.4 - 10.4 09/26/2017 [facility] Lymphocytes # 1.1 1.0 - 5.5 09/26/2017 [facility] Segs-Bands # 2.9 1.5 - 8.1 09/26/2017 [facility] HEMATOLOGY Basophils 0.3 0.0 - 1.0 09/26/2017 [facility] HEMATOLOGY Monocytes # 0.5 0.0 - 0.8 09/26/2017 [facility] HEMATOLOGY Monocytes 11.8 2.0 - 12.0 09/26/2017 [facility] HEMATOLOGY Lymphocytes 24.5 20.0 - 40.0 09/26/2017 [facility] HEMATOLOGY Segs 62.7 45.0 - 75.0 09/26/2017 [facility] HEMATOLOGY Eosinophils 0.7 0.0 - 4.0 09/26/2017 [facility] CARDIAC ENZYMES Total CK 92 12 - 191 01/22/2016 [facility] CARDIAC ENZYMES Troponin-I <0.02 0.00 - 0.40 01/22/2016 [facility] CARDIAC ENZYMES CK MB 0.6 0.5 - 3.6 01/22/2016 [facility] CARDIAC ENZYMES CK MB Index 0.7 0.0 - 2.5 01/22/2016 [facility] CARDIAC ENZYMES Troponin-I <0.02 0.00 - 0.40 01/22/2016 [facility] CARDIAC ENZYMES Total CK 118 12 - 191 01/22/2016 [facility] CARDIAC ENZYMES BNP 99 <=100 pg/mL 01/22/2016 [facility] CARDIAC ENZYMES CK MB Index 0.5 0.0 - 2.5 01/22/2016 [facility] CARDIAC ENZYMES CK MB 0.6 0.5 - 3.6 01/22/2016 [facility] CHEM PANEL eGFR 98 01/22/2016 [...] should be multiplied by the estimated BMI. [facility] CHEM PANEL Creatinine Lvl 0.52 0.50 - 1.40 01/22/2016 [facility] CHEM PANEL Vitamin D, 25-OH, Total 2 0 30 - 100 01/22/2016 [facility] CHEM PANEL Uric Acid 3.5 2.5 - 7.0 01/22/2016 [facility] CHEM PANEL Phosphorus 2.4 2.5 - 4.5 01/22/2016 [facility] CHEM PANEL Magnesium Lvl 2.0 1.8 - 2.4 01/22/2016 [facility] HEMATOLOGY Platelet 219 133 - 450 01/22/2016 [facility] HEMATOLOGY Sed Rate 38 0 - 20 01/22/2016 [facility] IMMUNOLOGY CRP, High Sensitivity 8.0 01/22/2016 [facility] IMMUNOLOGY Homocyst Tot 8.4 3.7 - 13.9 01/22/2016 [facility] LIPIDS VLDL 15 01/22/2016 [facility] LIPIDS LDL (Calculated) 59 <=99 mg/dL 01/22/2016 [facility] LIPIDS HDL 55 >=61 mg/dL 01/22/2016 [facility] LIPIDS Chol 129 <=199 mg/dL 01/22/2016 [facility] LIPIDS Trig 77 <=149 mg/dL 01/22/2016 [facility] LIPIDS CHD Risk 2.35 3.90 - 5.80 01/22/2016 [facility] SPECIAL CHEMISTRY Hgb A1C 7.6 <=5.6 % 01/22/2016 [facility] CARDIAC ENZYMES Total CK 133 12 - 191 01/21/2016 [facility] CARDIAC ENZYMES Troponin-I <0.02 0.00 - 0.40 01/21/2016 [facility] CARDIAC ENZYMES CK MB <0.5 0.5 - 3.6 01/21/2016 [facility] CARDIAC ENZYMES CK MB Index <0.4 0.0 - 2.5 01/21/2016 [facility] CHEM PANEL eGFR 95 01/21/2016 [...] should be multiplied by the estimated BMI. [facility] CHEM PANEL Glucose Lvl 138 70 - 99 01/21/2016 [facility] CHEM PANEL BUN 17 7 - 22 01/21/2016 [facility] CHEM PANEL Creatinine Lvl 0.58 0.50 - 1.40 01/21/2016 [facility] CHEM PANEL Total Protein 7.5 6.4 - 8.4 01/21/2016 [facility] CHEM PANEL B/C Ratio 29 6 - 25 01/21/2016 [facility] CHEM PANEL AGAP 11.0 10.0 - 20.0 01/21/2016 [facility] CHEM PANEL A/G Ratio 0.8 0.7 - 1.6 01/21/2016 [facility] CHEM PANEL Globulin 4.1 2.0 - 4.0 01/21/2016 [facility] CHEM PANEL ALT 30 0 - 65 01/21/2016 [facility] CHEM PANEL Albumin Lvl 3.4 3.5 - 5.0 01/21/2016 [facility] CHEM PANEL Alk Phos 109 39 - 136 01/21/2016 [facility] CHEM PANEL AST 22 0 - 37 01/21/2016 [facility] CHEM PANEL Bili Total 0.8 0.2 - 1.3 01/21/2016 [facility] CHEM PANEL Calcium Lvl 8.4 8.5 - 10.5 01/21/2016 [facility] CHEM PANEL Potassium Lvl 4.0 3.5 - 5.1 01/21/2016 [facility] CHEM PANEL Sodium Lvl 139 135 - 145 01/21/2016 [facility] CHEM PANEL CO2 25 24 - 32 01/21/2016 [facility] CHEM PANEL Chloride Lvl 107 95 - 109 01/21/2016 [facility] HEMATOLOGY MCV 92.4 80.0 - 98.0 01/21/2016 [facility] HEMATOLOGY MCH 30.0 27.0 - 31.0 01/21/2016 [facility] HEMATOLOGY Hct 40.8 36.0 - 48.0 01/21/2016 [facility] HEMATOLOGY MPV 9.3 7.4 - 10.4 01/21/2016 [facility] HEMATOLOGY MCHC 32.5 32.0 - 36.0 01/21/2016 [facility] HEMATOLOGY WBC 6.4 3.7 - 10.4 01/21/2016 [facility] HEMATOLOGY Hgb 13.3 12.0 - 16.0 01/21/2016 [facility] HEMATOLOGY RBC 4.42 4.20 - 5.40 01/21/2016 [facility] HEMATOLOGY RDW 13.4 11.5 - 14.5 01/21/2016 [facility] HEMATOLOGY Platelet 215 133 - 450 01/21/2016 [facility] HEMATOLOGY PT 14.1 12.0 - 14.7 01/21/2016 [facility] HEMATOLOGY INR 1.06 0.85 - 1.17 01/21/2016 [facility] HEMATOLOGY PTT 36.3 22.9 - 35.8 01/21/2016 [facility] HEMATOLOGY Segs 57.1 45.0 - 75.0 01/21/2016 [facility] HEMATOLOGY Eosinophils 2.1 0.0 - 4.0 01/21/2016 [facility] HEMATOLOGY Segs-Bands # 3.7 1.5 - 8.1 01/21/2016 [facility] HEMATOLOGY Basophils 0.5 0.0 - 1.0 01/21/2016 [facility] HEMATOLOGY Lymphocytes 32.7 20.0 - 40.0 01/21/2016 [facility] HEMATOLOGY Monocytes 7.6 2.0 - 12.0 01/21/2016 [facility] HEMATOLOGY Lymphocytes # 2.1 1.0 - 5.5 01/21/2016 [facility] HEMATOLOGY Monocytes # 0.5 0.0 - 0.8 01/21/2016 [facility] HEMATOLOGY Eosinophils # 0.1 0.0 - 0.5 01/21/2016 [facility] URINE AND STOOL UA Color Ltyellow 01/21/2016 [facility] URINE AND STOOL UA Bacteria [...] Negative *NA* (01/21/16 12:16 PM) Negative 01/21/2016 [facility] URINE AND STOOL UA Blood Small *ABN* (01/21/16 12:16 PM) Negative 01/21/2016 [facility] URINE AND STOOL UA Protein Negative mg/dL Negative mg/dL 01/21/2016 [facility] URINE AND STOOL UA Glucose Negative mg/dL Negative mg/dL 01/21/2016 [facility] URINE AND STOOL UA Ketones Negative mg/dL Negative mg/dL 01/21/2016 [facility] URINE AND STOOL UA Turbidity Slight *ABN* (01/21/16 12:16 PM) Clear 01/21/2016 [facility] URINE AND STOOL UA Spec Grav 1.020 <=1.030 01/21/2016 [facility] URINE AND STOOL UA pH 5.0 5.0 - 8.0 01/21/2016 [facility] Pathology Reports No Data Provided [...] transit. Gianni Bustos MD On 05/15/2020 12:46:02; [id number] 05/15/2020 [facility] Chest 2 views DX 2-VIEW [...] noted. IMPRESSION: No acute abnormality. 11/15/2019 [facility] [place] Bone Density DXA [employer] Energy MA BONE [...] is recommended. This exam was interpreted at [id number] for MARGARITA Allred. Chey Gunderson M.D. ms/penrad:11/15/2019 16:26:38 [employer] Supervisor(s): Jennifer PEREIRA(R)(M), [facility] 11/15/2019 [facility] PET CT Tumor [id number] PROCEDURE INFORMATION: Exam: PET/CT Skull Base to [...] cm. Anthony Ramirez MD On 08/19/2019 16:08:58; [id number] 08/18/2019 [facility] Chest 2 views DX Clinical [...] No acute cardiopulmonary disease. SL: SHANE 06/01/2018 [facility] Ribs unilateral DX Clinical In [...] assessment. IMPRESSION: No evidence for rib fractures. SP:[id number] 06/01/2018 [facility] Bone Density DXA [employer] Energy [...] for fracture. Neftaly Corona M.D., jp/penrad:11/24/2017 14:38:41 [employer] Supervisor(s): Fanta Herring RT(R)(M), [facility] 11/24/2017 [facility] [place] [facility] ERICK [...] mammogram, 10/15/2012 mammogram, and 03/14/2011 mammogram - [facility]. TECHNIQUE: Mammographic views were obtained using digital [...] Diagnostic Imaging. 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 IMPRESSION: Nonspecific bowel gas pattern is present. Abundance of stool within the colon. Surgical clips are present within the right upper quadrant and upper pelvis. No definite gross free air detected. SL: [id number] 09/26/2017 [facility] Chest 1view DX Clinical Indica tion: - SOB/CP; Comparison: January 21, 2016 FINDINGS: The cardiomediastinal silhouette is mildly enlarged in size. No significant pleural effusions are seen. The bony structures are intact. No evidence for pneumothorax. IMPRESSION: 1. No acute cardiopulmonary disease 09/26/2017 [facility] Cardiac SPECT multi studies [place] Patient Name: CEDRICK HOLT : 1945; Age: 72 years Female MR: [id number] Study: Cardiac SPECT multi studies [place] 04/30/2017 7:51 AM CDT Clinical Indication: - [...] fixed or reversible defect is noted. SL: [id number] 04/30/2017 [facility] Knee 1-2 Views Bilateral DX [...] mammogram, 10/15/2012 mammogram and 03/14/2011 mammogram - [facility]. The tissue of both breasts is almost entirely fat. The bilateral CC views do not include the posterior breast tissue as well as very lateral and medial breast tissue. No significant masses, calcifications, or other findings are seen in either breast. IMPRESSION: INCOMPLETE: NEEDS ADDITIONAL IMAGING EVALUATION Technical repeat is recommended as described above. The staff from [facility] will contact the patient to schedule the additional studies. A supplemental report will be issued following interpretation of the additional studies. Fernanda Chery M.D. ks/:05/12/2016 09:12:37 [employer] Supervisor: Magdalena PEREIRA(Celi)(M), [facility] This exam was dictated and interpreted by [id number] for MARGARITA Vieira. letter sent: Additional Imaging [...] fixed or reversible defect is noted. : [id number] 01/22/2016 [facility] Ext Upper Venous Doppler Unilat [...] venous Doppler of the right upper extremity. [id number] 01/21/2016 [facility] Chest 1view DX Patient Name: Ryland HOLT : 1945; Age: 70 years Female MR: [id number] Study: Chest 1view DX Order Time: 01/21/2016 [...] radiographic evidence of acute cardiopulmonary disease. : [id number] 01/21/2016 [facility] Abdomen complete US EXAM: Abdo [...] Comments Source Systolic (mm Hg) 122 06/02/2018 [facility] Diastolic (mm Hg) 73 06/02/2018 [facility] Respitory Rate 18 06/02/2018 [facility] Temperature Oral (F) 98 F 06/02/2018 [facility] Heart Rate 85 06/02/2018 [facility] Heart Rate 84 06/02/2018 [facility] Respitory Rate 17 06/02/2018 [facility] Systolic (mm Hg) 144 06/02/2018 [facility] Diastolic (mm Hg) 77 06/02/2018 [facility] Weight 100 06/02/2018 [facility] Systolic (mm Hg) 144 06/02/2018 [facility] Diastolic (mm Hg) 73 06/02/2018 [facility] Heart Rate 84 06/02/2018 [facility] Respitory Rate 18 06/02/2018 [facility] Temperature Oral (F) 97.9 F 06/02/2018 [facility] Height 149.86 cm 06/02/2018 [facility] BMI Calculated 44.53 06/02/2018 [facility] Respitory Rate 17 09/26/2017 [facility] Temperature Oral (F) 98.0 F 09/26/2017 [facility] Systolic (mm Hg) 110 09/26/2017 [facility] Diastolic (mm Hg) 63 09/26/2017 [facility] Heart Rate 64 09/26/2017 [facility] Systolic (mm Hg) 106 09/26/2017 [facility] Diastolic (mm Hg) 64 09/26/2017 [facility] Temperature Oral (F) 98.3 F [...] 01/22/2016 [facility] Systolic (mm Hg) 133 01/22/2016 [facility] Diastolic (mm Hg) 73 01/22/2016 [facility] Respitory Rate 18 01/22/2016 [facility] Temperature Oral (F) 98.2 F 01/22/2016 [facility] Heart Rate 62 01/22/2016 [facility] Heart Rate 66 01/22/2016 [facility] Temperature Oral (F) 97.9 F 01/22/2016 [facility] Respitory Rate 18 01/22/2016 [facility] Systolic (mm Hg) 127 01/22/2016 [facility] Diastolic (mm Hg) 81 01/22/2016 [facility] Respitory Rate 18 01/22/2016 [facility] Systolic (mm Hg) 118 01/22/2016 [facility] Diastolic (mm Hg) 78 01/22/2016 [facility] Temperature Oral (F) 98.5 F 01/22/2016 [facility] Heart Rate 63 01/22/2016 [facility] Weight 104.545 01/21/2016 [facility] BMI Calculated 46.55 01/21/2016 [facility] Height 149.86 cm 01/21/2016 [facility] Weight 104.545 01/21/2016 [facility] BMI Calculated 46.55 01/21/2016 [facility] Height 149.86 cm 01/21/2016 [facility] Encounters Location Location Details Encounter Type Encounter Number Reason For Visit Attending Provider ADM Date DC Date Status Source [facility] [place] [facility] [id number] 07 Alistair Montiel 08/14/2014 08/15/2014 [facility] [place] [facility] [place] [facility] [id number] Alistair Montiel 08/17/2014 08/18/2014 [facility] [place] [facility] [place] [facility] [id number] Ninfa Wintersyo 09/16/2014 09/17/2014 [facility] [place] [facility] [place] [facility] [id number] Alistair Montiel 12/06/2014 12/07/2014 [facility] [place] [facility] [place] [facility] [id number] Alistair Montiel 03/13/2015 03/14/2015 [facility] [facility] [place] [facility] [id number] Alistair Montiel 08/02/2015 08/03/2015 [facility] [place] [facility] OBS Observation Patient [id number] Yan Cruzbuck 01/21/2016 01/22/2016 [facility] [place] [facility] [id number] Alistair Montiel 05/10/2016 05/11/2016 [facility] [place] [facility] [place] [facility] [id number] Alistair Montiel 07/11/2016 07/12/2016 [facility] [place] [facility] Outpatient [id number] Allison Youngblood Jr 04/30/2017 05/01/2017 [facility] Observation [id number] Evelio Richter 09/26/2017 09/26/2017 [facility] [place] [facility] [id number] Bin Hankins 11/24/2017 11/25/2017 [facility] [place] [facility] Emergency [id number] Oscar Loco 06/02/2018 06/02/2018 [facility] Outpatient [id number] Petar Ansari 08/18/2019 08/19/2019 [facility] [place] [facility] [id number] Bin Hankins 11/15/2019 11/16/2019 [facility] [place] [facility] [place] [facility] [id number] 18 Bin Hankins 05/03/2020 05/04/2020 [facility] [place] [facility] Outpatient [id number] Petar Ansari 05/15/2020 05/16/2020 [facility] Procedures Procedure Code Date Perfomer Comments Source Abdominal hysterectomy [id number] OPIMohinder Mcclurea,[facility] Gallbladder stone removal [id number] [facility] [place],[facility] Hiatus hernia repair [id number] [facility] Knee replacement [id number] [facility] Assessment and Plan Assessment and [...] Brown MD Date: 09/26/17 full H&P dictated, #[id number] date/time: 09/26/2017 04:55 09/26/2017 [place] Extracted from:Title: Clinical Document Author: Yan Roldan MD Date: 01/22/16 [id number] 01/22/2016 [facility] Plan of Care No Data Provided for This Section Social History Social History Date Source Social History TypeResponse Alcohol Past, Previous treatment: None. Smoking Status Never smoker; Exposure to Tobacco Smoke None; Cigarette Smoking Last 365 Days No; Reg Smoking Cessation Counseling No entered on: 06/01/18 01/21/2016 [facility] Social History TypeResponse Alcohol Past, [...]
[2020-06-28 16:12] LABS: HEMATOCRIT 39.8 % (34.2-44.1); HEMOGLOBIN 12.9 g/dL (12.0-16.0); LYMPHOCYTES # (AUTO) 0.8 (1.0-3.2); LYMPHOCYTES % 17.1 % (18.0-39.1); MEAN CORPUSCULAR HEMOGLOBIN 28.7 pg (28-32); MEAN CORPUSCULAR HGB CONC 32.4 g/dL (31-35); MEAN CORPUSCULAR VOLUME 88.6 fL (81-99); MONOCYTES # (AUTO) 0.2 (0.2-0.8); NEUTROPHILS # (AUTO) 3.7 (2.1-6.9); NEUTROPHILS % 78.3 % (38.7-80.0); PLATELET COUNT 217 x10e3/uL (140-360); RED BLOOD COUNT 4.49 x10e6/uL (3.6-5.1); RED CELL DISTRIBUTION WIDTH 13.4 % (11.7-14.4)
[2020-06-28 16:35] LABS: ALANINE AMINOTRANSFERASE 13 IU/L (0-55); ALBUMIN 3.9 g/dL (3.5-5.0); ALBUMIN/GLOBULIN RATIO 1.1 (0.8-2.0); ALKALINE PHOSPHATASE 57 IU/L (40-150); ANION GAP 18.9 mmol/L (8-16); BLOOD UREA NITROGEN 8 mg/dL (7-26); BUN/CREATININE RATIO 12 (6-25); CALCIUM 8.4 mg/dL (8.4-10.2); CARBON DIOXIDE 18 mmol/L (22-29); CHLORIDE 100 mmol/L (98-107); CREATINE KINASE 69 IU/L (29-168); CREATININE, SERUM 0.67 mg/dL (0.57-1.11); EST GLOMERULAR FILTRATION RATE > 60 ML/MIN (60-); GLUCOSE 146 mg/dL (74-118); POTASSIUM 3.9 mmol/L (3.5-5.1); SODIUM 133 mmol/L (136-145)
--- NOTE | 2020-06-28 16:51 | Diagnostic Imaging Report ---
Chest, 1 view, 06/28/2020. History: Shortness of breath, Covid positive. Comparison: 06/21/2020. Findings: The cardiomediastinal silhouette and pulmonary vasculature are within normal limits for a portable exam. Ill-defined patchy bilateral pulmonary opacities are present. There is no evidence of pleural effusion. There are no acute osseous or soft tissue abnormalities. Impression: Findings consistent with Covid pneumonia. Signed by: Genaro Mijares on 06/28/2020 4:47 PM
[2020-06-28] MEDS ORDERED: VANCOMYCIN 1GM/NS 250 ML 250 ML IV ONE (17:15)
[2020-06-28] MEDS ORDERED: ACETAMINOPHEN 325 MG TAB PO PRN (17:15)
[2020-06-28] MEDS ORDERED: ONDANSETRON HCL INJ 2MG/ML 2ML 2 MG/ML VIAL IV PRN (17:15)
--- NOTE | 2020-06-28 17:36 | NUR ---
Nursing report given to Lino WHARTON in Covid ICU.
[2020-06-28] MEDS ORDERED: DEXTROSE 50% SYRINGE 50 ML IV PRN (18:30)
--- NOTE | 2020-06-28 19:00 | Consultation ---
DATE OF CONSULTATION: Pulmonary Critical Care Consultation CHIEF COMPLAINT: Fever and cough with history of COVID. HISTORY OF PRESENT ILLNESS: The patient is a 75-year-old woman. She has a history of COVID, diagnosed on the 21 of June by nasal swab. She went to [facility] and stayed for 3 days. Apparently, she was discharged home after receiving some medication. She felt well when she left, but had progressive symptoms over the past week. She noticed worsening nausea and vomiting. She also noticed worsening dyspnea and some cough. She did not have chest pain. She had recurrent fevers. PAST SURGICAL HISTORY: None. PAST MEDICAL HISTORY: 1. History of COVID-19 infection as noted above. 2. No prior history of asthma or respiratory problems. 3. No prior history of cardiac disease. 4. History of diabetes. 5. History of hypertension. SOCIAL HISTORY: The patient quit smoking 40 years ago. She is not an active drinker. ALLERGIES: SHE IS ALLERGIC TO LYRICA. REVIEW OF SYSTEMS: She reports some fevers. She has no neck pain or headache. She has no chest pain. She is reporting some dyspnea. She notes a cough. She has some abdominal pain. She has nausea and vomiting. She has no leg edema. PHYSICAL EXAMINATION: VITAL SIGNS: The blood pressure is 100/42 and the pressure is 103. Her pulse is 90. HEENT: No facial swelling or erythema. CARDIAC: Regular rate and rhythm with normal S1, S2. LUNGS: Auscultation of lungs reveals crackles at the bases. There is no wheezing. ABDOMEN: Soft, nontender. There is no rebound or guarding. EXTREMITIES: No leg edema or calf tenderness. There is no cyanosis or clubbing. SKIN: No rashes. NEUROLOGICAL: No focal abnormalities. LABORATORY DATA: The white blood cell count is 4.7, hemoglobin is 12.9. The platelet count is 217. The BUN to creatinine ratio is normal. The carbon dioxide is 18. Other electrolytes are within normal limits. RADIOGRAPHIC DATA: Chest x-ray shows bilateral infiltrates consistent with COVID pneumonia. IMPRESSION: 1. Acute respiratory failure. 2. Viral pneumonia and coronavirus disease-19 infection. 3. Possible superimposed bacterial infection. 4. Atrial fibrillation with rapid ventricular response. 5. Diabetes. 6. Extreme obesity. PLAN: 1. The patient will receive antibiotics for possible superinfection with bacteria. 2. Lovenox at 0.5 mg/kg twice daily. 3. CT scan of the chest to rule out pulmonary embolism. 4. Judicious use of IV fluids. 5. Monitor and control blood sugars. 6. Tylenol as needed. 7. The patient has received diltiazem. If atrial fibrillation recurs, she may require amiodarone. We will also check an echocardiogram. MD LUBNA Bishop/MYRIAM /[id number]
--- NOTE | 2020-06-28 19:25 | Diagnostic Imaging Report ---
EXAMINATION: CHEST SINGLE (PORTABLE) INDICATION: line placement COMPARISON: Multiple prior chest x-ray examinations most recent dated 06/28/2020 at 4:29 PM FINDINGS: AP view TUBES and LINES: There is a new right IJ central venous catheter with distal tip in SVC. . LUNGS/PLEURA: Lungs are not well inflated. Ill-defined patchy bilateral pulmonary opacities are unchanged. There is no pleural effusion or pneumothorax. HEART AND MEDIASTINUM: The cardiomediastinal silhouette is mildly enlarged. BONES AND SOFT TISSUES: No acute osseous lesion. Soft tissues are unremarkable. UPPER ABDOMEN: No free air under the diaphragm. IMPRESSION: Unchanged multifocal bilateral pneumonia. Signed by: Cornell Kenny MD on 06/28/2020 7:21 PM
--- NOTE | 2020-06-28 19:50 | Operative Report ---
DATE OF PROCEDURE: SURGEON: Heraclio Parker MD PROCEDURE: Ultrasound guided central line placement. PREOPERATIVE DIAGNOSES: Atrial fibrillation, COVID-19 pneumonia, and lack of IV access. POSTOPERATIVE DIAGNOSES: Atrial fibrillation, COVID-19 pneumonia, and lack of IV access. CONSENT: Consent was obtained from the patient. MEDICATIONS: 1% lidocaine for local anesthesia. DESCRIPTION OF PROCEDURE: The patient was placed in a supine position. A full length sterile drape was used along with sterile gown, sterile gloves, and sterile mask. The area between the heads of the sternocleidomastoid and the right lateral neck was anesthetized with 1% lidocaine. An ultrasound machine was then used to locate the right internal jugular vein. It was cannulated under direct visualization with a 16-gauge needle. A wire was then passed through the needle. A dilator was used to open the skin and a triple-lumen catheter was placed over the wire by the Seldinger technique. All the ports flushed. COMPLICATIONS: None. ESTIMATED BLOOD LOSS: 5 mL. Heraclio Parker MD [facility]/MODL /[id number]
[2020-06-28] MEDS: LACTATED RINGER'S 500 ML INJ SCH ×2 (20:49→23:12)
[2020-06-28] MEDS: INSULIN REGULAR, HUMAN 100 UNIT/1 ML 3ML VIAL SQ SCH (20:49)
[2020-06-28] MEDS: MEROPENEM 1GM 100 ML IV SCH (20:49)
[2020-06-28] MEDS ORDERED: ENOXAPARIN SOD INJ 40 MG/0.4 ML SYR SC SCH (21:00)
[2020-06-28] MEDS ORDERED: ZOLPIDEM TARTRATE 5 MG TAB PO PRN (21:00)
[2020-06-29] VITALS (22 sets, daily range): BP systolic 101–127; BP diastolic 47–99
[2020-06-29] MEDS: MEROPENEM 1GM 100 ML IV SCH ×3 (01:07→16:59)
[2020-06-29] MEDS: LACTATED RINGER'S 500 ML INJ SCH (01:07)
--- NOTE | 2020-06-29 03:42 | Diagnostic Imaging Report ---
EXAM: CT Chest WITH contrast 06/29/2020 1:42 AM INDICATION: ^PNEMONIA; COVID COMPARISON: Chest x-ray dated 06/28/2020 TECHNIQUE: Chest was scanned utilizing a multidetector helical scanner from the lung apex through the level of the adrenal glands without administration of IV contrast. Coronal and sagittal reformations were obtained. Routine protocol was performed. IV CONTRAST: 100 mL of Isovue-370 COMPLICATIONS: None RADIATION DOSE: Total DLP: 406.63 mGy*cm Estimated effective dose: (DLP x 0.014 x size factor) mSv CTDIvol has been reviewed. It is below the limits set by the Radiation Protocol Committee (RPC). FINDINGS: LINES/ TUBES: Partially seen right IJ central line with tip terminating at cavoatrial junction. LUNGS AND AIRWAYS: Bilateral mostly peripheral groundglass airspace opacities. Mild bronchiectasis. Airways are normal. PLEURA: The pleural spaces are clear. HEART AND MEDIASTINUM: The thyroid gland is normal. Scattered prominent mediastinal lymph nodes, likely reactive. No hilar or axillary lymphadenopathy. The heart is normal in size.. There is no pericardial effusion. UPPER ABDOMEN: Cholecystectomy. 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 1.5 cm indeterminate left adrenal nodule is again seen. Small hiatal hernia. BONES: Degenerative changes of thoracic spine. SOFT TISSUES: Unremarkable. IMPRESSION: Bilateral groundglass airspace opacities, representing atypical multifocal pneumonia. Scattered prominent mediastinal lymph nodes, likely reactive. Signed by: Dr. Julio C Norris MD on 06/29/2020 3:38 AM
[2020-06-29] MEDS ORDERED: IOPAMIDOL 370 MG/ML 200 ML INFUS..BTL INJ ONE (04:01)
[2020-06-29 04:58] LABS: BASOPHILS % 0.2 % (0.0-1.0); HEMATOCRIT 36.4 % (34.2-44.1); HEMOGLOBIN 11.6 g/dL (12.0-16.0); LYMPHOCYTES # (AUTO) 0.9 (1.0-3.2); LYMPHOCYTES % 16.7 % (18.0-39.1); MEAN CORPUSCULAR HEMOGLOBIN 28.5 pg (28-32); MEAN CORPUSCULAR HGB CONC 31.9 g/dL (31-35); MEAN CORPUSCULAR VOLUME 89.4 fL (81-99); MONOCYTES # (AUTO) 0.2 (0.2-0.8); MONOCYTES % 3.8 % (4.4-11.3); NEUTROPHILS # (AUTO) 4.2 (2.1-6.9); NEUTROPHILS % 78.7 % (38.7-80.0); PLATELET COUNT 204 x10e3/uL (140-360); RED BLOOD COUNT 4.07 x10e6/uL (3.6-5.1); RED CELL DISTRIBUTION WIDTH 13.5 % (11.7-14.4)
[2020-06-29 05:21] LABS: ALANINE AMINOTRANSFERASE 9 IU/L (0-55); ALBUMIN 3.4 g/dL (3.5-5.0); ALBUMIN/GLOBULIN RATIO 1.1 (0.8-2.0); ALKALINE PHOSPHATASE 47 IU/L (40-150); ANION GAP 16.6 mmol/L (8-16); BLOOD UREA NITROGEN 7 mg/dL (7-26); BUN/CREATININE RATIO 12 (6-25); CALCIUM 7.9 mg/dL (8.4-10.2); CARBON DIOXIDE 20 mmol/L (22-29); CHLORIDE 103 mmol/L (98-107); EST GLOMERULAR FILTRATION RATE > 60 ML/MIN (60-); GLUCOSE 123 mg/dL (74-118); POTASSIUM 3.6 mmol/L (3.5-5.1); SODIUM 136 mmol/L (136-145)
[2020-06-29 05:46] LABS: CREATINE KINASE MB 0.4 ng/mL (0-5.0)
--- NOTE | 2020-06-29 06:28 | NUR ---
H&P cc: sob/cough HPI 75yoF, my clinic pt, recently dx with COVID19 about 1 week ago, treated at [facility], sent home, now worsening SOB/cough, came to ED. Family members also affected, daughter is also in ICU here. 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 2.6x1.4 cm pleural based scar 23.Hip arthralgia 24.Colonic polyp@ hepatic flexure 25.Hiatal hernia 26.PreDM RESOLVED Gangrene of colon s/p partial resction in 2007- RESOLVED RESOLVED SBO 2009 ([facility])-RESOLVED Resolved- URI- Resolved Resolved-Diarrhea- Resolved Resolved-Small bowel obstruction- Resolved Resolved- Acute Left Pyelonephritis- Resolved Resolved- Acute Right Pyelonephritis- Resolved Resolved- Acute Bronchitis- Resolved RESOLVED Left PNA- treated with levaquin; RESOLVED RESOLVED-E.coliUTI-RESOLVED RESOLVED Acute pyelonephritis- RESLVED: RESOLVED-Influenza infection-RESOLVED Past Surgical History: 1.Hyterectomy 2.Hernia repair 3.Right knee replacement 4.Cholecystectomy 1996 5.Partial colonic resection for gangrene 2007 at [facility] Allergies; see emr Fh/SH; ; has children; no etoh; hx cigs Meds; see MAR ROS; unobtainable v/s revd PE anxious appearing rapid shallow breathing ns1s2 reduced and course breath sounds soft nt nd no e/t skin dry flat affect awake; liu labs/med revd A/P: 75yoF COVID19 infection Multifocal PNA Sepsis due to COVID19 Metabolic acidosis PreDM HLD Morbid Obesity COPD Combined Chronic systolic and diastolic CHF Nicotine dependence in remission Hx Lung mass 2.6x1.4cm on 07/08/19 Hx 2.6x1.4 cm pleural based scar PLAN: Merrem+vitC/zinc; consideration for convalescent plasma Antitussives Hba1c/lipids; ssi; ADA SCD; lovenox; pepcid cct>35mins D/W and . BARBARA ERVNI MD, PHD
[2020-06-29] MEDS ORDERED: ONDANSETRON HCL INJ 2MG/ML 2ML 2 MG/ML VIAL IV PRN (06:30)
[2020-06-29] MEDS ORDERED: ACETAMINOPHEN 325 MG TAB PO PRN (06:30)
[2020-06-29] MEDS ORDERED: DOCUSATE SODIUM 100 MG CAP PO PRN (06:30)
[2020-06-29] MEDS ORDERED: ZOLPIDEM TARTRATE 5 MG TAB PO PRN (06:30)
[2020-06-29] MEDS ORDERED: GUAIFENESIN/DEXTROMETHORPHAN LIQD 5 ML UDC NG PRN (06:30)
[2020-06-29] MEDS ORDERED: ONDANSETRON HCL 4 MG ORAL DISINTEGRATING TAB SL PRN (06:30)
[2020-06-29 06:42] LABS: CHOL/HDL RATIO 2.4 (3.0-3.6)
[2020-06-29] MEDS: INSULIN REGULAR, HUMAN 100 UNIT/1 ML 3ML VIAL SQ SCH ×4 (07:30→20:17)
--- NOTE | 2020-06-29 08:21 | Diagnostic Imaging Report ---
TECHNIQUE: Frontal view of the chest. INDICATION: ^Y ^COVID ^[id number] ^0540 COMPARISON: CT chest dated same day. Chest x-ray dated the day prior. DISCUSSION: Limited evaluation due to portable technique. Lines and hardware: Stable right internal jugular nontunneled central venous catheter with tip projecting at the cavoatrial junction. Multiple overlying EKG leads are noted. Heart and mediastinum: Stable. Lungs and pleura: Stable ill-defined patchy bilateral peripheral pulmonary opacities. Negative for large effusion or pneumothorax. Soft tissues and bones: No acute abnormality. IMPRESSION: Stable exam demonstrate bilateral interstitial peripheral predominant opacities. Signed by: Horacio Douglas MD on 06/29/2020 8:18 AM
[2020-06-29] MEDS ORDERED: PANTOPRAZOLE SOD 40 MG TABEC PO SCH (09:00)
[2020-06-29] MEDS: ENOXAPARIN INJ 80 MG/0.8 ML SYR SC SCH ×2 (09:20→20:10)
[2020-06-29] MEDS: PANTOPRAZOLE SOD 40 MG TABEC PO SCH (09:23)
[2020-06-29] MEDS: ASCORBIC ACID 500 MG TAB PO SCH ×2 (09:23→16:48)
[2020-06-29] MEDS: ZINC SULFATE 220 MG CAP PO SCH (09:23)
[2020-06-29] MEDS: BENZONATATE 100 MG CAP PO SCH ×2 (14:00→20:10)
--- NOTE | 2020-06-29 15:14 | Progress Note ---
DATE: SUBJECTIVE: The patient is currently down to 5 L of oxygen. She is more comfortable with less coughing. She complains of some abdominal pain. She has some nausea, but no vomiting. She has no diarrhea. PHYSICAL EXAMINATION: VITAL SIGNS: The blood pressure is 114/63 and saturation is 93% on 5 L. The pulse is 80. HEENT: Shows no facial swelling or erythema. LYMPHATIC: Shows no submandibular, cervical, or supraclavicular adenopathy. CARDIAC: Reveals regular rate and rhythm with normal S1 and S2. LUNGS: Auscultation of lungs reveals rhonchorous breath sounds bilaterally. There is no wheezing. ABDOMEN: Soft and nontender. There is no rebound or guarding. EXTREMITIES: Shows no leg edema or calf tenderness. There is no cyanosis or clubbing. SKIN: Shows no rashes. NEUROLOGICAL: Shows no focal abnormalities. LABORATORY DATA: White blood cell count is 5.3, the hemoglobin is 11.6, and the platelet count is 204. The BUN to creatinine ratio is normal. The other electrolytes are within normal limits and the albumin is 3.4. RADIOGRAPHIC DATA: Chest x-ray shows bilateral infiltrates. IMPRESSION: 1. Viral pneumonia and COVID-19 infection. 2. Acute respiratory failure. 3. Atrial fibrillation. 4. Diabetes. PLAN: 1. Continue current antibiotics. 2. Continue Lovenox. 3. Continue to monitor and control blood sugars. 4. Await echocardiogram. MD LUBNA Bishop/MYRIAM /[id number]
--- NOTE | 2020-06-29 18:29 | NUR ---
infectious disease consultation Patient seen examined chart reviewed Thank you for asking me to see the patient Fever and cough with history of COVID. HISTORY OF PRESENT ILLNESS: The patient is a 75-year-old woman. She has a history of COVID, diagnosed on the 21 of June by nasal swab. She went to [facility] and stayed for 3 days.the patient apparently was treated discharged home She is coming back to us for shortness of breath or cough She is currently laying in bed comfortably Currently the intensive care unit Apparently, she was discharged home after receiving some medication. She felt well when she left, but had progressive symptoms over the past week. She noticed worsening nausea and vomiting. She also noticed worsening dyspnea and some cough. She did not have chest pain. She had recurrent fevers. PAST SURGICAL HISTORY: None. PAST MEDICAL HISTORY: 1. History of COVID-19 infection as noted above. 2. No prior history of asthma or respiratory problems. 3. No prior history of cardiac disease. 4. History of diabetes. 5. History of hypertension. SOCIAL HISTORY: The patient quit smoking 40 years ago. She is not an active drinker. ALLERGIES: SHE IS ALLERGIC TO LYRICA. REVIEW OF SYSTEMS: She reports some fevers. She has no neck pain or headache. She has no chest pain. She is reporting some dyspnea. She notes a cough. She has some abdominal pain. She has nausea and vomiting. She has no leg edema. PHYSICAL EXAMINATION: VITAL SIGNS: The blood pressure is 100/42 and the pressure is 103. Her pulse is 90. HEENT: No facial swelling or erythema. CARDIAC: Regular rate and rhythm with normal S1, S2. LUNGS: Auscultation of lungs reveals crackles at the bases. There is no wheezing. ABDOMEN: Soft, nontender. There is no rebound or guarding. EXTREMITIES: No leg edema or calf tenderness. There is no cyanosis or clubbing. SKIN: No rashes. NEUROLOGICAL: No focal abnormalities. LABORATORY DATA: The white blood cell count is 4.7, hemoglobin is 12.9. The platelet count is 217. The BUN to creatinine ratio is normal. The carbon dioxide is 18. Other electrolytes are within normal limits. RADIOGRAPHIC DATA: Chest x-ray shows bilateral infiltrates consistent with COVID pneumonia. IMPRESSION: 1. Acute respiratory failure. 2. Viral pneumonia and coronavirus disease-19 infection. 3. Possible superimposed bacterial infection. 4. Atrial fibrillation with rapid ventricular response. 5. Diabetes. 6. Extreme obesity. discussed with the patient at length discussed with the medical team I agree with the current choice of antibiotic concern about healthcare associated pneumonia and agree with dexamethasone diabetic control Lovenox 40 mg subcu every 24 hours We will get CTA to rule out PE Discussed with the patient about convalescent plasma as well asRMZV tHE PATIENT DOES NOT STAND ARE BOTH STILL EXPERIMENTAL DRUGS AND IF THEY APPROVE IT ON EMERGENCY BASIS AND NOT APPROVED YET BUT SHE IS VERY INTERESTED AN D SHE IS WILLING TO TAKE THIS TO MEDICATION INFORMATION WAS GIVEN TO THE PATIENT WILL GIVE WHEN AVAILABLE WE WILL TYPE AND CROSS BLOOD FOR THE PLASMA WILL GIVE 1 UNIT WHEN AVAILABLE
[2020-06-29] MEDS ORDERED: REMDESIVIR 200MG/NS 100ML 200 MG in SODIUM CHLORIDE 0.9% 100 ML 100 ML IV ONE ×2 (18:45→19:15)
[2020-06-29] MEDS: PRAVASTATIN 20 MG TAB PO SCH (20:10)
[2020-06-30] VITALS (27 sets, daily range): BP systolic 97–131; BP diastolic 54–79
[2020-06-30] MEDS: MEROPENEM 1GM 100 ML IV SCH ×3 (01:15→16:25)
[2020-06-30 04:55] LABS: BASOPHILS % 0.2 % (0.0-1.0); HEMATOCRIT 35.4 % (34.2-44.1); HEMOGLOBIN 11.5 g/dL (12.0-16.0); LYMPHOCYTES # (AUTO) 0.8 (1.0-3.2); LYMPHOCYTES % 14.4 % (18.0-39.1); MEAN CORPUSCULAR HGB CONC 32.5 g/dL (31-35); MEAN CORPUSCULAR VOLUME 89.2 fL (81-99); MONOCYTES # (AUTO) 0.2 (0.2-0.8); MONOCYTES % 4.6 % (4.4-11.3); NEUTROPHILS # (AUTO) 4.2 (2.1-6.9); PLATELET COUNT 219 x10e3/uL (140-360); RED BLOOD COUNT 3.97 x10e6/uL (3.6-5.1); RED CELL DISTRIBUTION WIDTH 13.4 % (11.7-14.4)
[2020-06-30 05:01] LABS: ALANINE AMINOTRANSFERASE 12 IU/L (0-55); ALBUMIN 3.2 g/dL (3.5-5.0); ALKALINE PHOSPHATASE 46 IU/L (40-150); ANION GAP 15.7 mmol/L (8-16); BLOOD UREA NITROGEN 10 mg/dL (7-26); BUN/CREATININE RATIO 17 (6-25); CARBON DIOXIDE 21 mmol/L (22-29); CHLORIDE 104 mmol/L (98-107); CREATININE, SERUM 0.58 mg/dL (0.57-1.11); EST GLOMERULAR FILTRATION RATE > 60 ML/MIN (60-); GLUCOSE 127 mg/dL (74-118); POTASSIUM 3.7 mmol/L (3.5-5.1); SODIUM 137 mmol/L (136-145)
[2020-06-30] MEDS: BENZONATATE 100 MG CAP PO SCH ×3 (05:13→21:24)
[2020-06-30] MEDS: ENOXAPARIN INJ 80 MG/0.8 ML SYR SC SCH ×2 (08:16→21:23)
[2020-06-30] MEDS: ASCORBIC ACID 500 MG TAB PO SCH ×2 (08:16→16:25)
[2020-06-30] MEDS: ZINC SULFATE 220 MG CAP PO SCH (08:16)
[2020-06-30] MEDS: PANTOPRAZOLE SOD 40 MG TABEC PO SCH (08:16)
[2020-06-30] MEDS: DEXAMETHASONE SOD PHOS INJ 4 MG/ML VIAL IV SCH (08:16)
[2020-06-30] MEDS: INSULIN REGULAR, HUMAN 100 UNIT/1 ML 3ML VIAL SQ SCH ×4 (08:33→21:24)
--- NOTE | 2020-06-30 10:52 | NUR ---
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 9-5 continue treatments; monitor closely. BARBARA ERVIN MD, PHD
--- NOTE | 2020-06-30 12:22 | Progress Note ---
DATE: Pulmonary Critical Care Progress Note SUBJECTIVE: The patient is currently complaining of some abdominal pain. The patient has some nausea. There is no vomiting. There is no diarrhea. PHYSICAL EXAMINATION: VITAL SIGNS: Blood pressure is 114/70, saturation is 95% on 5 L, respiratory rate is 16, and pulse is 87. HEENT: Shows no facial swelling or erythema. LYMPHATIC: Shows no submandibular, cervical, or supraclavicular adenopathy. CARDIAC: Reveals regular rate and rhythm with normal S1, S2. LUNGS: Auscultation of lungs shows clear breath sounds bilaterally. There is no wheezing. ABDOMEN: Soft and nontender. There is no rebound or guarding. EXTREMITIES: Shows no leg edema or calf tenderness. There is no cyanosis or clubbing. LABORATORY DATA: SKK-mz-tpvubzwxju ratio is normal. Other electrolytes are within normal limits. White blood cell count is 5.2, hemoglobin is 11.5, and platelet count is 219. IMPRESSION: 1. Viral pneumonia and COVID-19 infection. 2. Abdominal pain. 3. Atrial fibrillation. 4. Diabetes. PLAN: 1. Continue oxygen and wean as tolerated. 2. Speech therapy evaluation to rule out any aspiration. 3. Physical therapy evaluation. 4. Continue current antibiotics. 5. Complete remdesivir and dexamethasone. 6. Continue Lovenox. 7. Abdominal ultrasound. Heraclio Parker MD [facility]/MODL /[id number]
--- NOTE | 2020-06-30 13:35 | Diagnostic Imaging Report ---
EXAM: Complete Abdominal Ultrasound INDICATION: abdominal pain COMPARISON: None. TECHNIQUE: Transverse and longitudinal images of the upper abdomen were obtained. FINDINGS: Liver: Size: 15.9 cm in the right midclavicular line, Enlarged Appearance: Increased echogenicity, smooth contour Mass: No focal masses Spleen: Size: 8.7 cm in length, normal Echogenicity: Normal Mass: No focal masses. Gallbladder: Status post cholecystectomy. Bile Ducts: Intrahepatic Ducts: No dilatation Extrahepatic Ducts: Common bile duct measures 0.4 cm, no dilatation Pancreas: Incompletely visualized due to overlying bowel gas, but no abnormality identified involving the visualized portions of the pancreas. Right Kidney: Size: 10.4 cm Echogenicity: Normal Parenchymal thickness: Normal Collecting System: No hydronephrosis Stone: None Cyst/Mass: None Left Kidney: Size: 11.0 cm Echogenicity: Normal Parenchymal thickness: Normal Collecting System: No hydronephrosis Stone: None Cyst/Mass: None Vessels: Aorta: Visualized portions are normal Inferior Vena Cava: Visualized portions are normal Main Portal Vein: 0.7 cm, normal size with hepatopetal flow. Free Fluid: No ascites or pleural effusion IMPRESSION: Mild hepatic steatosis without focal mass. Signed by: Cornell Kenny MD on 06/30/2020 1:32 PM
--- NOTE | 2020-06-30 15:48 | Progress Note ---
DATE: SUBJECTIVE: Ms. Moreno is doing better. She has some abdominal discomfort, overall doing well. PHYSICAL EXAMINATION: GENERAL: She is currently alert and oriented. VITAL SIGNS: Stable, afebrile. She is on 5 L of oxygen. HEENT: Normocephalic. NECK: Supple. CHEST: Few crackles bilateral. HEART: S1 and S2. ABDOMEN: Soft. Bowel sounds present. EXTREMITIES: No edema. SKIN: No rash. LABORATORY DATA: White count is 5.2 and hemoglobin 11. REVIEW OF SYSTEMS: Has had abdominal discomfort, she denies any. The patient is currently on insulin, dexamethasone, zinc, and vitamin C. She is on Lovenox 80 q.12. She is currently on meropenem, to finish 7 days since I am concerned about hospital-acquired or hospital-related infection. Five days of remdesivir. COVID-19. Check amylase, lipase, liver enzymes, and check abdominal ultrasound. We will follow. MD KATIA Beltran/MYRIAM /[id number]
[2020-06-30] MEDS: FAMOTIDINE 20 MG/2 ML VIAL IV SCH (16:25)
[2020-06-30] MEDS: REMDESIVIR 100MG/NS 100ML 100 MG in SODIUM CHLORIDE 0.9% 100 ML 100 ML IV SCH (18:14)
[2020-06-30] MEDS: PRAVASTATIN 20 MG TAB PO SCH (21:22)
--- NOTE | 2020-06-30 21:28 | NUR ---
Pt. bathed, purwick catheter changed, linens changed.
[2020-07-01] VITALS (24 sets, daily range): BP systolic 97–126; BP diastolic 55–77
[2020-07-01] MEDS: MEROPENEM 1GM 100 ML IV SCH ×3 (03:28→16:16)
[2020-07-01 04:20] LABS: HEMATOCRIT 37.2 % (34.2-44.1); HEMOGLOBIN 11.9 g/dL (12.0-16.0); LYMPHOCYTES # (AUTO) 0.5 (1.0-3.2); MEAN CORPUSCULAR HEMOGLOBIN 28.9 pg (28-32); MEAN CORPUSCULAR VOLUME 90.3 fL (81-99); MONOCYTES # (AUTO) 0.3 (0.2-0.8); MONOCYTES % 7.8 % (4.4-11.3); NEUTROPHILS # (AUTO) 2.8 (2.1-6.9); NEUTROPHILS % 77.4 % (38.7-80.0); PLATELET COUNT 265 x10e3/uL (140-360); RED BLOOD COUNT 4.12 x10e6/uL (3.6-5.1); RED CELL DISTRIBUTION WIDTH 13.1 % (11.7-14.4)
[2020-07-01 04:45] LABS: ALANINE AMINOTRANSFERASE 15 IU/L (0-55); ALBUMIN 3.2 g/dL (3.5-5.0); ALKALINE PHOSPHATASE 46 IU/L (40-150); ANION GAP 17.9 mmol/L (8-16); BUN/CREATININE RATIO 28 (6-25); CALCIUM 8.5 mg/dL (8.4-10.2); CARBON DIOXIDE 20 mmol/L (22-29); CHLORIDE 105 mmol/L (98-107); EST GLOMERULAR FILTRATION RATE > 60 ML/MIN (60-); GLUCOSE 148 mg/dL (74-118); POTASSIUM 3.9 mmol/L (3.5-5.1); SODIUM 139 mmol/L (136-145)
[2020-07-01 04:51] LABS: BLOOD UREA NITROGEN 17 mg/dL (7-26)
[2020-07-01] MEDS: BENZONATATE 100 MG CAP PO SCH ×3 (06:26→21:13)
--- NOTE | 2020-07-01 07:24 | Consultation ---
DATE OF CONSULTATION: 07/01/2020 Cardiology Consult Note REASON FOR CONSULT: Atrial fibrillation with an RVR. CHIEF COMPLAINT: Shortness of breath. HISTORY OF PRESENT ILLNESS: A 75-year-old female presenting with COVID pneumonia, found to be in atrial fibrillation with RVR on presentation. PAST MEDICAL HISTORY: Obese, hypertension, hyperlipidemia, COPD. SOCIAL HISTORY: Noncontributory. FAMILY HISTORY: Noncontributory. OUTPATIENT MEDICATIONS: Reviewed. REVIEW OF SYSTEMS: Unobtainable. OBJECTIVE: VITAL SIGNS: Temperature 99.9, pulse 84, respiratory rate 18, blood pressure 113/47, saturating 91% on 4 L. The patient was otherwise not physically examined due to COVID-19 isolation. INPATIENT MEDICATIONS: Reviewed. LABORATORY DATA: Reviewed. Troponins negative. TELEMETRY DATA: Reviewed. Now back in sinus rhythm. ASSESSMENT AND PLAN: 1. Paroxysmal atrial fibrillation. 2. COVID-19 pneumonia. 3. Hypoxia. 4. Respiratory failure. PLAN: The patient has returned to normal sinus rhythm. Add low-dose beta blockers if blood pressure tolerates. Otherwise, we will continue to monitor. Continue Lovenox 80 mg b.i.d. for now. Once recovers from COVID, we will plan to change to long-term anticoagulation with NOAC. Echocardiogram results are pending. MD FELIPE Landers/DOTTYL /[id number]
[2020-07-01] MEDS: INSULIN REGULAR, HUMAN 100 UNIT/1 ML 3ML VIAL SQ SCH ×4 (07:43→21:12)
[2020-07-01] MEDS: ASCORBIC ACID 500 MG TAB PO SCH ×2 (08:10→16:16)
[2020-07-01] MEDS: DEXAMETHASONE SOD PHOS INJ 4 MG/ML VIAL IV SCH (08:10)
[2020-07-01] MEDS: FAMOTIDINE 20 MG/2 ML VIAL IV SCH ×2 (08:10→16:16)
[2020-07-01] MEDS: ZINC SULFATE 220 MG CAP PO SCH (08:11)
[2020-07-01] MEDS: ENOXAPARIN INJ 80 MG/0.8 ML SYR SC SCH ×2 (08:11→21:13)
[2020-07-01 09:31] LABS: BAND NEUTROPHILS % (MANUAL) 4 %; LYMPHOCYTES % (MANUAL) 9 % (19-48); MONOCYTES % (MANUAL) 6 % (3.4-9.0); NEUTROPHILS % (MANUAL) 81 % (40-74); PLATELET ESTIMATE ADEQUATE; PLATELET MORPHOLOGY COMMENT NORMAL; RBC MORPHOLOGY COMMENT NORMAL
--- NOTE | 2020-07-01 09:31 | NUR ---
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 9-5 continue treatments; monitor closely. 9-6 remains confused; continue O2 support 5L; monitor; BARBARA ERVIN MD, PHD
[2020-07-01 12:40] LABS: AMYLASE 36 U/L (25-125); LIPASE 14 U/L (8-78)
--- NOTE | 2020-07-01 13:36 | Progress Note ---
DATE: SUBJECTIVE: The patient is still on 5 L nasal cannula. She complains of some discomfort in the abdomen. She is eating. PHYSICAL EXAMINATION: VITAL SIGNS: Blood pressure is 107/65, saturation is 91% on 5 L. The pulse is 65. HEENT: Shows no facial swelling or erythema. LYMPHATIC Shows no submandibular, cervical, or supraclavicular adenopathy. CARDIAC: Reveals regular rate and rhythm with normal S1 and S2. LUNGS: Auscultation of lungs reveals clear breath sounds bilaterally. There is no wheezing. ABDOMEN: Soft and nontender. There is no rebound or guarding. EXTREMITIES: Shows no leg edema or calf tenderness. LABORATORY DATA: White blood cell count is 3.6, hemoglobin is 11.9. Platelet count is 265. The BUN to creatinine ratio is 17 to 0.6 and the carbon dioxide is 20. Other electrolytes are within normal limits. RADIOGRAPHIC DATA: Abdominal ultrasound shows mild hepatic steatosis. IMPRESSION: 1. Viral pneumonia and COVID-19 infection. 2. Atrial fibrillation. 3. Diabetes. 4. Abdominal pain. PLAN: 1. Continue to wean oxygen. 2. Scheduled for barium swallow tomorrow. 3. Physical therapy. 4. Complete remdesivir and dexamethasone. 5. Complete antibiotics. 6. Continue Lovenox. Heraclio Parker MD [facility]/MODL /[id number]
--- NOTE | 2020-07-01 14:32 | Progress Note ---
DATE: SUBJECTIVE: The patient is seen and evaluated. Available labs and notes reviewed. Discussed with Dr. Quevedo. Please refer to chart for more information. This patient has no complaints today. Discussed with the nurse, on a vent full night. REVIEW OF SYSTEMS: No new complaints, comfortable in bed. She states that she is doing okay as far as oxygen; however, not much verbal, most of the information was provided by the nurse. PHYSICAL EXAMINATION: VITAL SIGNS: Temperature 97.7, pulse is 69, respirations 18, and blood pressure 104/61. GENERAL: Awake and alert, the patient on 5 L/minute of nasal cannula, seems to be comfortable on that. The patient is obese with BMI of 67.1 that puts her in the morbidly obese category. CV: S1-S2. CHEST: Equal expansion, decreased breath sounds, no acute distress. ABDOMEN: Soft, obese, nontender. Positive bowel sounds. HEENT: Moist. No pallor. No JVD. EXTREMITIES: No cyanosis, no rash. LABORATORY STUDIES: White count of 3.57, hemoglobin 11.9 with a platelet count of 265. Sodium 139, potassium 3.9, creatinine 0.6. MICROBIOLOGY: No new microbiology studies available. RADIOLOGY STUDIES: The patient has some abdominal discomfort, which abdominal ultrasound was completed yesterday showing mild hepatic steatosis without focal mass. LFTs within normal limits. ASSESSMENT AND PLAN: 1. COVID-19 pneumonitis. 2. Abdominal discomfort. 3. Follow with the lipase and amylase, LFT was normal. 4. Medication list reviewed. From ID point of view, the patient is on meropenem, Lovenox, dexamethasone, remdesivir. Continue to monitor patient clinically and follow up with the labs with older lipase and amylase. Dictated by Cornell Rubin PA-C (Al) Martha Quevedo MD /MODL /[id number]
[2020-07-01] MEDS: REMDESIVIR 100MG/NS 100ML 100 MG in SODIUM CHLORIDE 0.9% 100 ML 100 ML IV SCH (17:17)
--- NOTE | 2020-07-01 18:22 | Progress Note ---
DATE: 07/01/2020 Cardiology Progress Note SUBJECTIVE: No major events. OBJECTIVE: VITAL SIGNS: Temperature afebrile, pulse 65, respiratory rate 16, blood pressure 103/61, and saturating 91% on 5 L. The patient was not physically examined due to Coronavirus isolation. INPATIENT MEDICATIONS: Reviewed. LABORATORY DATA: Reviewed. TELEMETRY DATA: Reviewed, shows sinus rhythm. ASSESSMENT AND PLAN: 1. Atrial fibrillation with rapid ventricular response. 2. COVID-19 pneumonia. PLAN: Sinus rhythm has been restored. Echocardiogram reviewed, shows normal LV function. No severe valvular abnormalities. Continue Lovenox 80 b.i.d. Blood pressure is still borderline. We will wait a little better before starting metoprolol. MD ALLEGRA LandersP/DOTTYL /[id number]
[2020-07-01] MEDS: PRAVASTATIN 20 MG TAB PO SCH (21:11)
--- NOTE | 2020-07-01 22:19 | NUR ---
Patient arrived to unit in stable condition, no s/s of distress at this time. Respirations even and unlabored on 5L NC. Bed locked and in lowest position, side rails upx3, alarm on, call light placed within reach. All safety measures in place.
--- NOTE | 2020-07-01 22:37 | NUR ---
Report called to Iliana WHARTON. Pt. bathed, linens changed. [place] changed. All belongings transferred with patient to new room. Pt transported on tele/spo2 monitor with hotel general manager Brenda.
[2020-07-02] VITALS (8 sets, daily range): BP systolic 106–124; BP diastolic 56–77
--- NOTE | 2020-07-02 00:09 | NUR ---
Clean catch urine specimen obtained and sent to lab.
[2020-07-02 00:36] LABS: BILIRUBIN,URINE MODERATE (NEGATIVE); CLARITY,URINE CLOUDY (CLEAR); COLOR,URINE YELLOW (YELLOW); KETONES,URINE 2+ (NEGATIVE); LEUKOCYTE ESTERASE ,URINE 1+ (NEGATIVE); NITRITE,URINE POSITIVE (NEGATIVE); PROTEIN,URINE DIPSTICK 1+ (NEGATIVE); URINE UROBILINOGEN 1 mg/dL (0.2 - 1)
[2020-07-02 00:37] LABS: BACTERIA,URINE MANY /HPF; EPITHELIAL CELLS,URINE FEW /LPF; RBC,URINE 0-5 /HPF (0-5)
[2020-07-02] MEDS ORDERED: SODIUM CHLORIDE 0.9% 250ML 250 ML ONE (01:14)
[2020-07-02] MEDS: MEROPENEM 1GM 100 ML IV SCH (01:19)
--- NOTE | 2020-07-02 01:19 | NUR ---
Patient appears confused and agitated, claims to be "seeing things" on the floor and wood. Stating that she would like to leave AMA and has called her son to come pick her up. Family called to voice concerns. Patient reoriented to room and treatment plan. Administered PRN sleeping medication per patient request. Patient currently resting quietly in bed, no s/s of distress at this time. All safety measures in place.
[2020-07-02] MEDS: BENZONATATE 100 MG CAP PO SCH ×3 (05:07→22:20)
--- NOTE | 2020-07-02 05:08 | NUR ---
Patient trying to leave bed, stating that she wants to go see her . Re-oriented to room and educated on plan of care. Patient back in bed, O2 94% on 5L NC, vital signs stable. Bed locked and in lowest position, side rails up, alarm on, call light placed within reach. Patient instructed to call for assistance if needed, verbalized understanding. All safety measures in place.
--- NOTE | 2020-07-02 06:27 | NUR ---
Bed alarm alerting that patient trying to leave bed once again. Patient stating that she needs to see her and go to her room. Appears confused and agitated. Reoriented to room and re-educated on plan of care. Bed locked and in lowest position, side rails up, alarm on, call light placed within reach. Patient instructed to call for assistance if needed, verbalized understanding. All safety measures in place.
[2020-07-02] MEDS: ASCORBIC ACID 500 MG TAB PO SCH ×2 (08:50→16:57)
[2020-07-02] MEDS: INSULIN REGULAR, HUMAN 100 UNIT/1 ML 3ML VIAL SQ SCH ×4 (08:50→20:08)
[2020-07-02] MEDS: ZINC SULFATE 220 MG CAP PO SCH (08:50)
[2020-07-02] MEDS: ENOXAPARIN INJ 80 MG/0.8 ML SYR SC SCH ×2 (08:50→19:53)
[2020-07-02] MEDS: DEXAMETHASONE SOD PHOS INJ 4 MG/ML VIAL IV SCH (08:50)
[2020-07-02] MEDS: FAMOTIDINE 20 MG/2 ML VIAL IV SCH ×2 (08:50→16:57)
[2020-07-02] MEDS ORDERED: CEFEPIME 1GM/NS 0.9% 50 ML 50 ML IV SCH (09:00)
--- NOTE | 2020-07-02 10:00 | Progress Note ---
DATE: SUBJECTIVE: The patient is currently out of the Intensive Care Unit. The patient is still only requiring 4-5 L of oxygen, but the family is complaining she is more confused. The patient denies any confusion or respiratory problems. She is not having any chest pain. PHYSICAL EXAMINATION: VITAL SIGNS: The patient is afebrile. The blood pressure is 119/56, saturation is 94% on 5 L. HEENT: Shows no facial swelling or erythema. LYMPHATIC: Shows no submandibular, cervical or supraclavicular adenopathy. CARDIAC: Reveals regular rate and rhythm with normal S1, S2. LUNGS: Auscultation of lungs reveals rhonchorous breath sounds bilaterally. There is no wheezing. ABDOMEN: Soft, nontender. There is no rebound or guarding. EXTREMITIES: Shows no leg edema or calf tenderness. There is no cyanosis or clubbing. SKIN: Shows no rashes. LABORATORY DATA: BUN to creatinine ratio is normal. Carbon dioxide is 20. Other electrolytes are within normal limits and the albumin is 3.2. White blood cell count is 3.5 and hemoglobin 11.9. The platelet count is 265. IMPRESSION: 1. Metabolic encephalopathy with confusion. 2. Viral pneumonia and COVID-19 infection. 3. Atrial fibrillation. 4. Diabetes. PLAN: 1. Review patient's medications and stop any medicines, which may be contributing to confusion. 2. Complete treatment with antibiotics for possible superimposed bacterial pneumonia. 3. Complete treatment with . 4. Continue Lovenox. 5. Consider low-dose risperidone. 6. Modified barium swallow as schedule for today. 7. Physical therapy. MD LUBNA Bishop/DOTTYL /[id number]
--- NOTE | 2020-07-02 10:38 | NUR ---
ST Note: Order for modified barium swallow study noted. Confirmed with radiology staff that no radiologist will be on-site today due to the holiday and so the MBS cannot be performed. Will plan to complete MBS 07/03/20.
--- NOTE | 2020-07-02 11:06 | NUR ---
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 9-5 continue treatments; monitor closely. 9-6 remains confused; continue O2 support 5L; monitor; 9-7 Echo normal; improving; Severe physical deconditioning- SNF eval. BARBARA ERVIN MD, PHD
--- NOTE | 2020-07-02 13:34 | NUR ---
PER NEXT DOOR TO THIS PT, HE DOES NOT WANT SNF, HE PREFERS TO TAKE HOME AND CARE FOR HER HIMSELF WITH HOME HEALTH. FILED CHOICE IN CHART. NURSE WITNESSED.
--- NOTE | 2020-07-02 16:50 | Progress Note ---
DATE: SUBJECTIVE: She was little confused earlier today, but she states she is feeling better in general. Her breathing is better. She is not in the intensive care unit. REVIEW OF SYSTEMS: She said she is feeling better and while she remains on 4 L. Apparently, she was confused as mentioned above, now she seems okay. LABORATORY DATA: Her white count is 3.57, hemoglobin 11.9. Her sodium is 139 and creatinine of 0.6. PHYSICAL EXAMINATION: VITAL SIGNS: Stable, afebrile. HEENT: Not icteric. NECK: Supple. CHEST: Crackles bilateral. HEART: S1, S2. ABDOMEN: Soft. Bowel sounds present. EXTREMITIES: No edema. SKIN: No rash. IMPRESSION: 1. Altered mental status. I am going to stop her meropenem, cefepime, and remdesivir as well as dexamethasone. 2. Still have concern about metabolic. 3. Hypoxemia. Continue with oxygen. 4. It is too late for convalescent plasma I think. 5. Reassess in the morning. MD KATIA Beltran/MODL /[id number]
[2020-07-02] MEDS: PRAVASTATIN 20 MG TAB PO SCH (19:53)
--- NOTE | 2020-07-02 22:20 | NUR ---
PATIENT REFUSES TO BE TURNED OR REPOSITIONED
[2020-07-03] VITALS: BP 113/71
--- NOTE | 2020-07-03 02:20 | NUR ---
BED ALARM SOUNDING. ENTERED ROOM AND FOUND PATIENT AMBULATING WITH . ASSISTED PATIENT TO BATHROOM AND BACK TO BED. PROVIDED SAFETY EDUCATION TO PATIENT AND . INSTRUCTED TO NOTIFY NURSE IF NEED TO GET UP X2. VERBALIZED UNDERSTANDING X2. CALL LIGHT WITHIN REACH. BED LOCKED AND IN LOW POSITION. SR UPX2. BED ALARM ACTIVATED.
--- NOTE | 2020-07-03 03:50 | NUR ---
CENTRAL LINE CARE GIVEN. DAILY CHG BATH PROVIDED. NEW CATHETER PORTS. SALINE FLUSHES. NEW ALCOHOL CAPS PLACED.
[2020-07-03 04:00] VITALS: BP 112/64
[2020-07-03] MEDS: BENZONATATE 100 MG CAP PO SCH (05:21)
--- NOTE | 2020-07-03 07:04 | NUR ---
REPORT GIVEN TO [facility] NURSE. ALERT AND RESTING IN BED. NO SIGNS IV INFILTRATION. BED LOCKED AND IN LOW POSITION. CALL LIGHT WITHIN REACH. BED ALARM ACTIVATED. Addendum: 07/03/20 at 0705 by Chastity Mehta RN PLEASE INCLUDE AT BEDSIDE.
[2020-07-03 08:00] VITALS: BP 96/57
[2020-07-03] MEDS: ZINC SULFATE 220 MG CAP PO SCH (08:19)
[2020-07-03] MEDS: FAMOTIDINE 20 MG/2 ML VIAL IV SCH (08:19)
[2020-07-03] MEDS: ENOXAPARIN INJ 80 MG/0.8 ML SYR SC SCH (08:19)
[2020-07-03] MEDS: ASCORBIC ACID 500 MG TAB PO SCH (08:19)
[2020-07-03] MEDS: INSULIN REGULAR, HUMAN 100 UNIT/1 ML 3ML VIAL SQ SCH ×2 (08:21→11:30)
[2020-07-03 08:55] VITALS: BP 96/57
[2020-07-03] MEDS ORDERED: KEFLEX500 MG PO (08:55)
[2020-07-03] MEDS ORDERED: TESSALON PERLE100 MG PO (08:55)
[2020-07-03] MEDS ORDERED: ZITHROMAX500 MG PO (08:55)
--- NOTE | 2020-07-03 10:30 | NUR ---
home O2 eval done by RN, pt desaturated to 87% on RA while at rest. informed case management
[2020-07-03 12:00] VITALS: BP 109/59
--- NOTE | 2020-07-03 12:09 | NUR ---
CALL TO PT TO ARRANGE HH FOR SN AND PT AND HOME O2. NO ANSWER. CALL PT'S , JONSA @ [phone]. THE WAS IN THE ROOM W THE PT. CHOICE WAS PROVIDED FOR HOME HEALTH; [facility] AND [facility]. CHOSE [facility]. PROVIDED CHOICE FOR HOME O2; [facility]. CHOSE [facility]. IMM LETTER WAS EXPLAINED TO AND THE PT; VERBALIZED UNDERSTANDING. IMM LETTER WAS SIGNED AND COPY TO CHART AND COPY TO THE PT. REFERRAL WAS FAXED TO [facility] @ OFF: [phone] / FAX: [phone]. REFERRAL WAS FAXED TO [facility] @ OFF: [phone] / FAX: [phone].
--- NOTE | 2020-07-03 12:16 | NUR ---
HOME HEALTH DISCHARGE NOTE PATIENT ADDRESS WHERE SERVICE WILL BE RECEIVED: [facility] [place] [address] PATIENT CONTACT NUMBER: [phone] NAME OF HOME HEALTH COMPANY: [employer] TELEPHONE/FAX NUMBER OF COMPANY: OFF: [phone] / FAX: [phone] SERVICES TO RECEIVE: SKILLED NURSE, PHYSICAL THERAPIST TO EVAL AND TREAT ANTICIPATED DATE SERVICES WILL BEGIN: 07/04/2020 NAME OF [employer] COMPANY: [email or web address] TELEPHONE/FAX NUMBER OF COMPANY: OFF: [phone] / FAX: [phone] Please call the company above if you have not received a call to schedule a home visit within 24 hours of discharge.
--- NOTE | 2020-07-03 12:33 | NUR ---
ST Note: Per Danya RN, pt to be d/c'ed home today. MBS cancelled.
--- NOTE | 2020-07-03 13:04 | Progress Note ---
DATE: SUBJECTIVE: The patient is afebrile. The patient is less confused. She has less dyspnea. PHYSICAL EXAMINATION: VITAL SIGNS: Blood pressure is 109/59, saturation is 96% on 4 L. HEENT: Shows no facial swelling or erythema. CARDIAC: Reveals regular rate and rhythm with normal S1 and S2. LUNGS: Auscultation of lungs reveals rhonchorous breath sounds bilaterally. There is no wheezing. ABDOMEN: Soft and nontender. There is no rebound or guarding. EXTREMITIES: Shows no leg edema or calf tenderness. There is no cyanosis or clubbing. SKIN: Shows no rashes. NEUROLOGICAL: Shows no focal abnormalities. LABORATORY DATA: White blood cell count is 3.57, hemoglobin is 11.9. Platelet count is 265. BUN to creatinine ratio is normal. Other electrolytes are within normal limits. IMPRESSION: 1. Acute respiratory failure. 2. Viral pneumonia and COVID-19 infection. 3. Metabolic encephalopathy. 4. Atrial fibrillation. 5. Diabetes. PLAN: 1. Arrange for disposition. 2. The patient will need home oxygen. 3. Complete antibiotics and Decadron as an outpatient. 4. The patient should be on low-dose Eliquis initially after returning home. 5. Follow up in three weeks. 6. The patient should return to the emergency department for any worsening dyspnea, fevers or other worrisome symptoms. MD LUBNA Bishop/MYRIAM /[id number]
== END 2020-07-03 14:46 | disposition home health service (06) | DRG 177 ==
LOC: ER 15:47 → ERHOLD 15:54 → COVIDICU 17:45 → MED/SURG3 07-01 21:53
PROVIDERS: ADMIT Internal Medicine; ATTEND Internal Medicine
PROC: 02HV33Z Insertion of Infusion Device into Superior Vena Cava, Percutaneous Approach (ICD-10-PCS; principal; 2020-06-28)
PROC: 8E0ZXY6 Isolation (ICD-10-PCS; 2020-06-28)
DX: U07.1 COVID-19 (principal); J12.9 Viral pneumonia, unspecified; J96.01 Acute respiratory failure with hypoxia; G93.41 Metabolic encephalopathy; Z68.44 Body mass index [BMI] 60.0-69.9, adult; I48.0 Paroxysmal atrial fibrillation; Z79.01 Long term (current) use of anticoagulants; J44.9 Chronic obstructive pulmonary disease, unspecified; E66.01 Morbid (severe) obesity due to excess calories; E11.9 Type 2 diabetes mellitus without complications
CPT/HCPCS: 36415; 71045; 71260; 76700; 80053; 80061; 81001; 82150; 82550; 82553; 82948; 83036; 83690; 84484; 85025; 93005; 93306; 97139; 99285; J1100; J1650; J1817; J2405; J3370; J7050; J7121; Q9967